=== PATIENT | male | born 1945 | race Caucasian/White ===

== ENCOUNTER → 2016-11-07 | Outpatient (CLI) | payer BC ==
[~2016-11-07] MED LIST: AMLO-114 PO; ASCO500T16 PO; ASPI81TA28 PO; ATOR-54 PO; CHOL100027 PO; CO Q10 PO; CYAN10004 PO; FERR-24 PO; GLC/500 PO; INSUINJ14 SQ; INSUINJ4 SQ; ISOS120T5 PO; LEVO100T PO; METO25TA56 PO; MULT-827 PO; MULTTAB58 PO; NTRARSCL TL; PANT1TAB48 PO; RANO1000 PO; VALS40TA2 PO
[2016-11-07 09:44] LABS: ALT/SGPT 28 U/L (12-78); AST/SGOT 13 U/L (15-37); BLOOD UREA NITROGEN 18 mg/dl (7-18); BUN/CREATININE RATIO 18.2 (10-20); CALCIUM 9.1 mg/dl (8.5-10.1); CARBON DIOXIDE 27 mmol/L (21-32); CHLORIDE 106 mmol/L (98-107); CHOLESTEROL 132 mg/dl (0-200); GLUCOSE 76 mg/dl (70-99); POTASSIUM 4.3 mmol/L (3.5-5.1); SODIUM 143 mmol/L (136-145); TRIGLYCERIDES 54 mg/dl (0-150); VERY LOW DENSITY LIPOPROT CALC 11 mg/dl
[2016-11-07 09:48] LABS: ESTIMATED AVERAGE GLUCOSE 137 mg/dl; HA1C FLAG Normal (Normal)
[2016-11-07 09:54] LABS: HDL CHOLESTEROL 65 mg/dl; LDL CHOLESTEROL CALCULATED 56 mg/dl
[2016-11-07 10:16] LABS: RATIO 28.1 mcg/mg (0-30.0)
== END | disposition home or self-care (01) ==
LOC: C.LAB1850 07:56
PROVIDERS: ATTEND Internal Medicine
DX: E11.9 Type 2 diabetes mellitus without complications (principal); E53.8 Deficiency of other specified B group vitamins; E78.5 Hyperlipidemia, unspecified

== ENCOUNTER → 2016-11-17 | Outpatient (CLI) | payer BC ==
--- NOTE | 2016-11-17 11:31 | DIAGNOSTIC IMAGING REPORT ---
CHEST 2 VIEWS ROUTINE CLINICAL HISTORY: Preoperative chest COMPARISON STUDY: 07/26/2014 FINDINGS: There are postsurgical changes of midline sternotomy. There is no failure. There is no focal pulmonary consolidation. There is minimal blunting of the right posterior costophrenic angle. A trace effusion cannot be excluded. IMPRESSION: Equivocal trace right pleural effusion. No evidence of overt failure. No evidence of focal pulmonary consolidation Electronically signed by: Richard Benoit M.D. 11/17/2016 11:30 AM Dictated Date/Time: 11/17/2016 11:28 AM
== END | disposition home or self-care (01) ==
LOC: C.RAD1850 11:18
PROVIDERS: ATTEND Internal Medicine
DX: I25.2 Old myocardial infarction (principal); I25.10 Atherosclerotic heart disease of native coronary artery without angina pectoris; I44.1 Atrioventricular block, second degree

== ENCOUNTER → 2016-12-23 | Outpatient (CLI) | payer BC ==
[2016-12-23 10:16] LABS: BLOOD UREA NITROGEN 15 mg/dl (7-18); BUN/CREATININE RATIO 13.7 (10-20); CARBON DIOXIDE 27 mmol/L (21-32); CHLORIDE 100 mmol/L (98-107); GLUCOSE 175 mg/dl (70-99); POTASSIUM 4.3 mmol/L (3.5-5.1); SODIUM 134 mmol/L (136-145)
== END | disposition home or self-care (01) ==
LOC: C.LAB1850 08:20
PROVIDERS: ATTEND Internal Medicine Cardiovascular Disease
DX: I10 Essential (primary) hypertension (principal)

== ENCOUNTER → 2017-03-14 | Outpatient (CLI) | payer BC ==
[2017-03-14 09:59] LABS: ALT/SGPT 27 U/L (12-78); AST/SGOT 10 U/L (15-37); BLOOD UREA NITROGEN 15 mg/dl (7-18); BUN/CREATININE RATIO 12.8 (10-20); CARBON DIOXIDE 27 mmol/L (21-32); CHLORIDE 103 mmol/L (98-107); CHOLESTEROL 116 mg/dl (0-200); GLUCOSE 122 mg/dl (70-99); POTASSIUM 4.3 mmol/L (3.5-5.1); SODIUM 140 mmol/L (136-145); TRIGLYCERIDES 74 mg/dl (0-150); VERY LOW DENSITY LIPOPROT CALC 15 mg/dl
[2017-03-14 10:02] LABS: CALCIUM 9.6 mg/dl (8.5-10.1)
[2017-03-14 10:09] LABS: CHOLESTEROL/HDL RATIO 2.1; HDL CHOLESTEROL 55 mg/dl; LDL CHOLESTEROL CALCULATED 46 mg/dl
[2017-03-14 10:22] LABS: ESTIMATED AVERAGE GLUCOSE 146 mg/dl; HA1C FLAG Normal (Normal)
== END | disposition home or self-care (01) ==
LOC: C.LAB1850 07:43
PROVIDERS: ATTEND Internal Medicine
DX: E11.9 Type 2 diabetes mellitus without complications (principal); E78.5 Hyperlipidemia, unspecified; E03.9 Hypothyroidism, unspecified

== ENCOUNTER → 2017-07-11 | Outpatient (CLI) | payer BC ==
[2017-07-11 12:09] LABS: BASO % 0.3 %; BASO ABS # 0.02 K/uL (0-0.2); COMPLETE YES; HEMATOCRIT 38.7 % (42-52); IG% 0.3 %; LYMPH % 25.8 %; LYMPH ABS # 1.98 K/uL (1.2-3.4); MEAN CELL VOLUME 90.8 fL (80-100); MEAN CORPUSCULAR HEMOGLOBIN 31.7 pg (25-34); MEAN CORPUSCULAR HGB CONC 34.9 g/dl (32-36); MEAN PLATELET VOLUME 10.2 fL (7.4-10.4); MONO % 6.8 %; NEUT % 64.8 %; PLATELET COUNT 284 K/uL (130-400); RED BLOOD COUNT 4.26 M/uL (4.7-6.1); WHITE BLOOD COUNT 7.68 K/uL (4.8-10.8)
[2017-07-11 12:34] LABS: ESTIMATED AVERAGE GLUCOSE 134 mg/dl; HA1C FLAG Normal (Normal)
[2017-07-11 12:36] LABS: BLOOD UREA NITROGEN 15 mg/dl (7-18); BUN/CREATININE RATIO 13.4 (10-20); CALCIUM 9.3 mg/dl (8.5-10.1); CARBON DIOXIDE 27 mmol/L (21-32); CHLORIDE 100 mmol/L (98-107); GLUCOSE 223 mg/dl (70-99); POTASSIUM 4.5 mmol/L (3.5-5.1); SODIUM 134 mmol/L (136-145)
[2017-07-11 12:45] LABS: PROSTATE SPECIFIC ANTIGEN 0.411 ng/ml (0.000-4.000)
== END | disposition home or self-care (01) ==
LOC: C.LAB1850 10:24
PROVIDERS: ATTEND Internal Medicine
DX: D64.9 Anemia, unspecified (principal); E11.9 Type 2 diabetes mellitus without complications; E03.9 Hypothyroidism, unspecified; E53.8 Deficiency of other specified B group vitamins; Z12.5 Encounter for screening for malignant neoplasm of prostate

== ENCOUNTER → 2017-07-21 | Outpatient (CLI) | payer BC ==
[2017-07-21 11:01] LABS: URINE APPEARANCE CLEAR (CLEAR); URINE BILIRUBIN NEG (NEG); URINE COLOR DK YELLOW; URINE EPITHELIAL CELL AUTO 0-5 /lpf (0-5); URINE NITRITE NEG (NEG); URINE SPECIFIC GRAVITY 1.024 (1.000-1.030); UROBILINOGEN NEG (NEG)
[2017-07-21 11:03] LABS: MANUAL MICROSCOPIC REQUIRED? NO; REVIEW REQ? NO
== END | disposition home or self-care (01) ==
LOC: C.LAB1850 09:18
PROVIDERS: ATTEND Internal Medicine
DX: R35.1 Nocturia (principal)

== ENCOUNTER → 2017-10-03 | Outpatient (CLI) | payer BC ==
--- NOTE | 2017-10-03 15:14 | DIAGNOSTIC IMAGING REPORT ---
CHEST 2 VIEWS ROUTINE CLINICAL HISTORY: R05 [id number] COMPARISON STUDY: 11/17/2016 FINDINGS: There are postsurgical changes of a midline sternotomy. The heart is borderline enlarged. There is no failure. There are no pleural effusions. There are minimal lingular opacities, atelectatic versus infectious/inflammatory.[ IMPRESSION: Minimal nonspecific lingular opacities, atelectatic versus infectious/inflammatory. Electronically signed by: Richard Benoit M.D. 10/03/2017 3:12 PM Dictated Date/Time: 10/03/2017 3:11 PM
== END | disposition home or self-care (01) ==
LOC: C.RAD 14:54
PROVIDERS: ATTEND Internal Medicine
DX: R91.8 Other nonspecific abnormal finding of lung field (principal); R05 Cough

== ENCOUNTER → 2017-10-25 | Outpatient (CLI) | payer BC ==
[~2017-10-25] MED LIST changes: -AMLO-114 PO; +AMLO10TA3 PO; +PANT1TAB3 PO; -PANT1TAB48 PO
--- NOTE | 2017-10-25 14:46 | DIAGNOSTIC IMAGING REPORT ---
CHEST 2 VIEWS ROUTINE HISTORY: J18.9 Lingular pneumonia [id number] COMPARISON: Chest 10/03/2017. FINDINGS: The lingular airspace opacity has resolved in the interval. No new focal lung consolidations to suggest pneumonia. No pleural effusions. No pneumothorax. The heart remains mildly enlarged. Poststernotomy changes. Stable old mild superior endplate compression deformity at L1. IMPRESSION: Interval resolution of the lingular airspace opacity. Stable mild cardiomegaly. Electronically signed by: Mandeep Alberto M.D. 10/25/2017 2:45 PM Dictated Date/Time: 10/25/2017 2:43 PM
== END | disposition home or self-care (01) ==
LOC: C.RAD1850 14:35
PROVIDERS: ATTEND Internal Medicine
DX: J18.9 Pneumonia, unspecified organism (principal); I51.7 Cardiomegaly

== ENCOUNTER → 2017-12-01 | Outpatient (CLI) | payer BC ==
[~2017-12-01] MED LIST changes: +AMLO-114 PO; -AMLO10TA3 PO
[2017-12-01 10:36] LABS: ALT/SGPT 37 U/L (12-78); AST/SGOT 17 U/L (15-37); BLOOD UREA NITROGEN 15 mg/dl (7-18); CALCIUM 9.4 mg/dl (8.5-10.1); CARBON DIOXIDE 30 mmol/L (21-32); CREATININE 1.14 mg/dl (0.60-1.40); GLUCOSE 84 mg/dl (70-99); POTASSIUM 4.3 mmol/L (3.5-5.1); SODIUM 137 mmol/L (136-145)
[2017-12-01 10:39] LABS: HEMOGLOBIN A1C 6.4 % (4.5-5.6)
[2017-12-01 10:42] LABS: CREATININE RANDOM URINE 31.7 mg/dl
[2017-12-01 10:47] LABS: CHOLESTEROL 117 mg/dl (0-200); LDL CHOLESTEROL CALCULATED 43 mg/dl
== END | disposition home or self-care (01) ==
LOC: C.LAB1850 09:13
PROVIDERS: ATTEND Internal Medicine
DX: R80.9 Proteinuria, unspecified (principal); E78.5 Hyperlipidemia, unspecified; E03.9 Hypothyroidism, unspecified; E11.9 Type 2 diabetes mellitus without complications

== ENCOUNTER → 2018-03-19 | Outpatient (CLI) | payer BC ==
[2018-03-19 09:52] LABS: BASO % 0.2 %; BASO ABS # 0.01 K/uL (0-0.2); EOS % 3.2 %; EOS ABS # 0.19 K/uL (0-0.5); HEMOGLOBIN 13.3 g/dL (14.0-18.0); IG# 0.01 K/uL (0.00-0.02); LYMPH % 37.2 %; LYMPH ABS # 2.24 K/uL (1.2-3.4); MEAN CELL VOLUME 90.1 fL (80-100); MEAN CORPUSCULAR HEMOGLOBIN 30.7 pg (25-34); MEAN CORPUSCULAR HGB CONC 34.1 g/dl (32-36); MEAN PLATELET VOLUME 9.7 fL (7.4-10.4); MONO % 7.1 %; MONO ABS # 0.43 K/uL (0.11-0.59); NEUT % 52.1 %; NEUT ABS # 3.14 K/uL (1.4-6.5); PLATELET COUNT 296 K/uL (130-400); RED CELL DISTRIBUTION WIDTH CV 13.8 % (11.5-14.5); RED CELL DISTRIBUTION WIDTH SD 45.5 fL (36.4-46.3); WHITE BLOOD COUNT 6.02 K/uL (4.8-10.8)
[2018-03-19 10:13] LABS: ALT/SGPT 28 U/L (12-78); AST/SGOT 15 U/L (15-37); BLOOD UREA NITROGEN 15 mg/dl (7-18); CALCIUM 8.9 mg/dl (8.5-10.1); CARBON DIOXIDE 29 mmol/L (21-32); CHOLESTEROL 125 mg/dl (0-200); CREATININE 1.12 mg/dl (0.60-1.40); GLUCOSE 131 mg/dl (70-99); LDL CHOLESTEROL CALCULATED 44 mg/dl; POTASSIUM 4.7 mmol/L (3.5-5.1); SODIUM 137 mmol/L (136-145)
[2018-03-19 10:38] LABS: HEMOGLOBIN A1C 6.7 % (4.5-5.6)
== END | disposition home or self-care (01) ==
LOC: C.LAB1850 08:37
PROVIDERS: ATTEND Internal Medicine
DX: E11.9 Type 2 diabetes mellitus without complications (principal); D64.9 Anemia, unspecified; E03.9 Hypothyroidism, unspecified; E78.5 Hyperlipidemia, unspecified

== ENCOUNTER → 2018-03-21 | Outpatient (CLI) | payer BC ==
--- NOTE | 2018-03-21 12:18 | DIAGNOSTIC IMAGING REPORT ---
R KNEE 1 OR 2 VIEWS ROUTINE CLINICAL HISTORY: Right knee pain. COMPARISON: None FINDINGS: Alignment of the right knee is anatomic. There is extensive vascular calcification. No fracture or suspicious lesion is identified. Minimal medial compartment joint space narrowing is noted. There is mild osteophytosis of the right knee. A suspected small to moderate right knee joint effusion is noted. IMPRESSION: 1. No acute fracture. 2. Possible right knee joint effusion. 3. Mild osteoarthritis of the right knee. 4. Extensive vascular calcification. Electronically signed by: Maulik Solorzano M.D. 03/21/2018 12:17 PM Dictated Date/Time: 03/21/2018 12:16 PM
== END | disposition home or self-care (01) ==
LOC: C.RAD1850 12:04
PROVIDERS: ATTEND Internal Medicine
DX: M25.561 Pain in right knee (principal); M25.861 Other specified joint disorders, right knee

== ENCOUNTER 2019-06-19 08:14 | Inpatient (IN) ==
[2019-06-19 08:45] LABS: Basophils # (auto) 0.02 K/uL (0-0.2); Basophils % (auto) 0.3 %; Eosinophils # (auto) 0.22 K/uL (0-0.5); Eosinophils % (auto) 3.2 %; Hematocrit (blood only) 41.3 % (42-52); Hemoglobin 14.5 g/dL (14.0-18.0); Immature Granulocytes # (auto) 0.02 K/uL (0.00-0.02); Immature Granulocytes % (auto) 0.3 %; Lymphocytes # (auto) 2.16 K/uL (1.2-3.4); Lymphocytes % (auto) 31.3 %; Mean Corpuscular Hgb Conc 35.1 g/dL (32-36); Mean Corpuscular Volume 90.4 fL (80-100); Monocytes # (auto) 0.57 K/uL (0.11-0.59); Monocytes % (auto) 8.2 %; Neutrophils # (auto) 3.92 K/uL (1.4-6.5); Neutrophils % (auto) 56.7 %; Platelet Count 270 K/uL (130-400); RDW Coefficient of Variation 13.1 % (11.5-14.5); Red Blood Count 4.57 M/uL (4.7-6.1); White Blood Count 6.91 K/uL (4.8-10.8)
[2019-06-19 08:51] LABS: Albumin Level 4.2 gm/dl (3.4-5.0); BUN Creatinine Ratio 16.7 (10-20); Calcium 8.9 mg/dl (8.5-10.1); Creatinine Clr Calc Pharmacy 44.3 ml/min; Est GFR (African American) 73.8; Est GFR (Non-African American) 63.7; Potassium 3.8 mmol/L (3.5-5.1)
--- NOTE | 2019-06-19 08:51 | XRay Report ---
XR chest 1V portable HISTORY: 73 years-old Male Chest Pain acute atypical chest pain COMPARISON: Chest radiographs 10/25/2017 TECHNIQUE: Portable AP view of the chest FINDINGS: Cardiac silhouette is enlarged, unchanged. Prior median sternotomy with findings suggestive of prior CABG. Calcified plaque of the thoracic aortic arch. No pneumothorax, pleural effusion, focal airspace consolidation or overt pulmonary edema. Ill-defined opacity of the right perihilar distribution may be secondary to summation density from pulmonary vasculature. Mild chronic interstitial coarsening of the lung bases. Degenerative changes of the shoulders and spine. IMPRESSION: Cardiomegaly without acute process. The above report was generated using voice recognition software. It may contain grammatical, syntax o r spelling errors. Electronically signed by: Jeffery Hooper M.D. 06/19/2019 8:50 AM
[2019-06-19 08:58] LABS: Partial Thromboplastin Time 26.9 Seconds (21.0-31.0); Prothrombin Time 10.3 Seconds (9.0-12.0)
[2019-06-19 09:09] LABS: Albumin Globulin Ratio 1.3 (0.9-2); Bilirubin,Total 0.6 mg/dl (0.2-1); Globulin 3.3 gm/dl (2.5-4.0); Total Protein 7.5 gm/dl (6.4-8.2); Troponin I 0.075 ng/ml (0-0.045)
--- NOTE | 2019-06-19 09:14 | Emergency Department Note ---
ED Visit Note I assisted attending Dr. Che in the care of this patient. Please see attending's note for details of the visit. Keri Arredondo MD [employer] Administrator PGY-3 . Resident Activity Tracking Resident Involvement: Resident Care Provided Care Provided: Adult ED
--- NOTE | 2019-06-19 09:30 | History & Physical Report ---
Date of Service June 19, 2019 Assessment & Plan (1) Non-ST elevation IL (NSTEMI): - Admit to tele - Initiate heparin gtt + bolus as well as give home medications including metoprolol tartrate 12.5 mg, amlodipine 10 mg, losartan 25 mg, Ranexa 1000 mg, Imdur 120 mg this morning - Trend cardiac biomarkers, initial set was elevated at 0.075, next set at 1430 - EKG reviewed as above - Check 2 D echo - Cardiology consulted, discussed with Dr. Hartman over the phone who agrees that we will use medical management at this time considering the patient's history of not amendable CAD with PCI on09/14/2012 during his last cardiac cath. - PT/OT consulted -A1c and lipids with a.m. labs (2) CAD (coronary artery disease): -Continue ASA 81 mg starting tomorrow, patient received full dose aspirin today -Multivessel (3) S/P CABG x 4: -Over 25 years ago, performed at [facility] [place] (4) HTN (hypertension): -Continue antihypertensives as above (5) HLD (hyperlipidemia): -Continue atorvastatin 40 mg at bedtime (6) Mitral regurgitation: -Noted, stable (7) Mobitz II: (8) Mobitz I: -Hx of intermittent Mobitz 1 and Mobitz 2 along with intermittent bradycardia -Can continue beta-beny as tolerated he has used a Holter monitor in the past, asymptomatic -HR = 38 tduring chest pain, pt wears a Fitbit -No current indication for pacemaker placement -Follows with Dr. Ni as an outpt (9) DM II (diabetes mellitus, type II), controlled: -Holding metformin -ISS with Accu-Cheks ACHS -A1c with a.m. labs -Allow HH/DM diet (10) DVT prophylaxis: -Teds, heparin drip Disposition: Patient from home, admit, will remain in the hospital x2 days History of Present Illness Primary Care Provider: Regino Jacome MD This is a 73 yo M with PMHx of CAD s/p CABGx4, hx of IL on 07/26/14 s/p lumbar decompression and fusion, last cardiac cath was in 2011 which where multivessel disease was not ammendable to PCI. Plavix discontinued in the past due to significant GI bleed. Other PMHx includes HTN, HLD, Mobitz I/II on beta blockade, Mitral regurg, carotid artery stenosis, edema, DM II. He called EMS Pt presents with acute onset of chest pain which began this morning at rest while he was getting a cup of coffee. He reports pain was a 10/10 and went into both arms and in the shoulder blades, he denies up in the jaw. Pt took 3 doses of nitro and chewed 2 baby aspirin at home which provided slight relief, but then called EMS as his pain was not significantly improved. He admits to feeling short of breath during chest pain. EMS gave 3 more doses of nitro and two more baby aspirin. Pt admits that over the past 3 days he had intermittent chest pain with exertion, and that he had used nitro on three different occasions each day, and the chest pain resolved. Pt currently has a headache after receiving total of 6 doses of nitroglycerin this morning. EKG from EMS is showing inferior and lateral ST wave inversions. EKG in the ER does not appear much different compared to previous. Cardiology discussed with myself and the ER, plan for medical management and st arting heparin gtt now. Allergies Allergy/AdvReac Type Severity Reaction Status Date / Time No Known Allergies Allergy Unverified 06/19/19 08:57 Home Medications Home Medications Medication Instructions Recorded Confirmed Type Calcium 600 + D(3) 1 tab PO HS 11/16/18 06/19/19 History Lantus Solostar U-100 Insulin 18 unit SUBCUT HS 11/16/18 06/19/19 History Novolog Flexpen U-100 Insulin 4 - 8 unit SUBCUT BID 11/16/18 06/19/19 History amlodipine 10 mg PO QAM 11/16/18 06/19/19 History ascorbic acid (vitamin C) [Vitamin 500 mg PO DAILY 11/16/18 06/19/19 History C] aspirin 81 mg PO HS 11/16/18 06/19/19 History atorvastatin 40 mg PO HS 11/16/18 06/19/19 History cholecalciferol (vitamin D3) 1,000 unit PO DAILY 11/16/18 06/19/19 History [Vitamin D3] coenzyme Q10 [Co Q-10] 200 mg PO DAILY 11/16/18 06/19/19 History cyanocobalamin (vitamin B-12) 1,000 mcg PO DAILY 11/16/18 06/19/19 History [Vitamin B-12] ferrous sulfate 2 tabs PO DAILY 11/16/18 06/19/19 History finasteride 5 mg PO HS 11/16/18 06/19/19 History furosemide 20 mg PO DAILY PRN 11/16/18 06/19/19 History isosorbide mononitrate 120 mg PO QAM 11/16/18 06/19/19 History levothyroxine 100 mcg PO QAM 11/16/18 06/19/19 History losartan 25 mg PO QPM 11/16/18 06/19/19 History metoprolol tartrate 12.5 mg PO BID 11/16/18 06/19/19 History multivitamin 1 tab PO DAILY 11/16/18 06/19/19 History nitroglycerin 1 dose SUBLINGUAL UD PRN 11/16/18 06/19/19 History metformin 1,000 mg PO BID 06/19/19 06/19/19 History pantoprazole 40 mg PO Q72H 06/19/19 06/19/19 History ranolazine 1,000 mg PO Q12 06/19/19 06/19/19 History Past Med/Surg History Medical History Mobitz I Mobitz II Mitral regurgitation DM II (diabetes mellitus, type II), controlled HLD (hyperlipidemia) HTN (hypertension) CAD (coronary artery disease) Non-ST elevation IL (NSTEMI) (Acute) Anemia BPH (benign prostatic hyperplasia) Diabetes mellitus, type 2 GERD (gastroesophageal reflux disease) Gout Hearing deficit History of anesthesia reaction hx of reaction to propofol--had mental confusion, double/blurred vision History of colon polyps Hyperlipidemia Hypertension Hypothyroidism Irregular heart beat Myocardial Infarction 2015 x2 Osteoarthritis Spinal stenosis Surgical History S/P CABG x 4 History of cardiac cath x2--last was 2014 @ [facility] [place], no stents History of colonoscopy History of lumbar spinal fusion hardware in place History of mandibular surgery pins put into lower jaw, no issues with ROM History of surgery left periorbital sx History of tooth extraction all teeth History of umbilical hernia repair x3 Hx of bilateral cataract extraction Hx of vasectomy S/P CABG x 4 1993 @ [facility] [place]--follows with Family History Father Family history of diabetes mellitus Brother Family history of diabetes mellitus 2 Sister Family history of diabetes mellitus Other No family history of adverse response to anesthesia Social History Preferred Language: Greek Communication Ability: Effective Theatrical Variety Agent Required: No Beliefs That Will Affect Care: None marital status: Current Living Situation: Spouse Other Information That Helps Us Care for You: No Feels Safe at Home: Yes Safety Concerns: Feels Safe At This Time Smoking Status: Former smoker Tobacco Type: cigarettes ; Do You Dip or Chew Tob acco: No (stopped smokeless tobacco about 2013) ; Smoking End Date: 1992 ; Second Hand Exposure: Yes (parents smoked) ; Tobacco Cessation Education Requested by Patient: No Hx Alcohol Use: Yes Alcohol type: beer, wine and hard liquor Hx Substance Use: No Review of Systems Review of Systems: Constitutional: No fever, sweats or chills Eyes: No diplopia, no worsening or blurred vision ENT: normal hearing, no trouble swallowing Respiratory: No cough, sputum, dyspnea at rest or on exertion Cardiovascular: As per HPI. Currently no chest pain, tightness or palpitations Abdomen: No pain, nausea, vomiting, diarrhea or constipation Musculoskeletal: No joint pain, calf pain, swelling Neurologic: No weakness, numbness/tingling, or balance problems Psychiatric: No anxiety or depression Skin: No rash or itch Physical Exam Physical Exam: General: awake, alert, no apparent distress, +obese Head: Normocephalic, atraumatic ENT: PERRL, EOMI, no pharyngeal exudate, mucous membranes moist Chest: Nontender to palpation, clear to auscultation, on room air, no adventitious breath sounds Cardiac: Regular rate and rhythm, +soft ELBA, no JVD, normal peripheral pulses, good capillary refill Abdominal: NABS x 4 quadrants, soft, nontender to palpation, no rebound, guarding or tenderness Extremities: Normal inspection, no peripheral edema or erythema, calfs nontender to palpation Psych: Normal mood and affect Neuro: AAO x 3, strength intact bilaterally and related 5/5, no motor deficits, speech is clear, no peripheral sensory deficits Results & Data Vital Signs (Past 12 Hours) Vital Signs Temp Pulse Pulse Resp BP BP Pulse Ox 06/19/19 09:10 81 20 150/98 H 96 06/19/19 08:20 36.5 C 81 16 157/86 H 96 Diagnostic Findings XR chest 1V portable HISTORY: 73 years-old Male Chest Pain acute atypical chest pain COMPARISON: Chest radiographs 10/25/2017 TECHNIQUE: Portable AP view of the chest FINDINGS: Cardiac silhouette is enlarged, unchanged. Prior median sternotomy with findings suggestive of prior CABG. Calcified plaque of the thoracic aortic arch. No pneumothorax, pleural effusion, focal airspace consolidation or overt pulmonary edema. Ill-defined opacity of the right perihilar distribution may be secondary to summation density from pulmonary vasculature. Mild chronic interstitial coarsening of the lung bases. Degenerative changes of the shoulders and spine. IMPRESSION: Cardiomegaly without acute process. ECG Additional Comments: 19-JUN-2019 08:19:28 [facility]-EDSTAT ROUTINE RETRIEVAL Poor data quality, interpretation may be adversely affected Sinus rhythm with 1st degree A-V block Septal infarct , age undetermined Abnormal ECG When compared with ECG of 27-JUL-2014 09:41, Questionable change in QRS axis 25mm/s 10mm/mV 150Hz 9.0.8 12SL 241 BARBARA: 10 Referred by: REFERRED SELF Unconfirmed Vent. rate 79 BPM AK interval 376 ms QRS duration 102 ms QT/QTc 412/472 ms P-R-T axes * 1 80 Code Status & VTE Plan Code Status Full code-discussed with patient and his family at bedside -Patient notes he would be okay with one resuscitation attempt, does not want any heroic measures Supervising Physician Co-Signing Physician Notes I have seen the patient with Adelina Taylor and agree with exam , assessment and plan. PG Care Time/CCT Total # of Minutes Spent Total Time Spent with Patient: Total time spent is greater than 50% in coordination of care (as documented) at patient's floor/unit and/or counseling patient:
[2019-06-19] MEDS ORDERED: Heparin IV Low Dose WITH Bolus STA (09:36)
[2019-06-19] MEDS ORDERED: HEPARIN 25000 UNIT/500 ML D5W IV ONE (09:57)
[2019-06-19] MEDS ORDERED: HEPARIN SOD 5,000 UNIT/0.5 ML VIAL ONE (09:57)
[2019-06-19] MEDS ORDERED: ISOSORBIDE MONONITRATE 120 MG PO SCH (10:00)
[2019-06-19] MEDS ORDERED: NON-FORMULARY MEDICATION (Coenzyme Q10 [Co Q-10] 200 MG) PO SCH (10:00)
[2019-06-19] MEDS ORDERED: ACETAMINOPHEN 325 MG TAB PO PRN (10:00)
[2019-06-19] MEDS ORDERED: NON-FORMULARY MEDICATION (Cholecalciferol (Vitamin D3) [Vitamin D3] 1,000 UNITS) PO SCH (10:00)
[2019-06-19] MEDS ORDERED: NON-FORMULARY MEDICATION (Cyanocobalamin (Vitamin B-12) [Vitamin B-12] 1,000 MCG) PO SCH (10:00)
[2019-06-19] MEDS ORDERED: FERROUS SULFATE PO SCH (10:00)
--- NOTE | 2019-06-19 10:15 | Emergency Department Note ---
Entered by Fawn Rashid acting as a scribe for History of Present Illness General Chief complaint: Chest Pain Time Seen by Provider: 06/19/19 08:24 Source: patient and family History of Present Illness Onset (ago): day(s) 2 Location: chest Radiation: extremity (bilateral upper) Pain Consistency: + other (persistent) Quality: + other (tightness) Relieved By: + medication (nitro, baby aspirin) Exacerbated By: + other (exertion) Associated symptoms: + denies other symptoms (abdominal pain, swelling in bilateral lower extremities) and + other (swelling in face) The patient is a 73 year old male with a history of OH, CABG, HTN, HLD, DM, GERD, and hypothyroidism that is presenting to the Emergency Room with complaints of persistent chest pain that started 2 days ago and worsened this morning around 0630. The patient reports that he was having angina symptoms with exertion for the past couple of days that would resolve with one dose of nitro. However, he states that the pain started when he was standing still this morning. He describes the pain as a tightness that radiates into his bilateral arms. He reports that he started with one dose of nitro and then took one baby aspirin after the nitro did not resolve his symptoms. He states that his symptoms continued and he took 2 more doses of nitro and 3-4 additional doses of baby aspirin. He notes that he called EMS at this time. He states that he was given 3 more doses of nitro en route in the ambulance. He states that the pain dropped to a 1/10 after the last dose of nitro. He notes some mild continued pain in his bilateral arms. He denies any abdominal pain or lower extremity swelling. The patients family states that the patients face appears slightly more swollen than usual. The patient states repeatedly that he believes this is the one. He notes that he was transferred in the past due to a multi-vessel disease. The patients records show that he was seen by Dr. Ni, Cardiology, 4 months ago without any noted changes to his treatment plan. Home Medications Home Medications Medication Instructions Recorded Confirmed Type Calcium 600 + D(3) 1 tab PO HS 11/16/18 06/19/19 History Lantus Solostar U-100 Insulin 18 unit SUBCUT HS 11/16/18 06/19/19 History Novolog Flexpen U-100 Insulin 4 - 8 unit SUBCUT BID 11/16/18 06/19/19 History amlodipine 10 mg PO QAM 11/16/18 06/19/19 History ascorbic acid (vitamin C) [Vitamin 500 mg PO DAILY 11/16/18 06/19/19 History C] aspirin 81 mg PO HS 11/16/18 06/19/19 History atorvastatin 40 mg PO HS 11/16/18 06/19/19 History cholecalciferol (vitamin D3) 1,000 unit PO DAILY 11/16/18 06/19/19 History [Vitamin D3] coenzyme Q10 [Co Q-10] 200 mg PO DAILY 11/16/18 06/19/19 History cyanocobalamin (vitamin B-12) 1,000 mcg PO DAILY 11/16/18 06/19/19 History [Vitamin B-12] ferrous sulfate 2 tabs PO DAILY 11/16/18 06/19/19 History finasteride 5 mg PO HS 11/16/18 06/19/19 History furosemide 20 mg PO DAILY PRN 11/16/18 06/19/19 History isosorbide mononitrate 120 mg PO QAM 11/16/18 06/19/19 History levothyroxine 100 mcg PO QAM 11/16/18 06/19/19 History losartan 25 mg PO QPM 11/16/18 06/19/19 History metoprolol tartrate 12.5 mg PO BID 11/16/18 06/19/19 History multivitamin 1 tab PO DAILY 11/16/18 06/19/19 History nitroglycerin 1 dose SUBLINGUAL UD PRN 11/16/18 06/19/19 History metformin 1,000 mg PO BID 06/19/19 06/19/19 History pantoprazole 40 mg PO Q72H 06/19/19 06/19/19 History ranolazine 1,000 mg PO Q12 06/19/19 06/19/19 History Allergies Allergy/AdvReac Type Severity Reaction Status Date / Time No Known Allergies Allergy Unverified 06/19/19 08:57 Past Med/Surg History Medical History Mobitz I Mobitz II Mitral regurgitation DM II (diabetes mellitus, type II), controlled HLD (hyperlipidemia) HTN (hypertension) CAD (coronary artery disease) Non-ST elevation OH (NSTEMI) (Acute) Anemia BPH (benign prostatic hyperplasia) Diabetes mellitus, type 2 GERD (gastroesophageal reflux disease) Gout Hearing deficit History of anesthesia reaction hx of reaction to propofol--had mental confusion, double/blurred vision History of colon polyps Hyperlipidemia Hypertension Hypothyroidism Irregular heart beat Myocardial Infarction 2016 x2 Osteoarthritis Spinal stenosis Surgical History S/P CABG x 4 History of cardiac cath x2--last was 2014 @ [facility] [place], no stents History of colonoscopy History of lumbar spinal fusion hardware in place History of mandibular surgery pins put into lower jaw, no issues with ROM History of surgery left periorbital sx History of tooth extraction all teeth History of umbilical hernia repair x3 Hx of bilateral cataract extraction Hx of vasectomy S/P CABG x 4 1993 @ [facility] [place]--follows with Family History Father Family history of diabetes mellitus Brother Family history of diabetes mellitus 2 Sister Family history of diabetes mellitus Other No family history of adverse response to anesthesia Social History Preferred Language: Lao Communication Ability: Effective Coal Cutter Required: No Beliefs That Will Affect Care: None marital status: Current Living Situation: Spouse Other Information That Helps Us Care for You: No Feels Safe at Home: Yes Safety Concerns: Feels Safe At This Time Smoking Status: Former smoker Tobacco Type: cigarettes ; Do You Dip or Chew Tobacco: No (stopped smokeless tobacco about 2013) ; Smoking End Date: 1992 ; Second Hand Exposure: Yes (parents smoked) ; Tobacco Cessation Education Requested by Patient: No Hx Alcohol Use: Yes Alcohol type: beer, wine and hard liquor Hx Substance Use: No Review of Systems See HPI for pertinent positives & negatives. and A total of 10 systems reviewed and were otherwise negative Physical Exam Vital Signs Vital Signs - 24 hr 06/19/19 08:20 06/19/19 08:25 06/19/19 09:10 Temperature 36.5 C Temperature Source Oral Sepsis Recent Fever Within 48 Hours No Sepsis New/Unexplained Change in Mental Status No Sepsis Action Taken by Nursing No Action Required Pulse Rate 81 Pulse Rate [Left Finger] 81 Respiratory Rate 16 20 Blood Pressure 157/86 H Blood Pressure [Right Arm] 150/98 H Blood Pressure Mean 109 Blood Pressure Mean [Right Arm] 115 Pulse Oximetry 96 96 Oxygen Delivery Method Room Air Room Air Room Air 06/19/19 09:58 Temperature Temperature Source Sepsis Recent Fever Within 48 Hours Sepsis New/Unexplained Change in Mental Status Sepsis Action Taken by Nursing Pulse Rate Pulse Rate [Left Finger] 57 L Respiratory Rate 18 Blood Pressure Blood Pressure [Right Arm] 155/65 H Blood Pressure Mean Blood Pressure Mean [Right Arm] 95 Pulse Oximetry 98 Oxygen Delivery Method Room Air GENERAL: Awake, alert, well-appearing, in no distress HENT: Normocephalic, atraumatic. EYES: Normal conjunctiva. Sclera non-icteric. NECK: Supple. No nuchal rigidity. RESPIRATORY: Clear to auscultation. No wheezes. Normal respiratory effort. CARDIAC: Normal rate. Normal rhythm. Extremities warm and well perfused. GI: Soft, non-distended. No tenderness to palpation. RECTAL: Deferred. MUSCULOSKELETAL: Atraumatic. Chest examination reveals no tenderness. LOWER EXTREMITIES: Calves are equal size bilaterally and non-tender. No edema NEURO: Normal sensorium. No sensory or motor deficits noted. No facial droop. SKIN: Warm and dry. No rash or jaundice noted. Course 0826: The patient was seen and evaluated by the Resident Physician at this time. History and physical were discussed with me. 0840:The patient was evaluated in room B12B. A complete history and physical examination was performed. 0913: I discussed the patient's case with ELLEN Tejeda, who will evaluate the patient for further management and care with Dr. Way as the attending physician. 0931: I discussed the patients case with Dr. Hartman, Cardiology, who recommended that the patient be given Heparin and be kept in the hospital for further evaluation. 0940: Upon reevaluation, the patient is resting comfortably. I discussed laboratory and radiographic results with the patient and his family. They verbalized agreement of the treatment plan. The patient will be evaluated for further management and care. Consultations Consultation #1: I discussed the patient's case with ELLEN Tejeda, who will evaluate the patient for further management and care with Dr. Way as the attending physician. Time: 09:13 Consultation #2: I discussed the patients case with Dr. Hartman, Cardiology, who recommended that the patient be given Heparin and be kept in the hospital for further evaluation. Time: 09:31 Administered Medications Amlodipine Besylate (Norvasc) 10 mg PO [facility] Stop: 07/19/19 09:59 Last Admin: 08/21/19 10:43 Dose: 10 mg Documented by: [id number] Ascorbic Acid (Vitamin C) 500 mg PO DAILY [facility] Stop: 07/19/19 09:59 Last Admin: 06/19/19 10:43 Dose: 500 mg Documented by: [id number] Ferrous Sulfate (Feosol) 650 mg PO DAILY [facility] Stop: 07/19/19 10:59 Last Admin: 06/19/19 11:24 Dose: Not Given Documented by: [id number] Heparin Sodium/Dextrose (Heparin Sodium/Dextrose) 25,000 units in 500 mls @ 16 mls/hr IV .Q24H [facility]; Protocol Stop: 07/19/19 10:44 Last Admin: 06/19/19 11:23 Dose: 800 units/hr, 16 mls/hr Documented by: [id number] Cosigned by: [id number] Insulin Aspart (Novolog Flexpen) 0 units SC ACHS [facility] Stop: 07/19/19 11:29 Last Admin: 06/19/19 13:40 Dose: Not Given Documented by: [id number] Cosigned by: [id number] Isosorbide Mononitrate (Imdur Extended Rel) 120 mg PO QAM [facility] Stop: 07/19/19 10:14 Last Admin: 06/19/19 10:44 Dose: 120 mg Documented by: [id number] Metoprolol Tartrate (Lopressor) 12.5 mg PO BID [facility] Stop: 07/19/19 09:59 Last Admin: 06/19/19 10:49 Dose: Not Given Documented by: [id number] Multivitamins (Multivitamin Tab) 1 tab PO DAILY [facility] Stop: 07/19/19 09:59 Last Admin: 06/19/19 10:43 Dose: 1 tab Documented by: [id number] Ranolazine (Ranexa) 1,000 mg PO Q12 [facility] Stop: 07/19/19 10:59 Last Admin: 06/19/19 11:24 Dose: Not Given Documented by: [id number] Discontinued Medications Heparin Sodium (Porcine) (Heparin Sodium (Porcine)) Confirm Administered Dose 5,000 units .ROUTE .STK-MED ONE Stop: 06/19/19 09:58 Last Admin: 06/19/19 10:01 Dose: 4,000 units Documented by: [id number] Cosigned by: [id number] Heparin Sodium/Dextrose () 1 ea N/A NOW STA; Protocol Stop: 06/19/19 09:37 Last Admin: 06/19/19 10:03 Dose: Not Given Documented by: [id number] Heparin Sodium/Dextrose (Heparin Sodium/Dextrose) Confirm Administered Dose 25,000 units IV .STK-MED ONE Stop: 06/19/19 09:58 Last Admin: 06/19/19 10:01 Dose: 16 units Documented by: [id number] Cosigned by: [id number] Non-Formulary Medication (Ferrous Sulfate) 2 tabs PO DAILY [facility] Stop: 07/19/19 09:59 Last Admin: 06/19/19 11:21 Dose: Not Given Documented by: [id number] Non-Formulary Medication (Isosorbide Mononitrate) 120 mg PO QAM [facility] Stop: 07/19/19 09:59 Last Admin: 06/19/19 11:22 Dose: Not Given Documented by: [id number] Non-Formulary Medication (Cholecalciferol (Vitamin D3) [Vitamin D3]) 1,000 units PO DAILY [facility] Stop: 07/19/19 09:59 Last Admin: 06/19/19 11:20 Dose: Not Given Documented by: [id number] Non-Formulary Medication (Cyanocobalamin (Vitamin B-12) [Vitamin B-12]) 1,000 mcg PO DAILY [facility] Stop: 07/19/19 09:59 Last Admin: 06/19/19 11:21 Dose: Not Given Documented by: [id number] Ranolazine (Ranexa) 1,000 mg PO Q12 [facility] Stop: 07/19/19 20:59 Last Admin: 06/19/19 10:55 Dose: 1,000 mg Documented by: [id number] Medical Decision Making Differential Diagnosis Differential diagnosis: Etiologies such as cardiac ischemia, aortic dissection, pulmonary embolism, pneu monia, pneumothorax, musculoskeletal, infections, pericarditis, myocarditis, esophageal rupture, gastrointestinal, as well as others were entertained. Medical Records Attestation: I reviewed the patient's medical records. Home Medications Current Medication List: was personally reviewed by me Laboratory Data Attestation: I reviewed the patient's lab results. Result diagrams: 06/19/19 08:20 06/19/19 08:20 Lab Results 06/19/19 06/19/19 06/19/19 Range/Units 08:20 08:20 08:20 WBC 6.91 (4.8-10.8) K/uL RBC 4.57 L (4.7-6.1) M/uL Hgb 14.5 (14.0-18.0) g/dL Hct 41.3 L (42-52) % MCV 90.4 (80-100) fL MCH 31.7 (25-34) pg MCHC 35.1 (32-36) g/dL RDW Std Deviation 43.0 (36.4-46.3) fL RDW Coeff of Stephanie 13.1 (11.5-14.5) % Plt Count 270 (130-400) K/uL MPV 10.0 (7.4-10.4) fL Immature Gran % (Auto) 0.3 % Neut % (Auto) 56.7 % Lymph % (Auto) 31.3 % [place] % (Auto) 8.2 % Eos % (Auto) 3.2 % Baso % (Auto) 0.3 % Immature Gran # (Auto) 0.02 (0.00-0.02) K/uL Neut # (Auto) 3.92 (1.4-6.5) K/uL Lymph # (Auto) 2.16 (1.2-3.4) K/uL [place] # (Auto) 0.57 (0.11-0.59) K/uL Eos # (Auto) 0.22 (0-0.5) K/uL Baso # (Auto) 0.02 (0-0.2) K/uL PT 10.3 (9.0-12.0) Seconds INR 1.0 (0.9-1.1) APTT 26.9 (21.0-31.0) Seconds PTT Ratio 1.0 Sodium 138 (136-145) mmol/L Potassium 3.8 (3.5-5.1) mmol/L Chloride 105 (98-107) mmol/L Carbon Dioxide 26 (21-32) mmol/L Anion Gap 7.0 (3-11) BUN 19 H (7-18) mg/dl Creatinine 1.13 (0.6-1.4) mg/dl Est Cr Clr Drug Dosing 44.3 ml/min Est GFR ( Amer) 73.8 Est GFR (Non-Af Amer) 63.7 BUN/Creatinine Ratio 16.7 (10-20) Glucose 106 H (70-99) mg/dl Calcium 8.9 (8.5-10.1) mg/dl Total Bilirubin 0.6 (0.2-1) mg/dl AST 19 (15-37) U/L ALT 36 (12-78) U/L Alkaline Phosphatase 74 (45-117) U/L POC Troponin I (0-0.045) ng/ml Troponin I 0.075 H* (0-0.045) ng/ml Total Protein 7.5 (6.4-8.2) gm/dl Albumin 4.2 (3.4-5.0) gm/dl Globulin 3.3 (2.5-4.0) gm/dl Albumin/Globulin Ratio 1.3 (0.9-2) Lipase 121 (73-393) U/L 06/19/19 Range/Units 08:38 WBC (4.8-10.8) K/uL RBC (4.7-6.1) M/uL Hgb (14.0-18.0) g/dL Hct (42-52) % MCV (80-100) fL MCH (25-34) pg MCHC (32-36) g/dL RDW Std Deviation (36.4-46.3) fL RDW Coeff of Stephanie (11.5-14.5) % Plt Count (130-400) K/uL MPV (7.4-10.4) fL Immature Gran % (Auto) % Neut % (Auto) % Lymph % (Auto) % [place] % (Auto) % Eos % (Auto) % Baso % (Auto) % Immature Gran # (Auto) (0.00-0.02) K/uL Neut # (Auto) (1.4-6.5) K/uL Lymph # (Auto) (1.2-3.4) K/uL [place] # (Auto) (0.11-0.59) K/uL Eos # (Auto) (0-0.5) K/uL Baso # (Auto) (0-0.2) K/uL PT (9.0-12.0) Seconds INR (0.9-1.1) APTT (21.0-31.0) Seconds PTT Ratio Sodium (136-145) mmol/L Potassium (3.5-5.1) mmol/L Chloride (98-107) mmol/L Carbon Dioxide (21-32) mmol/L Anion Gap (3-11) BUN (7-18) mg/dl Creatinine (0.6-1.4) mg/dl Est Cr Clr Drug Dosing ml/min Est GFR ( Amer) Est GFR (Non-Af Amer) BUN/Creatinine Ratio (10-20) Glucose (70-99) mg/dl Calcium (8.5-10.1) mg/dl Total Bilirubin (0.2-1) mg/dl AST (15-37) U/L ALT (12-78) U/L Alkaline Phosphatase (45-117) U/L POC Troponin I 0.04 (0-0.045) ng/ml Troponin I (0-0.045) ng/ml Total Protein (6.4-8.2) gm/dl Albumin (3.4-5.0) gm/dl Globulin (2.5-4.0) gm/dl Albumin/Globulin Ratio (0.9-2) Lipase (73-393) U/L Imaging Data Radiologist's Impression: Radiology results as stated below per my review and the radiologist's interpretation: XR chest 1V portable HISTORY: 73 years-old Male Chest Pain acute atypical chest pain COMPARISON: Chest radiographs 10/25/2017 TECHNIQUE: Portable AP view of the chest FINDINGS: Cardiac silhouette is enlarged, unchanged. Prior median sternotomy with findings suggestive of prior CABG. Calcified plaque of the thoracic aortic arch. No pneumothorax, pleural effusion, focal airspace consolidation or overt pulmonary edema. Ill-defined opacity of the right perihilar distribution may be secondary to summation density from pulmonary vasculature. Mild chronic interstitial coarsening of the lung bases. Degenerative changes of the shoulders and spine. IMPRESSION: Cardiomegaly without acute process. The above report was generated using voice recognition software. It may contain grammatical, syntax or spelling errors. Electronically signed by: Jeffery Hooper M.D. 06/19/2019 8:50 AM ECG Data Attestation: I personally reviewed and interpreted this ECG as follows: Indication: chest pain Rate (beats per minute): 79 Rhythm: sinus rhythm Findings: + 1st degree AV block; no PVC, no ST depression, no ST elevation and no acute ischemic change Blood Pressure Blood Pressure Findings: Elevated blood pressure Blood Pressure Disposition: Referred to patients primary care provider JOE Narrative Patient is a 73-year-old gentleman presenting today with a complaint of chest pain. Patient did utilize nitroglycerin 6 times prior to arrival with improvement of his pain. Patient does have a significant cardiac history with prior NSTEMI in 2013. Patient does take aspirin daily. Did take aspirin prior to arrival, 324mg. Significant cardiac history of bypass as well. Pain is now resolved. EKG appears similar to previous but prehospital EKGs do show some concerning findings of possible lateral and inferior ST depressions. Troponin is positive today. Again not having active chest pain on eval here. Discussed with cardiology and the hospitalist. Will start on a heparin drip at this time and admit for further cardiac evaluation of an NSTEMI. Doubt this represents PE based on his symptoms or dissection. Chest x-ray evidence of pneumothorax or pneumonia. Has a soft and benign abdomen otherwise. Impression & Plan Non-ST elevation OH (NSTEMI), Chest pain Critical Care Time Critical Care Time: Yes Total Critical Care Time: 30 I have personally spent 30 minutes of critical care time in the direct management of this patient. This includes bedside care, interpretation of diagnostic studies, and testing, discussion with consultants, patient, and family members, and other required patient management activities. This 30 minutes is in excess of all separately billable procedures. Discharge Plan Visit Data *Final* Discharge Date/Time: 06/19/19 11:15 Chief Complaint: Chest Pain Other Complaint: Shortness of Breath/Dyspnea ED Provider: Madi Che ED Midlevel Provider: Keri Arredondo Discharge Problem: Non-ST elevation [place] (NSTEMI), Chest pain Patient Disposition: Admitted As Inpatient Discharge Instructions Interventions: ED Discharge Assessment Last Done: 06/19/19 11:15 Discharge Problem: Chest pain Qualifiers: Chest pain type: unspecified Qualified Code(s): R07.9 - Chest pain, unspecified The goldieibe's documentation has been prepared under my direction and personally reviewed by me in its entirety. I confirm that the note above accurately reflects all work, treatment, procedures, and medical decision making performed by me.
[2019-06-19] MEDS: AMLODIPINE BESYLATE 5 MG TAB PO SCH (10:43)
[2019-06-19] MEDS: ASCORBIC ACID 500 MG TAB PO SCH (10:43)
[2019-06-19] MEDS: MULTIVITAMIN TAB PO SCH (10:43)
[2019-06-19] MEDS: ISOSORBIDE MONO EXTENDED REL 60 MG TABCR PO SCH (10:44)
[2019-06-19] MEDS ORDERED: Heparin Adult LOW DOSE Wt-Based Dextrose 5% 25,000 units/500 mL IV SCH (10:45)
[2019-06-19] MEDS: METOPROLOL TARTRATE 25 MG TAB PO SCH ×2 (10:49→20:37)
[2019-06-19] MEDS ORDERED: DEXTROSE 50% 50 ML SYRINGE IV PRN (11:18)
[2019-06-19] MEDS ORDERED: CARBOHYDRATES FOR HYPOGLYCEMIA PO PRN (11:18)
[2019-06-19] MEDS ORDERED: NITROGLYCERIN SL 0.4 MG/TAB TAB SL PRN (11:18)
[2019-06-19] MEDS ORDERED: GLUCOSE 10 TABS/TUBE PO PRN (11:18)
[2019-06-19] MEDS ORDERED: ONDANSETRON INJ 2 MG/ML 2 ML VIAL IV PRN ×2 (11:18→16:08)
[2019-06-19] MEDS ORDERED: GLUCOSE 40% GEL 15 GM TUBE PO PRN (11:18)
[2019-06-19] MEDS ORDERED: GLUCAGON FOR INJ 1 MG VIAL SQ PRN (11:18)
[2019-06-19] MEDS: FERROUS SULFATE 325 MG TAB PO SCH (11:24)
[2019-06-19] MEDS: RANOLAZINE 500 MG ER TAB PO SCH ×2 (11:24→20:39)
[2019-06-19] MEDS ORDERED: PANTOprazole 40 MG TAB PO SCH (13:00)
[2019-06-19] MEDS: INSULIN ASPART 100 UNITS/ML 3 ML PEN SC SCH ×3 (13:40→20:42)
--- NOTE | 2019-06-19 13:56 | Cardiology Consultation ---
Date of Consultation June 19, 2019 Assessment & Plan (1) Acute coronary syndromes: The patient experienced 90 minutes angina pectoris earlier today. There were no dynamic EKG changes, but his troponin is mildly elevated. Fortunately, he is now pain-free. Clearly, he will need a cardiac catheterization. Case discussed with Silvino Ni and Popeye. We will proceed later today. (2) CAD (coronary artery disease): The patient had a 4 vessel bypass procedure performed in 1992 and had a PCI to the left main in August 2012. Details described above. (3) HTN (hypertension): Adequate control on current medical regimen. (4) HLD (hyperlipidemia): Continue atorvastatin. History of Present Illness Attending Physician: Vinh Way MD History of Present Illness Mr. Carlton is a 73 old male admitted earlier today because of unstable angina pectoris. This consultation was obtained assistance cardiac management. Of note, patient typically follows with Dr. Ni in the outpatient setting. Patient was in his usual state of health until approximately 630 this morning when had the acute onset of a pressure-type sensation in his upper chest, shoulders, neck, and head. There is no associated shortness of breath, nausea, vomiting, or diaphoresis. The patient took 3 sublingual nitroglycerin sprays without change in his discomfort. He then administered 4 baby strength aspirin and called the ambulance. Ambulance arrived at approximately 7:30 a.m.. He was given several sublingual nitroglycerin tablets and his discomfort improved from an 8/10 to 6/10. After arrival to the emergency room, the patient's discomfort resolved. Total duration of his discomfort was 90 minutes. Retrospectively, the patient recalls having similar episodes the last 2 mornings. Each episode was relieved with a sublingual nitroglycerin spray. The patient's cardiac history began in August 1993 when he underwent a 4 vessel bypass. This included an AARON to the LAD, an SVG to the LCx, an SVG to the PLB jumping to the PDA. He underwent a cardiac catheterization August 2012 because of crescendo symptoms. All the grafts were patent with a 50 percent mid stenosis in the SVG to the LCx. The patient had angioplasty of the left main from 90 to 50% hoping to improve blood flow to a high marginal branch. A stent could not be deployed at that time. Currently, patient is resting comfortably in bed without complaints. Past medical and surgical history 1. Coronary artery disease 2. CABG times 4- August 1993 3. Patent grafts-August 2012 4. LM PTCA-August 2012 5. Hypertension 6. Hypercholesterolemia 7. Diastolic dysfunction 8. Mild to moderate mitral regurgitation 9. Mobitz type I/II 10. Diabetes mellitus 11. Hypothyroidism 12. Lumbar spinal stenosis 13. GERD 14. BPH 15. Colonic polyps 16. Vitamin-D deficiency 17. Inguinal hernia repair Cardiac medications 1. Heparin drip 2. Metoprolol tartrate 12.5 mg b.i.d. 3. Norvasc 10 mg daily 4. Losartan 25 mg daily 5. Imdur 120 mg daily 6. Ranexa 1000 mg b.i.d. 7. Lipitor 40 mg q.h.s. Adverse drug reaction Plavix-GI bleed Social history and lives with his Quit tobacco use at age 24 Social alcohol Family history Noncontributory Review of systems A 10 point review of systems was negative except for that described above. Allergies Allergy/AdvReac Type Severity Reaction Status Date / Time No Known Allergies Allergy Unverified 06/19/19 08:57 Home Medications Home Medications Medication Instructions Recorded Confirmed Type Calcium 600 + D(3) 1 tab PO HS 11/16/18 06/19/19 History Lantus Solostar U-100 Insulin 18 unit SUBCUT HS 11/16/18 06/19/19 History Novolog Flexpen U-100 Insulin 4 - 8 unit SUBCUT BID 11/16/18 06/19/19 History amlodipine 10 mg PO QAM 11/16/18 06/19/19 History ascorbic acid (vitamin C) [Vitamin 500 mg PO DAILY 11/16/18 06/19/19 History C] aspirin 81 mg PO HS 11/16/18 06/19/19 History atorvastatin 40 mg PO HS 11/16/18 06/19/19 History cholecalciferol (vitamin D3) 1,000 unit PO DAILY 11/16/18 06/19/19 History [Vitamin D3] coenzyme Q10 [Co Q-10] 200 mg PO DAILY 11/16/18 06/19/19 History cyanocobalamin (vitamin B-12) 1,000 mcg PO DAILY 11/16/18 06/19/19 History [Vitamin B-12] ferrous sulfate 2 tabs PO DAILY 11/16/18 06/19/19 History finasteride 5 mg PO HS 11/16/18 06/19/19 History furosemide 20 mg PO DAILY PRN 11/16/18 06/19/19 History isosorbide mononitrate 120 mg PO QAM 11/16/18 06/19/19 History levothyroxine 100 mcg PO QAM 11/16/18 06/19/19 History losartan 25 mg PO QPM 11/16/18 06/19/19 History metoprolol tartrate 12.5 mg PO BID 11/16/18 06/19/19 History multivitamin 1 tab PO DAILY 11/16/18 06/19/19 History nitroglycerin 1 dose SUBLINGUAL UD PRN 11/16/18 06/19/19 History metformin 1,000 mg PO BID 06/19/19 06/19/19 History pantoprazole 40 mg PO Q72H 06/19/19 06/19/19 History ranolazine 1,000 mg PO Q12 06/19/19 06/19/19 History Patient History Medical History Mobitz I Mobitz II Mitral regurgitation DM II (diabetes mellitus, type II), controlled HLD (hyperlipidemia) HTN (hypertension) CAD (coronary artery disease) Non-ST elevation IL (NSTEMI) (Acute) Anemia BPH (benign prostatic hyperplasia) Diabetes mellitus, type 2 GERD (gastroesophageal reflux disease) Gout Hearing deficit History of anesthesia reaction hx of reaction to propofol--had mental confusion, double/blurred vision History of colon polyps Hyperlipidemia Hypertension Hypothyroidism Irregular heart beat Myocardial Infarction 2015 x2 Osteoarthritis Spinal stenosis Surgical History S/P CABG x 4 History of cardiac cath x2--last was 2014 @ [facility] [place], no stents History of colonoscopy History of lumbar spinal fusion hardware in place History of mandibular surgery pins put into lower jaw, no issues with ROM History of surgery left periorbital sx History of tooth extraction all teeth History of umbilical hernia repair x3 Hx of bilateral cataract extraction Hx of vasectomy S/P CABG x 4 1993 @ [facility] [place]--follows with Family History Father Family history of diabetes mellitus Brother Family history of diabetes mellitus 2 Sister Family history of diabetes mellitus Other No family history of adverse response to anesthesia Social History Preferred Language: [place] Communication Ability: Effective 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: No Beliefs That Will Affect Care: None marital status: Current Living Situation: Spouse Other Information That Helps Us Care for You: No Feels Safe at Home: Yes Safety Concerns: Feels Safe At This Time Smoking Status: Former smoker Tobacco Type: cigarettes ; Do You Dip or Chew Tobacco: No (stopped smokeless tobacco about 2013) ; Smoking End Date: 1992 ; Second Hand Exposure: Yes (parents smoked) ; Tobacco Cessation Education Requested by Patient: No Hx Alcohol Use: Yes Alcohol type: beer, wine and hard liquor Hx Substance Use: No Physical Exam Physical Exam: In general this is an obese white male in no acute distress. HEENT exam is negative. Neck is supple with full carotid upstrokes. There are no carotid bruits. Jugular venous pressure is flat at 90. There is no thyromegaly. Cardiovascular exam reveals a regular rhythm with a normal S1 and S2. No S3, S4, or murmurs are noted. Lungs are clear without rales, rhonchi, or wheezes. Abdomen is soft and nontender without bruits. Extremities reveal intact radial artery and posterior tibial pulses bilaterally. There is no peripheral edema. Results & Data Vital Signs (Past 12 Hours) Vital Signs Temp Pulse Pulse Resp BP BP Pulse Ox 06/19/19 11:35 36.5 C 77 18 168/78 H 97 06/19/19 10:49 55 L 20 141/60 H 96 06/19/19 09:58 57 L 18 155/65 H 98 06/19/19 09:10 81 20 150/98 H 96 06/19/19 08:20 36.5 C 81 16 157/86 H 96 Laboratory Results CBC notes a hemoglobin of 14.5, hematocrit 41.3, white count 6.9, platelet count 355201. Electrolytes note a sodium of 138, potassium 3.8, chloride 105, bicarb 26, BUN 19, creatinine 1.13, and a glucose of 106. Troponin I level is mildly elevated at 0.075. Diagnostic Findings EKG notes normal sinus rhythm with first-degree AV block and an old anteroseptal IL pattern. Chest x-ray notes cardiomegaly but no acute disease. PG Care Time/CCT Total # of Minutes Spent Total Time Spent with Patient: Total time spent is greater than 50% in coordination of care (as documented) at patient's floor/unit and/or counseling patient:
[2019-06-19] MEDS ORDERED: MIDAZOLAM HCL 1 MG/ML 2ML VIAL ONE (14:00)
[2019-06-19] MEDS ORDERED: NiCARDipine HCL INJ 2.5 MG/ML 10 ML AMP ONE (14:01)
[2019-06-19] MEDS ORDERED: fentaNYL citrate 100 MCG/2 ML VIAL ONE (14:01)
[2019-06-19] MEDS ORDERED: NITROGLYCERIN/D5W 100MCG/ML 20ML SYR ONE (14:01)
[2019-06-19] MEDS ORDERED: HEPARIN (PORCINE) 1000 UNIT/ML 10 ML (CATH LAB USE ONLY) ONE (14:01)
[2019-06-19] MEDS ORDERED: CLOPIDOGREL BISULFATE 300 MG TAB ONE (15:30)
--- NOTE | 2019-06-19 15:41 | Post Anesthesia Assessment ---
Date of Service June 19, 2019 Post Sedation Assessment Vital Signs Temp Pulse Pulse Resp BP BP Pulse Ox 06/19/19 11:35 36.5 C 77 18 168/78 H 97 06/19/19 10:49 55 L 20 141/60 H 96 06/19/19 09:58 57 L 18 155/65 H 98 06/19/19 09:10 81 20 150/98 H 96 06/19/19 08:20 36.5 C 81 16 157/86 H 96 Recovery Score Activity: Moves 4 extremities Respiration: Deep Breath/Cough Circulation: +/-20% PreAnes Value Consciousness: Fully Awake Oxygen Saturation: O2 needed for >90% Discharge Sedation Level of Care: Fast Track Phase II Post Sedation Plan On clinical assessment, the patient appears to have tolerated the sedation without complications. Patient is recovering as anticipated. Patient will continue to be monitored by nursing and may be discharged when sedation discharge criteria are met per below protocol. Upon Completions of procedure and additional 15 minutes continue every 5 minute vital signs and the P.A.R. score; then discharge to a Phase I or Fast Track to Phase II per the following guidelines: * Discharge Patient to appropriate Phase II area if PAR is 8 or greater or return to pre- procedure baseline. The post - procedure orders will be as directed. * If PAR score is less than 8 or not return to pre-procedure baseline then patient will follow Phase I monitoring till PAR is reached for Phase II. The Phase I may be done in procedure room or may call to secure a Phase I area. * If naloxone or flumazenil are used for reversal, hold in Phase I for continued monitoring from when last reversal dose was given for a minimum of 60 minutes or longer pending the nurse and/or physician discretion of patient condition before discharge to Phase II. Please call the Sedation Physician to re-evaluate and complete post-note for discharge to Phase II area. Do NOT discharge from procedure sedation or Phase 1 until post- sedation evaluation note is complete by procedure /sedation MD Sedation Discharge Instructions to be given to the patient at discharge to home.
--- NOTE | 2019-06-19 15:41 | Pre Anesthesia Assessment ---
Date of Service June 19, 2019 Pre Sedation Assessment Vital Signs Temp Pulse Pulse Resp BP BP Pulse Ox 06/19/19 11:35 36.5 C 77 18 168/78 H 97 06/19/19 10:49 55 L 20 141/60 H 96 06/19/19 09:58 57 L 18 155/65 H 98 06/19/19 09:10 81 20 150/98 H 96 06/19/19 08:20 36.5 C 81 16 157/86 H 96 Cardiovascular RRR, no murmur, no edema Respiratory normal respiratory effort, lungs clear to auscultation Pre-Sedation Airway Assessment Smoking Status: Former smoker Hx Sleep Apnea: No Hx Difficult Intubation: No Short, Thick Neck: No Thyromental Distance: > or= 3.5 Finger Breadths Oral Cavity: + WNL Mallampati Class: III Procedure Planning Contraindications for Sedation: none Current Medications Reviewed: Yes Notes The planned sedation has been discussed with the patient. Informed Consent was obtained. I have identified the patient, determined the appropriateness of sedation and have assessed the patient immediately prior to the procedure. All medicine(s) and interventions are by my order.
--- NOTE | 2019-06-19 16:08 | Cardiac Catheterization ---
[facility] Data: Chief Executive Officer Cardiac Status Clinical evaluation leading to the procedure CAD Presenation: Non STEMI Anginal Classification: CCS IV Heart Failure: No Cardiogenic Shock within 24 Hours: No Cardiac Arrest within 24 Hours: No Stress Studies Past 6 Months: No Diagnostic Physicians Name: Ben Nye MD Status: Elective Closure Device Closure Device: Angio-Seal Recommendations: PCI without planned CABG PCI Indication: PCI for high risk Non-GURU Lesion Segment Name: SVG to OM Culprit Artery: Yes Stenosis Prior to Rx (%): 95 Chronic Total Occlusion: No IVUS: No Pre-Procedure BRYAN Flow: 2 Previously Treated Lesion: No Lesion Complexity: High/C Lesion Length (mm): 35 Thrombus Present: Yes Bifurcation Lesion: No Guidewire Across Lesion: Stenosis Post-Procedure (%): 0 Post-Procedure BRYAN Flow: 3 Devices(s) Deployed: Yes Yes Intraprocedure Events Significant Disection: No Perforation: No Cardiac Cath Procedure Full Procedure Date June 19, 2019 Pre-Procedure Diagnosis Pre-Procedure Diagnosis: Non STEMI AUC Score AUC Score: 8 Post-Procedure Diagnosis Post-Procedure Diagnosis: Severe CAD and Successful PCI Procedure(s) Performed Procedure(s) Performed: Coronary Angiography, Drug Eluting Stent and Bypass Graft Angiography [employer] Systems Adminstrator Ben Nye MD Director Of Recruitment And Admissions(s) Nitin Estimated Blood Loss Estimated Blood Loss: 15 Medication(s) Medication(s): Clopidogrel, Fentanyl, Heparin, Integrilin, Lidocaine 1%, Nicardipine and Versed Summary of Findings Indication: ACS Access: 6 Fr right common femoral artery Catheters: JL4, JR4, MPA. JR4 guide Findings: LM -calcified, chronic 99% distal stenosis LAD -chronic 100% occlusion at ostium Circumflex -chronic 99% ostial stenosis into small high OM1 RCA -100% chronic proximal occlusion AARON to LADwidely patent Sequential SVG to PDA, PLBwidely patent SVG to OM 395% acute mid segment stenosis. Retrofills into distal circumflex, OM 2. -- PCI -- Antithrombotic therapy: Heparin, bolus Integrilin, clopidogrel Procedure: SVG to OM ostium cannulated with JR4 guide Filter wire passed across mid graft stenosis and deployed Mid graft lesion predilated with 2.5 compliant balloon Dilated lesion stented with 3.5 x 38 mm Xience Valery drug-eluting stent Stent post-dilated with 4.0 noncompliant balloon IC Integrilin and vasodilators administered Post procedure BRYAN 3 flow, mild in-stent residual stenosis, no apparent cardiac complications. Arterial Closure: Angio-Seal Summary: 1. Acute 95% SVG to OM stenosis 2. Severe chronic multivessel [place] coronary artery disease 99% distal left main/ostial circumflex leading into small OM1 100% ostial LAD 100% proximal circumflex after OM1 100% proximal RCA 3. Patent AARON to LAD, sequential SVG to right PDA, PLB 4. Successful PCI of mid SVG to OM graft with single drug-eluting stent (3.5 x 38 mm Xience Valery, postdilated with 4.0 NC). Recommendations: To PCU for continued monitoring Loaded with clopidogrel 600 mg in lab nurse Continue dual-antiplatelet therapy for at least one year Continue statin, and ASCVD risk factor modification Consult cardiac Rehab Hemodynamics Rest Ao:: 116/55/82 Final Ao: 117/50/78 LV: -- Recommendations Recommendations: PCI without planned CABG Specimens Specimens: None Radiation Exposure (mGy) 1410 Contrast (mls) 160 Fluids (cc crystalloids) Fluids (cc crystalloids): 130 Drains Drains: none Anesthesia moderate Procedural Complication(s) None Disposition PCU
[2019-06-19] MEDS ORDERED: SODIUM CHLORIDE 0.9% 1000ML 1,000 ML IV SCH (16:15)
[2019-06-19] MEDS ORDERED: Nursing to Pharmacy Communication ONE (18:23)
[2019-06-19] MEDS: ASPIRIN 81 MG ECTAB PO SCH (20:38)
[2019-06-19] MEDS: LOSARTAN POTASSIUM 25 MG TAB PO SCH (20:38)
[2019-06-19] MEDS: ATORVASTATIN 40 MG TAB PO SCH (20:39)
[2019-06-19] MEDS: CALCIUM 600MG + VIT D 400 IU TAB PO SCH (20:40)
[2019-06-19] MEDS: FINASTERIDE 5 MG TAB PO SCH (20:40)
[2019-06-19] MEDS: INSULIN GLARGINE SOLOSTAR 100 UNITS/ML 3 ML PEN SQ SCH (20:41)
[2019-06-19] MEDS ORDERED: RANOLAZINE 500 MG ER TAB PO SCH (21:00)
[2019-06-20] MEDS: LEVOTHYROXINE SODIUM 100 MCG TABLET PO SCH (06:01)
[2019-06-20] MEDS: PANTOprazole 40 MG TAB PO SCH (06:06)
[2019-06-20 07:12] LABS: Basophils # (auto) 0.02 K/uL (0-0.2); Basophils % (auto) 0.2 %; Eosinophils # (auto) 0.15 K/uL (0-0.5); Eosinophils % (auto) 1.9 %; Hematocrit (blood only) 39.9 % (42-52); Hemoglobin 14.2 g/dL (14.0-18.0); Immature Granulocytes # (auto) 0.01 K/uL (0.00-0.02); Immature Granulocytes % (auto) 0.1 %; Lymphocytes # (auto) 2.59 K/uL (1.2-3.4); Lymphocytes % (auto) 32.3 %; Mean Corpuscular Hgb Conc 35.6 g/dL (32-36); Mean Corpuscular Volume 89.1 fL (80-100); Mean Platelet Volume 9.7 fL (7.4-10.4); Monocytes # (auto) 0.81 K/uL (0.11-0.59); Monocytes % (auto) 10.1 %; Neutrophils # (auto) 4.43 K/uL (1.4-6.5); Neutrophils % (auto) 55.4 %; Platelet Count 273 K/uL (130-400); RDW Coefficient of Variation 13.2 % (11.5-14.5); RDW Standard Deviation 42.6 fL (36.4-46.3); Red Blood Count 4.48 M/uL (4.7-6.1); White Blood Count 8.01 K/uL (4.8-10.8)
[2019-06-20 07:18] LABS: Partial Thromboplastin Time 27.1 Seconds (21.0-31.0)
[2019-06-20 07:24] LABS: Estimated Average Glucose 148 mg/dl; Hemoglobin A1C 6.8 % (4.5-5.6)
[2019-06-20 07:46] LABS: Albumin Level 3.7 gm/dl (3.4-5.0); BUN Creatinine Ratio 13.1 (10-20); Calcium 9.1 mg/dl (8.5-10.1); Creatinine Clr Calc Pharmacy 52.5 ml/min; Est GFR (African American) 71.5; Est GFR (Non-African American) 61.7; Potassium 3.7 mmol/L (3.5-5.1)
[2019-06-20 07:49] LABS: Albumin Globulin Ratio 1.2 (0.9-2); Bilirubin,Total 0.6 mg/dl (0.2-1); Globulin 3.1 gm/dl (2.5-4.0); Total Protein 6.8 gm/dl (6.4-8.2)
[2019-06-20] MEDS ORDERED: FERROUS SULFATE 325 MG TAB PO SCH (09:00)
[2019-06-20] MEDS: INSULIN ASPART 100 UNITS/ML 3 ML PEN SC SCH ×4 (09:14→20:57)
[2019-06-20] MEDS: ISOSORBIDE MONO EXTENDED REL 60 MG TABCR PO SCH (09:15)
[2019-06-20] MEDS: RANOLAZINE 500 MG ER TAB PO SCH ×2 (09:16→20:57)
[2019-06-20] MEDS: METOPROLOL TARTRATE 25 MG TAB PO SCH ×2 (09:16→20:56)
[2019-06-20] MEDS: AMLODIPINE BESYLATE 5 MG TAB PO SCH (09:18)
[2019-06-20] MEDS: CYANOCOBALAMIN 500 MCG TABLET (VITAMIN B-12) PO SCH (09:19)
[2019-06-20] MEDS: ASCORBIC ACID 500 MG TAB PO SCH (09:19)
[2019-06-20] MEDS: CHOLECALCIFEROL 1,000 UNITS TAB PO SCH (09:20)
[2019-06-20] MEDS: FERROUS SULFATE 325 MG TAB PO SCH (09:20)
[2019-06-20] MEDS: MULTIVITAMIN TAB PO SCH (09:20)
--- NOTE | 2019-06-20 09:43 | Cardiology Progress Note ---
Date of Service June 20, 2019 Assessment & Plan (1) Non-ST elevation [place] (NSTEMI): No further angina. He is now status post PCI of SVG to OM with drug- eluting stent. Continue dual anti-platelet therapy for at least 1 year, including aspirin 81 mg daily and Plavix 75 mg daily. Continue low-dose beta- beny as tolerated. Continue high-intensity statin therapy. Continue ARB. Cardiac rehabilitation recommended on discharge. (2) CAD (coronary artery disease): Status post CABG x4. Underwent SVG PCI 06/19/2019. Plan as above. (3) S/P CABG x 4: PCI of the SVG to OM. Plan as above. (4) Mobitz I: Asymptomatic. This is a chronic issue. He does have episodes of 2-1 av block as well. He has been evaluated by EP in the past. Continue low-dose beta-beny as tolerated. (5) HTN (hypertension): Blood pressure has been normotensive and at times mildly hypertensive. Continue current regimen for now. Further titration can be done as necessary to optimize blood pressure. (6) HLD (hyperlipidemia): Continue high-intensity statin therapy. Disposition: Cardiology will continue to follow. Recommend hospitalization for at least 48 hours following myocardial infarction. Remain hospitalized today. No further procedure planned at this time from a cardiac perspective. Subjective He has not had any further angina since SVG stent yesterday. He denies shortness of breath, syncope, near-syncope, palpitations, femoral cath site bleeding or tenderness, edema, melena, hematochezia, hematuria. He has not yet ambulated. His is present at the bedside. Review of systems: As above. Physical Exam Physical Exam: Gen.: No acute distress. Alert and oriented. HEENT: Anicteric sclera. Neck: No JVD. Cardiac: Regular. Normal S1-S2. 1/6 systolic murmur. No rubs, or gallops. Pulmonary: Clear to auscultation bilaterally without wheezes, rales, or rhonchi. Abdomen: Soft, nontender, nondistended, with normoactive bowel sounds. No bruits noted. Extremities: Trace bilateral lower extremity edema. No cyanosis. Right femoral catheterization site is clean, dry, and intact without erythema, discharge, or hematoma. Psychiatric: Affect appears appropriate. Results & Data Vital Signs (Past 12 Hours) Vital Signs Temp Pulse Pulse Resp BP Pulse Ox 06/20/19 07:11 36.7 C 58 L 18 144/70 H 98 06/20/19 03:42 36.9 C 36 L 20 136/75 96 06/19/19 23:28 36.8 C 58 L 15 127/74 97 06/19/19 22:20 38 L Laboratory Results Laboratory Results - last 24 hr 06/19/19 06/19/19 06/19/19 11:15 15:03 15:58 WBC RBC Hgb Hct MCV MCH MCHC RDW Std Deviation RDW Coeff of Stephanie Plt Count MPV Immature Gran % (Auto) Neut % (Auto) Lymph % (Auto) Christian % (Auto) Eos % (Auto) Baso % (Auto) Immature Gran # (Auto) Neut # (Auto) Lymph # (Auto) Christian # (Auto) Eos # (Auto) Baso # (Auto) APTT PTT Ratio Activ Coag Time Kaolin 279 H Sodium Potassium Chloride Carbon Dioxide Anion Gap BUN Creatinine Est Cr Clr Drug Dosing Est GFR ( Amer) Est GFR (Non-Af Amer) BUN/Creatinine Ratio Glucose POC Glucose 136 H Estimat Average Glucose Hemoglobin A1c Calcium Total Bilirubin AST ALT Alkaline Phosphatase Troponin I 5.210 H* Total Protein Albumin Globulin Albumin/Globulin Ratio Triglycerides Cholesterol LDL Cholesterol, Calc VLDL Cholesterol, Calc HDL Cholesterol Cholesterol/HDL Ratio 06/19/19 06/19/19 06/19/19 16:38 20:30 23:46 WBC RBC Hgb Hct MCV MCH MCHC RDW Std Deviation RDW Coeff of Stephanie Plt Count MPV Immature Gran % (Auto) Neut % (Auto) Lymph % (Auto) Christian % (Auto) Eos % (Auto) Baso % (Auto) Immature Gran # (Auto) Neut # (Auto) Lymph # (Auto) Christian # (Auto) Eos # (Auto) Baso # (Auto) APTT PTT Ratio Activ Coag Time Kaolin Sodium Potassium Chloride Carbon Dioxide Anion Gap BUN Creatinine Est Cr Clr Drug Dosing Est GFR ( Amer) Est GFR (Non-Af Amer) BUN/Creatinine Ratio Glucose POC Glucose 180 H 136 H Estimat Average Glucose Hemoglobin A1c Calcium Total Bilirubin AST ALT Alkaline Phosphatase Troponin I 10.200 H* Total Protein Albumin Globulin Albumin/Globulin Ratio Triglycerides Cholesterol LDL Cholesterol, Calc VLDL Cholesterol, Calc HDL Cholesterol Cholesterol/HDL Ratio 06/20/19 06/20/19 06/20/19 06:48 06:48 06:48 WBC 8.01 RBC 4.48 L Hgb 14.2 Hct 39.9 L MCV 89.1 MCH 31.7 MCHC 35.6 RDW Std Deviation 42.6 RDW Coeff of Stephanie 13.2 Plt Count 273 MPV 9.7 Immature Gran % (Auto) 0.1 Neut % (Auto) 55.4 Lymph % (Auto) 32.3 Christian % (Auto) 10.1 Eos % (Auto) 1.9 Baso % (Auto) 0.2 Immature Gran # (Auto) 0.01 Neut # (Auto) 4.43 Lymph # (Auto) 2.59 Christian # (Auto) 0.81 H Eos # (Auto) 0.15 Baso # (Auto) 0.02 APTT PTT Ratio Activ Coag Time Kaolin Sodium 141 Potassium 3.7 Chloride 107 Carbon Dioxide 28 Anion Gap 6.0 BUN 15 Creatinine 1.16 Est Cr Clr Drug Dosing 52.5 Est GFR ( Amer) 71.5 Est GFR (Non-Af Amer) 61.7 BUN/Creatinine Ratio 13.1 Glucose 78 POC Glucose Estimat Average Glucose 148 Hemoglobin A1c 6.8 H Calcium 9.1 Total Bilirubin 0.6 AST 47 H ALT 36 Alkaline Phosphatase 63 Troponin I Total Protein 6.8 Albumin 3.7 Globulin 3.1 Albumin/Globulin Ratio 1.2 Triglycerides 68 Cholesterol 120 LDL Cholesterol, Calc 42 VLDL Cholesterol, Calc 14 HDL Cholesterol 64 Cholesterol/HDL Ratio 2 06/20/19 06/20/19 06:48 07:27 WBC RBC Hgb Hct MCV MCH MCHC RDW Std Deviation RDW Coeff of Stephanie Plt Count MPV Immature Gran % (Auto) Neut % (Auto) Lymph % (Auto) Christian % (Auto) Eos % (Auto) Baso % (Auto) Immature Gran # (Auto) Neut # (Auto) Lymph # (Auto) Christian # (Auto) Eos # (Auto) Baso # (Auto) APTT 27.1 PTT Ratio 1.0 Activ Coag Time Kaolin Sodium Potassium Chloride Carbon Dioxide Anion Gap BUN Creatinine Est Cr Clr Drug Dosing Est GFR ( Amer) Est GFR (Non-Af Amer) BUN/Creatinine Ratio Glucose POC Glucose 75 Estimat Average Glucose Hemoglobin A1c Calcium Total Bilirubin AST ALT Alkaline Phosphatase Troponin I Total Protein Albumin Globulin Albumin/Globulin Ratio Triglycerides Cholesterol LDL Cholesterol, Calc VLDL Cholesterol, Calc HDL Cholesterol Cholesterol/HDL Ratio Diagnostic Findings Telemetry personally reviewed: Sinus with episodes of Mobitz 1 and at times 2-1 av block. Echo 06/19/2019: Reported as normal LV systolic function. EF 50-55%. Hypokinesis of the mid lateral wall. Mild MR. Cardiac catheterization 06/19/2019: 1. Acute 95% SVG to OM stenosis 2. Severe chronic multivessel iliamna coronary artery disease 99% distal left main/ostial circumflex leading into small OM1 100% ostial LAD 100% proximal circumflex after OM1 100% proximal RCA 3. Patent AARON to LAD, sequential SVG to right PDA, PLB 4. Successful PCI of mid SVG to OM graft with single drug-eluting stent (3.5 x 38 mm Xience Valery, postdilated with 4.0 NC). Medications Administered Current Inpatient Medications Acetaminophen (Tylenol) 650 mg PO Q4H PRN PRN Reason: Moderate Pain Stop: 07/19/19 09:59 Amlodipine Besylate (Norvasc) 10 mg PO QAM [facility] Stop: 07/19/19 09:59 Last Admin: 06/20/19 09:18 Dose: 10 mg Documented by: Ascorbic Acid (Vitamin C) 500 mg PO DAILY [facility] Stop: 07/19/19 09:59 Last Admin: 06/20/19 09:19 Dose: 500 mg Documented by: Aspirin (Ecotrin Ectab) 81 mg PO HS [facility] Stop: 07/19/19 20:59 Last Admin: 06/19/19 20:38 Dose: 81 mg Documented by: Atorvastatin Calcium (Lipitor) 40 mg PO HS [facility] Stop: 07/19/19 20:59 Last Admin: 06/19/19 20:39 Dose: 40 mg Documented by: Clopidogrel Bisulfate (Plavix) 75 mg PO QAM [facility] Stop: 07/20/19 11:59 Cyanocobalamin (Vitamin B-12) 1,000 mcg PO DAILY [facility] Stop: 07/20/19 08:59 Last Admin: 06/20/19 09:19 Dose: 1,000 mcg Documented by: Dextrose (Dextrose 50%) 25 - 50 ml IV UD PRN; Protocol PRN Reason: Hypoglycemia Protocol Stop: 07/19/19 11:17 Ferrous Sulfate (Feosol) 650 mg PO DAILY [facility] Stop: 07/19/19 10:59 Last Admin: 06/20/19 09:20 Dose: 650 mg Documented by: Finasteride (Proscar) 5 mg PO HS [facility] Stop: 07/19/19 20:59 Last Admin: 06/19/19 20:40 Dose: 5 mg Documented by: Glucagon (Glucagen) 1 mg SQ UD PRN; Protocol PRN Reason: Hypoglycemia Protocol Stop: 07/19/19 11:17 Glucose (Glucose 40%) 15 - 30 gm PO UD PRN; Protocol PRN Reason: Hypoglycemia Protocol Stop: 07/19/19 11:17 Glucose (Dex4 Glucose) 4 - 8 tabs PO UD PRN; Protocol PRN Reason: Hypoglycemia Protocol Stop: 07/19/19 11:17 Insulin Aspart (Novolog Flexpen) 0 units SC ACHS [facility] Stop: 07/19/19 11:29 Last Admin: 06/20/19 09:14 Dose: Not Given Documented by: Insulin Glargine (Lantus Solostar Pen) 18 units SQ HS [facility] Stop: 07/19/19 20:59 Last Admin: 06/19/19 20:41 Dose: 18 units Documented by: Isosorbide Mononitrate (Imdur Extended Rel) 120 mg PO QAM [facility] Stop: 07/19/19 10:14 Last Admin: 06/20/19 09:15 Dose: 120 mg Documented by: Levothyroxine Sodium (Synthroid) 100 mcg PO DAILYBB [facility] Stop: 07/20/19 06:29 Last Admin: 06/20/19 06:01 Dose: 100 mcg Documented by: Losartan Potassium (Cozaar) 25 mg PO QPM [facility] Stop: 07/19/19 20:59 Last Admin: 06/19/19 20:38 Dose: 25 mg Documented by: Metoprolol Tartrate (Lopressor) 12.5 mg PO BID [facility] Stop: 07/19/19 09:59 Last Admin: 06/20/19 09:16 Dose: 12.5 mg Documented by: Miscellaneous (Carbohydrates For Hypoglycemia) 15 - 30 gm PO UD PRN PRN Reason: Hypoglycemia Treatment Stop: 07/19/19 11:17 Multivitamins (Multivitamin Tab) 1 tab PO DAILY [facility] Stop: 07/19/19 09:59 Last Admin: 06/20/19 09:20 Dose: 1 tab Documented by: Multivitamins/Minerals (Caltrate Plus) 1 tab PO HS [facility] Stop: 07/19/19 20:59 Last Admin: 06/19/19 20:40 Dose: 1 tab Documented by: Nitroglycerin (Nitrostat) 0.4 mg SL UD PRN PRN Reason: Angina Stop: 07/19/19 11:17 Ondansetron HCl (Zofran) 4 mg IV Q6H PRN PRN Reason: Nausea And Vomiting Stop: 07/19/19 16:07 Pantoprazole Sodium (Protonix) 40 mg PO Q3D@0700 [facility] Stop: 07/20/19 06:59 Last Admin: 06/20/19 06:06 Dose: 40 mg Documented by: Ranolazine (Ranexa) 1,000 mg PO Q12 [facility] Stop: 07/19/19 10:59 Last Admin: 06/20/19 09:16 Dose: 1,000 mg Documented by: Vitamin D (Vitamin D3) 1,000 units PO DAILY [facility] Stop: 07/20/19 08:59 Last Admin: 06/20/19 09:20 Dose: 1,000 units Documented by: PG Care Time/CCT Total # of Minutes Spent Total Time Spent with Patient: Total time spent is greater than 50% in coordination of care (as documented) at patient's floor/unit and/or counseling patient:
[2019-06-20] MEDS: CLOPIDOGREL BISULFATE 75 MG TAB PO SCH (12:01)
--- NOTE | 2019-06-20 20:49 | Hospitalist Progress Note ---
Date of Service June 20, 2019 Assessment & Plan (1) Non-ST elevation [place] (NSTEMI): - Admit to tele -Status post SVG placement, trending down troponins. - PT/OT consulted - A1c 7.1 and lipids low (2) CAD (coronary artery disease): -Continue ASA 81 mg starting tomorrow, patient received full dose aspirin today -Multivessel (3) S/P CABG x 4: -Over 25 years ago[place] [facility] [place]4) HTN (hypertension): -Continue antihypertensives as above (5) HLD (hyperlipidemia): -Continue atorvastatin 40 mg at bedtime (6) Mitral regurgitation: -Noted, stable (7) DM II (diabetes mellitus, type II), controlled: -Holding metformin -ISS with Accu-Cheks ACHS -A1c 7.1 -Allow HH/DM diet (8) DVT prophylaxis: -Teds Disposition: Patient from home, admit, will remain in the hospital x2 days Subjective Patient seen and examined at the bedside. Last night heparin drip was stopped and patient was taken for the cardiac cath. Patient is status post SVG stent placement last night. He denies chills, fever, headache, chest pain, shortness of breath, syncope, near-syncope, palpitations, femoral cath site bleeding or tenderness, edema, melena, hematochezia, hematuria. Patient is still resting in the bed. Appetite is improving. Afebrile and hemodynamically stable. Trending down troponin. Review of Systems Review of Systems: All systems reviewed & are unremarkable except as noted in HPI & below Physical Exam Constitutional: WD/WN, vitals as above Eyes: PERRL, conjunctivae normal, anicteric sclerae ENMT: external ear and nose normal, oropharynx normal Neck: trachea midline, no thyromegaly Respiratory: normal respiratory effort, lungs clear to auscultation Cardiovascular: RRR, no murmur, no edema Chest (Breasts): normal inspection/palpation of breasts Gastrointestinal (Abdomen): normal bowel sounds, soft, nontender, no hepatosplenomegaly Musculoskeletal: Insertion of the catheter at the femoral vein clean dry and intact no bleeding Skin: no rashes, warm and dry Neurologic: patellar DTR's 2+ bilat, sensation intact Psychiatric: A+Ox3, euthymic affect Genitourinary: no testicular masses, no penis abnormality Lymphatic: no cervical or axillary lymphadenopathy Results & Data Vital Signs (Past 12 Hours) Vital Signs Temp Pulse Pulse Resp BP Pulse Ox 06/20/19 18:58 37.4 C 59 L 18 125/65 97 06/20/19 16:27 39 L 06/20/19 15:36 37.1 C 50 L 18 109/60 97 06/20/19 11:09 37.1 C 52 L 16 116/59 L 95 PG Care Time/CCT Total # of Minutes Spent Total Time Spent with Patient: Total time spent is greater than 50% in coordination of care (as documented) at patient's floor/unit and/or counseling patient:
[2019-06-20] MEDS: CALCIUM 600MG + VIT D 400 IU TAB PO SCH (20:55)
[2019-06-20] MEDS: LOSARTAN POTASSIUM 25 MG TAB PO SCH (20:55)
[2019-06-20] MEDS: ASPIRIN 81 MG ECTAB PO SCH (20:55)
[2019-06-20] MEDS: ATORVASTATIN 40 MG TAB PO SCH (20:56)
[2019-06-20] MEDS: INSULIN GLARGINE SOLOSTAR 100 UNITS/ML 3 ML PEN SQ SCH (20:56)
[2019-06-20] MEDS: FINASTERIDE 5 MG TAB PO SCH (20:58)
[2019-06-21 05:59] LABS: Hematocrit (blood only) 38.7 % (42-52); Hemoglobin 13.6 g/dL (14.0-18.0); Mean Corpuscular Hgb Conc 35.1 g/dL (32-36); Mean Platelet Volume 10.2 fL (7.4-10.4); Platelet Count 258 K/uL (130-400); RDW Coefficient of Variation 13.1 % (11.5-14.5); RDW Standard Deviation 42.6 fL (36.4-46.3); Red Blood Count 4.35 M/uL (4.7-6.1); White Blood Count 7.39 K/uL (4.8-10.8)
[2019-06-21] MEDS: LEVOTHYROXINE SODIUM 100 MCG TABLET PO SCH (06:18)
[2019-06-21 06:31] LABS: Albumin Level 3.4 gm/dl (3.4-5.0); BUN Creatinine Ratio 16.1 (10-20); Calcium 8.9 mg/dl (8.5-10.1); Creatinine Clr Calc Pharmacy 47.9 ml/min; Est GFR (African American) 64.1; Est GFR (Non-African American) 55.3; Potassium 3.8 mmol/L (3.5-5.1)
[2019-06-21 06:33] LABS: Albumin Globulin Ratio 1.1 (0.9-2); Bilirubin,Total 0.6 mg/dl (0.2-1); Globulin 3.2 gm/dl (2.5-4.0); Total Protein 6.6 gm/dl (6.4-8.2)
[2019-06-21] MEDS: AMLODIPINE BESYLATE 5 MG TAB PO SCH (07:53)
[2019-06-21] MEDS: METOPROLOL TARTRATE 25 MG TAB PO SCH (07:53)
[2019-06-21] MEDS: CLOPIDOGREL BISULFATE 75 MG TAB PO SCH (07:54)
[2019-06-21] MEDS: ISOSORBIDE MONO EXTENDED REL 60 MG TABCR PO SCH (07:54)
[2019-06-21] MEDS: MULTIVITAMIN TAB PO SCH (07:54)
[2019-06-21] MEDS: CHOLECALCIFEROL 1,000 UNITS TAB PO SCH (07:54)
[2019-06-21] MEDS: PANTOprazole 40 MG TAB PO SCH (07:55)
[2019-06-21] MEDS: ASCORBIC ACID 500 MG TAB PO SCH (07:55)
[2019-06-21] MEDS: CYANOCOBALAMIN 500 MCG TABLET (VITAMIN B-12) PO SCH (07:57)
[2019-06-21] MEDS: RANOLAZINE 500 MG ER TAB PO SCH (07:57)
[2019-06-21] MEDS: FERROUS SULFATE 325 MG TAB PO SCH (08:01)
[2019-06-21] MEDS: INSULIN ASPART 100 UNITS/ML 3 ML PEN SC SCH (08:34)
--- NOTE | 2019-06-21 11:16 | Cardiology Progress Note ---
Date of Service June 21, 2019 Assessment & Plan (1) Non-ST elevation CA (NSTEMI): He has been free from angina since PCI. He is now status post PCI of SVG to OM with drug-eluting stent. Continue dual anti-platelet therapy for at least 1 year, including aspirin 81 mg daily and Plavix 75 mg daily. Continue low-dose beta-beny as tolerated. Continue high-intensity statin therapy. Continue ARB. Cardiac rehabilitation recommended on discharge, which was discussed with him today. (2) CAD (coronary artery disease): Status post CABG x4. Underwent SVG PCI 06/19/2019. Plan as above. (3) S/P CABG x 4: PCI of the SVG to OM. Plan as above. (4) Mobitz I: Asymptomatic. This is a chronic issue. He does have episodes of 2-1 av block as well. He has been evaluated by EP in the past. Continue low-dose beta-beny as tolerated. We discussed that he may need a pacemaker at some point in the future but there is no indication at this time. Call for syncope or near-syncope. (5) HTN (hypertension): Blood pressure has been mostly normotensive. Continue current regimen. (6) HLD (hyperlipidemia): Continue high-intensity statin therapy. Disposition: He can be discharged from a cardiac perspective today. Cardiology office was contacted to arrange appointment in 1 week. Cardiac rehabilitation also recommended. Please call with any other questions or concerns. Subjective He feels well and would like to go home. No angina, shortness of breath, syncope, near-syncope, palpitations, edema, or right femoral catheterization site issues. He denies melena, hematochezia, or hematuria. He ambulated in the hallway without symptoms. His is present at the bedside. Review of systems: As above. Physical Exam Physical Exam: Gen.: No acute distress. Alert and oriented. HEENT: Anicteric sclera. Neck: No JVD. Cardiac: Irregular at times. Normal S1-S2. 1/6 systolic murmur. No rubs, or gallops. Pulmonary: Clear to auscultation bilaterally without wheezes, rales, or rhonchi. Abdomen: Soft, nontender, nondistended, with normoactive bowel sounds. No bruits noted. Extremities: Trace bilateral lower extremity edema. No cyanosis. Right femoral catheterization site is clean, dry, and intact without erythema, discharge, or hematoma. Psychiatric: Affect appears appropriate. Results & Data Vital Signs (Past 12 Hours) Vital Signs Temp Pulse Pulse Resp BP Pulse Ox 06/21/19 08:00 41 L 06/21/19 07:38 36.7 C 74 16 148/70 H 99 06/21/19 04:06 36.5 C 36 L 17 131/56 L 98 06/20/19 23:53 51 L 06/20/19 23:46 36.7 C 58 L 15 137/76 98 Laboratory Results Laboratory Results - last 24 hr 06/20/19 06/20/19 06/20/19 11:14 11:28 16:10 WBC RBC Hgb Hct MCV MCH MCHC RDW Std Deviation RDW Coeff of Stephanie Plt Count MPV Sodium Potassium Chloride Carbon Dioxide Anion Gap BUN Creatinine Est Cr Clr Drug Dosing Est GFR ( Amer) Est GFR (Non-Af Amer) BUN/Creatinine Ratio Glucose POC Glucose 181 H 89 Calcium Total Bilirubin AST ALT Alkaline Phosphatase Troponin I 4.670 H* Total Protein Albumin Globulin Albumin/Globulin Ratio 06/20/19 06/20/19 06/20/19 17:00 20:17 22:54 WBC RBC Hgb Hct MCV MCH MCHC RDW Std Deviation RDW Coeff of Stephanie Plt Count MPV Sodium Potassium Chloride Carbon Dioxide Anion Gap BUN Creatinine Est Cr Clr Drug Dosing Est GFR ( Amer) Est GFR (Non-Af Amer) BUN/Creatinine Ratio Glucose POC Glucose 158 H Calcium Total Bilirubin AST ALT Alkaline Phosphatase Troponin I 4.000 H* 3.710 H* Total Protein Albumin Globulin Albumin/Globulin Ratio 06/21/19 06/21/19 06/21/19 05:19 05:19 05:19 WBC 7.39 RBC 4.35 L Hgb 13.6 L Hct 38.7 L MCV 89.0 MCH 31.3 MCHC 35.1 RDW Std Deviation 42.6 RDW Coeff of Stephanie 13.1 Plt Count 258 MPV 10.2 Sodium 139 Potassium 3.8 Chloride 106 Carbon Dioxide 26 Anion Gap 7.0 BUN 20 H Creatinine 1.27 Est Cr Clr Drug Dosing 47.9 Est GFR ( Amer) 64.1 Est GFR (Non-Af Amer) 55.3 BUN/Creatinine Ratio 16.1 Glucose 95 POC Glucose Calcium 8.9 Total Bilirubin 0.6 AST 27 ALT 32 Alkaline Phosphatase 64 Troponin I 3.110 H* Total Protein 6.6 Albumin 3.4 Globulin 3.2 Albumin/Globulin Ratio 1.1 06/21/19 07:15 WBC RBC Hgb Hct MCV MCH MCHC RDW Std Deviation RDW Coeff of Stephanie Plt Count MPV Sodium Potassium Chloride Carbon Dioxide Anion Gap BUN Creatinine Est Cr Clr Drug Dosing Est GFR ( Amer) Est GFR (Non-Af Amer) BUN/Creatinine Ratio Glucose POC Glucose 103 H Calcium Total Bilirubin AST ALT Alkaline Phosphatase Troponin I Total Protein Albumin Globulin Albumin/Globulin Ratio Diagnostic Findings Telemetry personally reviewed: Sinus with first-degree AV block, and intermittent second-degree block. No significant pauses. Medications Administered Current Inpatient Medications Acetaminophen (Tylenol) 650 mg PO Q4H PRN PRN Reason: Moderate Pain Stop: 07/19/19 09:59 Amlodipine Bes[facility] ([facility]asc) [facility] [place] 07/19/19 09:59 Last Admin: 06/21/19 07:53 Dose: 10 mg Documented by: Ascorbic Acid (Vitamin C) 500 mg PO DAILY [facility] Stop: 07/19/19 09:59 Last Admin: 06/21/19 07:55 Dose: 500 mg Documented by: Aspirin (Ecotrin Ectab) 81 mg PO HS [facility] Stop: 07/19/19 20:59 Last Admin: 06/20/19 20:55 Dose: 81 mg Documented by: Atorvastatin Calcium (Lipitor) 40 mg PO [facility] Stop: 07/19/19 20:59 Last Admin: 06/20/19 20:56 Dose: 40 mg Documented by: Clopidogrel Bisulfate (Plavix) 75 mg PO QAM [facility] Stop: 07/20/19 11:59 Last Admin: 06/21/19 07:54 Dose: 75 mg Documented by: Cyanocobalamin (Vitamin B-12) 1,000 mcg PO DAILY [facility] Stop: 07/20/19 08:59 Last Admin: 06/21/19 07:57 Dose: 1,000 mcg Documented by: Dextrose (Dextrose 50%) 25 - 50 ml IV UD PRN; Protocol PRN Reason: Hypoglycemia Protocol Stop: 07/19/19 11:17 Ferrous Sulfate (Feosol) 650 mg PO DAILY [facility] Stop: 07/19/19 10:59 Last Admin: 06/21/19 08:01 Dose: 650 mg Documented by: Finasteride (Proscar) 5 mg PO HS [facility] Stop: 07/19/19 20:59 Last Admin: 06/20/19 20:58 Dose: 5 mg Documented by: Glucagon (Glucagen) 1 mg SQ UD PRN; Protocol PRN Reason: Hypoglycemia Protocol Stop: 07/19/19 11:17 Glucose (Glucose 40%) 15 - 30 gm PO UD PRN; Protocol PRN Reason: Hypoglycemia Protocol Stop: 07/19/19 11:17 Glucose (Dex4 Glucose) 4 - 8 tabs PO UD PRN; Protocol PRN Reason: Hypoglycemia Protocol Stop: 07/19/19 11:17 Insulin Aspart (Novolog Flexpen) 0 units SC ACHS [facility] Stop: 07/19/19 11:29 Last Admin: 06/21/19 08:34 Dose: 1 units Documented by: Insulin Glargine (Lantus Solostar Pen) 18 units SQ HS [facility] Stop: 07/19/19 20:59 Last Admin: 06/20/19 20:56 Dose: 18 units Documented by: Isosorbide Mononitrate (Imdur Extended Rel) 120 mg PO QAM [facility] Stop: 07/19/19 10:14 Last Admin: 06/21/19 07:54 Dose: 120 mg Documented by: Levothyroxine Sodium (Synthroid) 100 mcg PO DAILYBB [facility] Stop: 07/20/19 06:29 Last Admin: 06/21/19 06:18 Dose: 100 mcg Documented by: Losartan Potassium (Cozaar) 25 mg PO QPM [facility] Stop: 07/19/19 20:59 Last Admin: 06/20/19 20:55 Dose: 25 mg Documented by: Metoprolol Tartrate (Lopressor) 12.5 mg PO BID [facility] Stop: 07/19/19 09:59 Last Admin: 06/21/19 07:53 Dose: 12.5 mg Documented by: Miscellaneous (Carbohydrates For Hypoglycemia) 15 - 30 gm PO UD PRN PRN Reason: Hypoglycemia Treatment Stop: 07/19/19 11:17 Multivitamins (Multivitamin Tab) 1 tab PO DAILY [facility] Stop: 07/19/19 09:59 Last Admin: 06/21/19 07:54 Dose: 1 tab Documented by: Multivitamins/Minerals (Caltrate Plus) 1 tab PO HS [facility] Stop: 07/19/19 20:59 Last Admin: 06/20/19 20:55 Dose: 1 tab Documented by: Nitroglycerin (Nitrostat) 0.4 mg SL UD PRN PRN Reason: Angina Stop: 07/19/19 11:17 Ondansetron HCl (Zofran) 4 mg IV Q6H PRN PRN Reason: Nausea And Vomiting Stop: 07/19/19 16:07 Pantoprazole Sodium (Protonix) 40 mg PO Q3D@0700 [facility] Stop: 07/20/19 06:59 Last Admin: 06/21/19 07:55 Dose: 40 mg Documented by: Ranolazine (Ranexa) 1,000 mg PO Q12 [facility] Stop: 07/19/19 10:59 Last Admin: 06/21/19 07:57 Dose: 1,000 mg Documented by: Vitamin D (Vitamin D3) 1,000 units PO DAILY [facility] Stop: 07/20/19 08:59 Last Admin: 06/21/19 07:54 Dose: 1,000 units Documented by: PG Care Time/CCT Total # of Minutes Spent Total Time Spent with Patient: Total time spent is greater than 50% in coordination of care (as documented) at patient's floor/unit and/or counseling patient:
--- NOTE | 2019-06-21 11:34 | Hospitalist Progress Note ---
Date of Service June 21, 2019 Assessment & Plan (1) Non-ST elevation [place] (NSTEMI): - Admit to tele -Status post SVG placement, trending down troponin. - PT/OT waiting for recs - A1c 7.1 and lipids low (2) CAD (coronary artery disease): -Continue ASA 81 mg starting tomorrow, patient received full dose aspirin today -Multivessel (3) S/P CABG x 4: -Over 25 years ago, performed at [facility] [place] (4) HTN (hypertension): -Continue antihypertensives as above (5) HLD (hyperlipidemia): -Continue atorvastatin 40 mg at bedtime (6) Mitral regurgitation: -Noted, stable (7) DM II (diabetes mellitus, type II), controlled: -Holding metformin -ISS with Accu-Cheks ACHS -A1c 7.1 -Allow HH/DM diet (8) DVT prophylaxis: -Teds Disposition: Patient from home, admit, will remain in the hospital x2 days Subjective Pt seen and examined at the bedside. Afebrile,He feels well and would like to go home. No angina, shortness of breath, syncope, near-syncope, palpitations, edema, or right femoral catheterization site issues. He denies melena, hematochezia, or hematuria. He ambulated in the hallway without symptoms.Good PO intake. Review of Systems Review of Systems: All systems reviewed & are unremarkable except as noted in HPI & below Physical Exam Constitutional: WD/WN, vitals as above Eyes: PERRL, conjunctivae normal, anicteric sclerae ENMT: external ear and nose normal, oropharynx normal Neck: trachea midline, no thyromegaly Respiratory: normal respiratory effort, lungs clear to auscultation Cardiovascular: RRR, no murmur, no edema Chest (Breasts): normal inspection/palpation of breasts Gastrointestinal (Abdomen): normal bowel sounds, soft, nontender, no hepatosplenomegaly Skin: no rashes, warm and dry Neurologic: patellar DTR's 2+ bilat, sensation intact Psychiatric: A+Ox3, euthymic affect Genitourinary: no testicular masses, no penis abnormality Lymphatic: no cervical or axillary lymphadenopathy Results & Data Vital Signs (Past 12 Hours) Vital Signs Temp Pulse Pulse Resp BP Pulse Ox 06/21/19 08:00 41 L 06/21/19 07:38 36.7 C 74 16 148/70 H 99 06/21/19 04:06 36.5 C 36 L 17 131/56 L 98 06/20/19 23:53 51 L 06/20/19 23:46 36.7 C 58 L 15 137/76 98 PG Care Time/CCT Total # of Minutes Spent Total Time Spent with Patient: Total time spent is greater than 50% in coordination of care (as documented) at patient's floor/unit and/or counseling patient:
--- NOTE | 2019-06-21 11:52 | Discharge Summary ---
Date of Service June 21, 2019 Admission HPI Per Admitting Provider This is a 73 yo M with PMHx of CAD s/p CABGx4, hx of CO on 07/26/14 s/p lumbar decompression and fusion, last cardiac cath was in 2011 which where multivessel disease was not ammendable to PCI. Plavix discontinued in the past due to significant GI bleed. Other PMHx includes HTN, HLD, Mobitz I/II on beta blockade, Mitral regurg, carotid artery stenosis, edema, DM II. He called EMS Pt presents with acute onset of chest pain which began this morning at rest while he was getting a cup of coffee. He reports pain was a 10/10 and went into both arms and in the shoulder blades, he denies up in the jaw. Pt took 3 doses of nitro and chewed 2 baby aspirin at home which provided slight relief, but then called EMS as his pain was not significantly improved. He admits to feeling short of breath during chest pain. EMS gave 3 more doses of nitro and two more baby aspirin. Pt admits that over the past 3 days he had intermittent chest pain with exertion, and that he had used nitro on three different occasions each day, and the chest pain resolved. Pt currently has a headache after receiving total of 6 doses of nitroglycerin this morning. EKG from EMS is showing inferior and lateral ST wave inversions. EKG in the ER does not appear much different compared to previous. Cardiology discussed with myself and the ER, plan for medical management and starting heparin gtt now. Principal Diagnosis none Discharge Exam Constitutional WD/WN, vitals as above Eyes PERRL, conjunctivae normal, anicteric sclerae ENMT external ear and nose normal, oropharynx normal Neck trachea midline, no thyromegaly Respiratory normal respiratory effort, lungs clear to auscultation Cardiovascular RRR, no murmur, no edema Chest (Breasts) normal inspection/palpation of breasts Gastrointestinal (Abdomen) normal bowel sounds, soft, nontender, no hepatosplenomegaly Skin no rashes, warm and dry Neurologic patellar DTR's 2+ bilat, sensation intact Psychiatric A+Ox3, euthymic affect Genitourinary no testicular masses, no penis abnormality Lymphatic no cervical or axillary lymphadenopathy Discharge Data Allergies Allergy/AdvReac Type Severity Reaction Status Date / Time No Known Allergies Allergy Unverified 06/19/19 08:57 Consultations 06/19/19 09:35 ED Decision to Admit Stat 06/19/19 11:18 Consult Cardiology Routine Consult Case Management - Discharge Planning Routine 06/19/19 16:10 Consult Cardiac Rehabilitation Routine Procedures Performed Operation Date: 06/19/19 14:00 Actual Procedures s Cineradiography w/Routine Exam - Noam Nye MD p Cath, Cors with Grafts (no LV) - Noam Nye MD s Drug Eluting Stent Bypass GR - Noam Nye MD Ordered Studies 06/19/19 13:49 CL Cath Imgs for PACS use only Routine Hospital Course (1) Non-ST elevation CO (NSTEMI): - Doing much better, eager to go home. Will continue for 6 weeks cardiac rehabilitation. -Status post SVG placement, trending down troponin.Follow up with Cardiology in one week. -Continue ASA 81, Clopidogrel 75 mg Daily ARB, metoprolol, high statins. - PT/OT waiting for recs - A1c 7.1 and lipids low (2) CAD (coronary artery disease): -Continue ASA 81 mg starting tomorrow, patient received full dose aspirin today -Multivessel (3) S/P CABG x 4: -Over 25 years ago, performed at [facility] (4) HTN (hypertension): -Continue antihypertensives as above (5) HLD (hyperlipidemia): -Continue atorvastatin 40 mg at bedtime (6) Mitral regurgitation: -Noted, stable (7) DM II (diabetes mellitus, type II), controlled: -Holding metformin -ISS with Accu-Cheks ACHS -A1c 7.1 -Allow HH/DM diet (8) DVT prophylaxis: -Teds Disposition: Patient from home, admit, will remain in the hospital x2 days Total Time Total Time Spent Total Time Spent (In Minutes): over 35 min Discharge Plan Discharge Items Patient Disposition: Home - Self-Care Reason For Visit: NSTEMI Discharge Diagnosis: NSTEMI Condition: Good Discharge Goals: Decrease discomfort, Diagnostic testing, Improve disease control and Improve function Activity: Per 'Additional Instructions' section Activity Comment: 6 weeks of cardiac rehabilitation Lifting: Gradually increase as tolerated and Wait until after follow-up appointment Bathing: No limitations Sexual Activity: Wait until after follow-up appointment Exercise/Sports: Gradually increase as tolerated Driving/Machine Use: Resume 3 days after discharge Weightbearing: Full weightbearing Non-emergency contact: Primary Care Provider and Outboard Motor Mechanic Call non-emergency contact if: you have any medication questions, your symptoms worsen, your pain is not controlled, your pain is worsening, your pain is unusual for you, you have a fever and your temperature is above 100.5 Follow-up/Referrals: Regino Jacome MD [Primary Care Provider] - Diet: Carb Consistent or DM2, Heart Healthy and Low Sodium (2gm) Addtl Provider Instructions: ACTIVITY RECOMMENDATIONS: It is common to feel weak and fatigue for a few days. * Do not drive or operate any motorized equipment for the next three days. * Limit stair usage (2 or 3 trips a day only) for the next three days. * Do not lift anything heavier than 10 pounds for the next three days. * Do not engage in vigorous exercise or any sports for the next five days. * You may shower the day after your procedure, but do not immerse the area for three days. Cleanse the site gently with soap and water. SPECIAL CARE INSTRUCTIONS: * You may replace the pressure dressing or band-aid the morning after the procedure. * After your procedure, it is normal to have a small bruise or small lump at the site. Examine your site daily for any change in the bruise or lump, redness, swelling, drainage or numbness. Notify your doctor if any change. BLEEDING: * If there is a small amount of bleeding at the site, lie down and apply firm pressure with a clean cloth for ten minutes. When the bleeding stops, lie quietly keeping the procedure limb straight for six hours. Notify your doctor as soon as possible. * If the bleeding does not stop after ten minutes or if there is a large amount of bleeding or spurting, call 911 immediately. Continue to lie down and hold firm pressure until help arrives. SKIN IRRITATION: * You may experience some redness and/or swelling in the area where radiation was administered. If any skin irritation occurs, please contact your family physician. FOLLOW UP VISIT: Keep any scheduled doctor appointments. Prescriptions: New clopidogrel [Plavix] 75 mg tablet 75 mg PO DAILY Qty: 30 RF: 0 Continued multivitamin Tablet 1 tab PO DAILY RF: 0 atorvastatin 40 mg Tablet 40 mg PO HS RF: 0 cyanocobalamin (vitamin B-12) [Vitamin B-12] 1,000 mcg Tablet 1,000 mcg PO DAILY RF: 0 aspirin 81 mg Tablet,Delayed Release (Dr/Ec) 81 mg PO HS RF: 0 isosorbide mononitrate 120 mg Tablet Extended Release 24 Hr 120 mg PO QAM RF: 0 ascorbic acid (vitamin C) [Vitamin C] 500 mg Tablet 500 mg PO DAILY RF: 0 amlodipine 10 mg Tablet 10 mg PO QAM RF: 0 ferrous sulfate 325 mg (65 mg iron) Tablet 2 tabs PO DAILY RF: 0 losartan 25 mg Tablet 25 mg PO QPM RF: 0 nitroglycerin 0.4 mg Tablet, Sublingual 1 dose Sublingual UD PRN (Reason: Angina) RF: 0 furosemide 20 mg Tablet 20 mg PO DAILY PRN (Reason: Edema) RF: 0 finasteride 5 mg Tablet 5 mg PO HS RF: 0 cholecalciferol (vitamin D3) [Vitamin D3] 1,000 unit Capsule 1,000 unit PO DAILY RF: 0 Novolog Flexpen U-100 Insulin 100 unit/mL Insulin Pen 4 - 8 unit SUBCUT BID RF: 0 metoprolol tartrate 25 mg Tablet 12.5 mg PO BID RF: 0 coenzyme Q10 [Co Q-10] 200 mg Capsule 200 mg PO DAILY RF: 0 Calcium 600 + D(3) 600 mg calcium- 200 unit Capsule 1 tab PO HS RF: 0 Lantus Solostar U-100 Insulin 100 unit/mL (3 mL) Insulin Pen 18 unit SUBCUT HS RF: 0 levothyroxine 100 mcg Capsule 100 mcg PO QAM RF: 0 pantoprazole 40 mg tablet,delayed release (DR/EC) 40 mg PO Q72H RF: 0 metformin 500 mg tablet extended release 24 hr 1,000 mg PO BID RF: 0 ranolazine 1,000 mg tablet extended release 12 hr 1,000 mg PO Q12 RF: 0 Stand-Alone Forms: Call Back Authorization, [facility] Discharge Orders: Discharge Order (Routine); Ordered 06/21/19 Ordered By: Vinh Way Admission Data Admit Date/Time: 06/19/19 10:00 Attending Provider: Vinh Way Admit Provider: Vinh Way Primary Care Provider: Regino Jacome Other Providers: Vinh Way ; Regino Hartman Service: Telemetry Other Interventions: Discharge Summary Assessment (RN) Last Done: 06/21/19 12:00 DC Date/Time DO NOT enter until pt leaves facility: 06/21/19 13:35
== END 2019-06-21 13:35 | disposition home or self-care (01) | DRG 247 ==
LOC: ED 08:14 → 2S 10:00
PROC: CLB.CCG (2019-06-19 14:00)

== ENCOUNTER 2019-09-18 03:30 | Inpatient (IN) ==
[2019-09-18] MEDS ORDERED: NITROGLYCERIN 2% OINTMENT 30GM TUBE EXT STA (03:47)
[2019-09-18 04:15] LABS: Hematocrit (blood only) 40.1 % (42-52); Hemoglobin 13.9 g/dL (14.0-18.0); Immature Granulocytes # (auto) 0.02 K/uL (0.00-0.02); Immature Granulocytes % (auto) 0.2 %; Lymphocytes # (auto) 1.26 K/uL (1.2-3.4); Lymphocytes % (auto) 12.3 %; Mean Corpuscular Hgb Conc 34.7 g/dL (32-36); Mean Corpuscular Volume 92.2 fL (80-100); Mean Platelet Volume 10.2 fL (7.4-10.4); Monocytes # (auto) 0.63 K/uL (0.11-0.59); Monocytes % (auto) 6.2 %; Neutrophils # (auto) 8.33 K/uL (1.4-6.5); Neutrophils % (auto) 81.3 %; Platelet Count 311 K/uL (130-400); RDW Coefficient of Variation 13.3 % (11.5-14.5); RDW Standard Deviation 45.3 fL (36.4-46.3); Red Blood Count 4.35 M/uL (4.7-6.1); White Blood Count 10.24 K/uL (4.8-10.8)
[2019-09-18 04:25] LABS: Prothrombin Time 10.3 Seconds (9.0-12.0)
[2019-09-18 04:55] LABS: Albumin Globulin Ratio 0.9 (0.9-2); Albumin Level 3.9 gm/dl (3.4-5.0); BUN Creatinine Ratio 17.6 (10-20); Bilirubin,Total 0.4 mg/dl (0.2-1); Calcium 9.8 mg/dl (8.5-10.1); Creatinine Clr Calc Pharmacy 37.5 ml/min; Est GFR (African American) 45.7; Est GFR (Non-African American) 39.4; Globulin 4.3 gm/dl (2.5-4.0); Magnesium 1.8 mg/dl (1.8-2.4); Total Protein 8.2 gm/dl (6.4-8.2); Troponin I 0.046 ng/ml (0-0.045)
[2019-09-18] MEDS ORDERED: NovoLIN-R INSULIN PER UNIT CHARGE SC STA (04:58)
[2019-09-18] MEDS ORDERED: SODIUM CHLORIDE 0.9% 1000ML 1,000 ML IV SCH ×2 (05:00→15:00)
[2019-09-18] MEDS ORDERED: OPTIRAY 320 125ml IV PRN (05:14)
[2019-09-18] MEDS ORDERED: ALBUT/IPRATROP 3MG/0.5MG NEB 3 ML VIAL NEB STA (05:24)
[2019-09-18] MEDS ORDERED: fentaNYL citrate 100 MCG/2 ML VIAL IV STA (05:36)
[2019-09-18] MEDS ORDERED: FUROSEMIDE 40 MG/4 ML VIAL IV STA (06:03)
--- NOTE | 2019-09-18 06:26 | XRay Report ---
XR chest 1V portable HISTORY: 73 years-old Male chest pain acute atypical chest pain COMPARISON: CTA of the chest of same day, chest radiograph 07/02/2016 TECHNIQUE: Portable AP view of the chest FINDINGS: Cardiac silhouette is enlarged, unchanged. Prior median sternotomy. Calcified plaque of the thoracic aortic arch. Postoperative changes suggestive of prior CABG. Mild chronic interstitial coarsening of the lung bases. No pneumothorax, pleural effusion, overt pulmonary edema or focal airspace consolidat ion. Mild pulmonary vascular congestion. Degenerative changes of the shoulders and spine. IMPRESSION: Cardiomegaly with pulmonary vascular congestion and suggestion of mild pulmonary edema. The above report was generated using voice recognition software. It may contain grammatical, syntax o r spelling errors. Electronically signed by: Jeffery Hooper M.D. 09/18/2019 6:24 AM
--- NOTE | 2019-09-18 07:08 | CT Scan Report ---
CT angio chest PE protocol CLINICAL HISTORY: 73 years-old Male presenting with atypical chest pain, shortness of breath. TECHNIQUE: Multidetector CT angiography of the chest was performed after administration of intravenou s contrast. 3-D volumetric and/or maximum intensity projection (MIP) images were subsequently reconst ructed for review. IV contrast: 103 mL of Optiray 320. One or more dose lowering techniques were used consistent with the principles of ALARA (as low as reasonably achievable), including automatic expos ure control, mA or kV adjustment to individual patient size, and/or use of iterative reconstruction. COMPARISON: Chest x-ray from earlier the same day and MR lumbar spine from 05/05/2014. CT DOSE (mGy.cm): The estimated cumulative dose is 439.97 mGy.cm. FINDINGS: Administration Professional topogram: Median sternotomy wires, mediastinal surgical clips, and coronary artery bypass graft rings. Cardiomegaly. Pulmonary vasculature: The study is suboptimal for the assessment of the pulmonary vascular tree secondary to timing of the contrast bolus and respiratory motion artifact. No filling defect within the pulmonary arteries to bañuelos ggest embolus. Main pulmonary artery is not enlarged. No flattening of the interventricular septum. N o intracardiac filling defect. No reflux of contrast into the hepatic veins. Remaining chest: Soft tissues: Normal thyroid and thoracic inlet. Gynecomastia. Small mediastinal and hilar lymph node s. No pathologically enlarged lymph nodes. Normal aorta. Multichamber enlargement of the heart. Coron fran artery and aortic valve calcification. Post surgical changes of median sternotomy with coronary a rtery bypass grafting. Extensive calcification of the graft vessels arising from the ascending aorta, which is not definitively patent. The AARON is grossly patent. No pericardial or pleural effusion. Th e esophagus is mildly dilated with gas. Trace hiatal hernia. Hyperdense material in the gastric fundu s likely represents medication administration. Lungs and airways: No pneumothorax. Bronchial wall thickening diffusely. Pulmonary arteries are enlar ged relative to adjacent bronchi. Diffuse smooth interlobular septal thickening. Respiratory motion a rtifact degrades evaluation of the lung parenchyma for a focal nodule. Patchy central and basilar pre dominant groundglass opacity bilaterally. Musculoskeletal: Degenerative changes of the spine. Chronic compression deformity of L1. When compari ng to prior MR, there may be six lumbar vertebral body levels. IMPRESSION: 1. No evidence of pulmonary embolus. 2. Cardiomegaly with advanced congestive change and mild pulmonary edema. 3. Postsurgical changes of CABG. The graft vessel is not definitively patent. Electronically signed by: Temo Knight M.D. 09/18/2019 7:07 AM
[2019-09-18] MEDS ORDERED: MAGNESIUM SULFATE / D5W 1 GM/100 ML BAG IV ONE (08:16)
--- NOTE | 2019-09-18 08:40 | History & Physical Report ---
Date of Service September 18, 2019 Assessment & Plan (1) Chest pain: Admit to PCU on telemetry. Vital signs every 4 hours. Patient already took aspirin before coming to the emergency room. Trend troponin x3 with EKG. Started heparin drip with bolus for NSTEMI. Cardiology consult pending. Last TTE dated June 19 shows left ventricular systolic function is normal, hypokinesis of the mild lateral wall with ejection fraction of 50 to 55% and mild mitral regurgitation. Nitroglycerin as needed. DVT prophylaxis started on heparin drip. Started on Lasix 20 mg IV twice daily. Strict in and out The weight Heart healthy low-sodium diet. Full code Present on Admission?: Yes (2) Elevated troponin: Trend down troponin x3 with EKG. mildly elevated 0.0 46. Present on Admission?: Yes (3) CHF (congestive heart failure): Patient is in acute exacerbation of CHF. He appears to be mildly volume overloaded. Started Lasix 20 mg IV twice daily. Low-sodium diet. Continue home medicine: Aspirin 81 mg p.o. nightly, amlodipine 10 mg p.o. every morning, isosorbide mononitrate 120 mg tablet p.o. daily, losartan 25 mg p.o. every afternoon, metoprolol tartrate 12.5 mg p.o. twice daily, Nitroglycerin 400 MCG's sublingual as needed. Continue oral ranolazine 1000 milligrams p.o. every 12 Continue coenzyme Q 10 200 mg p.o. daily. Strict in and out, Daily weight Present on Admission?: Yes (4) Acute coronary syndromes: Started heparin drip. Consulted cardiology. Patient will possibly need cardiac catheterization, will discuss with cardiology. Pain control with morphine. Aspirin already given. Nitroglycerin or nitroglycerin paste as needed. Present on Admission?: Yes (5) PAULINA (acute kidney injury): In May 2019 creatinine was high normal upper limit 1.27 with GFR of 55.3. Creatinine now is 1.68 with GFR of 39.4. Avoid nephrotoxic agents. Pantoprazole and metformin on hold. Will consider a different option of PPI that is less toxic to kidneys and metfo rmin should be stopped since it self and in conjunction with PPI can cause nephrotoxicity. Monitor creatinine and GFR daily. Present on Admission?: Yes (6) DM II (diabetes mellitus, type II), controlled: Hold metformin due to PAULINA. Depending on A1c patient may opt just to use insulin. No point of using metformin if A1c is 10 or above 10. In the ER blood sugar appears to be in 400s poorly controlled. Will definitely stick with sliding scale and pure insulin either long-acting and short-acting. Glycemic controlled refer to pharmacy. Present on Admission?: Yes (7) HLD (hyperlipidemia): Lipid panel pending. Continue atorvastatin 40 mg p.o. nightly. (8) HTN (hypertension): Continue monitoring blood pressure closely. Blood pressure was elevated in the emergency room. Continue home medicine for now and titrate up as needed. Present on Admission?: Yes (9) CAD (coronary artery disease): Continue atorvastatin 40 mg p.o. nightly, aspirin 81 p.o. nightly, clopidogrel 75 mg p.o. daily, aspirin 81 mg p.o. daily. Present on Admission?: Yes (10) Non-ST elevation WA (NSTEMI): As above Present on Admission?: Yes (11) Hypothyroidism: TSH pending, continue home dose of levothyroxine 100 MCG's p.o. daily. Present on Admission?: Yes (12) Anemia: Improving in comparison to the last visit. Continue ferrous sulfate 325 mg p.o. twice daily, vitamin B12, multivitamin, vitamin C 500 mg p.o. daily. Present on Admission?: Yes (13) BPH (benign prostatic hyperplasia): Stable, continue finasteride 5 mg p.o. nightly. Present on Admission?: Yes History of Present Illness Chief Complaint: Chest pain, NSTEMI, acute exacerbation of CHF Primary Care Provider: Regino Jacome MD Patient is a 73 years old male with past medical history of coronary artery disease status post CABG x4, myocardial infarction on July 26, 2014, another NSTEMI June 18, 2019, status post lumbar decompression and fusion with last cardiac cath on June 19, 2019 with multivessel disease and acute 95% SVG to OM stenosis, severe chronic multivessel q[place] coronary artery disease, 99% distal left main/ostial single circumflex leading into small OM 1, 100% ostial ALD, 100% proximal circumflex after OM1, 100% proximal RCA, patent AARON to LAD, sequential SVG to right PDA, PLB. Patient has successful PCI of mid SVG to OM graft with single drug-eluting stent by Dr. Nye. Patient was brought to the emergency room with a complaint of chest pain that started approximately 2 AM this morning and he took his aspirin, nitroglycerin and ranolazine before arriving to the emergency room. Chest pain finally subsided upon arrival to the emergency room. Per patient. Pain lasted approximately 30 minutes and it was described as a crushing and occasional stabbing and radiating to his left arm. Patient had similar chest pains before especially in May 2019. Patient feels mildly congested and sometimes short of breath. He reports feeling weaker last couple of weeks and he states that possibly he gained several pounds. He started to take Lasix as needed. Patient is very compliant and he takes all of his medications. CTA of the chest ruled out pulmonary embolism. There is cardi omegaly with evidence of congestive change and mild pulmonary edema. Labs are reviewed which shows: WBC is 10.24, hemoglobin 13.9, hematocrit 40.1 platelets 311, PT 10.3, INR 1, sodium 137, potassium 5, chloride 103, creatinine 1.68, GFR 39.4, glucose 462, magnesium 1.8, troponin 0.0 46 mildly elevated, BNP 1286. EKG shows sinus rhythm with first-degree AV block occasional PVCs ST segment and T wave abnormalities in V4 V5 and V6 which appear to be different than June 19. Decision was made to admit patient to PCU on telemetry with heparin drip with bolus started for an NSTEMI. Allergies Allergy/AdvReac Type Severity Reaction Status Date / Time propofol Allergy Unknown Unknown Verified 09/18/19 04:20 Home Medications Home Medications Medication Instructions Recorded Confirmed Type Calcium 600 + D(3) 1 tab PO HS 11/16/18 09/18/19 History Lantus Solostar U-100 Insulin 18 unit SUBCUT HS 11/16/18 09/18/19 History Novolog Flexpen U-100 Insulin 4 - 8 unit SUBCUT BID 11/16/18 09/18/19 History amlodipine 10 mg PO QAM 11/16/18 09/18/19 History ascorbic acid (vitamin C) [Vitamin 500 mg PO DAILY 11/16/18 09/18/19 History C] aspirin 81 mg PO HS 11/16/18 09/18/19 History atorvastatin 40 mg PO HS 11/16/18 09/18/19 History cholecalciferol (vitamin D3) 1,000 unit PO DAILY 11/16/18 09/18/19 History [Vitamin D3] coenzyme Q10 [Co Q-10] 200 mg PO DAILY 11/16/18 09/18/19 History cyanocobalamin (vitamin B-12) 1,000 mcg PO DAILY 11/16/18 09/18/19 History [Vitamin B-12] ferrous sulfate 325 mg PO BID 11/16/18 09/18/19 History finasteride 5 mg PO HS 11/16/18 09/18/19 History losartan 25 mg PO QPM 11/16/18 09/18/19 History multivitamin 1 tab PO DAILY 11/16/18 09/18/19 History metformin 1,000 mg PO BID 06/19/19 09/18/19 History ranolazine 1,000 mg PO Q12 06/19/19 09/18/19 History isosorbide mononitrate 120 mg 240 mg PO DAILY tab 06/25/19 09/18/19 History tablet,extended release 24 hr pantoprazole 40 mg tablet,delayed 40 mg PO Q OTHER DAY 06/25/19 09/18/19 History release levothyroxine 100 mcg tablet 100 mcg PO DAILY 06/26/19 09/18/19 History clopidogrel 75 mg tablet 75 mg PO DAILY #90 tab 08/01/19 09/18/19 Rx metoprolol tartrate 25 mg tablet 12.5 mg PO BID #90 tab 08/07/19 09/18/19 Rx furosemide 20 mg tablet 20 mg PO DAILY PRN #30 tab 08/28/19 09/18/19 Rx nitroglycerin 400 mcg TRANSLINGUAL UD PRN 09/18/19 09/18/19 History Past Med/Surg History Medical History Anemia BPH (benign prostatic hyperplasia) CAD (coronary artery disease) Diabetes mellitus, type 2 DM II (diabetes mellitus, type II), controlled GERD (gastroesophageal reflux disease) Gout Hearing deficit History of anesthesia reaction hx of reaction to propofol--had mental confusion, double/blurred vision History of colon polyps HLD (hyperlipidemia) HTN (hypertension) Hyperlipidemia Hypertension Hypothyroidism Irregular heart beat Mitral regurgitation Mobitz I Mobitz II Myocardial Infarction 2016 x2 Non-ST elevation [place] (NSTEMI) (Acute) Osteoarthritis Spinal stenosis Surgical History History of cardiac cath x2[place] [facility] [place] History of colonoscopy History of lumbar spinal fusion hardware in place History of mandibular surgery pins put into lower jaw, no issues with ROM History of surgery left periorbital sx History of tooth extraction all teeth History of umbilical hernia repair x3 Hx of bilateral cataract extraction Hx of vasectomy S/P CABG x 4 1993 [place] [facility] [place]s with S/P CABG x 4 S/P coronary artery stent placement Family History Father Family history of diabetes mellitus Brother Family history of diabetes mellitus 2 Heart disease Diabetes Sister Family history of diabetes mellitus Diabetes Mother Heart disease Son Heart disease Family/Other Heart disease Other No family history of adverse response to anesthesia Social History Preferred Language: Faroese Communication Ability: Effective Visual Impairment: No Limitations Hearing Ability: Normal [employer] Required: No Beliefs That Will Affect Care: None marital status: Current Living Situation: Spouse current occupation: retired Other Information That Helps Us Care for You: No Feels Safe at Home: Yes Safety Concerns: Feels Safe At This Time Smoking Status: Former smoker Tobacco Type: cigarettes ; Do You Dip or Chew Tobacco: No ; Smoking End Date: 2013 ; Second Hand Exposure: No ; Tobacco Cessation Education Requested by Patient: No Hx Alcohol Use: Yes Alcohol type: beer, wine and hard liquor Hx Substance Use: No Physical Activity Frequency: Daily Seatbelt Use: always Results & Data Vital Signs (Past 12 Hours) Vital Signs Temp Pulse Pulse Resp BP BP Pulse Ox 09/18/19 07:00 84 18 158/90 H 96 09/18/19 06:31 90 23 130/68 09/18/19 06:30 82 20 09/18/19 06:15 92 H 27 H 09/18/19 06:01 94 H 24 92 09/18/19 06:00 95 H 23 152/92 H 90 09/18/19 05:45 85 33 H 94 09/18/19 05:37 84 24 91 09/18/19 05:30 92 H 23 157/77 H 89 L 09/18/19 05:16 83 16 151/94 H 92 09/18/19 05:15 86 14 09/18/19 04:45 95 H 26 H 09/18/19 04:31 91 H 19 09/18/19 04:30 88 20 173/96 H 09/18/19 04:15 85 21 09/18/19 04:14 86 26 H 09/18/19 04:13 90 23 178/107 H 09/18/19 04:01 84 27 H 09/18/19 04:00 75 26 H 165/86 H 09/18/19 03:45 78 28 H 96 09/18/19 03:42 84 23 175/92 H 97 09/18/19 03:38 81 27 H 97 09/18/19 03:36 86 25 H 167/101 H 97 09/18/19 03:33 37.1 C 80 18 167/101 H 97 Code Status & VTE Plan Code Status Full code VTE Prophylaxis Plan VTE Prophylaxis will be ordered: Yes PG Care Time/CCT Total # of Minutes Spent Total Time Spent with Patient: Total time spent is greater than 50% in coordination of care (as documented) at patient's floor/unit and/or counseling patient: (1) Chest pain Chest pain type: unspecified Qualified Code(s): R07.9 - Chest pain, unspecified (2) CHF (congestive heart failure) Heart failure chronicity: unspecified Heart failure type: unspecified Qualified Code(s): I50.9 - Heart failure, unspecified (3) HTN (hypertension) Hypertension type: essential hypertension Qualified Code(s): I10 - Essential (primary) hypertension (4) CAD (coronary artery disease) Coronary Disease-Associated Artery/Lesion type: bypass graft [place] vs. transplanted heart: [place] heart Associated angina: angina presence unspecified Qualified Code(s): I25.810 - Atherosclerosis of coronary artery bypass graft(s) without angina pectoris
[2019-09-18] MEDS ORDERED: DEXTROSE 50% 50 ML SYRINGE IV PRN (09:04)
[2019-09-18] MEDS ORDERED: ACETAMINOPHEN 325 MG TAB PO PRN (09:04)
[2019-09-18] MEDS ORDERED: FUROSEMIDE 20 MG TAB PO PRN (09:04)
[2019-09-18] MEDS ORDERED: NITROGLYCERIN 60 SPRAYS/4.9 GM SPRAY SL PRN ×2 (09:04→09:30)
[2019-09-18] MEDS ORDERED: MAGNESIUM HYDROXIDE SUSP 30 ML UDC PO PRN (09:04)
[2019-09-18] MEDS ORDERED: NON-FORMULARY MEDICATION (Coenzyme Q10 [Co Q-10] 200 MG) PO SCH (09:04)
[2019-09-18] MEDS ORDERED: CARBOHYDRATES FOR HYPOGLYCEMIA PO PRN (09:04)
[2019-09-18] MEDS ORDERED: ALUMINUM/MAGNESIUM SUSP 30 ML UDC PO PRN (09:04)
[2019-09-18] MEDS ORDERED: DC ALL PREVIOUSLY ORDERED DIABETES MEDS ONE (09:04)
[2019-09-18] MEDS ORDERED: POLYETHYLENE (MIRALAX) 17 GM PACK PO PRN (09:04)
[2019-09-18] MEDS ORDERED: ONDANSETRON INJ 2 MG/ML 2 ML VIAL IV PRN (09:04)
[2019-09-18] MEDS ORDERED: GLUCOSE 40% GEL 15 GM TUBE PO PRN (09:04)
[2019-09-18] MEDS ORDERED: GLUCAGON FOR INJ 1 MG VIAL SQ PRN (09:04)
[2019-09-18] MEDS ORDERED: GLUCOSE 10 TABS/TUBE PO PRN (09:04)
[2019-09-18] MEDS ORDERED: INSULIN GLARGINE SOLOSTAR 100 UNITS/ML 3 ML PEN SQ STA (09:22)
[2019-09-18] MEDS ORDERED: PHARMACY GLYCEMIC MGMT CONSULT SCH (09:22)
[2019-09-18] MEDS ORDERED: INSULIN ASPART 100 UNITS/ML 3 ML PEN SC STA (09:24)
--- NOTE | 2019-09-18 09:37 | Pharmacy Report ---
Pharmacy Glycemic Short Note 2 - Date of Service September 18, 2019 - Glycemic Short BSG Results (Last 24 hours): 09/18/19 09/18/19 09/18/19 03:58 06:10 06:26 Glucose 462 H* POC Glucose 503 H* 423 H* 09/18/19 08:20 Glucose POC Glucose 435 H* OUTPATIENT ANTIDIABETIC REGIMEN: * Lantus 18 units SQ HS * Novolog 4-8 units w/ lunch and dinner * A1c = 6.8% 06/20/19 ASSESSMENT: * Type 2 diabetic, reasonably well controlled per last A1c, admitted for CP, R/O ACS, ADHF and PAULINA * BSGs in the 400's at this time however no ketoacidosis present on labs * Given current BSGs and possible ACS would recommend IV insulin infusion to quickly gain control of hyperglycemia - will discuss with hospitalist * Reviewed 05/2019 admission, and patient is fairly insulin sensitive and required less than 30 units per day * Patient has missed doses of his basal insulin, so will give Lantus in reduced dose STAT due to PAULINA, NPO status and possible addition of IV insulin drip PLAN FOR INPATIENT GLYCEMIC CONTROL: * Check A1c with AM labs tomorrow as last A1c obtained ~3 mo ago * Consider IV insulin drip now to quickly gain control of hyperglycemia * Basal insulin * Lantus 12 units SQ x 1 now - will allow for easier transition of the insulin drip in the future * Bolus insulin SQ Q 4 hrs initially while NPO until hyperglycemia better controlled * Goal Range: Low 110 mg/dL - High 140 mg/dL * Correction Factor: 25 mg/dL/unit * Nutritional / Prandial insulin per carb ratio of 1 unit per 9 grams CHO consumed PLAN FOR DISCHARGE: * to be determined, but likely may resume home regimen if next A1c at goal and pt not experiencing hypoglycemia w/ current regimen
[2019-09-18] MEDS ORDERED: HEPARIN SODIUM/DEXTROSE 25,000 UNITS/500 ML BAG IV SCH (09:50)
[2019-09-18] MEDS: CLOPIDOGREL BISULFATE 75 MG TAB PO SCH (09:58)
[2019-09-18] MEDS: AMLODIPINE BESYLATE 5 MG TAB PO SCH (09:58)
[2019-09-18] MEDS: ASCORBIC ACID 500 MG TAB PO SCH (09:59)
[2019-09-18 10:00] LABS: Thyroid Stimulating Hormone 0.904 uIu/ml (0.300-4.500)
[2019-09-18] MEDS ORDERED: HEPARIN IV BOLUS 5,000 UNITS in SYRINGE 0 ML IV ONE (10:00)
[2019-09-18] MEDS: RANOLAZINE 500 MG ER TAB PO SCH ×2 (10:05→20:46)
[2019-09-18] MEDS: METOPROLOL TARTRATE 25 MG TAB PO SCH ×2 (10:25→20:46)
[2019-09-18] MEDS: LEVOTHYROXINE SODIUM 100 MCG TABLET PO SCH (10:25)
[2019-09-18] MEDS: CYANOCOBALAMIN 500 MCG TABLET (VITAMIN B-12) PO SCH (10:26)
[2019-09-18] MEDS: ISOSORBIDE MONO EXTENDED REL 60 MG TABCR PO SCH (10:26)
[2019-09-18] MEDS: MULTIVITAMIN TAB PO SCH (10:26)
--- NOTE | 2019-09-18 10:41 | Cardiology Consultation ---
Date of Consultation September 18, 2019 Assessment & Plan (1) Non-ST elevation HI (NSTEMI): 2. 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 Hypertension 4. Dyslipidemia 5. Mobitz 1/II 6. Mitral regurgitation 7. Carotid artery stenosis Patient with history of significant multivessel CAD admitted after an episode of chest pain awakening him from sleep early this morning. Chest pressure/tightness lasted for a total of about 3 hours. Highly concerning for ACS. Troponin is elevated and trending up. Currently chest pain free and hemodynamically stable. On exam mild congestion. He has evidence of Mobitz II with 2:1 AV conduction with somewhat slow heart rates at time. This has been documented in the past. --Agree with heparin --Keep NPO, will plan on cardiac catheterization today with Dr. Nye --Continue beta beny for now, may need to discontinue if significant bradycardia --Check echocardiogram History of Present Illness Reason for Consultation: Chest pain Attending Physician: Vinh Way MD History of Present Illness Mr. Carlton is a pleasant 73 year old gentleman with a history of multivessel CAD status post CABG x4 and PCI to SVT to OM3, hypertension, type 2 diabetes, dyslipidemia, intermittent Mobitz I and II. His three dimensional art instructor is Dr. Ni. On 07/26/14 he experienced a postoperative myocardial infarction on postop day one from a lumbar decompression and fusion (Peak troponin was 43.7). He had another myocardial infarction with peak troponin of 10.2 on 06/19/2019, undergoing PCI to SVG (SVG to OM3). Patient was admitted early this morning with chest pain. He woke up around 2 am with acute substernal chest tightness/pressure. Also had tightness in both arms and his neck. Symptoms similar to prior angina but more severe. Reports discomfort was 9/10 in severity. Discomfort was worse with ambulation. He had associated flushing and felt feverish. No diaphoresis, nausea, vomiting or significant shortness of breath. Heart felt fast and says his pulse rate was in the 80s. No palpitations, lightheadedness, near syncope or syncope. He took nitroglycerin x2, 4 baby aspirin and TUMS without any significant improvement. After several hours of persistent pain he called 911. His chest discomfort finally resolved around 5 am after getting Fentanyl and nitro paste. Currently chest pain free. Initial troponin elevated at 0.046, now up to 4.910. EKG shows 2nd degree AV block with 2:1 AV conduction and nonspecific ST abnormality. Heart rate is low at times, he has a history of intermittent Mobitz 1. Also with elevated proBNP and pulmonary vascular congestion on xray. He was given IV Lasix in the ED. Denies any shortness of breath, orthopea or PND. Allergies Allergy/AdvReac Type Severity Reaction Status Date / Time propofol Allergy Unknown Unknown Verified 09/18/19 04:20 Home Medications Home Medications Medication Instructions Recorded Confirmed Type Calcium 600 + D(3) 1 tab PO HS 11/16/18 09/18/19 History Lantus Solostar U-100 Insulin 18 unit SUBCUT HS 11/16/18 09/18/19 History Novolog Flexpen U-100 Insulin 4 - 8 unit SUBCUT BID 11/16/18 09/18/19 History amlodipine 10 mg PO QAM 11/16/18 09/18/19 History ascorbic acid (vitamin C) [Vitamin 500 mg PO DAILY 11/16/18 09/18/19 History C] aspirin 81 mg PO HS 11/16/18 09/18/19 History atorvastatin 40 mg PO HS 11/16/18 09/18/19 History cholecalciferol (vitamin D3) 1,000 unit PO DAILY 11/16/18 09/18/19 History [Vitamin D3] coenzyme Q10 [Co Q-10] 200 mg PO DAILY 11/16/18 09/18/19 History cyanocobalamin (vitamin B-12) 1,000 mcg PO DAILY 11/16/18 09/18/19 History [Vitamin B-12] ferrous sulfate 325 mg PO BID 11/16/18 09/18/19 History finasteride 5 mg PO HS 11/16/18 09/18/19 History losartan 25 mg PO QPM 11/16/18 09/18/19 History multivitamin 1 tab PO DAILY 11/16/18 09/18/19 History metformin 1,000 mg PO BID 06/19/19 09/18/19 History ranolazine 1,000 mg PO Q12 06/19/19 09/18/19 History isosorbide mononitrate 120 mg 240 mg PO DAILY tab 06/25/19 09/18/19 History tablet,extended release 24 hr pantoprazole 40 mg tablet,delayed 40 mg PO Q OTHER DAY 06/25/19 09/18/19 History release levothyroxine 100 mcg tablet 100 mcg PO DAILY 06/26/19 09/18/19 History clopidogrel 75 mg tablet 75 mg PO DAILY #90 tab 08/01/19 09/18/19 Rx metoprolol tartrate 25 mg tablet 12.5 mg PO BID #90 tab 08/07/19 09/18/19 Rx furosemide 20 mg tablet 20 mg PO DAILY PRN #30 tab 08/28/19 09/18/19 Rx nitroglycerin 400 mcg TRANSLINGUAL UD PRN 09/18/19 09/18/19 History Patient History Medical History Anemia BPH (benign prostatic hyperplasia) CAD (coronary artery disease) Diabetes mellitus, type 2 DM II (diabetes mellitus, type II), controlled GERD (gastroesophageal reflux disease) Gout Hearing deficit History of anesthesia reaction hx of reaction to propofol--had mental confusion, double/blurred vision History of colon polyps HLD (hyperlipidemia) HTN (hypertension) Hyperlipidemia Hypertension Hypothyroidism Irregular heart beat Mitral regurgitation Mobitz I Mobitz II Myocardial Infarction 2015 x2 Non-ST elevation HI (NSTEMI) (Acute) Osteoarthritis Spinal stenosis Surgical History History of cardiac cath x2--last was 2014 @ [facility] [place], no stents History of colonoscopy History of lumbar spinal fusion hardware in place History of mandibular surgery pins put into lower jaw, no issues with ROM History of surgery left periorbital sx History of tooth extraction all teeth History of umbilical hernia repair x3 Hx of bilateral cataract extraction Hx of vasectomy S/P CABG x 4 1993 @ [facility] [place]--follows with S/P CABG x 4 S/P coronary artery stent placement Family History Father Family history of diabetes mellitus Brother Family history of diabetes mellitus 2 Heart disease Diabetes Sister Family history of diabetes mellitus Diabetes Mother Heart disease Son Heart disease Family/Other Heart disease Other No family history of adverse response to anesthesia Social History Preferred Language: Citizen Of [place] Communication Ability: Effective Visual Impairment: No Limitations Hearing Ability: Normal Ophthalmic Photographer Required: No Beliefs That Will Affect Care: None marital status: Current Living Situation: Spouse current occupation: retired Feels Safe at Home: Yes Smoking Status: Former smoker Tobacco Type: cigarettes ; Second Hand Exposure: No ; Hx Alcohol Use: Yes Alcohol type: beer, wine and hard liquor Hx Substance Use: No Physical Activity Frequency: Daily Seatbelt Use: always Review of Systems Review of Systems: All systems reviewed & are unremarkable except as noted in HPI & below Physical Exam Physical Exam: General: No acute distress, comfortable. HEENT: Head is normal. PERRLA. EOMI. Sclerae anicteric. Ears, nose and throat unremarkable. Mucous membranes moist. Neck: No appreciable JVD Lungs: Clear to auscultation bilaterally without rales, rhonchi or wheezes. Cardiac: Regular. Bradycardic. S1-S2 normal. 2/6 systolic murmur Abdomen: Soft and nontender. Bowel sounds normal. No mass or organomegaly. No abdominal bruit. Extremities/vascular: -- Well perfused. Trace to 1+ lower extremity edema --Radial pulse 1+ bilaterally --DP and PT pulses 2+ bilaterally Skin: No rash or abnormal lesions. Normal turgor. Neurologic: Nonfocal Psychiatric: Affect appropriate. Alert and oriented. Results & Data Vital Signs (Past 12 Hours) Vital Signs Temp Pulse Pulse Resp BP BP Pulse Ox 09/18/19 09:04 36.6 C 59 L 18 145/61 H 94 09/18/19 07:00 84 18 158/90 H 96 09/18/19 06:31 90 23 130/68 09/18/19 06:30 82 20 09/18/19 06:15 92 H 27 H 09/18/19 06:01 94 H 24 92 09/18/19 06:00 95 H 23 152/92 H 90 09/18/19 05:45 85 33 H 94 09/18/19 05:37 84 24 91 09/18/19 05:30 92 H 23 157/77 H 89 L 09/18/19 05:16 83 16 151/94 H 92 09/18/19 05:15 86 14 09/18/19 04:45 95 H 26 H 09/18/19 04:31 91 H 19 09/18/19 04:30 88 20 173/96 H 09/18/19 04:15 85 21 09/18/19 04:14 86 26 H 09/18/19 04:13 90 23 178/107 H 09/18/19 04:01 84 27 H 09/18/19 04:00 75 26 H 165/86 H 09/18/19 03:45 78 28 H 96 09/18/19 03:42 84 23 175/92 H 97 09/18/19 03:38 81 27 H 97 09/18/19 03:36 86 25 H 167/101 H 97 09/18/19 03:33 37.1 C 80 18 167/101 H 97 Laboratory Results Laboratory Results - last 24 hr 09/18/19 09/18/19 09/18/19 03:58 03:58 03:58 WBC 10.24 RBC 4.35 L Hgb 13.9 L Hct 40.1 L MCV 92.2 MCH 32.0 MCHC 34.7 RDW Std Deviation 45.3 RDW Coeff of Stephanie 13.3 Plt Count 311 MPV 10.2 Immature Gran % (Auto) 0.2 Neut % (Auto) 81.3 Lymph % (Auto) 12.3 [place] % (Auto) 6.2 Eos % (Auto) 0.0 Baso % (Auto) 0.0 Immature Gran # (Auto) 0.02 Neut # (Auto) 8.33 H Lymph # (Auto) 1.26 [place] # (Auto) 0.63 H Eos # (Auto) 0.00 Baso # (Auto) 0.00 PT 10.3 INR 1.0 Sodium 137 Potassium 5.0 Chloride 103 Carbon Dioxide 22 Anion Gap 12.0 H BUN 30 H Creatinine 1.68 H Est Cr Clr Drug Dosing 37.5 Est GFR ( Amer) 45.7 Est GFR (Non-Af Amer) 39.4 BUN/Creatinine Ratio 17.6 Glucose 462 H* POC Glucose Calcium 9.8 Magnesium 1.8 Total Bilirubin 0.4 AST 21 ALT 38 Alkaline Phosphatase 132 H Troponin I 0.046 H* NT-Pro-B Natriuret Pep 1286 H Total Protein 8.2 Albumin 3.9 Globulin 4.3 H Albumin/Globulin Ratio 0.9 Lipase 125 Beta-Hydroxybutyric Acd TSH 09/18/19 09/18/19 09/18/19 06:10 06:26 08:20 WBC RBC Hgb Hct MCV MCH MCHC RDW Std Deviation RDW Coeff of Stephanie Plt Count MPV Immature Gran % (Auto) Neut % (Auto) Lymph % (Auto) [place] % (Auto) Eos % (Auto) Baso % (Auto) Immature Gran # (Auto) Neut # (Auto) Lymph # (Auto) [place] # (Auto) Eos # (Auto) Baso # (Auto) PT INR Sodium Potassium Chloride Carbon Dioxide Anion Gap BUN Creatinine Est Cr Clr Drug Dosing Est GFR ( Amer) Est GFR (Non-Af Amer) BUN/Creatinine Ratio Glucose POC Glucose 503 H* 423 H* 435 H* Calcium Magnesium Total Bilirubin AST ALT Alkaline Phosphatase Troponin I NT-Pro-B Natriuret Pep Total Protein Albumin Globulin Albumin/Globulin Ratio Lipase Beta-Hydroxybutyric Acd TSH 09/18/19 09/18/19 09/18/19 09:18 09:18 09:45 WBC RBC Hgb Hct MCV MCH MCHC RDW Std Deviation RDW Coeff of Stephanie Plt Count MPV Immature Gran % (Auto) Neut % (Auto) Lymph % (Auto) [place] % (Auto) Eos % (Auto) Baso % (Auto) Immature Gran # (Auto) Neut # (Auto) Lymph # (Auto) [place] # (Auto) Eos # (Auto) Baso # (Auto) PT INR Sodium Potassium Chloride Carbon Dioxide Anion Gap BUN Creatinine Est Cr Clr Drug Dosing Est GFR ( Amer) Est GFR (Non-Af Amer) BUN/Creatinine Ratio Glucose POC Glucose 400 H* Calcium Magnesium Total Bilirubin AST ALT Alkaline Phosphatase Troponin I 4.910 H* NT-Pro-B Natriuret Pep 2553 H Total Protein Albumin Globulin Albumin/Globulin Ratio Lipase Beta-Hydroxybutyric Acd TSH 0.904 ECG Additional Comments: EKGs reviewed-- Marcial 1 with 2:[address] abormality PG Care Time/CCT Total # of Minutes Spent Total Time Spent with Patient: Total time spent is greater than 50% in coordination of care (as documented) at patient's floor/unit and/or counseling patient:
[2019-09-18] MEDS ORDERED: HEPARIN (PORCINE) 1000 UNIT/ML 10 ML (CATH LAB USE ONLY) ONE (11:35)
[2019-09-18] MEDS ORDERED: NiCARDipine HCL INJ 2.5 MG/ML 10 ML AMP ONE (11:35)
[2019-09-18] MEDS ORDERED: MIDAZOLAM HCL 1 MG/ML 2ML VIAL ONE (11:36)
[2019-09-18] MEDS ORDERED: NITROGLYCERIN/D5W 100MCG/ML 20ML SYR ONE (11:36)
[2019-09-18] MEDS ORDERED: fentaNYL citrate 100 MCG/2 ML VIAL ONE (11:36)
[2019-09-18] MEDS ORDERED: CLOPIDOGREL BISULFATE 300 MG TAB ONE (13:23)
--- NOTE | 2019-09-18 14:37 | Pre Anesthesia Assessment ---
Date of Service September 18, 2019 Pre Sedation Assessment Vital Signs Temp Pulse Pulse Resp BP BP Pulse Ox 09/18/19 14:11 97.9 F 74 18 125/70 09/18/19 13:51 69 20 135/74 97 09/18/19 13:45 76 20 132/72 97 09/18/19 13:40 76 20 135/74 97 09/18/19 13:37 76 20 135/75 95 09/18/19 12:20 98.1 F 71 20 103/56 L 92 09/18/19 11:57 77 18 126/72 95 09/18/19 09:04 97.9 F 59 L 18 145/61 H 94 09/18/19 07:00 84 18 158/90 H 96 09/18/19 06:31 90 23 130/68 09/18/19 06:30 82 20 09/18/19 06:15 92 H 27 H 09/18/19 06:01 94 H 24 92 09/18/19 06:00 95 H 23 152/92 H 90 09/18/19 05:45 85 33 H 94 09/18/19 05:37 84 24 91 09/18/19 05:30 92 H 23 157/77 H 89 L 09/18/19 05:16 83 16 151/94 H 92 09/18/19 05:15 86 14 09/18/19 04:45 95 H 26 H 09/18/19 04:31 91 H 19 09/18/19 04:30 88 20 173/96 H 09/18/19 04:15 85 21 09/18/19 04:14 86 26 H 09/18/19 04:13 90 23 178/107 H 09/18/19 04:01 84 27 H 09/18/19 04:00 75 26 H 165/86 H 09/18/19 03:45 78 28 H 96 09/18/19 03:42 84 23 175/92 H 97 09/18/19 03:38 81 27 H 97 09/18/19 03:36 86 25 H 167/101 H 97 09/18/19 03:33 98.8 F 80 18 167/101 H 97 Cardiovascular RRR, no murmur, no edema Respiratory normal respiratory effort, lungs clear to auscultation Pre-Sedation Airway Assessment Smoking Status: Former smoker Hx Sleep Apnea: No Hx Difficult Intubation: No Short, Thick Neck: No Thyromental Distance: > or= 3.5 Finger Breadths Oral Cavity: + Dentures Mallampati Class: II ASA: ASA2 NPO Status Date of Last Intake of Fluids: 09/18/19 Time of Last Intake of Fluids: 02:00 Date of Last Intake of Solid Food: 09/17/19 Time of Last Intake of Solid Foods: 21:00 Procedure Planning Contraindications for Sedation: none Current Medications Reviewed: Yes Notes The planned sedation has been discussed with the patient. Informed Consent was obtained. I have identified the patient, determined the appropriateness of sedation and have assessed the patient immediately prior to the procedure. All medicine(s) and interventions are by my order.
--- NOTE | 2019-09-18 14:50 | Cardiac Catheterization ---
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 Cardiac Status Clinical evaluation leading to the procedure CAD Presenation: Non STEMI Anginal Classification: CCS IV Heart Failure: No Cardiogenic Shock within 24 Hours: No Cardiac Arrest within 24 Hours: No Imaging Studies Past 6 Months: Yes Stress Studies Past 6 Months: No Diagnostic Physicians Name: Ben Nye MD Status: Elective Closure Device Percutaneous Entry Location: Femoral Closure Device: Angio-Seal Recommendations: PCI without planned CABG PCI Indication: PCI for high risk Non-GURU Lesion Segment Name: SVG to PDA, PLB Culprit Artery: Yes Stenosis Prior to Rx (%): 70 Chronic Total Occlusion: No IVUS: No FFR: No Pre-Procedure BRYAN Flow: 3 Previously Treated Lesion: No Lesion Complexity: High/C Lesion Length (mm): 25 Thrombus Present: Yes Bifurcation Lesion: No Guidewire Across Lesion: Stenosis Post-Procedure (%): 0 Post-Procedure BRYAN Flow: 3 Devices(s) Deployed: Yes Yes Intraprocedure Events Significant Disection: No Perforation: No Cardiac Cath Procedure Full Procedure Date September 18, 2019 Pre-Procedure Diagnosis Pre-Procedure Diagnosis: Angina AUC Score AUC Score: 8 Post-Procedure Diagnosis Post-Procedure Diagnosis: Severe CAD and Successful PCI Procedure(s) Performed Procedure(s) Performed: Coronary Angiography, Drug Eluting Stent and Bypass Graft Angiography Film And Video Graphics Designer Ben Nye MD Thermal Molder(s) Juanito Estimated Blood Loss Estimated Blood Loss: 10 Medication(s) Medication(s): Clopidogrel, Fentanyl, Heparin, Lidocaine 1%, Nicardipine, Nitroglycerin and Versed Summary of Findings Indication: ACS Access: 6 Fr right common femoral artery Catheters: JL4, JR4, MARVEL. JR4 guide Findings: LM -calcified, chronic 99% distal stenosis LAD -chronic 100% occlusion at ostium Circumflex -chronic 99% ostial stenosis into small high OM1 RCA -100% chronic proximal occlusion AARON to LADwidely patent Sequential SVG to PDA, PLBwith hazy, acute 70% proximal aspect of vein graft, 50% distal stenosis prior to anastomosis. SVG to OM 3 stents widely patent. Retrofills into distal circumflex, OM 2. -- PCI -- Antithrombotic therapy: Heparin, clopidogrel Procedure: SVG to PDA ostium cannulated with JR4 guide Filter wire passed across stenosis and deployed Proximal graft lesion predilated with 2.5 compliant balloon Dilated lesion stented with 3.5 x 33 mm Xience Valery drug-eluting stent IC vasodilators administered Filter captured Post procedure BRYAN 3 flow, mild in-stent residual stenosis, no apparent cardiac complications. Arterial Closure: Angio-Seal Summary: 1. Acute 70% SVG to PDA,PLB stenosis 2. Severe chronic multivessel [place] coronary artery disease 99% distal left main/ostial circumflex leading into small OM1 100% ostial LAD 100% proximal circumflex after OM1 100% proximal RCA 3. Patent AARON to LAD, and stents in SVG to OM. 4. Successful PCI of proximal SVG to PDA, PLB graft with single drug-eluting stent (3.5 x 33 mm Xience Valery). Recommendations: To PCU for continued monitoring Reloaded with clopidogrel 300 mg in lab systems analyst Continue dual-antiplatelet therapy for at least one year Continue statin, and ASCVD risk factor modification Consult cardiac Rehab Hemodynamics Rest Ao:: 120/65/86 Final Ao: 138/68/97 LV: -- Recommendations Recommendations: PCI without planned CABG Specimens Specimens: None Radiation Exposure (mGy) 2051 Contrast (mls) 125 Fluids (cc crystalloids) Fluids (cc crystalloids): 58 Drains Drains: none Anesthesia moderate Procedural Complication(s) None Disposition PCU I attest to the content of the Intraoperative Record and any orders documented therein. Any exceptions are noted below.
[2019-09-18] MEDS: INSULIN ASPART 100 UNITS/ML 3 ML PEN SC SCH ×3 (15:59→20:45)
[2019-09-18 16:50] LABS: Partial Thromboplastin Ratio 2.6
[2019-09-18 16:55] LABS: Partial Thromboplastin Time 70.4 Seconds (21.0-31.0)
[2019-09-18] MEDS: FERROUS SULFATE 325 MG TAB PO SCH (17:18)
[2019-09-18] MEDS: ASPIRIN 81 MG ECTAB PO SCH (20:45)
[2019-09-18] MEDS: LOSARTAN POTASSIUM 25 MG TAB PO SCH (20:45)
[2019-09-18] MEDS: CALCIUM 600MG + VIT D 400 IU TAB PO SCH (20:45)
[2019-09-18] MEDS: ATORVASTATIN 40 MG TAB PO SCH (20:46)
[2019-09-18] MEDS: FINASTERIDE 5 MG TAB PO SCH (20:46)
[2019-09-19] MEDS: INSULIN ASPART 100 UNITS/ML 3 ML PEN SC SCH ×6 (00:22→20:41)
--- NOTE | 2019-09-19 03:00 | Emergency Department Note ---
Entered by Janki Prajapati acting as a scribe for Arabella Nicolas DO History of Present Illness General Chief complaint: Chest Pain Stated complaint: CHEST PAIN Source: patient Mode of arrival: EMS History of Present Illness Provider complaint: chest pain Onset (ago): hour(s) 1 Location: chest Radiation: neck and extremity (upper bilateral) Current Pain Intensity: 5 Associated symptoms: + cough; no fever/chills Treatments prior to arrival: aspirin and other (NTG, antiacid, Ranexa) The patient is a 73 year old male who presents to the Emergency Room with complaints of chest pain that started at 0200 today. The patient reports that he has been experiencing chest pain that radiates to his arms bilaterally and his neck. He notes that he took 4 baby Aspirin, 3 Nitroglycerine, 1 Ranexa, and an anti-acid tablet prior to arrival. He mentions that he was given another Nitroglycerine in the EMS. The patient states that the pain is a dull pain. He states that his pain is a 5/10. He denies any shortness of breath, fever, or c hills. He mentions that he had a cold and cough for the past several days. The patient reports that he had a stent placed on the here at [facility]. He mentions that he has a history of 4 myocardial infarctions and a quadruple bypass. He mentions that his blood pressure is usually low. He states he had seen cardiology a few weeks ago and his Ranexa was stopped. He has been feeling fine until tonight. No change in activity or trauma. No recent illness. Home Medications Home Medications Medication Instructions Recorded Confirmed Type Calcium 600 + D(3) 1 tab PO HS 11/16/18 09/18/19 History Lantus Solostar U-100 Insulin 18 unit SUBCUT HS 11/16/18 09/18/19 History Novolog Flexpen U-100 Insulin 4 - 8 unit SUBCUT BID 11/16/18 09/18/19 History amlodipine 10 mg PO QAM 11/16/18 09/18/19 History ascorbic acid (vitamin C) [Vitamin 500 mg PO DAILY 11/16/18 09/18/19 History C] aspirin 81 mg PO HS 11/16/18 09/18/19 History atorvastatin 40 mg PO HS 11/16/18 09/18/19 History cholecalciferol (vitamin D3) 1,000 unit PO DAILY 11/16/18 09/18/19 History [Vitamin D3] coenzyme Q10 [Co Q-10] 200 mg PO DAILY 11/16/18 09/18/19 History cyanocobalamin (vitamin B-12) 1,000 mcg PO DAILY 11/16/18 09/18/19 History [Vitamin B-12] ferrous sulfate 325 mg PO BID 11/16/18 09/18/19 History finasteride 5 mg PO HS 11/16/18 09/18/19 History losartan 25 mg PO QPM 11/16/18 09/18/19 History multivitamin 1 tab PO DAILY 11/16/18 09/18/19 History metformin 1,000 mg PO BID 06/19/19 09/18/19 History ranolazine 1,000 mg PO Q12 06/19/19 09/18/19 History isosorbide mononitrate 120 mg 240 mg PO DAILY tab 06/25/19 09/18/19 History tablet,extended release 24 hr pantoprazole 40 mg tablet,delayed 40 mg PO Q OTHER DAY 06/25/19 09/18/19 History release levothyroxine 100 mcg tablet 100 mcg PO DAILY 06/26/19 09/18/19 History clopidogrel 75 mg tablet 75 mg PO DAILY #90 tab 08/01/19 09/18/19 Rx metoprolol tartrate 25 mg tablet 12.5 mg PO BID #90 tab 08/07/19 09/18/19 Rx furosemide 20 mg tablet 20 mg PO DAILY PRN #30 tab 08/28/19 09/18/19 Rx nitroglycerin 400 mcg TRANSLINGUAL UD PRN 09/18/19 09/18/19 History Allergies Allergy/AdvReac Type Severity Reaction Status Date / Time propofol Allergy Unknown Unknown Verified 09/18/19 04:20 Past Med/Surg History Medical History Anemia BPH (benign prostatic hyperplasia) CAD (coronary artery disease) Diabetes mellitus, type 2 DM II (diabetes mellitus, type II), controlled GERD (gastroesophageal reflux disease) Gout Hearing deficit History of anesthesia reaction hx of reaction to propofol--had mental confusion, double/blurred vision History of colon polyps HLD (hyperlipidemia) HTN (hypertension) Hyperlipidemia Hypertension Hypothyroidism Irregular heart beat Mitral regurgitation Mobitz I Mobitz II Myocardial Infarction 2016 x2 Non-ST elevation [place] (NSTEMI) (Acute) Osteoarthritis Spinal stenosis Surgical History History of cardiac cath x2--last was 2014 @ [facility] [place], no stents History of colonoscopy History of lumbar spinal fusion hardware in place History of mandibular surgery pins put into lower jaw, no issues with ROM History of surgery left periorbital sx History of tooth extraction all teeth History of umbilical hernia repair x3 Hx of bilateral cataract extraction Hx of vasectomy S/P CABG x 4 1993 @ [facility] [place]--follows with S/P CABG x 4 S/P coronary artery stent placement Family History Father Family history of diabetes mellitus Brother Family history of diabetes mellitus 2 Heart disease Diabetes Sister Family history of diabetes mellitus Diabetes Mother Heart disease Son Heart disease Family/Other Heart disease Other No family history of adverse response to anesthesia Social History Preferred Language: [place] Communication Ability: Effective Visual Impairment: No Limitations Hearing Ability: Normal Co Founder And Ceo Required: No Beliefs That Will Affect Care: None marital status: Current Living Situation: Spouse current occupation: retired Feels Safe at Home: Yes Smoking Status: Former smoker Tobacco Type: cigarettes ; Second Hand Exposure: No ; Hx Alcohol Use: Yes Alcohol type: beer, wine and hard liquor Hx Substance Use: No Physical Activity Frequency: Daily Seatbelt Use: always Review of Systems See HPI for pertinent positives & negatives. and A total of 10 systems reviewed and were otherwise negative Physical Exam Vital Signs Vital Signs - 24 hr 09/18/19 03:33 09/18/19 03:36 09/18/19 03:38 Temperature 37.1 C Temperature Source Oral Pulse Rate 80 86 81 Pulse Rate [Right Finger] Pulse Rate from SpO2 Sensor 83 83 Respiratory Rate 18 25 H 27 H Respiratory Effort / Characteristics Non-Labored Respiratory Depth Normal Respiratory Pattern Regular Blood Pressure 167/101 H 167/101 H Blood Pressure [Left Arm] Blood Pressure Mean 123 121 Blood Pressure Mean [Left Arm] Blood Pressure Position Sitting Pulse Oximetry 97 97 97 Oxygen Delivery Method Room Air Oxygen Flow Rate Sepsis Recent Fever Within 48 Hours No Sepsis Action Taken by Nursing No Action Required 09/18/19 03:42 09/18/19 03:45 09/18/19 04:00 Temperature Temperature Source Pulse Rate 84 78 75 Pulse Rate [Right Finger] Pulse Rate from SpO2 Sensor 82 77 Respiratory Rate 23 28 H 26 H Respiratory Effort / Characteristics Respiratory Depth Respiratory Pattern Blood Pressure 175/92 H 165/86 H Blood Pressure [Left Arm] Blood Pressure Mean 117 126 Blood Pressure Mean [Left Arm] Blood Pressure Position Pulse Oximetry 97 96 Oxygen Delivery Method Oxygen Flow Rate Sepsis Recent Fever Within 48 Hours Sepsis Action Taken by Nursing 09/18/19 04:01 09/18/19 04:13 09/18/19 04:14 Temperature Temperature Source Pulse Rate 84 90 86 Pulse Rate [Right Finger] Pulse Rate from SpO2 Sensor Respiratory Rate 27 H 23 26 H Respiratory Effort / Characteristics Respiratory Depth Respiratory Pattern Blood Pressure 178/107 H Blood Pressure [Left Arm] Blood Pressure Mean 119 Blood Pressure Mean [Left Arm] Blood Pressure Position Pulse Oximetry Oxygen Delivery Method Oxygen Flow Rate Sepsis Recent Fever Within 48 Hours Sepsis Action Taken by Nursing 09/18/19 04:15 09/18/19 04:30 09/18/19 04:31 Temperature Temperature Source Pulse Rate 85 88 91 H Pulse Rate [Right Finger] Pulse Rate from SpO2 Sensor Respiratory Rate 21 20 19 Respiratory Effort / Characteristics Respiratory Depth Respiratory Pattern Blood Pressure 173/96 H Blood Pressure [Left Arm] Blood Pressure Mean 130 Blood Pressure Mean [Left Arm] Blood Pressure Position Pulse Oximetry Oxygen Delivery Method Oxygen Flow Rate Sepsis Recent Fever Within 48 Hours Sepsis Action Taken by Nursing 09/18/19 04:45 09/18/19 05:15 09/18/19 05:16 Temperature Temperature Source Pulse Rate 95 H 86 83 Pulse Rate [Right Finger] Pulse Rate from SpO2 Sensor 90 Respiratory Rate 26 H 14 16 Respiratory Effort / Characteristics Respiratory Depth Respiratory Pattern Blood Pressure 151/94 H Blood Pressure [Left Arm] Blood Pressure Mean 101 Blood Pressure Mean [Left Arm] Blood Pressure Position Pulse Oximetry 92 Oxygen Delivery Method Room Air Oxygen Flow Rate Sepsis Recent Fever Within 48 Hours Sepsis Action Taken by Nursing 09/18/19 05:30 09/18/19 05:37 09/18/19 05:45 Temperature Temperature Source Pulse Rate 92 H 85 Pulse Rate [Right Finger] 84 Pulse Rate from SpO2 Sensor 95 H 90 Respiratory Rate 23 24 33 H Respiratory Effort / Characteristics Non-Labored Respiratory Depth Respiratory Pattern Blood Pressure 157/77 H Blood Pressure [Left Arm] Blood Pressure Mean 103 Blood Pressure Mean [Left Arm] Blood Pressure Position Pulse Oximetry 89 L 91 94 Oxygen Delivery Method Room Air Room Air Oxygen Flow Rate Sepsis Recent Fever Within 48 Hours Sepsis Action Taken by Nursing 09/18/19 06:00 09/18/19 06:01 09/18/19 06:15 Temperature Temperature Source Pulse Rate 95 H 94 H 92 H Pulse Rate [Right Finger] Pulse Rate from SpO2 Sensor 95 H 94 H Respiratory Rate 23 24 27 H Respiratory Effort / Characteristics Respiratory Depth Respiratory Pattern Blood Pressure 152/92 H Blood Pressure [Left Arm] Blood Pressure Mean 118 Blood Pressure Mean [Left Arm] Blood Pressure Position Pulse Oximetry 90 92 Oxygen Delivery Method Nasal Cannula Oxygen Flow Rate 2 Sepsis Recent Fever Within 48 Hours Sepsis Action Taken by Nursing 09/18/19 06:30 09/18/19 06:31 09/18/19 07:00 Temperature Temperature Source Pulse Rate 82 90 Pulse Rate [Right Finger] 84 Pulse Rate from SpO2 Sensor Respiratory Rate 20 23 18 Respiratory Effort / Characteristics Respiratory Depth Respiratory Pattern Blood Pressure 130/68 Blood Pressure [Left Arm] 158/90 H Blood Pressure Mean 71 Blood Pressure Mean [Left Arm] 112 Blood Pressure Position Pulse Oximetry 96 Oxygen Delivery Method Nasal Cannula Oxygen Flow Rate 2 Sepsis Recent Fever Within 48 Hours Sepsis Action Taken by Nursing GENERAL: alert, well appearing, well nourished, no distress, non-toxic EYE EXAM: normal conjunctiva, PERRL and EOM's grossly intact OROPHARYNX: no exudate, no erythema, lips, buccal mucosa, and tongue normal and mucous membranes are moist NECK: supple, no nuchal rigidity, no adenopathy, non-tender LUNGS: Clear to auscultation, no wheezes, rhonchi, or rales. Normal chest wall mechanics, no w/r/r HEART: no murmurs, S1 normal and S2 normal CHEST: Well healed midline sternotomy scar. ABDOMEN: abdomen soft, non-tender, normo-active bowel sounds, no masses, no rebound or guarding. BACK: Back is symmetrical on inspection and there is no deformity, no midline tenderness, no CVA tenderness. SKIN: no rashes and no bruising UPPER EXTREMITIES: upper extremities are grossly normal. FROM, nml pulses b/l. LOWER EXTREMITIES: No pitting edema. FROM, nml pulses b/l. NEURO EXAM: Normal sensorium, cranial nerves II-XII grossly intact, normal spe ech, no gross weakness of arms, no gross weakness of legs. Course Course 0338: The patient was evaluated in room A10, and a complete history and physical examination were performed. 0535: I reevaluated the patient and updated him on his results, he reports that he is having trouble breathing. His O2 stats is at 90 and the patient's chest pain is down to a 3-4. 0626: I reviewed the patient's case with Dr. Pham- [facility] Hospitalist. She will evaluate the patient for further management. Administered Medications Amlodipine Besylate (Norvasc) 10 mg PO QAM BUDDY Stop: 10/18/19 09:14 Last Admin: 09/18/19 09:58 Dose: 10 mg Documented by: [id number] Ascorbic Acid (Vitamin C) 500 mg PO DAILY BUDDY Stop: 10/18/19 09:14 Last Admin: 09/18/19 09:59 Dose: 500 mg Documented by: [id number] Aspirin (Ecotrin Ectab) 81 mg PO HS BUDDY Stop: 10/18/19 20:59 Last Admin: 09/18/19 20:45 Dose: 81 mg Documented by: [id number] Atorvastatin Calcium (Lipitor) 40 mg PO HS BUDDY Stop: 10/18/19 20:59 Last Admin: 09/18/19 20:46 Dose: 40 mg Documented by: [id number] Clopidogrel Bisulfate (Plavix) 75 mg PO DAILY BUDDY Stop: 10/18/19 09:14 Last Admin: 09/18/19 09:58 Dose: 75 mg Documented by: [id number] Cyanocobalamin (Vitamin B-12) 1,000 mcg PO DAILY BUDDY Stop: 10/18/19 09:29 Last Admin: 09/18/19 10:26 Dose: 1,000 mcg Documented by: [id number] Ferrous Sulfate (Feosol) 325 mg PO BIDM BUDDY Stop: 10/18/19 16:59 Last Admin: 09/18/19 17:18 Dose: 325 mg Documented by: [id number] Finasteride (Proscar) 5 mg PO HS BUDDY Stop: 10/18/19 20:59 Last Admin: 09/18/19 20:46 Dose: 5 mg Documented by: [id number] Insulin Aspart (Novolog Flexpen) 0 units SC Q4 BUDDY Stop: 10/18/19 11:59 Last Admin: 09/19/19 00:22 Dose: 2 units Documented by: [id number] Cosigned by: [id number] Admin: 09/18/19 20:45 Dose: 1 units Documented by: [id number] Cosigned by: [id number] Admin: 09/18/19 17:52 Dose: 3 units Documented by: [id number] Cosigned by: [id number] Admin: 09/18/19 15:59 Dose: Not Given Documented by: [id number] Cosigned by: [id number] Isosorbide Mononitrate (Imdur Extended Rel) 240 mg PO DAILY BUDDY Stop: 10/18/19 09:29 Last Admin: 09/18/19 10:26 Dose: 240 mg Documented by: [id number] Levothyroxine Sodium (Synthroid) 100 mcg PO DAILYBB BUDDY Stop: 10/18/19 09:14 Last Admin: 09/18/19 10:25 Dose: 100 mcg Documented by: [id number] Losartan Potassium (Cozaar) 25 mg PO QPM BUDDY Stop: 10/18/19 20:59 Last Admin: 09/18/19 20:45 Dose: 25 mg Documented by: [id number] Metoprolol Tartrate (Lopressor) 12.5 mg PO BID BUDDY Stop: 10/18/19 09:14 Last Admin: 09/18/19 20:46 Dose: 12.5 mg Documented by: [id number] Admin: 09/18/19 10:25 Dose: 12.5 mg Documented by: [id number] Multivitamins (Multivitamin Tab) 1 tab PO DAILY BUDDY Stop: 10/18/19 09:14 Last Admin: 09/18/19 10:26 Dose: 1 tab Documented by: [id number] Multivitamins/Minerals (Caltrate Plus) 1 tab PO HS BUDDY Stop: 10/18/19 20:59 Last Admin: 09/18/19 20:45 Dose: 1 tab Documented by: [id number] Ranolazine (Ranexa) 1,000 mg PO Q12 BUDDY Stop: 10/18/19 09:14 Last Admin: 09/18/19 20:46 Dose: 1,000 mg Documented by: [id number] Admin: 09/18/19 10:05 Dose: Not Given Documented by: [id number] Discontinued Medications Albuterol (Duoneb) 3 ml NEB NOW STA Stop: 09/18/19 05:25 Last Admin: 09/18/19 05:35 Dose: 3 ml Documented by: [id number] Clopidogrel Bisulfate (Plavix) Confirm Administered Dose 300 mg .ROUTE .STK-MED ONE Stop: 09/18/19 13:24 Last Admin: 09/18/19 14:54 Dose: 300 mg Documented by: [id number] Fentanyl Citrate (Fentanyl Citrate) 50 mcg IV NOW STA Stop: 09/18/19 05:37 Last Admin: 09/18/19 05:45 Dose: 50 mcg Documented by: [id number] Fentanyl Citrate (Fentanyl Citrate) Confirm Administered Dose 100 mcg .ROUTE .STK-MED ONE Stop: 09/18/19 11:37 Last Increment: 09/18/19 13:34 Dose: 50 mcg Documented by: [id number] Furosemide (Lasix) 40 mg IV NOW [facility] Stop: 09/18/19 06:04 Last Admin: 09/18/19 06:08 Dose: 40 mg Documented by: [id number] Heparin Sodium (Porcine) (Heparin Iv Bolus (Desktop Technician Use Only)) Confirm Administered Dose 10,000 units .ROUTE .STK-MED ONE Stop: 09/18/19 11:36 Last Admin: 09/18/19 13:34 Dose: 8,000 units Documented by: [id number] Heparin Sodium/Dextrose () 1 ea IV Q15M BUDDY; Protocol Stop: 09/18/19 12:15 Last Admin: 09/18/19 10:36 Dose: Not Given Documented by: [id number] Heparin Sodium/Sodium Chloride (Heparin/Nss 1000 Unit/500ml Flush Bag) Confirm Administered Dose 3,000 units IV .STK-MED ONE Stop: 09/18/19 11:37 Last Admin: 09/18/19 15:17 Dose: Not Given Documented by: [id number] Sodium Chloride (Nss 1000ml) 1,000 mls @ 125 mls/hr IV .Q8H BUDDY Stop: 10/18/19 04:59 Last Infusion: 09/18/19 09:00 Dose: 0 mls/hr Documented by: [id number] Admin: 09/18/19 05:14 Dose: 125 mls/hr Documented by: [id number] Magnesium Sulfate/Dextrose (Magnesium Sulfate / D5w) 1 gm in 100 mls @ 100 mls/hr IV ONE ONE Stop: 09/18/19 09:15 Last Infusion: 09/18/19 09:42 Dose: 0 mls/hr Documented by: [id number] Admin: 09/18/19 08:42 Dose: 100 mls/hr Documented by: [id number] Heparin Sodium/Dextrose (Heparin Sodium/Dextrose) 25,000 units in 500 mls @ 25 mls/hr IV .Q20H BUDDY; Protocol Stop: 10/18/19 09:49 Last Titration: 09/18/19 15:59 Dose: 0 units/hr, 0 mls/hr Documented by: [id number] Cosigned by: [id number] Titration: 09/18/19 09:59 Dose: 0 units/hr, 0 mls/hr Documented by: [id number] Cosigned by: [id number] Admin: 09/18/19 09:59 Dose: 1,250 units/hr, 25 mls/hr Documented by: [id number] Cosigned by: [id number] Heparin Sodium (Porcine) 5,000 (units/ Syringe) 5 mls @ 10 mls/min IV NOW ONE Stop: 09/18/19 10:01 Last Admin: 09/18/19 10:05 Dose: 10 mls/min Documented by: [id number] Cosigned by: [id number] Sodium Chloride (Nss 1000ml) 1,000 mls @ 100 mls/hr IV .Q10H BUDDY Stop: 09/18/19 19:59 Last Infusion: 09/18/19 21:12 Dose: 0 mls/hr Documented by: [id number] Admin: 09/18/19 14:20 Dose: 100 mls/hr Documented by: [id number] Insulin Aspart (Novolog Flexpen) 0 units SC NOW STA Stop: 09/18/19 09:25 Last Admin: 09/18/19 10:31 Dose: 11 units Documented by: [id number] Cosigned by: [id number] Insulin Glargine (Lantus Solostar Pen) 12 units SQ NOW STA; Protocol Stop: 09/18/19 09:23 Last Admin: 09/18/19 10:29 Dose: 12 units Documented by: [id number] Cosigned by: [id number] Insulin Human Regular (Novolin R U-100 Per Unit) 8 units SC NOW STA Stop: 09/18/19 04:59 Last Admin: 09/18/19 05:13 Dose: 8 units Documented by: [id number] Cosigned by: [id number] Ioversol (Optiray 320 125ml) 125 ml IV ONCE PRN PRN Reason: Interaction Checking Stop: 09/22/19 05:13 Last Admin: 09/18/19 05:14 Dose: 103 ml Documented by: [id number] Midazolam HCl (Versed) Confirm Administered Dose 2 mg .ROUTE .STK-MED ONE Stop: 09/18/19 11:37 Last Increment: 09/18/19 13:35 Dose: 1 mg Documented by: [id number] Miscellaneous Information (Dc All Previously Ordered Diabetes Meds) 1 ea N/A ONE ONE Stop: 09/18/19 09:05 Last Admin: 09/18/19 10:04 Dose: 1 ea Documented by: [id number] Nicardipine HCl (Cardene) Confirm Administered Dose 25 mg .ROUTE .STK-MED ONE Stop: 09/18/19 11:36 Last Admin: 09/18/19 15:17 Dose: Not Given Documented by: [id number] Nitroglycerin (Nitro-Bid 2%) 1 inch EXT NOW STA Stop: 09/18/19 03:48 Last Admin: 09/18/19 03:54 Dose: 1 inch Documented by: [id number] Nitroglycerin/Dextrose (Nitroglycerin/D5w 100 Mcg/Ml 20ml Syringe) Confirm Administered Dose 2,000 mcg .ROUTE .STK-MED ONE Stop: 09/18/19 11:37 Last Admin: 09/18/19 15:18 Dose: Not Given Documented by: [id number] Medical Decision Making Differential Diagnosis Differential diagnosis: Etiologies such as cardiac ischemia, aortic dissection, pulmonary embolism, pneumonia, pneumothorax, musculoskeletal, infections, pericarditis, myocarditis, esophageal rupture, gastrointestinal, as well as ot hers were entertained. Medical Records Attestation: I reviewed the patient's medical records. Home Medications Current Medication List: was personally reviewed by me Laboratory Data Attestation: I reviewed the patient's lab results. Result diagrams: 09/18/19 03:58 09/18/19 03:58 Lab Results 09/18/19 09/18/19 09/18/19 Range/Units 03:58 03:58 03:58 WBC 10.24 (4.8-10.8) K/uL RBC 4.35 L (4.7-6.1) M/uL Hgb 13.9 L (14.0-18.0) g/dL Hct 40.1 L (42-52) % MCV 92.2 (80-100) fL MCH 32.0 (25-34) pg MCHC 34.7 (32-36) g/dL RDW Std Deviation 45.3 (36.4-46.3) fL RDW Coeff of Stephanie 13.3 (11.5-14.5) % Plt Count 311 (130-400) K/uL MPV 10.2 (7.4-10.4) fL Immature Gran % (Auto) 0.2 % Neut % (Auto) 81.3 % Lymph % (Auto) 12.3 % [place] % (Auto) 6.2 % Eos % (Auto) 0.0 % Baso % (Auto) 0.0 % Immature Gran # (Auto) 0.02 (0.00-0.02) K/uL Neut # (Auto) 8.33 H (1.4-6.5) K/uL Lymph # (Auto) 1.26 (1.2-3.4) K/uL [place] # (Auto) 0.63 H (0.11-0.59) K/uL Eos # (Auto) 0.00 (0-0.5) K/uL Baso # (Auto) 0.00 (0-0.2) K/uL PT 10.3 (9.0-12.0) Seconds INR 1.0 (0.9-1.1) Sodium 137 (136-145) mmol/L Potassium 5.0 (3.5-5.1) mmol/L Chloride 103 (98-107) mmol/L Carbon Dioxide 22 (21-32) mmol/L Anion Gap 12.0 H (3-11) BUN 30 H (7-18) mg/dl Creatinine 1.68 H (0.6-1.4) mg/dl Est Cr Clr Drug Dosing 37.5 ml/min Est GFR ( Amer) 45.7 Est GFR (Non-Af Amer) 39.4 BUN/Creatinine Ratio 17.6 (10-20) Glucose 462 H* (70-99) mg/dl POC Glucose (70-99) Calcium 9.8 (8.5-10.1) mg/dl Magnesium 1.8 (1.8-2.4) mg/dl Total Bilirubin 0.4 (0.2-1) mg/dl AST 21 (15-37) U/L ALT 38 (12-78) U/L Alkaline Phosphatase 132 H (45-117) U/L Troponin I 0.046 H* (0-0.045) ng/ml NT-Pro-B Natriuret Pep 1286 H (0-900) pg/ml Total Protein 8.2 (6.4-8.2) gm/dl Albumin 3.9 (3.4-5.0) gm/dl Globulin 4.3 H (2.5-4.0) gm/dl Albumin/Globulin Ratio 0.9 (0.9-2) Lipase 125 (73-393) U/L Beta-Hydroxybutyric Acd (0.2-2.81) mg/dl 09/18/19 09/18/19 Range/Units 06:10 06:26 WBC (4.8-10.8) K/uL RBC (4.7-6.1) M/uL Hgb (14.0-18.0) g/dL Hct (42-52) % MCV (80-100) fL MCH (25-34) pg MCHC (32-36) g/dL RDW Std Deviation (36.4-46.3) fL RDW Coeff of Stephanie (11.5-14.5) % Plt Count (130-400) K/uL MPV (7.4-10.4) fL Immature Gran % (Auto) % Neut % (Auto) % Lymph % (Auto) % [place] % (Auto) % Eos % (Auto) % Baso % (Auto) % Immature Gran # (Auto) (0.00-0.02) K/uL Neut # (Auto) (1.4-6.5) K/uL Lymph # (Auto) (1.2-3.4) K/uL [place] # (Auto) (0.11-0.59) K/uL Eos # (Auto) (0-0.5) K/uL Baso # (Auto) (0-0.2) K/uL PT (9.0-12.0) Seconds INR (0.9-1.1) Sodium (136-145) mmol/L Potassium (3.5-5.1) mmol/L Chloride (98-107) mmol/L Carbon Dioxide (21-32) mmol/L Anion Gap (3-11) BUN (7-18) mg/dl Creatinine (0.6-1.4) mg/dl Est Cr Clr Drug Dosing ml/min Est GFR ( Amer) Est GFR (Non-Af Amer) BUN/Creatinine Ratio (10-20) Glucose (70-99) mg/dl POC Glucose 503 H* 423 H* (70-99) Calcium (8.5-10.1) mg/dl Magnesium (1.8-2.4) mg/dl Total Bilirubin (0.2-1) mg/dl AST (15-37) U/L ALT (12-78) U/L Alkaline Phosphatase (45-117) U/L Troponin I (0-0.045) ng/ml NT-Pro-B Natriuret Pep (0-900) pg/ml Total Protein (6.4-8.2) gm/dl Albumin (3.4-5.0) gm/dl Globulin (2.5-4.0) gm/dl Albumin/Globulin Ratio (0.9-2) Lipase (73-393) U/L Beta-Hydroxybutyric Acd (0.2-2.81) mg/dl Imaging Data Attestation: I personally reviewed and interpreted this imaging study as follows: My Impression: XR Chest Cardiomegaly noted, sternotomy wires noted, stents normal, no effusion, no wide mediastinum, no acute pulmonary edema, increased interstitial marking bilateral lower lobes. Radiologist's Impression: Radiology results as stated below per my review and the radiologist's interpretation: CTA CHEST No evidence of pulmonary embolism. Findings consistent with CHF/fluid overload. Cardiomegaly. Interlobular septal thickening and patchy groundglass densities. Trace right pleural effusion. Post- CABG. Coronary artery calcifications. Aortic calcifications. No aortic aneurysm or dissection. Chronic appearing compression deformity of L1 vertebral body. Radiologist: Phillip Aparicio MD Study ready at 0535 and initial results transmitted at 0559. ECG Data Attestation: I personally reviewed and interpreted this ECG as follows: Indication: + chest pain Rate (beats per minute): 86 Rhythm: + sinus rhythm ECG Intervals/blocks: + Normal QRS and + Normal QT ECG [place]: + Normal ECG ST segments: + T-wave inversions (avl ) ECG Findings: + PVCs and + Other (no ischemic changes) Additional Comments: EKG 2 Sinus rhythm, rate of 85 bpm, PVCs noted, 1st degree AV block, normal axis, normal QRS and QTC, TWI in avL, no ischemic changes. Blood Pressure Blood Pressure Findings: Elevated blood pressure Blood Pressure Disposition: further management by hospitalist JOE Narrative Patient's pain improving by the time of arrival here and he was given additional medication for pain. Patient's vital signs stable. Patient with extensive cardiac history. Patient was found to have a mildly positive troponin as well as an elevated BNP. Due to concern for patient's description of pain radiating into both the neck and bilateral arms, patient was sent for CT of the chest also. This was reassuring for no acute vascular pathology or PE, however did reveal congestive heart failure. Patient was given a dose of Lasix while in the emergency room, Nitropaste, and fentanyl to help with pain. Patient's other labs reassuring. Patient was made aware of all results and was in agreement with plan. Case discussed with hospitalist. I do not suspect occult infectious etiology. Patient's creatinine mildly elevated, which could contribute to the elevated BNP and troponin also. Impression & Plan Chest pain, Shortness of breath, Elevated troponin, CHF (congestive heart failure), PAULINA (acute kidney injury) Discharge Plan Visit Data *Final* Discharge Date/Time: 09/18/19 08:38 Chief Complaint: Chest Pain Stated Complaint: CHEST PAIN ED Provider: Arabella Nicolas Discharge Problem: Chest pain, Shortness of breath, Elevated troponin, CHF (congestive heart failure), PAULINA (acute kidney injury) Patient Disposition: Admitted As Inpatient Discharge Instructions Interventions: ED Discharge Assessment Last Done: 09/18/19 08:38 Discharge Problem: Chest pain Qualifiers: Chest pain type: unspecified Qualified Code(s): R07.9 - Chest pain, unspecified CHF (congestive heart failure) Qualifiers: Heart failure type: unspecified Heart failure chronicity: unspecified Qualified Code(s): I50.9 - Heart failure, unspecified The scribe's documentation has been prepared under my direction and personally reviewed by me in its entirety. I confirm that the note above accurately reflects all work, treatment, procedures, and medical decision making performed by me.
[2019-09-19] MEDS: LEVOTHYROXINE SODIUM 100 MCG TABLET PO SCH (06:06)
[2019-09-19 07:16] LABS: Basophils # (auto) 0.02 K/uL (0-0.2); Basophils % (auto) 0.2 %; Eosinophils # (auto) 0.03 K/uL (0-0.5); Eosinophils % (auto) 0.3 %; Hemoglobin 12.2 g/dL (14.0-18.0); Immature Granulocytes # (auto) 0.03 K/uL (0.00-0.02); Immature Granulocytes % (auto) 0.3 %; Lymphocytes # (auto) 2.56 K/uL (1.2-3.4); Lymphocytes % (auto) 22.5 %; Mean Corpuscular Hemoglobin 30.9 pg (25-34); Mean Corpuscular Hgb Conc 33.9 g/dL (32-36); Mean Corpuscular Volume 91.1 fL (80-100); Mean Platelet Volume 10.2 fL (7.4-10.4); Monocytes # (auto) 1.21 K/uL (0.11-0.59); Monocytes % (auto) 10.6 %; Neutrophils # (auto) 7.53 K/uL (1.4-6.5); Neutrophils % (auto) 66.1 %; Platelet Count 272 K/uL (130-400); RDW Coefficient of Variation 13.6 % (11.5-14.5); Red Blood Count 3.95 M/uL (4.7-6.1); White Blood Count 11.38 K/uL (4.8-10.8)
[2019-09-19 08:01] LABS: Albumin Level 3.3 gm/dl (3.4-5.0); BUN Creatinine Ratio 19.1 (10-20); Calcium 9.5 mg/dl (8.5-10.1); Creatinine Clr Calc Pharmacy 53.9 ml/min; Est GFR (African American) 73.8; Est GFR (Non-African American) 63.7; Potassium 3.5 mmol/L (3.5-5.1)
[2019-09-19 08:08] LABS: Bilirubin,Total 0.6 mg/dl (0.2-1); Globulin 3.4 gm/dl (2.5-4.0); Total Protein 6.7 gm/dl (6.4-8.2)
[2019-09-19] MEDS: RANOLAZINE 500 MG ER TAB PO SCH ×2 (08:12→20:39)
[2019-09-19] MEDS: METOPROLOL TARTRATE 25 MG TAB PO SCH (08:13)
[2019-09-19] MEDS: ASCORBIC ACID 500 MG TAB PO SCH (08:14)
[2019-09-19] MEDS: CLOPIDOGREL BISULFATE 75 MG TAB PO SCH (08:14)
[2019-09-19] MEDS: CYANOCOBALAMIN 500 MCG TABLET (VITAMIN B-12) PO SCH (08:14)
[2019-09-19] MEDS: CHOLECALCIFEROL 1,000 UNITS TAB PO SCH (08:15)
[2019-09-19] MEDS: MULTIVITAMIN TAB PO SCH (08:15)
[2019-09-19] MEDS: ISOSORBIDE MONO EXTENDED REL 60 MG TABCR PO SCH (08:16)
[2019-09-19] MEDS: FERROUS SULFATE 325 MG TAB PO SCH ×2 (08:17→17:31)
[2019-09-19 08:18] LABS: Estimated Average Glucose 148 mg/dl; Hemoglobin A1C 6.8 % (4.5-5.6)
[2019-09-19] MEDS: AMLODIPINE BESYLATE 5 MG TAB PO SCH (08:25)
[2019-09-19] MEDS ORDERED: INSULIN GLARGINE SOLOSTAR 100 UNITS/ML 3 ML PEN SQ ONE (09:00)
--- NOTE | 2019-09-19 11:11 | Hospitalist Progress Note ---
Date of Service September 19, 2019 Assessment & Plan (1) Chest pain: Continue admit to PCU on telemetry. Vital signs every 4 hours. Patient underwent yesterday cardiac catheterization PCI of SVG to PDA by Dr. Nye. Continue aspirin 81 mg daily indefinitely. Continue Plavix 75 mg for at least 1 year from 09/18/2019. Continue cardiac rehab. Updated echocardiogram showed left ventricular systolic function is mildly reduced. There is mild to moderate global hypokinesis of the left ventricle. Mild valvular aortic stenosis. Continue calcium channel blockers, nitrates, statin and Arb. Discontinue beta-blockers due to significantly prolonged DE interval and recurrent episodes of 2-1 AV block on telemetry. Nitroglycerin as needed. DVT prophylaxis started on heparin drip. Continue Lasix 20 mg IV twice daily. Strict in and out The weight Heart healthy low-sodium diet. Full code (2) Elevated troponin: Patient had NSTEMI, status post catheterization feeling better. (3) CHF (congestive heart failure): Patient is in acute exacerbation of CHF. He appears to be mildly volume overloaded. Started Lasix 20 mg IV twice daily. Low-sodium diet. Continue home medicine: Aspirin 81 mg p.o. nightly, amlodipine 10 mg p.o. every morning, isosorbide mononitrate 120 mg tablet p.o. daily, losartan 25 mg p.o. every afternoon Discontinued metoprolol tartrate due to reasons above. Nitroglycerin 400 MCG's sublingual as needed. Continue oral ranolazine 1000 milligrams p.o. every 12 Continue coenzyme Q 10 200 mg p.o. daily. Strict in and out, Daily weight (4) Acute coronary syndromes: Resolved (5) PAULINA (acute kidney injury): Resolved, continue monitoring (6) DM II (diabetes mellitus, type II), controlled: Hold metformin due to PAULINA. A1c is 6.8. Continue monitoring glycemic control Accu-Cheks before meals and at bedtime and glycemic control per pharmacy with sliding scale insulin. (7) HLD (hyperlipidemia): Lipid panel well controlled. Continue atorvastatin 40 mg p.o. nightly. (8) HTN (hypertension): Continue monitoring blood pressure closely. Blood pressure was elevated in the emergency room. Continue home medicine for now and titrate up as needed. (9) CAD (coronary artery disease): Continue atorvastatin 40 mg p.o. nightly, aspirin 81 p.o. nightly, clopidogrel 75 mg p.o. daily, aspirin 81 mg p.o. daily. (10) Non-ST elevation NV (NSTEMI): As above (11) Hypothyroidism: TSH 0.9, continue home dose of levothyroxine 100 MCG's p.o. daily. (12) Anemia: Improving in comparison to the last visit. Continue ferrous sulfate 325 mg p.o. twice daily, vitamin B12, multivitamin, vitamin C 500 mg p.o. daily. (13) BPH (benign prostatic hyperplasia): Stable, continue finasteride 5 mg p.o. nightly. Subjective Patient seen and examined at the bedside. He underwent cardiac catheterization by Dr. Nye for NSTEMI yesterday leading to PCI of SVG to PDA. Patient tolerated procedure well and felt much better this morning. Patient had some soreness at in the inguinal area at the insertion side that is now stable.Pt is present at the bedside. Review of Systems Review of Systems: All systems reviewed & are unremarkable except as noted in HPI & below Physical Exam Constitutional: WD/WN, vitals as above well developed Eyes: PERRL, conjunctivae normal, anicteric sclerae ENMT: external ear and nose normal, oropharynx normal Mallampati Class: II Neck: trachea midline, no thyromegaly Respiratory: normal respiratory effort, lungs clear to auscultation Cardiovascular: RRR, no murmur, no edema Gastrointestinal (Abdomen): normal bowel sounds, soft, nontender, no hepatosplenomegaly Musculoskeletal: no cyanosis or clubbing, extremities motor strength 5/5 Skin: Small bruise and swelling and right inguinal area. Improving from yesterday. Neurologic: patellar DTR's 2+ bilat, sensation intact Psychiatric: A+Ox3, euthymic affect Lymphatic: no cervical or axillary lymphadenopathy Results & Data Vital Signs (Past 12 Hours) Vital Signs Temp Pulse Pulse Resp BP Pulse Ox 09/19/19 08:00 37 L 09/19/19 07:50 37.4 C 81 19 136/77 96 09/19/19 03:58 36.6 C 45 L 16 125/73 97 09/18/19 23:41 36.5 C 56 L 20 136/75 96 PG Care Time/CCT Total # of Minutes Spent Total Time Spent with Patient: Total time spent is greater than 50% in coordination of care (as documented) at patient's floor/unit and/or counseling patient: (1) CAD (coronary artery disease) Associated angina: angina presence unspecified Coronary Disease-Associated Artery/Lesion type: bypass graft [place] vs. transplanted heart: [place] heart Qualified Code(s): I25.810 - Atherosclerosis of coronary artery bypass graft(s) without angina pectoris (2) CHF (congestive heart failure) Heart failure chronicity: unspecified Heart failure type: unspecified Qualified Code(s): I50.9 - Heart failure, unspecified (3) Chest pain Chest pain type: unspecified Qualified Code(s): R07.9 - Chest pain, unspecified (4) HTN (hypertension) Hypertension type: essential hypertension Qualified Code(s): I10 - Essential (primary) hypertension
--- NOTE | 2019-09-19 13:02 | Cardiology Progress Note ---
Date of Service September 19, 2019 Assessment & Plan (1) Non-ST elevation MO (NSTEMI): (2) S/P coronary artery stent placement: (3) Mobitz I: (4) Mobitz II: (5) S/P CABG x 4: (6) HLD (hyperlipidemia): ASSESSMENT/PLAN: 1. NSTEMI: No further angina. Underwent PCI of SVG to PDA. Tolerated the procedure well. Continue aspirin 81 mg daily indefinitely. Continue Plavix 75 mg for at least 1 year from 09/18/2019. Continue other medical therapy as outlined. Continue cardiac rehab. Repeat echocardiogram. 2. Multivessel CAD status post CABG and SVG PCI: He has now undergone PCI of 2 separate SVG for acute NSTEMI. No further angina. Continue aspirin 81 mg daily indefinitely. Continue Plavix for at least 1 year following stent implantation. Continue calcium channel beny, nitrates, statin, and ARB. 911 for chest pain not relieved with one nitroglycerin within 5 minutes. Will discontinue beta-beny due to significantly prolonged AL interval and recurrent episodes of 2-1 av block on telemetry (chronic issue). 2. Hypertension: Blood pressure well controlled. Continue current regimen. 3. Dyslipidemia: Lipids have been well controlled. Continue high-intensity statin therapy. 4. Mobitz I/II (Intermittent): Chronic issue. He has had recurrent 2:1 AV block on telemetry and significantly prolonged AL interval on baseline ECG. Will discontinue low-dose beta-beny, which was started in the past by EP and has been well tolerated. Asymptomatic. We have discussed the fact that pacemaker may be indicated in the future, but without symptoms, would recommend continuation of current plan. 5. Mitral Regurgitation: Non severe. No symptoms attributable to his mild regurgitation. Echo pending. 6. Carotid artery stenosis: Asymptomatic. Mild stenosis. Continue anti- platelet therapy and high-intensity statin therapy. 7. Edema: Takes Lasix on an as-needed basis. 8. Disposition: Cardiology will continue to follow. Please call with any other questions or concerns. Plan of care discussed with Dr. Way of the primary hospitalist service. (7) CAD (coronary artery disease): Subjective Yesterday, he was found to have NSTEMI. He underwent cardiac catheterization with Dr. Nye, leading to PCI of SVG to PDA. He feels much better. No further chest pain. He denies shortness of breath, orthopnea, syncope, near-syncope, palpitations, or bleeding. His right femoral catheterization site is a little sore but overall not significantly uncomfortable. He has not noted any bleeding from that site. His is present at the bedside when he was seen earlier this morning. Review of systems: As above. Physical Exam Physical Exam: Gen.: No acute distress. Alert and oriented. HEENT: Anicteric sclera. Neck: No JVD. Cardiac: Regular. Normal S1-S2. 2/6 systolic murmur. No rubs, or gallops. Pulmonary: Clear to auscultation bilaterally without wheezes, rales, or rhonchi. Abdomen: Soft, nontender, nondistended, with normoactive bowel sounds. No bruits noted. Extremities: Trace bilateral lower extremity edema. No cyanosis. Psychiatric: Affect appears appropriate. Results & Data Vital Signs (Past 12 Hours) Vital Signs Temp Pulse Pulse Resp BP BP Pulse Ox 09/19/19 11:30 37.1 C 52 L 19 119/61 97 09/19/19 08:00 37 L 09/19/19 07:50 37.4 C 81 19 136/77 96 09/19/19 03:58 36.6 C 45 L 16 125/73 97 Diagnostic Findings Telemetry personally reviewed: Sinus rhythm with first-degree AV block, Mobitz 1, and episodes of 2-1 av block. No significant pauses. ECGs personally reviewed: ECG 09/18/2019 at 3:41 p.m.: Sinus rhythm with first-degree AV block [address] abnormality. Cardiac catheterization 09/18/2019: LM -calcified, chronic 99% distal stenosis LAD -chronic 100% occlusion at ostium Circumflex -chronic 99% ostial stenosis into small high OM1 RCA -100% chronic proximal occlusion AARON to LADwidely patent Sequential SVG to PDA, PLBwith hazy, acute 70% proximal aspect of vein graft, 50% distal stenosis prior to anastomosis. SVG to OM 3 stents widely patent. Retrofills into distal circumflex, OM 2. -- PCI -- Antithrombotic therapy: Heparin, clopidogrel Procedure: SVG to PDA ostium cannulated with JR4 guide Filter wire passed across stenosis and deployed Proximal graft lesion predilated with 2.5 compliant balloon Dilated lesion stented with 3.5 x 33 mm Xience Valery drug-eluting stent IC vasodilators administered Filter captured Post procedure BRYAN 3 flow, mild in-stent residual stenosis, no apparent cardiac complications. Medications Administered Current Inpatient Medications Acetaminophen (Tylenol) 650 mg PO Q4H PRN PRN Reason: Pain or Fever Stop: 10/18/19 09:03 Al Hydrox/Mg Hydrox/Simethicone (Maalox) 15 ml PO Q4H PRN PRN Reason: Dyspepsia Stop: 10/18/19 09:03 Amlodipine Besylate (Norvasc) 10 mg PO QAM BUDDY Stop: 10/18/19 09:14 Last Admin: 09/19/19 08:25 Dose: 10 mg Documented by: Ascorbic Acid (Vitamin C) 500 mg PO DAILY BUDDY Stop: 10/18/19 09:14 Last Admin: 09/19/19 08:14 Dose: 500 mg Documented by: Aspirin (Ecotrin Ectab) 81 mg PO HS BUDDY Stop: 10/18/19 20:59 Last Admin: 09/18/19 20:45 Dose: 81 mg Documented by: Atorvastatin Calcium (Lipitor) 40 mg PO HS BUDDY Stop: 10/18/19 20:59 Last Admin: 09/18/19 20:46 Dose: 40 mg Documented by: Clopidogrel Bisulfate (Plavix) 75 mg PO DAILY BUDDY Stop: 10/18/19 09:14 Last Admin: 09/19/19 08:14 Dose: 75 mg Documented by: Cyanocobalamin (Vitamin B-12) 1,000 mcg PO DAILY BUDDY Stop: 10/18/19 09:29 Last Admin: 09/19/19 08:14 Dose: 1,000 mcg Documented by: Dextrose (Dextrose 50%) 25 - 50 ml IV UD PRN; Protocol PRN Reason: Hypoglycemia Protocol Stop: 10/18/19 09:03 Ferrous Sulfate (Feosol) 325 mg PO BIDM BUDDY Stop: 10/18/19 16:59 Last Admin: 09/19/19 08:17 Dose: 325 mg Documented by: Finasteride (Proscar) 5 mg PO HS BUDDY Stop: 10/18/19 20:59 Last Admin: 09/18/19 20:46 Dose: 5 mg Documented by: Furosemide (Lasix) 20 mg PO DAILY PRN PRN Reason: Edema Stop: 10/18/19 09:03 Glucagon (Glucagen) 1 mg SQ UD PRN; Protocol PRN Reason: Hypoglycemia Protocol Stop: 10/18/19 09:03 Glucose (Dex4 Glucose) 4 - 8 tabs PO UD PRN; Protocol PRN Reason: Hypoglycemia Protocol Stop: 10/18/19 09:03 Glucose (Glucose 40%) 15 - 30 gm PO UD PRN; Protocol PRN Reason: Hypoglycemia Protocol Stop: 10/18/19 09:03 Insulin Aspart (Novolog Flexpen) 0 units SC ACHS BUDDY Stop: 10/18/19 11:59 Last Admin: 09/19/19 11:57 Dose: 10 units Documented by: Insulin Glargine (Lantus Solostar Pen) 0 units SC HS ONE; Protocol Stop: 09/19/19 21:01 Isosorbide Mononitrate (Imdur Extended Rel) 240 mg PO DAILY BUDDY Stop: 10/18/19 09:29 Last Admin: 09/19/19 08:16 Dose: 240 mg Documented by: Levothyroxine Sodium (Synthroid) 100 mcg PO DAILYBB BUDDY Stop: 10/18/19 09:14 Last Admin: 09/19/19 06:06 Dose: 100 mcg Documented by: Losartan Potassium (Cozaar) 25 mg PO QPM BUDDY Stop: 10/18/19 20:59 Last Admin: 09/18/19 20:45 Dose: 25 mg Documented by: Magnesium Hydroxide (Milk Of Magnesia) 30 ml PO Q12H PRN PRN Reason: Constipation Stop: 10/18/19 09:03 Metoprolol Tartrate (Lopressor) 12.5 mg PO BID BUDDY Stop: 10/18/19 09:14 Last Admin: 09/19/19 08:13 Dose: 12.5 mg Documented by: Miscellaneous (Carbohydrates For Hypoglycemia) 15 - 30 gm PO UD PRN PRN Reason: Hypoglycemia Protocol Stop: 10/18/19 09:03 Miscellaneous Information (Consult Glycemic Management Pharmacy) 1 ea N/A UD [facility]; Protocol Stop: 10/18/19 09:21 Multivitamins (Multivitamin Tab) 1 tab PO DAILY BUDDY Stop: 10/18/19 09:14 Last Admin: 09/19/19 08:15 Dose: 1 tab Documented by: Multivitamins/Minerals (Caltrate Plus) 1 tab PO HS [facility] Stop: 10/18/19 20:59 Last Admin: 09/18/19 20:45 Dose: 1 tab Documented by: Nitroglycerin (Nitrolingual) 1 sprays SL UD PRN PRN Reason: Chest Pain Stop: 10/18/19 09:03 Ondansetron HCl (Zofran) 4 mg IV Q6H PRN PRN Reason: Nausea Stop: 10/18/19 09:03 Polyethylene Glycol (Miralax Powder Packet) 17 gm PO DAILY PRN PRN Reason: Constipation Stop: 10/18/19 09:03 Ranolazine (Ranexa) 1,000 mg PO Q12 BUDDY Stop: 10/18/19 09:14 Last Admin: 09/19/19 08:12 Dose: 1,000 mg Documented by: Vitamin D (Vitamin D3) 1,000 units PO DAILY BUDDY Stop: 10/19/19 08:59 Last Admin: 09/19/19 08:15 Dose: 1,000 units Documented by: PG Care Time/CCT Total # of Minutes Spent Total Time Spent with Patient: Total time spent is greater than 50% in coordination of care (as documented) at patient's floor/unit and/or counseling patient: (1) CAD (coronary artery disease) Coronary Disease-Associated Artery/Lesion type: bypass graft [place] vs. transplanted heart: [place] heart Associated angina: angina presence unspecified Qualified Code(s): I25.810 - Atherosclerosis of coronary artery bypass graft(s) without angina pectoris
--- NOTE | 2019-09-19 13:57 | Pharmacy Report ---
Pharmacy Glycemic Short Note 2 - Date of Service September 19, 2019 - Glycemic Short BSG Results (Last 24 hours): 09/18/19 09/18/19 09/18/19 14:20 16:22 20:08 Glucose POC Glucose 121 H 103 H 144 H 09/19/19 09/19/19 09/19/19 00:16 04:09 06:57 Glucose 147 H POC Glucose 179 H 111 H 09/19/19 09/19/19 07:14 11:26 Glucose POC Glucose 183 H 168 H OUTPATIENT ANTIDIABETIC REGIMEN: * Lantus 18 units SQ HS * Novolog 4-8 units w/ lunch and dinner * A1c = 6.8% 06/20/19, 09/19/19 ASSESSMENT: 09/19 * Insulin infusion not started yesterday due to improvement in BSGs, have ranged 103-183 since initial hyperglycemic presentation * Patient received 12 units of lantus yesterday + 8 units IV with initial hyperglycemia- fasting this morning 183- will increase lantus up to home dose * Novolog parameters currently dosed at weight based stress of 2- will continue for now as BSGs close to goal range, increasing lantus 09/18 * Type 2 diabetic, reasonably well controlled per last A1c, admitted for CP, R/O ACS, ADHF and PAULINA * BSGs in the 400's at this time however no ketoacidosis present on labs * Given current BSGs and possible ACS would recommend IV insulin infusion to quickly gain control of hyperglycemia - will discuss with hospitalist * Reviewed 05/2019 admission, and patient is fairly insulin sensitive and required less than 30 units per day * Patient has missed doses of his basal insulin, so will give Lantus in reduced dose STAT due to PAULINA, NPO status and possible addition of IV insulin drip PLAN FOR INPATIENT GLYCEMIC CONTROL: * Basal insulin * Lantus 9 units qam, 6 or 9 units this evening per scale. * Bolus insulin SQ Q 4 hrs initially while NPO until hyperglycemia better controlled * Goal Range: Low 110 mg/dL - High 140 mg/dL * Correction Factor: 25 mg/dL/unit * Nutritional / Prandial insulin per carb ratio of 1 unit per 9 grams CHO consumed PLAN FOR DISCHARGE: * HbA1c 6.8%, patient may resume home regimen if pt not experiencing hypoglycemia w/ current regimen
[2019-09-19] MEDS: LOSARTAN POTASSIUM 25 MG TAB PO SCH (20:39)
[2019-09-19] MEDS: ATORVASTATIN 40 MG TAB PO SCH (20:39)
[2019-09-19] MEDS: CALCIUM 600MG + VIT D 400 IU TAB PO SCH (20:39)
[2019-09-19] MEDS: ASPIRIN 81 MG ECTAB PO SCH (20:39)
[2019-09-19] MEDS: FINASTERIDE 5 MG TAB PO SCH (20:39)
[2019-09-19] MEDS ORDERED: INSULIN GLARGINE SOLOSTAR 100 UNITS/ML 3 ML PEN SC ONE (21:00)
[2019-09-20] MEDS: LEVOTHYROXINE SODIUM 100 MCG TABLET PO SCH (06:01)
[2019-09-20 06:39] LABS: Basophils # (auto) 0.01 K/uL (0-0.2); Basophils % (auto) 0.1 %; Eosinophils # (auto) 0.11 K/uL (0-0.5); Eosinophils % (auto) 1.3 %; Hematocrit (blood only) 36.9 % (42-52); Hemoglobin 12.6 g/dL (14.0-18.0); Immature Granulocytes # (auto) 0.01 K/uL (0.00-0.02); Immature Granulocytes % (auto) 0.1 %; Lymphocytes # (auto) 2.51 K/uL (1.2-3.4); Lymphocytes % (auto) 30.5 %; Mean Corpuscular Hemoglobin 31.1 pg (25-34); Mean Corpuscular Hgb Conc 34.1 g/dL (32-36); Mean Corpuscular Volume 91.1 fL (80-100); Mean Platelet Volume 10.1 fL (7.4-10.4); Monocytes # (auto) 1.21 K/uL (0.11-0.59); Monocytes % (auto) 14.7 %; Neutrophils # (auto) 4.39 K/uL (1.4-6.5); Neutrophils % (auto) 53.3 %; Platelet Count 251 K/uL (130-400); RDW Coefficient of Variation 13.3 % (11.5-14.5); RDW Standard Deviation 44.3 fL (36.4-46.3); Red Blood Count 4.05 M/uL (4.7-6.1); White Blood Count 8.24 K/uL (4.8-10.8)
[2019-09-20 07:11] LABS: Albumin Level 3.1 gm/dl (3.4-5.0); BUN Creatinine Ratio 16.6 (10-20); Calcium 8.8 mg/dl (8.5-10.1); Creatinine Clr Calc Pharmacy 52.7 ml/min; Est GFR (African American) 72.3; Est GFR (Non-African American) 62.3; Potassium 3.8 mmol/L (3.5-5.1)
[2019-09-20 07:14] LABS: Albumin Globulin Ratio 0.9 (0.9-2); Bilirubin,Total 0.5 mg/dl (0.2-1); Globulin 3.3 gm/dl (2.5-4.0); Total Protein 6.4 gm/dl (6.4-8.2)
[2019-09-20] MEDS: CYANOCOBALAMIN 500 MCG TABLET (VITAMIN B-12) PO SCH (08:21)
[2019-09-20] MEDS: CHOLECALCIFEROL 1,000 UNITS TAB PO SCH (08:21)
[2019-09-20] MEDS: MULTIVITAMIN TAB PO SCH (08:21)
[2019-09-20] MEDS: CLOPIDOGREL BISULFATE 75 MG TAB PO SCH (08:21)
[2019-09-20] MEDS: ISOSORBIDE MONO EXTENDED REL 60 MG TABCR PO SCH (08:22)
[2019-09-20] MEDS: AMLODIPINE BESYLATE 5 MG TAB PO SCH (08:22)
[2019-09-20] MEDS: ASCORBIC ACID 500 MG TAB PO SCH (08:22)
[2019-09-20] MEDS: RANOLAZINE 500 MG ER TAB PO SCH (08:22)
[2019-09-20] MEDS: FERROUS SULFATE 325 MG TAB PO SCH (08:22)
[2019-09-20] MEDS: INSULIN ASPART 100 UNITS/ML 3 ML PEN SC SCH ×2 (08:24→12:36)
--- NOTE | 2019-09-20 09:35 | Cardiology Progress Note ---
Date of Service September 20, 2019 Assessment & Plan (1) Non-ST elevation ME (NSTEMI): (2) S/P coronary artery stent placement: (3) Mobitz I: (4) Mobitz II: (5) S/P CABG x 4: (6) HLD (hyperlipidemia): ASSESSMENT/PLAN: 1. NSTEMI: No further angina. Underwent PCI of SVG to PDA on 09/18/2019. Right groin ecchymosis, but no hematoma. Continue aspirin 81 mg daily indefinitely. Continue Plavix 75 mg for at least 1 year from 09/18/2019. Continue other medical therapy as outlined. Continue cardiac rehab. Mildly reduced LV systolic function on echo. This was discussed with him and his . 2. Multivessel CAD status post CABG and SVG PCI: He has now undergone PCI of 2 separate SVG for acute NSTEMI in 2019. No further angina. Continue aspirin 81 mg daily indefinitely. Continue Plavix for at least 1 year following stent implantation. Continue calcium channel beny, nitrates, statin, and ARB. 911 for chest pain not relieved with one nitroglycerin within 5 minutes. Beta- beny has been discontinued due to significantly prolonged PA interval and recurrent episodes of 2-1 av block on telemetry (chronic issue). 3. Hypertension: Blood pressure remains well controlled. Continue current regimen. 4. Dyslipidemia: Lipids have been well controlled. Continue high-intensity statin therapy. 5. Mobitz I/II (Intermittent): Chronic issue. He has had recurrent 2:1 AV block on telemetry and significantly prolonged PA interval on baseline ECG. Beta-beny discontinued. Asymptomatic. We have discussed the fact that pacemaker may be indicated in the future, but because he is asymptomatic, he does not yet require pacemaker placement. 6. Aortic stenosis: Non severe. Monitor over time. 7. Edema: Takes Lasix on an as-needed basis. Currently, no edema. 8. Disposition: Can be discharged home today from a cardiac standpoint as long as he remains asymptomatic. Continue cardiac rehab. Follow-up in the office in 1-2 weeks with physician visual merchandising assistant as I will be away from the office. Cardiology office will make this appointment. (7) CAD (coronary artery disease): Subjective He has not had any angina. His groin remains ecchymotic but states that there is no pain and no noted bleeding. He denies shortness of breath, syncope, near- syncope, palpitations, edema. He has ambulated in the hallways, tolerating it well without angina. His is present at the bedside. Review of systems: As above. Physical Exam Physical Exam: Gen.: No acute distress. Alert and oriented. HEENT: Anicteric sclera. Neck: No JVD. Cardiac: Regular. Normal S1-S2. 2/6 systolic murmur. No rubs, or gallops. Pulmonary: Clear to auscultation bilaterally without wheezes, rales, or rhonchi. Abdomen: Soft, nontender, nondistended, with normoactive bowel sounds. No bruits noted. Extremities: Right femoral catheterization site is without hematoma. Large ecchymosis. Nontender. No significant edema. No cyanosis. Psychiatric: Affect appears appropriate. Results & Data Vital Signs (Past 12 Hours) Vital Signs Temp Pulse Resp BP BP Pulse Ox 09/20/19 07:05 36.9 C 56 L 19 111/68 97 09/20/19 04:44 36.9 C 82 18 147/80 H 95 09/20/19 00:01 36.9 C 74 20 122/75 96 Laboratory Results Laboratory Results - last 24 hr 09/19/19 09/19/19 09/19/19 11:26 16:12 20:30 WBC RBC Hgb Hct MCV MCH MCHC RDW Std Deviation RDW Coeff of Stephanie Plt Count MPV Immature Gran % (Auto) Neut % (Auto) Lymph % (Auto) [place] % (Auto) Eos % (Auto) Baso % (Auto) Immature Gran # (Auto) Neut # (Auto) Lymph # (Auto) [place] # (Auto) Eos # (Auto) Baso # (Auto) Sodium Potassium Chloride Carbon Dioxide Anion Gap BUN Creatinine Est Cr Clr Drug Dosing Est GFR ( Amer) Est GFR (Non-Af Amer) BUN/Creatinine Ratio Glucose POC Glucose 168 H 95 125 H Calcium Total Bilirubin AST ALT Alkaline Phosphatase Total Protein Albumin Globulin Albumin/Globulin Ratio 09/20/19 09/20/19 09/20/19 06:17 06:17 07:16 WBC 8.24 RBC 4.05 L Hgb 12.6 L Hct 36.9 L MCV 91.1 MCH 31.1 MCHC 34.1 RDW Std Deviation 44.3 RDW Coeff of Stephanie 13.3 Plt Count 251 MPV 10.1 Immature Gran % (Auto) 0.1 Neut % (Auto) 53.3 Lymph % (Auto) 30.5 [place] % (Auto) 14.7 Eos % (Auto) 1.3 Baso % (Auto) 0.1 Immature Gran # (Auto) 0.01 Neut # (Auto) 4.39 Lymph # (Auto) 2.51 [place] # (Auto) 1.21 H Eos # (Auto) 0.11 Baso # (Auto) 0.01 Sodium 140 Potassium 3.8 Chloride 105 Carbon Dioxide 28 Anion Gap 7.0 BUN 19 H Creatinine 1.15 Est Cr Clr Drug Dosing 52.7 Est GFR ( Amer) 72.3 Est GFR (Non-Af Amer) 62.3 BUN/Creatinine Ratio 16.6 Glucose 117 H POC Glucose 134 H Calcium 8.8 Total Bilirubin 0.5 AST 30 ALT 33 Alkaline Phosphatase 72 Total Protein 6.4 Albumin 3.1 L Globulin 3.3 Albumin/Globulin Ratio 0.9 Diagnostic Findings Telemetry personally reviewed: Sinus rhythm with first-degree AV block and intermittent second-degree heart block. No significant pauses. Echocardiogram 09/19/2019: Mildly reduced LV systolic function. Mild aortic stenosis. Medications Administered Current Inpatient Medications Acetaminophen (Tylenol) 650 mg PO Q4H PRN PRN Reason: Pain or Fever Stop: 10/18/19 09:03 Al Hydrox/Mg Hydrox/Simethicone (Maalox) 15 ml PO Q4H PRN PRN Reason: Dyspepsia Stop: 10/18/19 09:03 Amlodipine Bes[facility] [place] Stop: 10/18/19 09:14 Last Admin: 09/20/19 08:22 Dose: 10 mg Documented by: Ascorbic Acid (Vitamin C) 500 mg PO DAILY BUDDY Stop: 10/18/19 09:14 Last Admin: 09/20/19 08:22 Dose: 500 mg Documented by: Aspirin (Ecotrin Ectab) 81 mg PO HS [facility] Stop: 10/18/19 20:59 Last Admin: 09/19/19 20:39 Dose: 81 mg Documented by: Atorvastatin Calcium (Lipitor) 40 mg PO HS [facility] Stop: 10/18/19 20:59 Last Admin: 09/19/19 20:39 Dose: 40 mg Documented by: Clopidogrel Bisulfate (Plavix) 75 mg PO DAILY BUDDY Stop: 10/18/19 09:14 Last Admin: 09/20/19 08:21 Dose: 75 mg Documented by: Cyanocobalamin (Vitamin B-12) 1,000 mcg PO DAILY BUDDY Stop: 10/18/19 09:29 Last Admin: 09/20/19 08:21 Dose: 1,000 mcg Documented by: Dextrose (Dextrose 50%) 25 - 50 ml IV UD PRN; Protocol PRN Reason: Hypoglycemia Protocol Stop: 10/18/19 09:03 Ferrous Sulfate (Feosol) 325 mg PO BIDM BUDDY Stop: 10/18/19 16:59 Last Admin: 09/20/19 08:22 Dose: 325 mg Documented by: Finasteride (Proscar) 5 mg PO HS BUDDY Stop: 10/18/19 20:59 Last Admin: 09/19/19 20:39 Dose: 5 mg Documented by: Furosemide (Lasix) 20 mg PO DAILY PRN PRN Reason: Edema Stop: 10/18/19 09:03 Glucagon (Glucagen) 1 mg SQ UD PRN; Protocol PRN Reason: Hypoglycemia Protocol Stop: 10/18/19 09:03 Glucose (Dex4 Glucose) 4 - 8 tabs PO UD PRN; Protocol PRN Reason: Hypoglycemia Protocol Stop: 10/18/19 09:03 Glucose (Glucose 40%) 15 - 30 gm PO UD PRN; Protocol PRN Reason: Hypoglycemia Protocol Stop: 10/18/19 09:03 Insulin Aspart (Novolog Flexpen) 0 units SC ACHS BUDDY Stop: 10/18/19 11:59 Last Admin: 09/20/19 08:24 Dose: 8 units Documented by: Isosorbide Mononitrate (Imdur Extended Rel) 240 mg PO DAILY BUDDY Stop: 10/18/19 09:29 Last Admin: 09/20/19 08:22 Dose: 240 mg Documented by: Levothyroxine Sodium (Synthroid) 100 mcg PO DAILYBB BUDDY Stop: 10/18/19 09:14 Last Admin: 09/20/19 06:01 Dose: 100 mcg Documented by: Losartan Potassium (Cozaar) 25 mg PO QPM BUDDY Stop: 10/18/19 20:59 Last Admin: 09/19/19 20:39 Dose: 25 mg Documented by: Magnesium Hydroxide (Milk Of Magnesia) 30 ml PO Q12H PRN PRN Reason: Constipation Stop: 10/18/19 09:03 Miscellaneous (Carbohydrates For Hypoglycemia) 15 - 30 gm PO UD PRN PRN Reason: Hypoglycemia Protocol Stop: 10/18/19 09:03 Miscellaneous Information (Consult Glycemic Management Pharmacy) 1 ea N/A UD BUDDY; Protocol Stop: 10/18/19 09:21 Multivitamins (Multivitamin Tab) 1 tab PO DAILY BUDDY Stop: 10/18/19 09:14 Last Admin: 09/20/19 08:21 Dose: 1 tab Documented by: Multivitamins/Minerals (Caltrate Plus) 1 tab PO HS BUDDY Stop: 10/18/19 20:59 Last Admin: 09/19/19 20:39 Dose: 1 tab Documented by: Nitroglycerin (Nitrolingual) 1 sprays SL UD PRN PRN Reason: Chest Pain Stop: 10/18/19 09:03 Ondansetron HCl (Zofran) 4 mg IV Q6H PRN PRN Reason: Nausea Stop: 10/18/19 09:03 Polyethylene Glycol (Miralax Powder Packet) 17 gm PO DAILY PRN PRN Reason: Constipation Stop: 10/18/19 09:03 Ranolazine (Ranexa) 1,000 mg PO Q12 BUDDY Stop: 10/18/19 09:14 Last Admin: 09/20/19 08:22 Dose: 1,000 mg Documented by: Vitamin D (Vitamin D3) 1,000 units PO DAILY BUDDY Stop: 10/19/19 08:59 Last Admin: 09/20/19 08:21 Dose: 1,000 units Documented by: PG Care Time/CCT Total # of Minutes Spent Total Time Spent with Patient: Total time spent is greater than 50% in coordination of care (as documented) at patient's floor/unit and/or counseling patient: (1) CAD (coronary artery disease) Coronary Disease-Associated Artery/Lesion type: bypass graft [place] vs. transplanted heart: [place] heart Associated angina: angina presence unspecified Qualified Code(s): I25.810 - Atherosclerosis of coronary artery bypass graft(s) without angina pectoris
[2019-09-20 11:34] VITALS: PULSE 78; TEMP 98.8; O2SAT 96
[2019-09-20] MEDS ORDERED: INSULIN GLARGINE SOLOSTAR 100 UNITS/ML 3 ML PEN SC ONE (12:00)
[2019-09-20 12:19] VITALS: BP 111/68
--- NOTE | 2019-09-20 12:43 | Hospitalist Progress Note ---
Date of Service September 20, 2019 Assessment & Plan (1) Chest pain: Patient reports feeling much better. Patient requested to be discharged home. Denies any chest pain. Patient underwent cardiac catheterization PCI of SVG to PDA by Dr. Nye. Continue aspirin 81 mg daily indefinitely. Continue Plavix 75 mg for at least 1 year from 09/18/2019. Continue cardiac rehab. Updated echocardiogram showed left ventricular systolic function is mildly reduced. There is mild to moderate global hypokinesis of the left ventricle. Mild valvular aortic stenosis. Continue calcium channel blockers, nitrates, statin and Arb. Discontinue beta-blockers due to significantly prolonged [place] interval and recurrent episodes of 2-1 AV block on telemetry. Nitroglycerin as needed. Follow-up with cardiology 1 to 2 weeks. (2) Elevated troponin: Patient had NSTEMI, status post catheterization feeling better. (3) CHF (congestive heart failure): Patient is euvolemic now. He can go on home regimen. (4) Acute coronary syndromes: Resolved (5) PAULINA (acute kidney injury): Resolved, continue monitoring (6) DM II (diabetes mellitus, type II), controlled: Discontinued metformin because it causes patient to have PAULINA. A1c is 6.8. Continue home dose of insulin long and short-acting (7) HLD (hyperlipidemia): Lipid panel well controlled. Continue atorvastatin 40 mg p.o. nightly. (8) HTN (hypertension): Continue monitoring blood pressure closely. Blood pressure was elevated in the emergency room. Continue home medicine for now and titrate up as needed. (9) CAD (coronary artery disease): Continue atorvastatin 40 mg p.o. nightly, aspirin 81 p.o. nightly, clopidogrel 75 mg p.o. daily, aspirin 81 mg p.o. daily. (10) Non-ST elevation AL (NSTEMI): As above (11) Hypothyroidism: TSH 0.9, continue home dose of levothyroxine 100 MCG's p.o. daily. (12) Anemia: Improving in comparison to the last visit. Continue ferrous sulfate 325 mg p.o. twice daily, vitamin B12, multivitamin, vitamin C 500 mg p.o. daily. (13) BPH (benign prostatic hyperplasia): Stable, continue finasteride 5 mg p.o. nightly. Subjective Patient seen and examined at the bedside. Denies any chest pain or shortness of breath since he had a catheterization. Patient continues to have a bruise in his right groin but that is improving and there is no active bleeding. Patient denies fever, chills, chest pain, shortness of breath, abdominal pain, syncope edema. Pt was advised that metoprolol is stopped per cardiology because of problems with cardiac conduction. Since patient has been in the hospital we hold pantoprazole and metformin and patient's kidney function improved. His is present at the bedside. Review of Systems Review of Systems: All systems reviewed & are unremarkable except as noted in HPI & below Physical Exam 2 Constitutional: WD/WN, vitals as above well developed Eyes: PERRL, conjunctivae normal, anicteric sclerae ENMT: external ear and nose normal, oropharynx normal Mallampati Class: II Neck: trachea midline, no thyromegaly Respiratory: normal respiratory effort, lungs clear to auscultation Cardiovascular: RRR, no murmur, no edema Gastrointestinal (Abdomen): normal bowel sounds, soft, nontender, no hepatosplenomegaly Musculoskeletal: no cyanosis or clubbing, extremities motor strength 5/5 Neurologic: patellar DTR's 2+ bilat, sensation intact Psychiatric: A+Ox3, euthymic affect Lymphatic: no cervical or axillary lymphadenopathy Results & Data Vital Signs (Past 12 Hours) Vital Signs Temp Pulse Resp BP BP Pulse Ox 09/20/19 12:18 37.1 C 78 19 111/68 106/63 96 09/20/19 11:33 37.1 C 78 19 106/63 96 09/20/19 07:05 36.9 C 56 L 19 111/68 97 09/20/19 04:44 36.9 C 82 18 147/80 H 95 PG Care Time/CCT Total # of Minutes Spent Total Time Spent with Patient: Total time spent is greater than 50% in coordination of care (as documented) at patient's floor/unit and/or counseling patient: (1) CAD (coronary artery disease) Associated angina: angina presence unspecified Coronary Disease-Associated Artery/Lesion type: bypass graft [place] vs. transplanted heart: [place] heart Qualified Code(s): I25.810 - Atherosclerosis of coronary artery bypass graft(s) without angina pectoris (2) CHF (congestive heart failure) Heart failure chronicity: unspecified Heart failure type: unspecified Qualified Code(s): I50.9 - Heart failure, unspecified (3) Chest pain Chest pain type: unspecified Qualified Code(s): R07.9 - Chest pain, unspecified (4) HTN (hypertension) Hypertension type: essential hypertension Qualified Code(s): I10 - Essential (primary) hypertension
--- NOTE | 2019-09-20 13:25 | Pharmacy Report ---
Pharmacy Glycemic Short Note 2 - Date of Service September 20, 2019 - Glycemic Short BSG Results (Last 24 hours): 09/19/19 09/19/19 09/20/19 16:12 20:30 06:17 Glucose 117 H POC Glucose 95 125 H 09/20/19 09/20/19 07:16 11:20 Glucose POC Glucose 134 H 203 H OUTPATIENT ANTIDIABETIC REGIMEN: * Lantus 18 units SQ HS * Novolog 4-8 units w/ lunch and dinner * A1c = 6.8% 06/20/19, 09/19/19 ASSESSMENT: 09/20: * BSGs ranged from 95-183 yesterday with 18 units of basal insulin * Attempting to get patient back to HS dosing, will dose lantus as 9 units at lunch + 9 units at HS, resume 18 units HS tomorrow * Continue current novolog parameters, BSG higher at lunch, however lantus moved from am to lunch and novolog was given ~0830. 09/19 * Insulin infusion not started yesterday due to improvement in BSGs, have ranged 103-183 since initial hyperglycemic presentation * Patient received 12 units of lantus yesterday + 8 units IV with initial hyperglycemia- fasting this morning 183- will increase lantus up to home dose * Novolog parameters currently dosed at weight based stress of 2- will continue for now as BSGs close to goal range, increasing lantus 09/18 * Type 2 diabetic, reasonably well controlled per last A1c, admitted for CP, R/O ACS, ADHF and PAULINA * BSGs in the 400's at this time however no ketoacidosis present on labs * Given current BSGs and possible ACS would recommend IV insulin infusion to quickly gain control of hyperglycemia - will discuss with hospitalist * Reviewed 05/2019 admission, and patient is fairly insulin sensitive and required less than 30 units per day * Patient has missed doses of his basal insulin, so will give Lantus in reduced dose STAT due to PAULINA, NPO status and possible addition of IV insulin drip PLAN FOR INPATIENT GLYCEMIC CONTROL: * Basal insulin * Lantus 9 units at lunch, 9 units this evening * Bolus insulin SQ Q 4 hrs initially while NPO until hyperglycemia better controlled * Goal Range: Low 110 mg/dL - High 140 mg/dL * Correction Factor: 25 mg/dL/unit * Nutritional / Prandial insulin per carb ratio of 1 unit per 9 grams CHO consumed PLAN FOR DISCHARGE: * HbA1c 6.8%, patient may resume home regimen if pt not experiencing hypoglycemia w/ current regimen * If patient discharged 09/20- would recommend 9 units of lantus at bedtime and then resume 18 units HS on 09/21
--- NOTE | 2019-09-20 13:30 | Discharge Summary ---
Date of Service September 20, 2019 Admission HPI Per Admitting Provider Patient is a 73 years old male with past medical history of coronary artery disease status post CABG x4, myocardial infarction on July 26, 2014, another NSTEMI June 18, 2019, status post lumbar decompression and fusion with last cardiac cath on June 19, 2019 with multivessel disease and acute 95% SVG to OM stenosis, severe chronic multivessel nez perce coronary artery disease, 99% distal left main/ostial single circumflex leading into small OM 1, 100% ostial ALD, 100% proximal circumflex after OM1, 100% proximal RCA, patent AARON to LAD, sequential SVG to right PDA, PLB. Patient has successful PCI of mid SVG to OM graft with single drug-eluting stent by Dr. Nye. Patient was brought to the emergency room with a complaint of chest pain that started approximately 2 AM this morning and he took his aspirin, nitroglycerin and ranolazine before arriving to the emergency room. Chest pain finally subsided upon arrival to the emergency room. Per patient. Pain lasted approximately 30 minutes and it was described as a crushing and occasional stabbing and radiating to his left arm. Patient had similar chest pains before especially in May 2019. Patient feels mildly congested and sometimes short of breath. He reports feeling weaker last couple of weeks and he states that possibly he gained several pounds. He started to take Lasix as needed. Patient is very compliant and he takes all of his medications. CTA of the chest ruled out pulmonary embolism. There is cardiomegaly with evidence of congestive change and mild pulmonary edema. Labs are reviewed which shows: WBC is 10.24, hemoglobin 13.9, hematocrit 40.1 platelets 311, PT 10.3, INR 1, sodium 137, potassium 5, chloride 103, creatinine 1.68, GFR 39.4, glucose 462, magnesium 1.8, troponin 0.0 46 mildly elevated, BNP 1286. EKG shows sinus rhythm with first-degree AV block occasional PVCs ST segment and T wave abnormalities in V4 V5 and V6 which appear to be different than June 19. Decision was made to admit patient to PCU on telemetry with heparin drip with bolus started for an NSTEMI. Principal Diagnosis none Discharge Exam Constitutional WD/WN, vitals as above well developed Eyes PERRL, conjunctivae normal, anicteric sclerae ENMT external ear and nose normal, oropharynx normal Mallampati Class: II Neck trachea midline, no thyromegaly Respiratory normal respiratory effort, lungs clear to auscultation Cardiovascular RRR, no murmur, no edema Gastrointestinal (Abdomen) normal bowel sounds, soft, nontender, no hepatosplenomegaly Musculoskeletal no cyanosis or clubbing, extremities motor strength 5/5 Neurologic patellar DTR's 2+ bilat, sensation intact Psychiatric A+Ox3, euthymic affect Lymphatic no cervical or axillary lymphadenopathy Discharge Data Allergies Allergy/AdvReac Type Severity Reaction Status Date / Time propofol Allergy Unknown Unknown Verified 09/18/19 04:20 Consultations 09/18/19 06:49 ED Decision to Admit Stat 09/18/19 09:04 Consult Cardiology Routine 09/18/19 14:52 Consult Cardiac Rehabilitation Routine Procedures Performed Operation Date: 09/18/19 11:30 Actual Procedures p Cath, Cors with Grafts (no LV) - Noam Nye MD s Cineradiography w/Routine Exam - Noam Nye MD s Drug Eluding Stent, SVG/MARVEL, A - Noam Nye MD Ordered Studies 09/18/19 04:33 CT angio chest PE protocol Urgent 09/18/19 10:35 CL Cath Imgs for PACS use only Routine Hospital Course (1) Chest pain: Patient reports feeling much better. Patient requested to be discharged home. Denies any chest pain. Patient underwent cardiac catheterization PCI of SVG to PDA by Dr. Nye. Continue aspirin 81 mg daily indefinitely. Continue Plavix 75 mg for at least 1 year from 09/18/2019. Continue cardiac rehab. Updated echocardiogram showed left ventricular systolic function is mildly reduced. There is mild to moderate global hypokinesis of the left ventricle. Mild valvular aortic stenosis. Continue calcium channel blockers, nitrates, statin and Arb. Discontinue beta-blockers due to significantly prolonged NC interval and recurrent episodes of 2-1 AV block on telemetry. Nitroglycerin as needed. Follow-up with cardiology 1 to 2 weeks. (2) Elevated troponin: Patient had NSTEMI, status post catheterization feeling better. (3) CHF (congestive heart failure): Patient is euvolemic now. He can go on home regimen. (4) Acute coronary syndromes: Resolved (5) PAULINA (acute kidney injury): Resolved, continue monitoring (6) DM II (diabetes mellitus, type II), controlled: Discontinued metformin because it causes patient to have PAULINA. A1c is 6.8. Continue home dose of insulin long and short-acting (7) HLD (hyperlipidemia): Lipid panel well controlled. Continue atorvastatin 40 mg p.o. nightly. (8) HTN (hypertension): Continue monitoring blood pressure closely. Blood pressure was elevated in the emergency room. Continue home medicine for now and titrate up as needed. (9) CAD (coronary artery disease): Continue atorvastatin 40 mg p.o. nightly, aspirin 81 p.o. nightly, clopidogrel 75 mg p.o. daily, aspirin 81 mg p.o. daily. (10) Non-ST elevation [place] (NSTEMI): As above (11) Hypothyroidism: TSH 0.9, continue home dose of levothyroxine 100 MCG's p.o. daily. (12) Anemia: Improving in comparison to the last visit. Continue ferrous sulfate 325 mg p.o. twice daily, vitamin B12, multivitamin, vitamin C 500 mg p.o. daily. (13) BPH (benign prostatic hyperplasia): Stable, continue finasteride 5 mg p.o. nightly. Total Time Total Time Spent Total Time Spent (In Minutes): over 30 min Discharge Plan Discharge Items Patient Disposition: Home - Self-Care Reason For Visit: CHEST PAIN,ACUTE EXACERBATION OF CHF Discharge Diagnosis: NSTEMI Condition on Discharge: Good Activity: As commented below Lifting: Gradually increase as tolerated and No more than 5 pounds Non-emergency contact: Primary Care Provider and Language Assistant Call non-emergency contact if: you have any medication questions, your symptoms worsen, your pain is not controlled, your pain is worsening, your pain is unusual for you, your pain is concerning for you, you have a fever, your temperature is above 101 and your temperature is above 101.5 Follow-up/Referrals: Pro,Regino Pena MD [Primary Care Provider] - Diet: Carb Consistent or DM2, Heart Healthy and Low Sodium (2gm) Addtl Attending Provider Instructions: Follow up with cardiology in 1-2 weeks. Your box coverer hand stopped metoprolol due to the heart conduction problems. Continue aspirin 81 mg PO daily indefinitely. Continue Plavix 75 mg PO daily for one year.Call 911 if you experience chest pain, SOB or bleeding. We also discontinued pantoprazole for acid reflux since it was adversary affecting your kidney function. Take TUMs instead 1-2 BID as needed for acid reflux over the counter. We had to discontinue Metformin since in was adversary affecting your kidney function.Continue your long acting and short acting insulin as usual. Pending Studies at Discharge: No Stand-Alone Forms: Call Back Authorization, My [facility], Smoking Cessation Medications and DC Order Prescriptions: Continued isosorbide mononitrate 120 mg tablet extended release 24 hr 240 mg PO DAILY RF: 0 clopidogrel [Plavix] 75 mg tablet 75 mg PO DAILY Qty: 90 RF: 3 furosemide 20 mg tablet 20 mg PO DAILY PRN (Reason: Edema) Qty: 30 RF: 2 levothyroxine 100 mcg tablet 100 mcg PO DAILY RF: 0 nitroglycerin 400 mcg/spray [place],Non-Aerosol 400 mcg translingual UD PRN (Reason: Chest Pain) RF: 0 multivitamin Tablet 1 tab PO DAILY RF: 0 atorvastatin 40 mg Tablet 40 mg PO HS RF: 0 cyanocobalamin (vitamin B-12) [Vitamin B-12] 1,000 mcg Tablet 1,000 mcg PO DAILY RF: 0 aspirin 81 mg Tablet,Delayed Release (Dr/Ec) 81 mg PO HS RF: 0 ascorbic acid (vitamin C) [Vitamin C] 500 mg Tablet 500 mg PO DAILY RF: 0 amlodipine 10 mg Tablet 10 mg PO QAM RF: 0 ferrous sulfate 325 mg (65 mg iron) Tablet 325 mg PO BID RF: 0 losartan 25 mg Tablet 25 mg PO QPM RF: 0 finasteride 5 mg Tablet 5 mg PO HS RF: 0 cholecalciferol (vitamin D3) [Vitamin D3] 1,000 unit Capsule 1,000 unit PO DAILY RF: 0 Novolog Flexpen U-100 Insulin 100 unit/mL Insulin Pen 4 - 8 unit SUBCUT BID RF: 0 coenzyme Q10 [Co Q-10] 200 mg Capsule 200 mg PO DAILY RF: 0 Calcium 600 + D(3) 600 mg calcium- 200 unit Capsule 1 tab PO HS RF: 0 Lantus Solostar U-100 Insulin 100 unit/mL (3 mL) Insulin Pen 18 unit SUBCUT HS RF: 0 ranolazine 1,000 mg tablet extended release 12 hr 1,000 mg PO Q12 RF: 0 Discontinued pantoprazole 40 mg tablet,delayed release (DR/EC) 40 mg PO Q OTHER DAY RF: 0 metoprolol tartrate 25 mg tablet 12.5 mg PO BID Qty: 90 RF: 3 metformin 500 mg tablet extended release 24 hr 1,000 mg PO BID RF: 0 Discharge Orders: Discharge Order (Routine); Ordered 09/20/19 Ordered By: Vinh Way Admission Data Admit Date/Time: 09/18/19 07:53 Attending Provider: Vinh Way Admit Provider: Vinh Way Primary Care Provider: Regino Jacome Other Providers: Kiesha Pham Charles C. Other Interventions: Discharge Summary Assessment (RN) Last Done: 09/20/19 12:18
--- NOTE | 2019-09-27 07:48 | Coding Query ---
CONGESTIVE HEART FAILURE To Promote full compliance with coding requirements relating to patient care, physician participation is requested in all cases of data coder operator uncertainty. Please assist us with the following questions. A diagnosis of Congestive Heart Failure is documented in the patient's medical record. To accurately code this diagnosis and to compare patient severity, we ask that you specify the type of heart failure by placing an X within the parenthesis (x). SYSTOLIC HEART FAILURE (X ) Acute ( ) Chronic ( ) Acute on Chronic ( ) Rheumatic ( ) Unknown DIASTOLIC HEART FAILURE ( ) Acute ( ) Chronic ( ) Acute on Chronic ( ) Rheumatic ( ) Unknown COMBINED SYSTOLIC AND DIASTOLIC HEART FAILURE ( ) Acute ( ) Chronic ( ) Acute on Chronic ( ) Rheumatic ( )Unknown Was the CHF Present On Admission? Please check the appropriate box: ( X) Present on Admission ( ) Not Present On Admission ( ) Clinically undetermined Thank you [place] [facility]
== END 2019-09-20 13:51 | disposition home or self-care (01) | DRG 246 ==
LOC: ED 03:30 → 2S 07:53
PROC: CLB.CCG (2019-09-18 11:30)

== ENCOUNTER 2020-07-02 03:19 | Inpatient (IN) ==
[2020-07-02] MEDS ORDERED: fentaNYL citrate 100 MCG/2 ML VIAL IV ONE (03:39)
[2020-07-02] MEDS ORDERED: NITROGLYCERIN 2% OINTMENT 30GM TUBE EXT STA (03:39)
--- NOTE | 2020-07-02 03:41 | Emergency Department Note ---
ED Visit Note Physician Evaluation Note: I have personally evaluated and examined this patient. I agree with assessment and plan of Jacqui Mcfarlane PA-C. Very pleasant 74 yr old male with extensive cardiac history arrives for evaluation of chest pain. Multiple doses nitro prior to arrival and now just mild chest pain. EKG with bigemeny and Mobitz 2 pattern with intraventricular delay, though no overt STEMI morphology. ASA already given prior to arrival. Patient admits his SLNTG at home may have been old and didn't seem to be as effective as ems doses. Small dose fentanyl with nitro paste with resolution of chest pain though developed headache. Work-up without bumped trop at this time. Hospitalist consulted for further management and given extensive cardiac history with this high risk ACS will start heparin. Symptoms do not seem consistent with dissection/PE at this time and will hold off CTA given resolution of symptoms. Patient stable and feeling well throughout stay, no indication for heart alert at this time. Phillip Espana MD
--- NOTE | 2020-07-02 04:01 | Emergency Department Note ---
History of Present Illness General Chief complaint: Cardiac Assessment Stated complaint: CHEST PAIN Time Seen by Provider: 07/02/20 03:26 Source: patient Mode of arrival: EMS Limitations: no limitations History of Present Illness Maximum Pain Intensity: 3 This patient is a 74-year-old male who presents to the emergency department for evaluation of chest pain. Patient awoke from sleep 1 hour prior to arrival due to chest pain and a headache. Patient states the pain was substernal and then radiated into bilateral shoulder blades. Patient took sick sprays of nitroglycerin at home, although he believes it may be . He was given 2 additional sprays of nitroglycerin by EMS with significant improvement of his pain. He took 4 baby aspirin prior to arrival. He reports some shortness of breath associated with the pain. Patient rates his current discomfort at a 3/10, states his pain was a 9/10 at its worst. Patient denies any chest pain in the days leading up to this. Patient has an extensive cardiac history, with history of CABG and multiple stents. He sees Dr. Ni. He does state that this pain is similar to the pain he has had with prior MIs. Home Medications Home Medications Medication Instructions Recorded Confirmed Type Calcium 600 + D(3) 1 tab PO HS 11/16/18 07/02/20 History ascorbic acid (vitamin C) [Vitamin 500 mg PO DAILY 11/16/18 07/02/20 History C] aspirin 81 mg PO HS 11/16/18 07/02/20 History cholecalciferol (vitamin D3) 1,000 unit PO DAILY 11/16/18 07/02/20 History [Vitamin D3] coenzyme Q10 [Co Q-10] 200 mg PO DAILY 11/16/18 07/02/20 History cyanocobalamin (vitamin B-12) 1,000 mcg PO DAILY 11/16/18 07/02/20 History [Vitamin B-12] multivitamin 1 tab PO DAILY 11/16/18 07/02/20 History clopidogrel 75 mg tablet 75 mg PO DAILY #90 tab 08/01/19 07/02/20 Rx nitroglycerin 400 mcg TRANSLINGUAL UD PRN 09/18/19 07/02/20 History finasteride 5 mg tablet 5 mg PO HS #90 tab 01/08/20 07/02/20 Rx levothyroxine 100 mcg tablet 100 mcg PO DAILY #90 tab 02/06/20 07/02/20 Rx isosorbide mononitrate 120 mg 240 mg PO DAILY #180 tab 02/07/20 07/02/20 Rx tablet,extended release 24 hr atorvastatin 40 mg tablet 40 mg PO HS #30 tab 02/17/20 07/02/20 Rx BD Ultra-Fine Short Pen Needle 31 #200 ea NS 03/09/20 06/16/20 Rx gauge x 5/16" furosemide 20 mg tablet 40 mg PO DAILY #180 tab 03/22/20 07/02/20 Rx Advocate Test Strips #100 ea NS 03/27/20 06/16/20 Rx sacubitril 49 mg-valsartan 51 mg 1 tab PO BID #60 tab 05/28/20 07/02/20 Rx tablet FreeStyle Pablo 14 Day Sensor #1 ea NS 06/16/20 06/16/20 Rx ferrous sulfate 325 mg (65 mg 650 mg PO DAILY tab 06/16/20 07/02/20 History iron) tablet metformin 500 mg tablet,extended 1,000 mg PO BID #360 tab 06/16/20 07/02/20 Rx release 24 hr ranolazine 1,000 mg 1,000 mg PO Q12 #180 tab 06/29/20 07/02/20 Rx tablet,extended release,12 hr albuterol sulfate 2 puff INHALATION Q8H PRN 07/02/20 07/02/20 History insulin aspart U-100 [Novolog 4 unit SUBCUT BID 07/02/20 07/02/20 History Flexpen U-100 Insulin] insulin glargine [Lantus Solostar 16 unit SQ HS 07/02/20 07/02/20 History U-100 Insulin] Allergies Allergy/AdvReac Type Severity Reaction Status Date / Time No Known Allergies Allergy Verified 07/02/20 04:14 Past Med/Surg History Medical History (Updated 07/02/20 @ 06:37 by Jacqui Mcfarlane PA-C) Anemia Cardiomyopathy, ischemic Chest pain Chronic systolic heart failure GERD (gastroesophageal reflux disease) Gout Hearing deficit HFrEF (heart failure with reduced ejection fraction) History of anesthesia reaction hx of reaction to propofol--had mental confusion, double/blurred vision History of colon polyps Irregular heart beat Mitral regurgitation Mobitz I Mobitz II Myocardial Infarction 2015 x2 Osteoarthritis Pneumonia Spinal stenosis Vitamin D deficiency Surgical History History of cardiac cath x2--last was 2014 @ [facility] [place], no stents History of colonoscopy History of lumbar spinal fusion hardware in place History of mandibular surgery pins put into lower jaw, no issues with ROM History of surgery left periorbital sx History of tooth extraction all teeth History of umbilical hernia repair x3 Hx of bilateral cataract extraction Hx of vasectomy S/P CABG x 4 1993 @ [facility] [place]--follows with S/P CABG x 4 S/P coronary artery stent placement Family History Father Family history of diabetes mellitus Brother Family history of diabetes mellitus 2 Heart disease Diabetes Sister Family history of diabetes mellitus Diabetes Mother Heart disease Son Heart disease Family/Other Heart disease Other No family history of adverse response to anesthesia Social History Smoking Status: Former smoker Second Hand Exposure: No; Hx Alcohol Use: Yes Alcohol type: beer, wine and hard liquor Hx Substance Use: No Preferred Language: Togolese Communication Ability: Effective Visual Impairment: No Limitations Hearing Ability: Normal 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 Beliefs That Will Affect Care: None marital status: Current Living Situation: Spouse current occupation: retired Feels Safe at Home: Yes Physical Activity Frequency: Daily Seatbelt Use: always Review of Systems A total of 10 systems reviewed and were otherwise negative Physical Exam Vital Signs Vital Signs - 24 hr 07/02/20 03:25 07/02/20 03:31 07/02/20 03:53 Temperature 36.8 C Temperature Source Oral Pulse Rate 96 H 91 H Pulse Rate from SpO2 Sensor 87 Respiratory Rate 20 24 Respiratory Effort / Characteristics Non-Labored Respiratory Depth Normal Blood Pressure 148/73 H 124/55 L Blood Pressure Mean 98 79 Pulse Oximetry 96 96 97 Oxygen Delivery Method Room Air Room Air Room Air Sepsis Recent Fever Within 48 Hours No Sepsis New/Unexplained Change in Mental Status No Sepsis Action Taken by Nursing No Action Required 07/02/20 04:04 07/02/20 04:26 07/02/20 04:53 Temperature Temperature Source Pulse Rate 97 H 86 Pulse Rate from SpO2 Sensor 91 H Respiratory Rate 19 18 Respiratory Effort / Characteristics Respiratory Depth Blood Pressure 150/95 H 126/78 Blood Pressure Mean 104 84 Pulse Oximetry 97 95 91 Oxygen Delivery Method Room Air Room Air Room Air Sepsis Recent Fever Within 48 Hours Sepsis New/Unexplained Change in Mental Status Sepsis Action Taken by Nursing 07/02/20 05:00 07/02/20 05:30 07/02/20 06:00 Temperature Temperature Source Pulse Rate 88 90 83 Pulse Rate from SpO2 Sensor Respiratory Rate 24 17 18 Respiratory Effort / Characteristics Respiratory Depth Blood Pressure 127/75 150/83 H 153/89 H Blood Pressure Mean 82 88 104 Pulse Oximetry 94 Oxygen Delivery Method Room Air Sepsis Recent Fever Within 48 Hours Sepsis New/Unexplained Change in Mental Status Sepsis Action Taken by Nursing VITALS: Vitals are noted on the nurse's note and reviewed by myself. GENERAL: This is a 74-year-old male, sitting up in bed, nondiaphoretic. SKIN: The skin was without rashes. EARS: External auditory canals clear, tympanic membranes pearly esquivel without erythema or effusion bilaterally. EYES: Pupils equal round and reactive to light and accommodation. NOSE: Patent, turbinates without inflammation or discharge. MOUTH: Mucous membranes moist. Tonsils are not enlarged. Pharynx without erythema or exudate. NECK: Supple without nuchal rigidity. No lymphadenopathy. HEART: Normal S1 and S2. Regular rate. Grade 2 systolic murmur noted. LUNGS: Clear to auscultation bilaterally without wheezes, rales or rhonchi. No retractions or accessory muscle use. ABDOMEN: Soft, nontender to palpation. EXTREMITIES: No pitting edema of the lower extremities. No calf tenderness. NEURO: Patient was alert and oriented to person place and time. Normal sensation to light and sharp touch. Deep tendon reflexes 2+ throughout. No focal neurological deficits. Course Consultations Consultation #1: Dr. Melgar - [facility] [place] Administered Medications Discontinued Medications Acetaminophen (Acetaminophen 325 Mg Tab) Confirm Administered Dose 650 mg .ROUTE .STK-MED ONE Stop: 07/02/20 05:57 Last Admin: 07/02/20 05:57 Dose: 650 mg Documented by: [id number] Fentanyl Citrate (Fentanyl Citrate 100 Mcg/2 Ml Vial) 25 mcg IV NOW ONE Stop: 07/02/20 03:40 Last Admin: 07/02/20 03:50 Dose: 25 mcg Documented by: [id number] Nitroglycerin (Nitroglycerin 2% Ointment 30gm Tube) 1 inch EXT NOW STA Stop: 07/02/20 03:40 Last Admin: 07/02/20 03:49 Dose: 1 inch Documented by: [id number] Medical Decision Making Differential Diagnosis Differential diagnosis includes acute coronary syndrome, pulmonary embolism, pneumothorax, pericarditis, myocarditis, endocarditis, anxiety, musculoskeletal pain, GERD, costochondritis, pneumonia, among others. Home Medications Current Medication List: was personally reviewed by me Laboratory Data Attestation: I reviewed the patient's lab results. Result diagrams: 07/02/20 03:58 07/02/20 03:58 Lab Results 07/02/20 07/02/20 07/02/20 Range/Units 03:58 03:58 03:58 WBC 9.47 (4.8-10.8) K/uL RBC 4.52 L (4.7-6.1) M/uL Hgb 14.5 (14.0-18.0) g/dL Hct 41.5 L (42-52) % MCV 91.8 (80-100) fL MCH 32.1 (25-34) pg MCHC 34.9 (32-36) g/dL RDW Std Deviation 46.2 (36.4-46.3) fL RDW Coeff of Stephanie 13.7 (11.5-14.5) % Plt Count 321 (130-400) K/uL MPV 10.6 H (7.4-10.4) fL Immature Gran % (Auto) 0.2 % Neut % (Auto) 59.2 % Lymph % (Auto) 28.9 % [place] % (Auto) 10.1 % Eos % (Auto) 1.4 % Baso % (Auto) 0.2 % Neut # (Auto) 5.60 (1.4-6.5) K/uL Lymph # (Auto) 2.74 (1.2-3.4) K/uL [place] # (Auto) 0.96 H (0.11-0.59) K/uL Eos # (Auto) 0.13 (0-0.5) K/uL Baso # (Auto) 0.02 (0-0.2) K/uL Immature Gran # (Auto) 0.02 (0.00-0.02) K/uL PT Cancelled INR Cancelled APTT Cancelled PTT Ratio Cancelled Sodium 138 (136-145) mmol/L Potassium 4.7 (3.5-5.1) mmol/L Chloride 102 (98-107) mmol/L Carbon Dioxide 25 (21-32) mmol/L Anion Gap 11.0 (3-11) BUN 21 H (7-18) mg/dl Creatinine 1.42 H (0.6-1.4) mg/dl Est Cr Clr Drug Dosing 42.2 ml/min Est GFR ( Amer) 55.6 Est GFR (Non-Af Amer) 48.0 BUN/Creatinine Ratio 14.7 (10-20) Glucose 247 H (70-99) mg/dl Calcium 9.8 (8.5-10.1) mg/dl Total Bilirubin 0.6 (0.2-1) mg/dl AST 20 (15-37) U/L ALT 33 (12-78) U/L Alkaline Phosphatase 94 (45-117) U/L Troponin I 0.021 (0-0.045) ng/ml Total Protein 7.1 (6.4-8.2) gm/dl Albumin 3.8 (3.4-5.0) gm/dl Globulin 3.3 (2.5-4.0) gm/dl Albumin/Globulin Ratio 1.2 (0.9-2) 07/02/20 Range/Units 06:04 WBC (4.8-10.8) K/uL RBC (4.7-6.1) M/uL Hgb (14.0-18.0) g/dL Hct (42-52) % MCV (80-100) fL MCH (25-34) pg MCHC (32-36) g/dL RDW Std Deviation (36.4-46.3) fL RDW Coeff of Stephanie (11.5-14.5) % Plt Count (130-400) K/uL MPV (7.4-10.4) fL Immature Gran % (Auto) % Neut % (Auto) % Lymph % (Auto) % [place] % (Auto) % Eos % (Auto) % Baso % (Auto) % Neut # (Auto) (1.4-6.5) K/uL Lymph # (Auto) (1.2-3.4) K/uL [place] # (Auto) (0.11-0.59) K/uL Eos # (Auto) (0-0.5) K/uL Baso # (Auto) (0-0.2) K/uL Immature Gran # (Auto) (0.00-0.02) K/uL PT 10.5 INR 1.0 APTT 27.4 PTT Ratio 1.0 Sodium (136-145) mmol/L Potassium (3.5-5.1) mmol/L Chloride (98-107) mmol/L Carbon Dioxide (21-32) mmol/L Anion Gap (3-11) BUN (7-18) mg/dl Creatinine (0.6-1.4) mg/dl Est Cr Clr Drug Dosing ml/min Est GFR ( Amer) Est GFR (Non-Af Amer) BUN/Creatinine Ratio (10-20) Glucose (70-99) mg/dl Calcium (8.5-10.1) mg/dl Total Bilirubin (0.2-1) mg/dl AST (15-37) U/L ALT (12-78) U/L Alkaline Phosphatase (45-117) U/L Troponin I (0-0.045) ng/ml Total Protein (6.4-8.2) gm/dl Albumin (3.4-5.0) gm/dl Globulin (2.5-4.0) gm/dl Albumin/Globulin Ratio (0.9-2) Imaging Data Attestation: I personally reviewed and interpreted this imaging study as follows: My Impression: CHEST 1 VIEW: Median sternotomy wires noted. Cardiomegaly with mild pulmonary vascular congestion. ECG Data Attestation: I personally reviewed and interpreted this ECG as follows: Indication: + chest pain Rate (beats per minute): 85 Rhythm: + sinus rhythm ECG Intervals/blocks: + Mobitz Type II ECG Findings: + Bigeminy Change: the following changes noted (PVCs in bigeminy pattern noted) Blood Pressure Blood Pressure Findings: Elevated blood pressure Blood Pressure Disposition: further management by hospitalist JOE Narrative The patient is a 74-year-old male who presents today complaining of chest pain similar to his previous MIs. Patient received nitro prior to arrival with improvement. Nitropaste was applied here but patient was not able to tolerate the headache/flushing and this was removed. Initial troponin negative, EKG shows Mobitz 2 with bigeminy, no acute ST elevations. Consultation was placed with the [facility] hospitalist, who agreed to evaluate the patient for further care. After discussion with the hospitalist, the patient was started on IV heparin. Impression & Plan Substernal chest pain Discharge Plan Visit Data Chief Complaint: Cardiac Assessment Stated Complaint: CHEST PAIN ED Provider: [facility] ED Midlevel Provider: Jacqui Mcfarlane Discharge Problem: Substernal chest pain Forms Stand Alone Forms: My [facility] Prescriptions Prescriptions: No Action clopidogrel [Plavix] 75 mg tablet 75 mg PO DAILY Qty: 90 RF: 3 levothyroxine 100 mcg tablet 100 mcg PO DAILY Qty: 90 RF: 1 isosorbide mononitrate 120 mg tablet extended release 24 hr 240 mg PO DAILY Qty: 180 RF: 3 atorvastatin 40 mg tablet 40 mg PO HS Qty: 30 RF: 5 (DME) pen needle, diabetic [BD Ultra-Fine Short Pen Needle] 31 gauge x 5/16" needle See Rx Instructions .ROUTE .MEDSUPPLY Qty: 200 RF: 3 furosemide [Lasix] 20 mg tablet 40 mg PO DAILY Qty: 180 RF: 3 (DME) blood sugar diagnostic [Advocate Test Strips] Strip See Rx Instructions .ROUTE .MEDSUPPLY Qty: 100 RF: 3 ranolazine 1,000 mg tablet extended release 12 hr 1,000 mg PO Q12 Qty: 180 RF: 3 finasteride 5 mg tablet 5 mg PO HS Qty: 90 RF: 3 Entresto 49-51 mg tablet 1 tab PO BID Qty: 60 RF: 2 (DME) FreeStyle Pablo 14 Day Sensor Kit See Rx Instructions [id number] .MEDSUPPLY Qty: 1 RF: 11 metformin 500 mg tablet extended release 24 hr 1,000 mg PO BID Qty: 360 RF: 3 nitroglycerin 400 mcg/spray [place],Non-Aerosol 400 mcg translingual UD PRN (Reason: Chest Pain) RF: 0 albuterol sulfate 90 mcg/actuation Hfa Aerosol Inhaler 2 puff INHALATION Q8H PRN (Reason: Shortness Of Breath Or Wheezing) RF: 0 insulin aspart U-100 [Novolog Flexpen U-100 Insulin] 100 unit/mL (3 mL) insulin pen 4 unit SUBCUT BID RF: 0 Lantus Solostar U-100 Insulin 100 unit/mL (3 mL) insulin pen 16 unit SQ HS RF: 0 multivitamin Tablet 1 tab PO DAILY RF: 0 cyanocobalamin (vitamin B-12) [Vitamin B-12] 1,000 mcg Tablet 1,000 mcg PO DAILY RF: 0 aspirin 81 mg Tablet,Delayed Release (Dr/Ec) 81 mg PO HS RF: 0 ascorbic acid (vitamin C) [Vitamin C] 500 mg Tablet 500 mg PO DAILY RF: 0 cholecalciferol (vitamin D3) [Vitamin D3] 1,000 unit Capsule 1,000 unit PO DAILY RF: 0 coenzyme Q10 [Co Q-10] 200 mg Capsule 200 mg PO DAILY RF: 0 Calcium 600 + D(3) 600 mg calcium- 200 unit Capsule 1 tab PO HS RF: 0 ferrous sulfate 325 mg (65 mg iron) tablet 650 mg PO DAILY RF: 0 Referrals Referrals: Regino Jacome MD [Primary Care Provider] -
[2020-07-02 04:21] LABS: Basophils # (auto) 0.02 K/uL (0-0.2); Basophils % (auto) 0.2 %; Eosinophils # (auto) 0.13 K/uL (0-0.5); Eosinophils % (auto) 1.4 %; Hematocrit (blood only) 41.5 % (42-52); Hemoglobin 14.5 g/dL (14.0-18.0); Immature Granulocytes # (auto) 0.02 K/uL (0.00-0.02); Immature Granulocytes % (auto) 0.2 %; Lymphocytes # (auto) 2.74 K/uL (1.2-3.4); Lymphocytes % (auto) 28.9 %; Mean Corpuscular Hemoglobin 32.1 pg (25-34); Mean Corpuscular Hgb Conc 34.9 g/dL (32-36); Mean Corpuscular Volume 91.8 fL (80-100); Mean Platelet Volume 10.6 fL (7.4-10.4); Monocytes # (auto) 0.96 K/uL (0.11-0.59); Monocytes % (auto) 10.1 %; Neutrophils % (auto) 59.2 %; Platelet Count 321 K/uL (130-400); RDW Coefficient of Variation 13.7 % (11.5-14.5); RDW Standard Deviation 46.2 fL (36.4-46.3); Red Blood Count 4.52 M/uL (4.7-6.1); White Blood Count 9.47 K/uL (4.8-10.8)
[2020-07-02 04:40] LABS: Albumin Level 3.8 gm/dl (3.4-5.0); BUN Creatinine Ratio 14.7 (10-20); Calcium 9.8 mg/dl (8.5-10.1); Creatinine Clr Calc Pharmacy 42.2 ml/min; Est GFR (African American) 55.6; Potassium 4.7 mmol/L (3.5-5.1)
[2020-07-02 04:44] LABS: Albumin Globulin Ratio 1.2 (0.9-2); Bilirubin,Total 0.6 mg/dl (0.2-1); Globulin 3.3 gm/dl (2.5-4.0); Total Protein 7.1 gm/dl (6.4-8.2); Troponin I 0.021 ng/ml (0-0.045)
[2020-07-02] MEDS ORDERED: HEPARIN SOD 5,000 UNIT/0.5 ML VIAL ONE (05:36)
--- NOTE | 2020-07-02 05:49 | History & Physical Report ---
Date of Service July 02, 2020 Assessment & Plan (1) Acute coronary syndrome: Acute coronary syndrome/HFrEF/ischemic cardiomyopathy/CAD/Mobitz 1/hypertension- The patient will be admitted to telemetry for serial cardiac enzymes, serial EKG's, cardiac rhythm monitoring. Status post CABG approximately 27 years ago, with interventions on 06/19/2019 and 09/18/2019. Continue aspirin 81 mg daily, clopidogrel 25 mg daily, isosorbide mononitrate extended release 240 mg daily, and ranolazine 1000 mg extended release every 12 hours. Hold furosemide and Entresto for now, due to acute kidney injury. Give 500 mils of normal saline over 5 hours. Start heparin drip per standard protocol with bolus Consult cardiology Present on Admission?: Yes (2) HFrEF (heart failure with reduced ejection fraction): See above Present on Admission?: Yes (3) Cardiomyopathy, ischemic: See above Present on Admission?: Yes (4) BPH (benign prostatic hyperplasia): (5) Mobitz I: See above Present on Admission?: Yes (6) CAD (coronary artery disease): See above Present on Admission?: Yes (7) Diabetes mellitus, type 2: Hold metformin and NovoLog 4 units subcu twice daily. Continue Lantus 16 units subcu at bedtime. Placed in Accu-Cheks before meals and at bedtime with NovoLog coverage per scale Present on Admission?: Yes (8) Hypothyroidism: Continue levothyroxine 100 mcg p.o. daily Present on Admission?: Yes (9) Hypertension: See above Present on Admission?: Yes (10) Hyperlipidemia: Increase atorvastatin from 40 to 80 mg daily Present on Admission?: Yes History of Present Illness Chief Complaint: The patient presents to the emergency department via EMS, with complaint of substernal chest discomfort radiating into both shoulder blades, which woke him up from sleep. Primary Care Provider: Regino Jacome MD The patient is a 74-year-old male with a past medical history including ischemic cardiomyopathy, Mobitz type I, Mobitz type II, chronic HFrEF, BPH, hyperlipidemia, hypertension, CAD, non-STEMI, diabetes mellitus type 2, hyp othyroidism, mitral regurgitation and lumbar stenosis with neurogenic claudication. His CABG was approximately 27 years ago, and he did require interventions via cardiac catheterization on 06/19/2019 and 09/18/2019. He reports that this substernal chest discomfort, with radiation to bilateral shoulder blades, with similar in character to his previous MIs. He did use his nitroglycerin sublingual spray without significant improvement, and he did receive 2 additional sprays from EMS, which did significantly relieve to reduce his pain. In the emergency department, he had Nitropaste placed which caused severe headache after 45 minutes and was removed. He was then placed on heparin infusion with standard concentration and protocol, with bolus to be less than 5000. Allergies Allergy/AdvReac Type Severity Reaction Status Date / Time No Known Allergies Allergy Verified 07/02/20 04:14 Home Medications Home Medications Medication Instructions Recorded Confirmed Type Calcium 600 + D(3) 1 tab PO HS 11/16/18 07/02/20 History ascorbic acid (vitamin C) [Vitamin 500 mg PO DAILY 11/16/18 07/02/20 History C] aspirin 81 mg PO HS 11/16/18 07/02/20 History cholecalciferol (vitamin D3) 1,000 unit PO DAILY 11/16/18 07/02/20 History [Vitamin D3] coenzyme Q10 [Co Q-10] 200 mg PO DAILY 11/16/18 07/02/20 History cyanocobalamin (vitamin B-12) 1,000 mcg PO DAILY 11/16/18 07/02/20 History [Vitamin B-12] multivitamin 1 tab PO DAILY 11/16/18 07/02/20 History clopidogrel 75 mg tablet 75 mg PO DAILY #90 tab 08/01/19 07/02/20 Rx nitroglycerin 400 mcg TRANSLINGUAL UD PRN 09/18/19 07/02/20 History finasteride 5 mg tablet 5 mg PO HS #90 tab 01/08/20 07/02/20 Rx levothyroxine 100 mcg tablet 100 mcg PO DAILY #90 tab 02/06/20 07/02/20 Rx isosorbide mononitrate 120 mg 240 mg PO DAILY #180 tab 02/07/20 07/02/20 Rx tablet,extended release 24 hr atorvastatin 40 mg tablet 40 mg PO HS #30 tab 02/17/20 07/02/20 Rx BD Ultra-Fine Short Pen Needle 31 #200 ea NS 03/09/20 06/16/20 Rx gauge x 5/16" furosemide 20 mg tablet 40 mg PO DAILY #180 tab 03/22/20 07/02/20 Rx Advocate Test Strips #100 ea NS 03/27/20 06/16/20 Rx sacubitril 49 mg-valsartan 51 mg 1 tab PO BID #60 tab 05/28/20 07/02/20 Rx tablet FreeStyle Pablo 14 Day Sensor #1 ea NS 06/16/20 06/16/20 Rx ferrous sulfate 325 mg (65 mg 650 mg PO DAILY tab 06/16/20 07/02/20 History iron) tablet metformin 500 mg tablet,extended 1,000 mg PO BID #360 tab 06/16/20 07/02/20 Rx release 24 hr ranolazine 1,000 mg 1,000 mg PO Q12 #180 tab 06/29/20 07/02/20 Rx tablet,extended release,12 hr albuterol sulfate 2 puff INHALATION Q8H PRN 07/02/20 07/02/20 History insulin aspart U-100 [Novolog 4 unit SUBCUT BID 07/02/20 07/02/20 History Flexpen U-100 Insulin] insulin glargine [Lantus Solostar 16 unit SQ HS 07/02/20 07/02/20 History U-100 Insulin] Past Med/Surg History Medical History Anemia Cardiomyopathy, ischemic Chest pain Chronic systolic heart failure GERD (gastroesophageal reflux disease) Gout Hearing deficit History of anesthesia reaction hx of reaction to propofol--had mental confusion, double/blurred vision History of colon polyps Irregular heart beat Mitral regurgitation Mobitz I Mobitz II Myocardial Infarction 2015 x2 Osteoarthritis Pneumonia Spinal stenosis Vitamin D deficiency Surgical History History of cardiac cath x2--last was 2014 @ [facility] – [place], no stents History of colonoscopy History of lumbar spinal fusion hardware in place History of mandibular surgery pins put into lower jaw, no issues with ROM History of surgery left periorbital sx History of tooth extraction all teeth History of umbilical hernia repair x3 Hx of bilateral cataract extraction Hx of vasectomy S/P CABG x 4 1993 @ [facility] – [place]--follows with S/P CABG x 4 S/P coronary artery stent placement Family History Father Family history of diabetes mellitus Brother Family history of diabetes mellitus 2 Heart disease Diabetes Sister Family history of diabetes mellitus Diabetes Mother Heart disease Son Heart disease Family/Other Heart disease Other No family history of adverse response to anesthesia Social History Smoking Status: Former smoker Second Hand Exposure: No; Hx Alcohol Use: Yes Alcohol type: beer, wine and hard liquor Hx Substance Use: No Preferred Language: Turkish Communication Ability: Effective Visual Impairment: No Limitations Hearing Ability: Normal 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 Beliefs That Will Affect Care: None marital status: Current Living Situation: Spouse current occupation: retired Feels Safe at Home: Yes Physical Activity Frequency: Daily Seatbelt Use: always Review of Systems Review of Systems: The patient denies shortness of breath, dyspnea on exertion, cough, lower extremity swelling, sore throat, fevers, chills, sweats, weight change, fatigue, nausea, vomiting, diarrhea , constipation, abdominal pain, pelvic pain, blood in urine or stool, dysuria, urinary frequency or urgency, lightheadedness, dizziness, headache, memory loss, loss of consciousness, rash, abnormal bruising or bleeding, imbalance, focal or generalized weakness, numbness or tingling in arms or legs, generalized arthralgias or myalgias,neck pain, or night sweats. The review of systems is otherwise negative other than for that already noted above, and at least 10 systems have been reviewed. Physical Exam Physical Exam: The patient is awake, alert and oriented 3, well developed and well nourished, normocephalic and atraumatic, lying in bed and in no acute distress. HEENT--PERRL, EOMI, mucous membranes and oropharynx normal. Neck--supple. No JVD. No bruits. Thyroid normal, trachea midline, no adenopathy. Heart--normal S1 and S2. No murmurs, rubs or gallops. Lungs--clear bilaterally, no respiratory distress, no accessory muscle use. Abdomen--normal bowel sounds and soft. Nontender. Nondistended. Extremities--no cyanosis or clubbing. Trace bilateral pretibial pitting edema. Dermatologic--normal skin turgor, normal color, no abnormal lymph nodes, no rash. Neurologic--cranial nerves II through XII grossly intact. Rheumatologic--normal range of motion. Psychiatric--normal affect. Results & Data Results & Data ([facility]) Vital Signs (Past 12 Hours) Vital Signs Temp Pulse Resp BP Pulse Ox 07/02/20 04:53 86 18 126/78 91 07/02/20 04:26 95 07/02/20 04:04 97 H 19 150/95 H 97 07/02/20 03:53 91 H 24 124/55 L 97 07/02/20 03:31 96 07/02/20 03:25 98.2 F 96 H 20 148/73 H 96 Laboratory Results Laboratory Results WBC 9.47 K/uL (4.8-10.8) 07/02/20 03:58 RBC 4.52 M/uL (4.7-6.1) L 07/02/20 03:58 Hgb 14.5 g/dL (14.0-18.0) 07/02/20 03:58 Hct 41.5 % (42-52) L 07/02/20 03:58 MCV 91.8 fL (80-100) 07/02/20 03:58 MCH 32.1 pg (25-34) 07/02/20 03:58 MCHC 34.9 g/dL (32-36) 07/02/20 03:58 RDW Std Deviation 46.2 fL (36.4-46.3) 07/02/20 03:58 RDW Coeff of Stephanie 13.7 % (11.5-14.5) 07/02/20 03:58 Plt Count 321 K/uL (130-400) 07/02/20 03:58 MPV 10.6 fL (7.4-10.4) H 07/02/20 03:58 Immature Gran % (Auto) 0.2 % 07/02/20 03:58 Neut % (Auto) 59.2 % 07/02/20 03:58 Lymph % (Auto) 28.9 % 07/02/20 03:58 [place] % (Auto) 10.1 % 07/02/20 03:58 Eos % (Auto) 1.4 % 07/02/20 03:58 Baso % (Auto) 0.2 % 07/02/20 03:58 Neut # (Auto) 5.60 K/uL (1.4-6.5) 07/02/20 03:58 Lymph # (Auto) 2.74 K/uL (1.2-3.4) 07/02/20 03:58 [place] # (Auto) 0.96 K/uL (0.11-0.59) H 07/02/20 03:58 Eos # (Auto) 0.13 K/uL (0-0.5) 07/02/20 03:58 Baso # (Auto) 0.02 K/uL (0-0.2) 07/02/20 03:58 Immature Gran # (Auto) 0.02 K/uL (0.00-0.02) 07/02/20 03:58 Sodium 138 mmol/L (136-145) 07/02/20 03:58 Potassium 4.7 mmol/L (3.5-5.1) 07/02/20 03:58 Chloride 102 mmol/L (98-107) 07/02/20 03:58 Carbon Dioxide 25 mmol/L (21-32) 07/02/20 03:58 Anion Gap 11.0 (3-11) 07/02/20 03:58 BUN 21 mg/dl (7-18) H 07/02/20 03:58 Creatinine 1.42 mg/dl (0.6-1.4) H 07/02/20 03:58 Est Cr Clr Drug Dosing 42.2 ml/min 07/02/20 03:58 Est GFR ( Amer) 55.6 07/02/20 03:58 Est GFR (Non-Af Amer) 48.0 07/02/20 03:58 BUN/Creatinine Ratio 14.7 (10-20) 07/02/20 03:58 Glucose 247 mg/dl (70-99) H 07/02/20 03:58 Calcium 9.8 mg/dl (8.5-10.1) 07/02/20 03:58 Total Bilirubin 0.6 mg/dl (0.2-1) 07/02/20 03:58 AST 20 U/L (15-37) 07/02/20 03:58 ALT 33 U/L (12-78) 07/02/20 03:58 Alkaline Phosphatase 94 U/L (45-117) 07/02/20 03:58 Troponin I 0.021 ng/ml (0-0.045) 07/02/20 03:58 Total Protein 7.1 gm/dl (6.4-8.2) 07/02/20 03:58 Albumin 3.8 gm/dl (3.4-5.0) 07/02/20 03:58 Globulin 3.3 gm/dl (2.5-4.0) 07/02/20 03:58 Albumin/Globulin Ratio 1.2 (0.9-2) 07/02/20 03:58 Code Status & VTE Plan Code Status Full code VTE Prophylaxis Plan VTE Prophylaxis will be ordered: Yes PG Care Time/CCT Total # of Minutes Spent Total Time Spent with Patient: Total time spent is greater than 50% in coordination of care (as documented) at patient's floor/unit and/or counseling patient: Coding Level of Care Code 72900 Initial Inpt Care Lvl 3 Diagnoses Acute coronary syndrome I24.9 HFrEF (heart failure with reduced ejection fraction) I50.20 Cardiomyopathy, ischemic I25.5 BPH (benign prostatic hyperplasia) N40.0 Mobitz I I44.1 CAD (coronary artery disease) I25.810 Coronary Disease-Associated Artery/Lesion type: bypass graft [place] vs. transplanted heart: [place] heart Associated angina: angina presence unspecified Diabetes mellitus, type 2 E11.9 Hypothyroidism E03.9 Hypertension I10 Hyperlipidemia E78.5 (1) CAD (coronary artery disease) Coronary Disease-Associated Artery/Lesion type: bypass graft [place] vs. transplanted heart: [place] heart Associated angina: angina presence unspecified Qualified Code(s): I25.810 - Atherosclerosis of coronary artery bypass graft(s) without angina pectoris
[2020-07-02] MEDS ORDERED: ACETAMINOPHEN 325 MG TAB ONE (05:56)
[2020-07-02 06:29] LABS: Partial Thromboplastin Time 27.4 Seconds (21.0-31.0); Prothrombin Time 10.5 Seconds (9.0-12.0)
[2020-07-02] MEDS: HEPARIN SODIUM/DEXTROSE 25,000 UNITS/500 ML BAG IV SCH (06:35)
--- NOTE | 2020-07-02 06:49 | XRay Report ---
XR chest 1V portable HISTORY: 74 years-old Male Chest Pain acute atypical chest pain COMPARISON: Chest radiograph 03/02/2020, CTA chest 09/18/2019 TECHNIQUE: Portable AP view of the chest FINDINGS: Cardiac silhouette is enlarged, unchanged. Prior median sternotomy. Calcified plaque of the thoracic aortic arch. There is no pneumothorax, pleural effusion, overt pulmonary edema or airspace consolidat ion typical for pneumonia. Ill-defined right infrahilar opacities are likely secondary to summation d ensity. The inferior right costophrenic angle is outside the [id number]. Degenerative changes of t he shoulders and spine. IMPRESSION: Cardiomegaly without acute process. ACT 112: Negative or not required by law. The above report was generated using voice recognition software. It may contain grammatical, syntax o r spelling errors. Electronically signed by: Jeffery Hooper M.D. 07/02/2020 6:48 AM
[2020-07-02] MEDS ORDERED: GLUCAGON FOR INJ 1 MG VIAL SQ PRN (06:54)
[2020-07-02] MEDS ORDERED: GLUCOSE 40% GEL 15 GM TUBE PO PRN (06:54)
[2020-07-02] MEDS ORDERED: CARBOHYDRATES FOR HYPOGLYCEMIA PO PRN (06:54)
[2020-07-02] MEDS ORDERED: GLUCOSE 10 TABS/TUBE PO PRN (06:54)
[2020-07-02] MEDS ORDERED: DEXTROSE 50% 50 ML SYRINGE IV PRN (06:54)
[2020-07-02] MEDS ORDERED: ONDANSETRON INJ 2 MG/ML 2 ML VIAL IV PRN (06:54)
[2020-07-02] MEDS ORDERED: SODIUM CHLORIDE 0.9% 1000ML 1,000 ML IV SCH ×2 (07:15→16:45)
[2020-07-02] MEDS: LEVOTHYROXINE SODIUM 100 MCG TABLET PO SCH (07:59)
[2020-07-02] MEDS: INSULIN ASPART 100 UNITS/ML 3 ML PEN SC SCH ×4 (08:00→20:32)
[2020-07-02] MEDS: FERROUS SULFATE 325 MG TAB PO SCH (08:01)
[2020-07-02] MEDS: CYANOCOBALAMIN 500 MCG TABLET (VITAMIN B-12) PO SCH (08:01)
[2020-07-02] MEDS: RANOLAZINE 500 MG ER TAB PO SCH ×2 (08:01→20:38)
[2020-07-02] MEDS: MULTIVITAMIN TAB PO SCH (08:01)
[2020-07-02] MEDS: CHOLECALCIFEROL 1,000 UNITS 25 MCG TAB PO SCH (08:01)
[2020-07-02] MEDS: ASCORBIC ACID 500 MG TAB PO SCH (08:01)
[2020-07-02] MEDS: CLOPIDOGREL BISULFATE 75 MG TAB PO SCH (08:01)
[2020-07-02] MEDS: ISOSORBIDE MONO EXTENDED REL 60 MG TABCR PO SCH (08:02)
[2020-07-02] MEDS ORDERED: NON-FORMULARY MEDICATION (Coenzyme Q10 [Co Q-10] 200 MG) PO SCH (09:00)
--- NOTE | 2020-07-02 09:53 | Cardiology Consultation ---
Date of Consultation July 02, 2020 Assessment & Plan (1) Non-ST elevation (NSTEMI) myocardial infarction: (2) CAD (coronary artery disease): (3) S/P CABG x 4: (4) S/P coronary artery stent placement: (5) Chronic systolic heart failure: (6) Hypertension: (7) Hyperlipidemia: (8) Mobitz I: (9) Mobitz II: ASSESSMENT/PLAN: 1. NSTEMI: He presented with unstable angina similar to prior episodes. He has multivessel CAD and has had PCI performed to SVG to OM3 and SVG to PDA/PL. Given symptoms at rest this morning, would recommend cardiac catheterization. Continue heparin drip. Continue aspirin and Plavix therapy. Would like to initiate beta-beny but would likely need pacemaker first. Continue high- intensity statin therapy and antianginals. He is currently chest pain-free and therefore cardiac catheterization is not urgent but will likely be performed later today. 2. CAD s/p CABG x 4 and PCI: Plan as above. Continue medical therapy. Echocardiogram ordered given NSTEMI. 3. Chronic systolic CHF: He appears compensated and euvolemic on examination. Currently, he is not written for any diuretic. At home he takes 40 mg of Lasix daily. Can hold off on Lasix currently in anticipation cardiac catheterization but would resume Lasix tomorrow. Low-sodium diet and daily weights recommended. Strict I&Os. 4. Hypertension: Blood pressure has been normotensive to mildly hypertensive. Would like to initiate beta-beny at some point as noted above in discussed below. Diuretic has been held but can be resume later today or tomorrow which would help blood pressure as well. Restart Entresto at home dose. The admitting service for concern of acute renal insufficiency however his creatinine is at baseline. 5. Dyslipidemia: Continue high-intensity statin therapy. 6. Mobitz I/II: Has chronically had intermittent Mobitz 1 and Mobitz 2 with otherwise significantly prolonged NJ interval. Have discussed with tonnage compilation clerk, Dr. Rodriguez, about pacemaker placement so that he can be treated with beta-blockers given his longstanding issues with CAD, angina, and NSTEMI is. Dr. Rodriguez is agreeable to perform electrophysiology consultation during this hospitalization. 7. Aortic stenosis: Mild on most recent echo. Repeating echo as above. 8. Disposition: Cardiology will continue to follow. Plan of care communicated with primary hospitalist, Dr. Scott. Highly complex medical issues. Thank you for allowing me to participate in the care of your patient. Please call for any other questions or concerns. Sincerely, Andres Ni M.D. History of Present Illness Reason for Consultation: NSTEMI Requesting Physician: Rangel Melgar MD Attending Physician: Rangel Melgar MD History of Present Illness Mr. Carlton is a pleasant 74 year old gentleman with a history of multivessel CAD status post CABG x4, hypertension, type 2 diabetes, dyslipidemia, intermittent Mobitz I and II. On 07/26/14 he experienced a postoperative myocardial infarction on postop day one from a lumbar decompression and fusion (Peak troponin was 43.7). He had another myocardial infarction with peak troponin of 10.2 on 06/19/2019, undergoing PCI to SVG (SVG to OM3). On 09/18/2019, his troponin peaked at 10.5 and he underwent PCI of SVG to PDA, PLB with 3.5 x 33 mm Xience. He then developed CHF and had an echo on 01/08/2020 demonstrating declined LV systolic function with an EF of 25-30%. Medical therapy was adjusted. Beta-beny was discontinued for significantly prolonged NJ interval and intermittent 2-1 AV block. He has had the following studies/procedures: 1. CABG x 4 at [facility] 09/20/1993: AARON to LAD; SVG to Cx; sequential SVG to PL and PDA. 2. Stress Echo 09/13/12: Positive stress echo demonstrating dilation of LV with reduced systolic function post exercise. Posterior zamora augmented appropriately with remainder of the LV becoming hypokinetic with akinetic areas in the basal to midinferior wall, distal lateral wall, and proximal rachel-septum. Positive stress ECG. ECG also demonstrated significantly prolonged NJ interval, intermittent Mobitz I. 3. Echo 09/13/12: Normal LV size with low normal systolic function and no regional wall motion abnormalities. EF 55%. Type II diastolic dysfunction. Mild MR. 4. Cardiac Catheterization 09/14/12: LMCA 90%; proximal LAD 90%; proximal circumflex 100%; mid RCA 100%; posterior lateral branch 30%. AARON to distal LAD patent. SVG to circumflex 50% stenosis in midportion. Sequential SVG to distal RCA and PL branch patent. BALLOON ANGIOPLASTY done to LMCA (90% improved to 50%). Unable to place stent. This was an attempt to improve blood flow to OM1, just proximal to circumflex occlusion. 5. Echo 12/26/12: Normal LV size, wall motion, systolic function. EF 60%. Mild LVH. Type II diastolic dysfunction. Moderate MR. RVSP 32 mmHg. 6. Lower extremity duplex 05/07/14: No significant stenosis. 7. Echo 05/12/14: Mildly dilated left ventricle. EF 55%. Low normal systolic function. No significant regional wall motion abnormality. Mild MR. 8. Echo 07/28/14: Mildly reduced LV systolic function without wall motion abnormalities. EF 45-50%. Mild biatrial dilation. Mild MR. Mild TR. 9. Carotid duplex 12/07/2015: Right ICA 50-69%. Left ICA less than 50%. 10. Holter 12/21/2015: Sinus rhythm with first-degree AV block. Average heart rate 56 beats per minute. Heart rate range 28 to time 86 bpm. Intermittent Mobitz 1. Transient 2:1 AV block. 2.5 second pausesoccurring with Mobitz 1. Rare PVCs. Patient event activations intermittently correlate with Mobitz 1 and once with ventricular couplet. 11. Echo 11/17/2016: Top-normal LV size with normal systolic function. EF 55- 60%. No wall motion abnormalities. No LVH. Type 2 diastolic dysfunction. Mild biatrial dilation. Mild to moderate MR. RVSP 35. 12. Carotid duplex 12/01/2016: Focal proximal right ICA 50%. Left ICA less than 50%. 13. Carotid duplex 08/06/2018: Right ICA focal plaque with approximately 50%. Left ICA near 50%. 14. Cardiac catheterization 06/19/2019: LMCA calcified chronic 99% distal stenosis. Ostial LAD 100%. Ostial circumflex 99% into small OM1. Proximal RCA 100%. AARON to LAD patent. SVG to PDA and PL patent. SVG to OM3 had acute mid 95% stenosis. Retro fills into distal Cx and OM 2. Underwent PCI of SVG to OM3 with 3.5 x 38 mm Xience Valery PALMER post dilated with 4 mm NC. 15. Echo 06/19/2019: Normal LV systolic function. EF 50-55%. Hypokinesis of the mid lateral wall. Mild MR. 16. Cardiac cath09/18/2019 [facility]: Acute 70% SVG to PDA, PL which underwent 3.5 x 33 mm Xience Valery PCI. Distal LM CA 99%. Ostial LAD 100%. Ostial circumflex 99%. Proximal RCA 100%. Aaron to LAD patent. Sequential SVG to PDA, PL hazy acute 70% proximal stenosis. Distal SVG to PDA/PL 50% prior to anastomosis. SVG to OM3 stents widely patent and retro fills into distal circumflex, OM2. 17. Echo 09/19/2019 [facility]: Mildly reduced LV systolic function. EF 40-45%. Mild to moderate global hypokinesis. Mild . 18. Echo 01/08/2020 [facility]: Moderate to severe LV systolic dysfunction. EF 25- 30%. Base to mid septal akinesis, otherwise hypokinesis globally. Mild biatrial dilation. Limited 2D echo. 19. Echo 05/28/2020: Mildly to moderately dilated LV with mildly to moderately reduced systolic function. Estimated EF 40-45%. Akinesis of the base to mid inferoseptal wall. Severe hypokinesis of the anteroseptum and base to mid inferior wall. Mild LVH. Mild left atrial dilation. Limited echo. 20. Holter 06/16/2020: Sinus rhythm with Mobitz 1 and intermittent 2-1 av block. Average heart rate 55, ranging 34-100. Longest pause 2.68 seconds. Occasional PVCs. No diary submitted. He presented to [facility] earlier this morning on 07/02/2020 with chest discomfort. He was awakened at approximately 1:30 a.m. this morning with a headache. Shortl y thereafter, he also noted substernal chest discomfort described as a squeezing sensation that radiated to bilateral shoulder blades and bilateral arms. He also became diaphoretic and at some point a little short of breath. He said that this feels exactly like prior angina. The pain was originally 8/10 and waxed and waned in intensity but did not resolve until approximately 8 or 8:30 a.m. this morning. At home, he took aspirin 81 mg x 4 and also used a total of 6 sprays of nitroglycerin but then realized that his nitroglycerin had over 1 year ago. Because the pain persisted, he called 911 and came to the emergency department. While there, he received nitroglycerin paste and fentanyl. He became nauseated and is headache worsened. He was then given Tylenol and the nitroglycerin was removed. His chest discomfort eventually resolved as noted by 8 or 8:30 a.m. this morning. His headache has improved as well. He had been feeling well and was last seen in the office on that appointment, he had not been experiencing angina and overall has been feeling better. We discussed potentially referring to electrophysiology for pacemaker placement electively so that he could be treated with beta-beny for his underlying CAD. Since that time, Dr. Rodriguez and I discussed this and he was agreeable to see him in consultation in regards to pacemaker placement given his various AV blocks. He denies fever, chills, vomiting, palpitations, syncope, near-syncope, shortness of breath at rest, orthopnea, or bleeding such as melena, hematochezia, hematuria. He has not had any worsening edema. He has not weighed himself at home the past few days. Review of systems: As above. Family history: Son and parents with CAD. Daughter with CAD. Social history: Quit smoking at the age of 24. Occasional alcohol. No drugs. with 2 children. Grandchildren and great grandchildren. He is retired. His (Monique) accompanies him today. Allergies Allergy/AdvReac Type Severity Reaction Status Date / Time No Known Allergies Allergy Verified 07/02/20 04:14 Home Medications Home Medications Medication Instructions Recorded Confirmed Type Calcium 600 + D(3) 1 tab PO HS 11/16/18 07/02/20 History ascorbic acid (vitamin C) [Vitamin 500 mg PO DAILY 11/16/18 07/02/20 History C] aspirin 81 mg PO HS 11/16/18 07/02/20 History cholecalciferol (vitamin D3) 1,000 unit PO DAILY 11/16/18 07/02/20 History [Vitamin D3] coenzyme Q10 [Co Q-10] 200 mg PO DAILY 11/16/18 07/02/20 History cyanocobalamin (vitamin B-12) 1,000 mcg PO DAILY 11/16/18 07/02/20 History [Vitamin B-12] multivitamin 1 tab PO DAILY 01/18/19 09/03/20 History clopidogrel 75 mg tablet 75 mg PO DAILY #90 tab 08/01/19 07/02/20 Rx nitroglycerin 400 mcg TRANSLINGUAL UD PRN 09/18/19 07/02/20 History finasteride 5 mg tablet 5 mg PO HS #90 tab 01/08/20 07/02/20 Rx levothyroxine 100 mcg tablet 100 mcg PO DAILY #90 tab 02/06/20 07/02/20 Rx isosorbide mononitrate 120 mg 240 mg PO DAILY #180 tab 02/07/20 07/02/20 Rx tablet,extended release 24 hr atorvastatin 40 mg tablet 40 mg PO HS #30 tab 02/17/20 07/02/20 Rx BD Ultra-Fine Short Pen Needle 31 #200 ea NS 03/09/20 06/16/20 Rx gauge x 5/16" furosemide 20 mg tablet 40 mg PO DAILY #180 tab 03/22/20 07/02/20 Rx Advocate Test Strips #100 ea NS 03/27/20 06/16/20 Rx sacubitril 49 mg-valsartan 51 mg 1 tab PO BID #60 tab 05/28/20 07/02/20 Rx tablet FreeStyle Pablo 14 Day Sensor #1 ea NS 06/16/20 06/16/20 Rx ferrous sulfate 325 mg (65 mg 650 mg PO DAILY tab 06/16/20 07/02/20 History iron) tablet metformin 500 mg tablet,extended 1,000 mg PO BID #360 tab 06/16/20 07/02/20 Rx release 24 hr ranolazine 1,000 mg 1,000 mg PO Q12 #180 tab 06/29/20 07/02/20 Rx tablet,extended release,12 hr albuterol sulfate 2 puff INHALATION Q8H PRN 07/02/20 07/02/20 History insulin aspart U-100 [Novolog 4 unit SUBCUT BID 07/02/20 07/02/20 History Flexpen U-100 Insulin] insulin glargine [Lantus Solostar 16 unit SQ HS 07/02/20 07/02/20 History U-100 Insulin] Patient History Medical History (Updated 07/02/20 @ 09:45 by Rashad Ni MD) Anemia Cardiomyopathy, ischemic Chest pain Chronic systolic heart failure GERD (gastroesophageal reflux disease) Gout Hearing deficit HFrEF (heart failure with reduced ejection fraction) History of anesthesia reaction hx of reaction to propofol--had mental confusion, double/blurred vision History of colon polyps Irregular heart beat Mitral regurgitation Mobitz I Mobitz II Myocardial Infarction 2016 x2 Osteoarthritis Pneumonia Spinal stenosis Vitamin D deficiency Surgical History (Updated 07/02/20 @ 09:45 by Rashad Ni MD) History of cardiac cath x2--last was 2014 @ [facility], no stents History of colonoscopy History of lumbar spinal fusion hardware in place History of mandibular surgery pins put into lower jaw, no issues with ROM History of surgery left periorbital sx History of tooth extraction all teeth History of umbilical hernia repair x3 Hx of bilateral cataract extraction Hx of vasectomy S/P CABG x 4 1993 @ [facility]--follows with S/P CABG x 4 S/P coronary artery stent placement Family History Father Family history of diabetes mellitus Brother Family history of diabetes mellitus 2 Heart disease Diabetes Sister Family history of diabetes mellitus Diabetes Mother Heart disease Son Heart disease Family/Other Heart disease Other No family history of adverse response to anesthesia Social History Smoking Status: Former smoker Second Hand Exposure: No; Hx Alcohol Use: Yes Alcohol type: beer Hx Substance Use: No Preferred Language: Lithuanian Communication Ability: Effective Visual Impairment: No Limitations Hearing Ability: Normal Hospital Insurance Representative Required: No Beliefs That Will Affect Care: None marital status: Current Living Situation: Spouse current occupation: retired Feels Safe at Home: Yes Physical Activity Frequency: Daily Seatbelt Use: always Physical Exam Physical Exam: Gen.: No acute distress. Alert and oriented. HEENT: Anicteric sclera. Neck: No JVD. No bruit. Normal carotid upstrokes. Cardiac: PMI nonpalpable. No ventricular heave. Regular. Normal S1-S2. 2/6 early peaking systolic ejection murmur. No rubs, or gallops. Pulmonary: Initially, there were bilateral crackles that cleared with cough. Otherwise, clear to auscultation bilaterally without wheezes, rales, or rhonchi. Abdomen: Soft, nontender, nondistended, with normoactive bowel sounds. No bruits noted. Extremities: 1+ right radial pulse. Very weak left radial pulse. 1+ dorsalis pedis pulses bilaterally. Trace left lower extremity edema (s/p left vein harvest). No cyanosis. Psychiatric: Affect appears appropriate. Results & Data ([facility]) Vital Signs (Past 12 Hours) Vital Signs Temp Pulse Pulse Resp BP BP Pulse Ox 07/02/20 06:54 36.9 C 96 H 18 147/73 H 94 07/02/20 06:00 83 18 153/89 H 94 07/02/20 05:30 90 17 150/83 H 07/02/20 05:00 88 24 127/75 07/02/20 04:53 86 18 126/78 91 07/02/20 04:26 95 07/02/20 04:04 97 H 19 150/95 H 97 07/02/20 03:53 91 H 24 124/55 L 97 07/02/20 03:31 96 07/02/20 03:25 36.8 C 96 H 20 148/73 H 96 Intake & Output 06/30/20 07/01/20 07/02/20 07/03/20 06:59 06:59 06:59 06:59 Weight 84.2 kg 84.2 kg Laboratory Results Laboratory Results - last 24 hr 07/02/20 07/02/20 07/02/20 03:58 03:58 03:58 WBC 9.47 RBC 4.52 L Hgb 14.5 Hct 41.5 L MCV 91.8 MCH 32.1 MCHC 34.9 RDW Std Deviation 46.2 RDW Coeff of Stephanie 13.7 Plt Count 321 MPV 10.6 H Immature Gran % (Auto) 0.2 Neut % (Auto) 59.2 Lymph % (Auto) 28.9 [place] % (Auto) 10.1 Eos % (Auto) 1.4 Baso % (Auto) 0.2 Neut # (Auto) 5.60 Lymph # (Auto) 2.74 [place] # (Auto) 0.96 H Eos # (Auto) 0.13 Baso # (Auto) 0.02 Immature Gran # (Auto) 0.02 PT Cancelled INR Cancelled APTT Cancelled PTT Ratio Cancelled Sodium 138 Potassium 4.7 Chloride 102 Carbon Dioxide 25 Anion Gap 11.0 BUN 21 H Creatinine 1.42 H Est Cr Clr Drug Dosing 42.2 Est GFR ( Amer) 55.6 Est GFR (Non-Af Amer) 48.0 BUN/Creatinine Ratio 14.7 Glucose 247 H POC Glucose Calcium 9.8 Total Bilirubin 0.6 AST 20 ALT 33 Alkaline Phosphatase 94 Troponin I 0.021 Total Protein 7.1 Albumin 3.8 Globulin 3.3 Albumin/Globulin Ratio 1.2 07/02/20 07/02/20 07/02/20 06:04 06:54 07:39 WBC RBC Hgb Hct MCV MCH MCHC RDW Std Deviation RDW Coeff of Stephanie Plt Count MPV Immature Gran % (Auto) Neut % (Auto) Lymph % (Auto) [place] % (Auto) Eos % (Auto) Baso % (Auto) Neut # (Auto) Lymph # (Auto) [place] # (Auto) Eos # (Auto) Baso # (Auto) Immature Gran # (Auto) PT 10.5 INR 1.0 APTT 27.4 PTT Ratio 1.0 Sodium Potassium Chloride Carbon Dioxide Anion Gap BUN Creatinine Est Cr Clr Drug Dosing Est GFR ( Amer) Est GFR (Non-Af Amer) BUN/Creatinine Ratio Glucose POC Glucose 283 H 301 H* Calcium Total Bilirubin AST ALT Alkaline Phosphatase Troponin I Total Protein Albumin Globulin Albumin/Globulin Ratio 07/02/20 07/02/20 07:40 08:18 WBC RBC Hgb Hct MCV MCH MCHC RDW Std Deviation RDW Coeff of Stephanie Plt Count MPV Immature Gran % (Auto) Neut % (Auto) Lymph % (Auto) [place] % (Auto) Eos % (Auto) Baso % (Auto) Neut # (Auto) Lymph # (Auto) [place] # (Auto) Eos # (Auto) Baso # (Auto) Immature Gran # (Auto) PT INR APTT PTT Ratio Sodium Potassium Chloride Carbon Dioxide Anion Gap BUN Creatinine Est Cr Clr Drug Dosing Est GFR ( Amer) Est GFR (Non-Af Amer) BUN/Creatinine Ratio Glucose POC Glucose 305 H* Calcium Total Bilirubin AST ALT Alkaline Phosphatase Troponin I 5.220 H* Total Protein Albumin Globulin Albumin/Globulin Ratio Diagnostic Findings ECGs personally reviewed: ECG 07/02/20 at 3:26 AM: Sinus rhythm with 1st degree AVBlock and frequent PCCs. IVCB. Telemetry personally reviewed: Sinus rhythm with first-degree AV block and episodes of Mobitz 1. Chest x-ray 07/02/2020: No acute process per Radiology. Medications Administered Current Inpatient Medications Acetaminophen (Acetaminophen 325 Mg Tab) 650 mg PO Q4H PRN PRN Reason: Pain or Fever Stop: 08/01/20 06:53 Ascorbic Acid (Ascorbic Acid 500 Mg Tab) 500 mg PO DAILY [facility] Stop: 08/01/20 08:59 Last Admin: 07/02/20 08:01 Dose: 500 mg Documented by: Aspirin (Aspirin 81 Mg Ectab) 81 mg PO HS [facility] Stop: 08/01/20 20:59 Atorvastatin Calcium (Atorvastatin 40 Mg Tab) 80 mg PO HS [facility] Stop: 08/01/20 20:59 Clopidogrel Bisulfate (Clopidogrel Bisulfate 75 Mg Tab) 75 mg PO DAILY [facility] Stop: 08/01/20 08:59 Last Admin: 07/02/20 08:01 Dose: 75 mg Documented by: Cyanocobalamin (Cyanocobalamin 500 Mcg Tablet (Vitamin B-12)) 1,000 mcg PO DAILY [facility] Stop: 08/01/20 08:59 Last Admin: 07/02/20 08:01 Dose: 1,000 mcg Documented by: Dextrose (Dextrose 50% 50 Ml Syringe) 25 - 50 ml IV UD PRN; Protocol PRN Reason: Hypoglycemia Protocol Stop: 08/01/20 06:53 Ferrous Sulfate (Ferrous Sulfate 325 Mg Tab) 325 mg PO DAILY [facility] Stop: 08/01/20 08:59 Last Admin: 07/02/20 08:01 Dose: 325 mg Documented by: Finasteride (Finasteride 5 Mg Tab) [address] [facility] Stop: 08/01/20 20:59 Glucagon (Glucagon For Inj 1 Mg Vial) 1 mg SQ UD PRN; Protocol PRN Reason: Hypoglycemia Protocol Stop: 08/01/20 06:53 Glucose (Glucose 10 Tabs/Tube) 4 - 8 tabs PO UD PRN; Protocol PRN Reason: Hypoglycemia Protocol Stop: 08/01/20 06:53 Glucose (Glucose 40% Gel 15 Gm Tube) 15 - 30 gm PO UD PRN; Protocol PRN Reason: Hypoglycemia Protocol Stop: 08/01/20 06:53 Heparin Sodium/Dextrose (Heparin Sodium/Dextrose) 25,000 units in 500 mls @ 24 mls/hr IV .[id number] [facility]; Protocol Stop: 08/01/20 05:14 Last Admin: 07/02/20 06:35 Dose: 1,200 units/hr, 24 mls/hr Documented by: Sodium Chloride (Nss 1000ml) 1,000 mls @ 100 mls/hr IV .Q10H [facility] Stop: 07/02/20 12:14 Last Admin: 07/02/20 07:58 Dose: 100 mls/hr Documented by: Insulin Aspart (Insulin Aspart 100 Units/Ml 3 Ml Pen) 0 units SC ACHS [facility] Stop: 08/01/20 07:29 Last Admin: 07/02/20 08:00 Dose: 10 units Documented by: Insulin Glargine (Insulin Glargine Solostar 100 Units/Ml 3 Ml Pen) 16 units SQ HS [facility] Stop: 08/01/20 20:59 Isosorbide Mononitrate (Isosorbide [place] Extended Rel 60 Mg Tabcr) 240 mg PO DAILY [facility] Stop: 08/01/20 08:59 Last Admin: 07/02/20 08:02 Dose: 240 mg Documented by: Levothyroxine Sodium (Levothyroxine Sodium 100 Mcg Tablet) 100 mcg PO DAILYBB [facility] Stop: 08/01/20 07:14 Last Admin: 07/02/20 07:59 Dose: 100 mcg Documented by: Miscellaneous (Carbohydrates For Hypoglycemia ) 15 - 30 gm PO UD PRN PRN Reason: Hypoglycemia Protocol Stop: 08/01/20 06:53 Multivitamins (Multivitamin Tab) 1 tab PO DAILY [facility] Stop: 08/01/20 08:59 Last Admin: 07/02/20 08:01 Dose: 1 tab Documented by: Multivitamins/Minerals (Calcium 600mg + Vit D 400 Iu Tab) 1 tab PO HS [facility] Stop: 08/01/20 20:59 Nitroglycerin (Nitroglycerin Sl 0.4 Mg/Tab Tab) 0.4 mg SL UD PRN PRN Reason: Chest Pain Stop: 08/01/20 06:57 Ondansetron HCl (Ondansetron Inj 2 Mg/Ml 2 Ml Vial) 4 mg IV Q6H PRN PRN Reason: Nausea Stop: 08/01/20 06:53 Ranolazine (Ranolazine 500 Mg Er Tab) 1,000 mg PO Q12 [facility] Stop: 08/01/20 08:59 Last Admin: 07/02/20 08:01 Dose: 1,000 mg Documented by: Vitamin D (Cholecalciferol 1,000 Units 25 Mcg Tab) 1,000 units PO DAILY [facility] Stop: 08/01/20 08:59 Last Admin: 07/02/20 08:01 Dose: 1,000 units Documented by: PG Care Time/CCT Total # of Minutes Spent Total Time Spent with Patient: Total time spent is greater than 50% in coordination of care (as documented) at patient's floor/unit and/or counseling patient: Coding Level of Care Code 59838 Initial Inpt Care Lvl 3 Diagnoses Non-ST elevation (NSTEMI) myocardial infarction I21.4 CAD (coronary artery disease) I25.810 Coronary Disease-Associated Artery/Lesion type: bypass graft [place] vs. transplanted heart: [place] heart Associated angina: angina presence unspecified S/P CABG x 4 Z95.1 S/P coronary artery stent placement Z95.5 Chronic systolic heart failure I50.22 Hypertension I10 Hyperlipidemia E78.5 Mobitz I I44.1 Mobitz II I44.1 (1) CAD (coronary artery disease) Coronary Disease-Associated Artery/Lesion type: bypass graft [place] vs. transplanted heart: [place] heart Associated angina: angina presence unspecified Qualified Code(s): I25.810 - Atherosclerosis of coronary artery bypass graft(s) without angina pectoris
[2020-07-02] MEDS ORDERED: HEPARIN (PORCINE) 1000 UNIT/ML 10 ML (CATH LAB USE ONLY) ONE (13:41)
[2020-07-02] MEDS ORDERED: fentaNYL citrate 100 MCG/2 ML VIAL ONE (13:41)
[2020-07-02] MEDS ORDERED: NiCARDipine HCL INJ 2.5 MG/ML 10 ML AMP ONE (13:41)
[2020-07-02] MEDS ORDERED: NITROGLYCERIN/D5W 100MCG/ML 20ML SYR ONE (13:42)
[2020-07-02] MEDS ORDERED: MIDAZOLAM HCL 1 MG/ML 2ML VIAL ONE (13:42)
--- NOTE | 2020-07-02 15:26 | Cardiac Catheterization ---
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 Cardiac Status Clinical evaluation leading to the procedure CAD Presenation: Non STEMI Anginal Classification: CCS IV Heart Failure: No Cardiogenic Shock within 24 Hours: No Cardiac Arrest within 24 Hours: No Imaging Studies Past 6 Months: No Stress Studies Past 6 Months: No Standard Exercise Test: No Stress Echocardiogram: No Stress Testing w/SPECT MPI: No Cardiac CTA: No Coronary Anatomy Dominant: Right Left Ventricular Angiography EF (%): n/a Diagnostic Physicians Name: Rashad Ni MD Status: Elective Closure Device Percutaneous Entry Location: Femoral Closure Device: None-Manual Hold (closure to be determined by Dr. Nye) Recommendations: Management Recommendatons (as above) Cardiac Cath Procedure Full Procedure Date July 02, 2020 Pre-Procedure Diagnosis Pre-Procedure Diagnosis: Non STEMI AUC Score AUC Score: 9 Post-Procedure Diagnosis Post-Procedure Diagnosis: Severe CAD Procedure(s) Performed Procedure(s) Performed: Coronary Angiography, Ultrasound Guided Vascular Access and Bypass Graft Angiography Senior Sales Compensation Analyst Rashad Ni MD Service Assistant(s) Georgi Jiménez Estimated Blood Loss Estimated Blood Loss: < 25 ml Medication(s) Medication(s): Fentanyl, Lidocaine 1% and Versed Summary of Findings Procedures: 1. Coronary angiography 2. Coronary artery bypass graft angiography 3. Ultrasound guidance for vascular access 4. Moderate sedation Coronary angiography: 1. LMCA: LMCA is occluded 100%. 2. Left anterior descending: Ostial LAD 100%. LAD fills via AARON and appears to be small in caliber with diffuse 30 to 40% stenosis. 3. Circumflex: Ostial circumflex 100%. 4. Right coronary artery: Dominant vessel. Proximal RCA 100%. Right to right bridging collateral vessels. PL fills via left to right collaterals. Coronary artery bypass graft angiography: 1. AARON to LAD: Patent. 2. SVG to OM 3: Proximal SVG 30 to 40%, proximal to previous mid SVG stent. SVG stent diffuse 30 to 40% stenosis. Distally, SVG diffuse 20%. SVG fills OM 3 and retrograde into mid circumflex and OM 2. Left to left and left to right collaterals were noted. 3. SVG to PL and PDA: Proximal SVG 100%, within SVG stent. Ultrasound guidance for vascular access: 1. Under ultrasound, the right femoral artery was visualized and successfully cannulated with access needle, without complication on first stick. Moderate sedation: 1. Sedation start time: 2:21 PM 2. Sedation end time: 3:08 PM Impression: 1. Occluded SVG to PDA and PL within prior stent. This is thought to be the culprit vessel for his NTEMI. 2. Patent AARON to LAD. 3. Patent SVG to OM 3 with mild to moderate SVG CAD including in-stent nitin nosis. 4. Chronically occluded LMCA, LAD, circumflex, and RCA. 5. Left to left, left to right, and right to right collaterals. Plan: 1. Images were reviewed with Dr. Nye of interventional cardiology who plans to attempt PCI of SVG to PDA/PL. 2. Optimize medical therapy. Hemodynamics Rest Ao:: 101/51 Final Ao: 106/51 LV: n/a Recommendations Recommendations: Management Recommendatons (as above) Specimens Specimens: None Radiation Exposure (mGy) 2027 mGy. Fluoro time 23 min. Contrast (mls) 105 ml Procedural Complication(s) None Disposition remains in cath laboratory technician for PCI attempt I attest to the content of the Intraoperative Record and any orders documented therein. Any exceptions are noted below. [facility] Card Cath Procedure Codes Cardiac Catheterization Procedure 1: Cardiovascular Cath Procedures: 46415 Coronaries and Grafts/IM (venous & atrial) Therapeutic Services & Ancillary Proc Procedure 1: Cardiovascular Tx and Anc Procedures: 79631 Ultrasonic Guidance Vascular Access Moderate Sedation Procedure 1: Sedation/Anesthesia: 39410 Mod Sedation by the same physician;Init15 Min Child Age 5 & Up Procedure 2: Sedation/Anesthesia: 67087 Mod Sedation by the same physician; Ea [id number] Minutes Procedure 3: Sedation/Anesthesia: 55404 Mod Sedation by the same physician; Ea [id number] Minutes PG Care Time/CCT Total # of Minutes Spent Total Time Spent with Patient: Total time spent is greater than 50% in coordination of care (as documented) at patient's floor/unit and/or counseling patient:
[2020-07-02] MEDS ORDERED: EPTIFIBATIDE 2 MG/ML 10 ML VIAL (CATH LAB USE ONLY) IV ONE (15:34)
--- NOTE | 2020-07-02 16:24 | Post Anesthesia Assessment ---
Date of Service July 02, 2020 Post Sedation Assessment Vital Signs Temp Pulse Pulse Resp BP BP BP 07/02/20 16:10 55 L 18 130/68 07/02/20 13:04 47 L 17 104/46 L 07/02/20 11:16 98.1 F 58 L 18 116/63 07/02/20 06:54 98.4 F 96 H 18 147/73 H 07/02/20 06:00 83 18 153/89 H 07/02/20 05:30 90 17 150/83 H 07/02/20 05:00 88 24 127/75 07/02/20 04:53 86 18 126/78 07/02/20 04:26 07/02/20 04:04 97 H 19 150/95 H 07/02/20 03:53 91 H 24 124/55 L 07/02/20 03:31 07/02/20 03:25 98.2 F 96 H 20 148/73 H Pulse Ox 07/02/20 16:10 98 07/02/20 13:04 97 07/02/20 11:16 98 07/02/20 06:54 94 07/02/20 06:00 94 07/02/20 05:30 07/02/20 05:00 07/02/20 04:53 91 07/02/20 04:26 95 07/02/20 04:04 97 07/02/20 03:53 97 07/02/20 03:31 96 07/02/20 03:25 96 Recovery Score Activity: Moves 4 extremities Respiration: Deep Breath/Cough Circulation: +/-20% PreAnes Value Consciousness: Fully Awake Oxygen Saturation: > 92% On Room Air Post Anesthesia Score: 10 Discharge Sedation Level of Care: Fast Track Phase II Post Sedation Plan On clinical assessment, the patient appears to have tolerated the sedation without complications. Patient is recovering as anticipated. Patient will continue to be monitored by nursing and may be discharged when sedation discharge criteria are met per below protocol. Upon Completions of procedure up to 15 minutes continue every 5 minute vital signs and the P.A.R. score; then discharge to a Phase I or Fast Track to Phase II per the following guidelines: * Discharge Patient to appropriate Phase II area if PAR is 8 or greater or return to pre- procedure baseline. The post - procedure orders will be as directed. * If PAR score is less than 8 or not return to pre-procedure baseline then patient will follow Phase I monitoring till PAR is reached for Phase II. The Phase I may be done in procedure room or may call to secure a Phase I area. * If naloxone or flumazenil are used for reversal, hold in Phase I for continued monitoring from when last reversal dose was given for a minimum of 6 0 minutes or longer pending the nurse and/or physician discretion of patient condition before discharge to Phase II. Please call the Sedation Physician to re-evaluate and complete post-note for discharge to Phase II area. Do NOT discharge from procedure sedation or Phase 1 until post- sedation evaluation note is complete by procedure /sedation MD Sedation Discharge Instructions to be given to the patient at discharge to home.
--- NOTE | 2020-07-02 16:26 | Cardiac Catheterization ---
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 Cardiac Status Clinical evaluation leading to the procedure CAD Presenation: Non STEMI Anginal Classification: CCS IV Heart Failure: No Cardiogenic Shock within 24 Hours: No Cardiac Arrest within 24 Hours: No Imaging Studies Past 6 Months: Yes Stress Studies Past 6 Months: No Diagnostic Physicians Name: Ben Nye MD Closure Device Recommendations: Management Recommendatons (as above) Intraprocedure Events Significant Disection: No Perforation: No Cardiac Cath Procedure Full Procedure Date July 02, 2020 Pre-Procedure Diagnosis Pre-Procedure Diagnosis: Non STEMI AUC Score AUC Score: 7 Post-Procedure Diagnosis Post-Procedure Diagnosis: Severe CAD Procedure(s) Performed Procedure(s) Performed: Bypass Graft Angiography Insight Leader Ben Nye MD Adhesive Bonding Machine Operator(s) Georgi Jiménez Estimated Blood Loss Estimated Blood Loss: 5 Medication(s) Medication(s): Fentanyl, Heparin and Versed Summary of Findings For full details of patient's coronary angiography please see cath report dictated by Dr. Ni. Briefly patient found to have new occlusion of his SVG to PDA. Some question it may be acute occlusion causing patient's recent symptoms and troponin rise. Attempt made at PCI. Procedure: SVG cannulated with MPA guide Attempted to cross proximal in-stent occlusion with BMW, engine pilot and confianza wire. Occlusion firm and behaved more like a chronic lesion. Procedure stopped. Final angiography revealed no complications. 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 Unsuccessful attempt to cross proximal in-stent SVG-PDA occlusion (occlusion likely chronic). Recommendations: Patient chest pain free and distal RCA system receives right to right and Left to right collaterals. Recommend medical management as outlined by Dr. Ni. Hemodynamics Rest Ao:: 120/56/77 Final Ao: 121/55/75 LV: -- Recommendations Recommendations: Management Recommendatons (as above) Specimens Specimens: None Radiation Exposure (mGy) 3177 Contrast (mls) 125 Fluids (cc crystalloids) Fluids (cc crystalloids): 58 Drains Drains: none Anesthesia moderate Procedural Complication(s) None Disposition PCU I attest to the content of the Intraoperative Record and any orders documented therein. Any exceptions are noted below. [facility] Card Cath Procedure Codes Moderate Sedation Procedure 1: Sedation/Anesthesia: 99342 Mod Sedation by the same physician; Ea [id number] Minutes PG Care Time/CCT Total # of Minutes Spent Total Time Spent with Patient: Total time spent is greater than 50% in coordination of care (as documented) at patient's floor/unit and/or counseling patient:
--- NOTE | 2020-07-02 16:31 | Student Report ---
[facility] Med Student H&P Date of Service Date of Service: July 02, 2020 Subjective CC: Chest pain HPI: Mr. Carlton is a 74 year old male with a pertinent past medical history of CAD, DC, and HFrEF, pertinent surgical history of a bypassx4 (1992), and a significant family history of CAD presented to the ED this morning with acute chest pain. He described it as tight, non-radiating, and worse when laying down. When he arrived to the ED about 1 hr later the pain did begin to radiate to both shoulder blades. He notes these symptoms have occurred before (May and August 2019) when he was found to have occlusions at points of his bypass and required stents to be placed. He had a troponin of 0.021 ng/ml and ECG showed Mobitz 1 in the ED. He also simultaneously had a "terrible" headache on the top of his head and at the forehead that he rated on a severity of 8/10. He experienced nausea w/o vomiting after getting morphine and a nitroglycerine patch in the ED. He did not experience any dizziness, SOB, or pain on inspiration. PMHx Mobitz I and II DC (3-4 years ago) CAD Cardiomyopathy HFrEF HLD HTN DM PSHx Quadruple bypass (1992) Back surgery (3-4 years ago) Cardiac Cath and stent placement (May and August 2019) FH Significant FH for CAD (mother, father, sister) SH Former Smoker Alcohol: 2 drinks/month Lives at home with spouse ROS: Constitutional: -fever/chills, -nausea/vomiting, +fatigue Head: -headache, -lightheadedness Cardiac: -chest pain, +edema Pulm: -SOB, -pain on inspiration, GI: -diarrhea, - constipation, -abdominal pain Vital Signs Temp Pulse Pulse Resp BP BP BP 07/02/20 16:39 36.5 C 60 20 122/62 07/02/20 16:25 51 L 18 122/57 L 07/02/20 16:10 55 L 18 130/68 07/02/20 13:04 47 L 17 104/46 L 07/02/20 11:16 36.7 C 58 L 18 116/63 07/02/20 06:54 36.9 C 96 H 18 147/73 H 07/02/20 06:00 83 18 153/89 H 07/02/20 05:30 90 17 150/83 H 07/02/20 05:00 88 24 127/75 07/02/20 04:53 86 18 126/78 07/02/20 04:26 07/02/20 04:04 97 H 19 150/95 H 07/02/20 03:53 91 H 24 124/55 L 07/02/20 03:31 07/02/20 03:25 36.8 C 96 H 20 148/73 H Physical Exam General: alert and oriented, no acute distress Cardiac: RRR, no m/r/g, nl distal pulses, nl cap refill, mild pitting edema b/l Pulm: clear to ausc, no wheezes/rales/rhonchi Abd: nl bs, abdomen soft/non-tender A/P NSTEMI - Cardiac Catheterization showed occlusions from the SVG to the PDA and PL in the stent - Medical management required
--- NOTE | 2020-07-02 20:02 | XCELERA ---
[id number]
[2020-07-02] MEDS: CALCIUM 600MG + VIT D 400 IU TAB PO SCH (20:30)
[2020-07-02] MEDS: ATORVASTATIN 40 MG TAB PO SCH (20:30)
[2020-07-02] MEDS: ASPIRIN 81 MG ECTAB PO SCH (20:30)
[2020-07-02] MEDS: FINASTERIDE 5 MG TAB PO SCH (20:30)
[2020-07-02] MEDS: INSULIN GLARGINE SOLOSTAR 100 UNITS/ML 3 ML PEN SQ SCH (20:33)
[2020-07-03 00:19] LABS: Partial Thromboplastin Ratio 1.7
[2020-07-03 00:27] LABS: Partial Thromboplastin Time 48.7 Seconds (21.0-31.0)
[2020-07-03] MEDS: HEPARIN SODIUM/DEXTROSE 25,000 UNITS/500 ML BAG IV SCH (05:03)
[2020-07-03] MEDS: LEVOTHYROXINE SODIUM 100 MCG TABLET PO SCH (06:04)
--- NOTE | 2020-07-03 06:32 | Electrocardiogram Report ---
Test Reason : Blood Pressure : / mmHG Vent. Rate : 085 BPM Atrial Rate : 085 BPM P-R Int : 336 ms QRS Dur : 128 ms QT Int : 400 ms P-R-T Axes : 066 095 120 degrees QTc Int : 476 ms Sinus rhythm with 1st degree A-V block with frequent Premature ventricular complexes in a pattern of bigeminy Rightward axis Non-specific intra-ventricular conduction block Abnormal ECG When compared with ECG of 18-SEP-2019 15:41, Premature ventricular complexes are now Present Questionable change in QRS duration Confirmed by Rashad Ni ([id number]) on 07/03/2020 6:31:47 AM Referred By: REFERRED SELF Confirmed By:Rashad Ni
--- NOTE | 2020-07-03 06:33 | Electrocardiogram Report ---
Test Reason : Blood Pressure : / mmHG Vent. Rate : 085 BPM Atrial Rate : 102 BPM P-R Int : 000 ms QRS Dur : 132 ms QT Int : 394 ms P-R-T Axes : 057 086 126 degrees QTc Int : 468 ms Sinus tachycardia with 2nd degree A-V block (Mobitz I) with frequent Premature ventricular complexes Non-specific intra-ventricular conduction block Abnormal ECG When compared with ECG of 02-JUL-2020 03:26, Sinus rhythm is now with 2nd degree A-V block (Mobitz I) Confirmed by Rashad Ni ([id number]) on 07/03/2020 6:33:04 AM Referred By: REFERRED SELF Confirmed By:Rashad Ni
[2020-07-03 06:48] LABS: Basophils # (auto) 0.01 K/uL (0-0.2); Basophils % (auto) 0.1 %; Eosinophils # (auto) 0.14 K/uL (0-0.5); Eosinophils % (auto) 1.7 %; Hematocrit (blood only) 35.9 % (42-52); Hemoglobin 12.4 g/dL (14.0-18.0); Lymphocytes # (auto) 2.09 K/uL (1.2-3.4); Lymphocytes % (auto) 25.6 %; Mean Corpuscular Hemoglobin 32.4 pg (25-34); Mean Corpuscular Hgb Conc 34.5 g/dL (32-36); Mean Corpuscular Volume 93.7 fL (80-100); Mean Platelet Volume 10.2 fL (7.4-10.4); Monocytes # (auto) 0.69 K/uL (0.11-0.59); Monocytes % (auto) 8.5 %; Neutrophils # (auto) 5.22 K/uL (1.4-6.5); Neutrophils % (auto) 64.1 %; Platelet Count 254 K/uL (130-400); RDW Coefficient of Variation 13.9 % (11.5-14.5); RDW Standard Deviation 47.7 fL (36.4-46.3); Red Blood Count 3.83 M/uL (4.7-6.1); White Blood Count 8.15 K/uL (4.8-10.8)
[2020-07-03 07:03] LABS: Estimated Average Glucose 169 mg/dl; Hemoglobin A1C 7.5 % (4.5-5.6)
[2020-07-03 07:09] LABS: Partial Thromboplastin Ratio 2.6; Prothrombin Time 10.9 Seconds (9.0-12.0)
[2020-07-03 07:18] LABS: Albumin Level 3.2 gm/dl (3.4-5.0); Calcium 9.2 mg/dl (8.5-10.1); Creatinine Clr Calc Pharmacy 48.2 ml/min; Est GFR (African American) 65.5; Est GFR (Non-African American) 56.5; Magnesium 1.9 mg/dl (1.8-2.4); Phosphorus 3.9 mg/dl (2.5-4.9); Potassium 4.2 mmol/L (3.5-5.1)
[2020-07-03 07:23] LABS: Partial Thromboplastin Time 72.3 Seconds (21.0-31.0)
[2020-07-03] MEDS: INSULIN ASPART 100 UNITS/ML 3 ML PEN SC SCH ×4 (07:59→21:14)
[2020-07-03] MEDS: CLOPIDOGREL BISULFATE 75 MG TAB PO SCH (08:01)
[2020-07-03] MEDS: RANOLAZINE 500 MG ER TAB PO SCH ×2 (08:01→21:12)
[2020-07-03] MEDS: CHOLECALCIFEROL 1,000 UNITS 25 MCG TAB PO SCH (08:01)
[2020-07-03] MEDS: CYANOCOBALAMIN 500 MCG TABLET (VITAMIN B-12) PO SCH (08:01)
[2020-07-03] MEDS: FERROUS SULFATE 325 MG TAB PO SCH (08:01)
[2020-07-03] MEDS: ISOSORBIDE MONO EXTENDED REL 60 MG TABCR PO SCH (08:01)
[2020-07-03] MEDS: ASCORBIC ACID 500 MG TAB PO SCH (08:01)
[2020-07-03] MEDS: MULTIVITAMIN TAB PO SCH (08:02)
--- NOTE | 2020-07-03 11:38 | Cardiology Consultation ---
Date of Consultation July 03, 2020 Assessment & Plan (1) Cardiomyopathy, ischemic: He continues to have element of LV dysfunction. He has had several re- evaluations over the past couple of years. Generally speaking his ejection fraction is felt to be around 40 percent. I do not believe he qualifies for an ICD based on this intermediate degree of LV function. He will continue on his current medical regimen and hopefully after addition of a pacemaker he can be intensified to include beta-blockade as well. (2) Chronic systolic heart failure: He appears to be well compensated currently. No symptoms of dyspnea at rest. He is limited primarily by knee discomfort. His medical regimen does not include a beta-beny due to concerns over his conduction disease and resting bradycardia. (3) CAD (coronary artery disease): He presented with an NSTEMI. There did not appear to be any options for revascularization. His antianginal regimen can be intensified to include a beta-beny and after device implantation. (4) Mobitz II: He has clear AV block as well as more distal conduction disease. I think there is a clear indication for a permanent pacemaker based on his need for beta blockade. His degree of LV dysfunction and the likelihood the he will pace nearly all the time in the ventricle suggest that he benefits from a biventricular pacemaker. We will plan on implanting a biventricular device. History of Present Illness Reason for Consultation: Bradycardia Requesting Physician: Last Attending Physician: Felix Stubbs MD History of Present Illness the patient is a 74-year-old gentleman with a history of coronary artery disease and associated ischemic cardiomyopathy was also noted to have an element of bradycardia and heart block. Patient is actually admitted to the hospital this time. He woke 2 nights ago with symptoms of a headache. This eventually generalized to include arm and chest discomfort. The symptoms were fairly severe in nature any present to the emergency room for evaluation. He was started on atypical regimen for unstable angina he did actually have elevated biomarkers suggestive of non ST elevation myocardial infarction. Coronary angiography performed yesterday revealed an occluded vein graft and right coronary disease which appeared to have adequate collateralization. No intervention was performed. The patient states that generally speaking he is limited by orthopedic disease. He has discomfort in both knees which prevents him from doing more. He occasionally has an element of mild dyspnea with exertion, but does not have exertional chest discomfort or arm discomfort. He has rare dizziness or lightheadedness. He states that episodes recently have been fairly random in nature and brief. He has not suffered syncope. He generally is not aware of palpitations but is aware that he has a slow heart rate overall. No current symptoms suggestive orthopnea or paroxysmal nocturnal dyspnea. Occasional swelling of lower extremities which has been mild recently. Allergies Allergy/AdvReac Type Severity Reaction Status Date / Time No Known Allergies Allergy Verified 07/02/20 04:14 Home Medications Home Medications Medication Instructions Recorded Confirmed Type Calcium 600 + D(3) 1 tab PO HS 11/16/18 07/02/20 History ascorbic acid (vitamin C) [Vitamin 500 mg PO DAILY 11/16/18 07/02/20 History C] aspirin 81 mg PO HS 11/16/18 07/02/20 History cholecalciferol (vitamin D3) 1,000 unit PO DAILY 11/16/18 07/02/20 History [Vitamin D3] coenzyme Q10 [Co Q-10] 200 mg PO DAILY 11/16/18 07/02/20 History cyanocobalamin (vitamin B-12) 1,000 mcg PO DAILY 11/16/18 07/02/20 History [Vitamin B-12] multivitamin 1 tab PO DAILY 11/16/18 07/02/20 History clopidogrel 75 mg tablet 75 mg PO DAILY #90 tab 08/01/19 07/02/20 Rx nitroglycerin 400 mcg TRANSLINGUAL UD PRN 09/18/19 07/02/20 History finasteride 5 mg tablet 5 mg PO HS #90 tab 01/08/20 07/02/20 Rx levothyroxine 100 mcg tablet 100 mcg PO DAILY #90 tab 02/06/20 07/02/20 Rx isosorbide mononitrate 120 mg 240 mg PO DAILY #180 tab 02/07/20 07/02/20 Rx tablet,extended release 24 hr atorvastatin 40 mg tablet 40 mg PO HS #30 tab 02/17/20 07/02/20 Rx BD Ultra-Fine Short Pen Needle 31 #200 ea NS 03/09/20 06/16/20 Rx gauge x 5/16" furosemide 20 mg tablet 40 mg PO DAILY #180 tab 03/22/20 07/02/20 Rx Advocate Test Strips #100 ea NS 03/27/20 06/16/20 Rx sacubitril 49 mg-valsartan 51 mg 1 tab PO BID #60 tab 05/28/20 07/02/20 Rx tablet FreeStyle Pablo 14 Day Sensor #1 ea NS 06/16/20 06/16/20 Rx ferrous sulfate 325 mg (65 mg 650 mg PO DAILY tab 06/16/20 07/02/20 History iron) tablet metformin 500 mg tablet,extended 1,000 mg PO BID #360 tab 06/16/20 07/02/20 Rx release 24 hr ranolazine 1,000 mg 1,000 mg PO Q12 #180 tab 06/29/20 07/02/20 Rx tablet,extended release,12 hr albuterol sulfate 2 puff INHALATION Q8H PRN 07/02/20 07/02/20 History insulin aspart U-100 [Novolog 4 unit SUBCUT BID 07/02/20 07/02/20 History Flexpen U-100 Insulin] insulin glargine [Lantus Solostar 16 unit SQ HS 07/02/20 07/02/20 History U-100 Insulin] Patient History Medical History Anemia Cardiomyopathy, ischemic Chest pain Chronic systolic heart failure GERD (gastroesophageal reflux disease) Gout Hearing deficit HFrEF (heart failure with reduced ejection fraction) History of anesthesia reaction hx of reaction to propofol--had mental confusion, double/blurred vision History of colon polyps Irregular heart beat Mitral regurgitation Mobitz I Mobitz II Myocardial Infarction 2015 x2 Osteoarthritis Pneumonia Spinal stenosis Vitamin D deficiency Surgical History History of cardiac cath x2--last was 2014 @ [facility] [place], no stents History of colonoscopy History of lumbar spinal fusion hardware in place History of mandibular surgery pins put into lower jaw, no issues with ROM History of surgery left periorbital sx History of tooth extraction all teeth History of umbilical hernia repair x3 Hx of bilateral cataract extraction Hx of vasectomy S/P CABG x 4 1993 @ [facility] [place]--follows with S/P CABG x 4 S/P coronary artery stent placement Family History Father Family history of diabetes mellitus Brother Family history of diabetes mellitus 2 Heart disease Diabetes Sister Family history of diabetes mellitus Diabetes Mother Heart disease Son Heart disease Family/Other Heart disease Other No family history of adverse response to anesthesia Social History Smoking Status: Former smoker Second Hand Exposure: No; Hx Alcohol Use: Yes Alcohol type: beer Hx Substance Use: No Preferred Language: Slovak Communication Ability: Effective Visual Impairment: No Limitations Hearing Ability: Normal Model Dresser Required: No Beliefs That Will Affect Care: None marital status: Current Living Situation: Spouse current occupation: retired Feels Safe at Home: Yes Physical Activity Frequency: Daily Seatbelt Use: always Review of Systems Review of Systems: All systems reviewed & are unremarkable except as noted in HPI & below No recent constitutional symptoms such as fevers or chills. Physical Exam Physical Exam: Gen.: No acute distress. Alert and oriented. He answered all questions appropriately. HEENT: Anicteric sclera. Extraocular movements are intact. Neck: No JVD. No bruit. Normal carotid upstrokes. Cardiac: PMI nonpalpable. No ventricular heave. Bradycardia. Regular. Normal S1-S2. 2/6 early peaking systolic ejection murmur. No rubs, or gallops. Pulmonary: Initially, there were bilateral crackles that cleared with cough. Otherwise, clear to auscultation bilaterally without wheezes, rales, or rhonchi. Normal respiratory effort. Abdomen: Soft, nontender, nondistended, with normoactive bowel sounds. No bruits noted. Extremities: 1+ right radial pulse. Very weak left radial pulse. 1+ dorsalis pedis pulses bilaterally. Trace left lower extremity edema (s/p left vein harvest). No cyanosis. Psychiatric: Affect appears appropriate. Skin: No rashes. Patient did have a large ecchymosis in the right antecubital fossa. Results & Data ([facility]) Vital Signs (Past 12 Hours) Vital Signs Temp Pulse Pulse Resp BP BP Pulse Ox 07/03/20 11:19 36.9 C 50 L 20 115/68 98 07/03/20 07:15 36.7 C 66 20 128/62 96 07/03/20 03:18 36.9 C 69 18 114/75 94 07/03/20 00:56 56 L 07/02/20 23:45 36.6 C 58 L 16 113/68 97 Laboratory Results Abnormal Lab Results 09/01/1607/02/20 07/02/20 12:03 15:58 16:41 WBC RBC Hgb Hct MCV MCH MCHC RDW Std Deviation RDW Coeff of Stephanie Plt Count MPV Immature Gran % (Auto) Neut % (Auto) Lymph % (Auto) [place] % (Auto) Eos % (Auto) Baso % (Auto) Neut # (Auto) Lymph # (Auto) [place] # (Auto) Eos # (Auto) Baso # (Auto) Immature Gran # (Auto) PT INR APTT PTT Ratio Activ Coag Time Kaolin 235 H Sodium Potassium Chloride Carbon Dioxide Anion Gap BUN Creatinine Est Cr Clr Drug Dosing Est GFR ( Amer) Est GFR (Non-Af Amer) BUN/Creatinine Ratio Glucose POC Glucose 187 H 129 H Estimat Average Glucose Hemoglobin A1c Calcium Phosphorus Magnesium Troponin I Albumin 07/02/20 07/02/20 07/02/20 17:02 20:15 23:30 WBC RBC Hgb Hct MCV MCH MCHC RDW Std Deviation RDW Coeff of Stephanie Plt Count MPV Immature Gran % (Auto) Neut % (Auto) Lymph % (Auto) [place] % (Auto) Eos % (Auto) Baso % (Auto) Neut # (Auto) Lymph # (Auto) [place] # (Auto) Eos # (Auto) Baso # (Auto) Immature Gran # (Auto) PT INR APTT 48.7 H* PTT Ratio 1.7 Activ Coag Time Kaolin Sodium Potassium Chloride Carbon Dioxide Anion Gap BUN Creatinine Est Cr Clr Drug Dosing Est GFR ( Amer) Est GFR (Non-Af Amer) BUN/Creatinine Ratio Glucose POC Glucose 134 H Estimat Average Glucose Hemoglobin A1c Calcium Phosphorus Magnesium Troponin I 17.800 H* Albumin 07/03/20 07/03/20 07/03/20 06:33 06:33 06:33 WBC 8.15 RBC 3.83 L Hgb 12.4 L Hct 35.9 L MCV 93.7 MCH 32.4 MCHC 34.5 RDW Std Deviation 47.7 H RDW Coeff of Stephanie 13.9 Plt Count 254 MPV 10.2 Immature Gran % (Auto) 0.0 Neut % (Auto) 64.1 Lymph % (Auto) 25.6 [place] % (Auto) 8.5 Eos % (Auto) 1.7 Baso % (Auto) 0.1 Neut # (Auto) 5.22 Lymph # (Auto) 2.09 [place] # (Auto) 0.69 H Eos # (Auto) 0.14 Baso # (Auto) 0.01 Immature Gran # (Auto) 0.00 PT 10.9 INR 1.0 APTT 72.3 H* PTT Ratio 2.6 Activ Coag Time Kaolin Sodium 140 Potassium 4.2 Chloride 108 H Carbon Dioxide 26 Anion Gap 7.0 BUN 15 Creatinine 1.24 Est Cr Clr Drug Dosing 48.2 Est GFR ( Amer) 65.5 Est GFR (Non-Af Amer) 56.5 BUN/Creatinine Ratio 12.0 Glucose 159 H POC Glucose Estimat Average Glucose Hemoglobin A1c Calcium 9.2 Phosphorus 3.9 Magnesium 1.9 Troponin I Albumin 3.2 L 07/03/20 07/03/20 07/03/20 06:33 06:33 07:35 WBC RBC Hgb Hct MCV MCH MCHC RDW Std Deviation RDW Coeff of Stephanie Plt Count MPV Immature Gran % (Auto) Neut % (Auto) Lymph % (Auto) [place] % (Auto) Eos % (Auto) Baso % (Auto) Neut # (Auto) Lymph # (Auto) [place] # (Auto) Eos # (Auto) Baso # (Auto) Immature Gran # (Auto) PT INR APTT PTT Ratio Activ Coag Time Kaolin Sodium Potassium Chloride Carbon Dioxide Anion Gap BUN Creatinine Est Cr Clr Drug Dosing Est GFR ( Amer) Est GFR (Non-Af Amer) BUN/Creatinine Ratio Glucose POC Glucose 168 H Estimat Average Glucose 169 Hemoglobin A1c 7.5 H Calcium Phosphorus Magnesium Troponin I 6.900 H* Albumin Diagnostic Findings Echocardiogram performed 07/02/2020: Mild left ventricular dilation with ejection fraction of 35-40 percent. Regional wall motion abnormalities. Mild aortic stenosis. Mild mitral regurgitation. ECG Additional Comments: Sinus rhythm with variable degrees of AV block, but appears to be left bundle branch block and ectopy with right bundle-branch block pattern. PG Care Time/CCT Total # of Minutes Spent Total Time Spent with Patient: Total time spent is greater than 50% in coordination of care (as documented) at patient's floor/unit and/or counseling patient: Coding Level of Care Code 02477 Initial Inpt Care Lvl 3 Diagnoses Cardiomyopathy, ischemic I25.5 Chronic systolic heart failure I50.22 CAD (coronary artery disease) I25.810 Coronary Disease-Associated Artery/Lesion type: bypass graft [place] vs. transplanted heart: [place] heart Associated angina: angina presence unspecified Mobitz II I44.1 (1) CAD (coronary artery disease) Coronary Disease-Associated Artery/Lesion type: bypass graft [place] vs. transplanted heart: [place] heart Associated angina: angina presence unspecified Qualified Code(s): I25.810 - Atherosclerosis of coronary artery bypass graft(s) without angina pectoris
--- NOTE | 2020-07-03 11:54 | Cardiology Progress Note ---
Date of Service July 03, 2020 Assessment & Plan (1) Non-ST elevation (NSTEMI) myocardial infarction: (2) CAD (coronary artery disease): (3) S/P CABG x 4: (4) S/P coronary artery stent placement: (5) Chronic systolic heart failure: (6) Hypertension: (7) Hyperlipidemia: (8) Mobitz I: (9) Mobitz II: ASSESSMENT/PLAN: 1. NSTEMI: No further angina. Unsuccessful attempt at PCI of SVG to the PDA and PL. Peak troponin was 17.8. Continue dual anti-platelet therapy. Would like to initiate beta-beny for medical management of his myocardial infarction, which can be attempted after pacemaker placed. Cardiac rehab. 2. CAD s/p CABG x 4 and PCI: SVG to PDA and PL found to be occluded. Continue medical therapy. LV systolic function moderately reduced. 3. Chronic systolic CHF: He appears compensated and euvolemic on examination. At home he takes 40 mg of Lasix daily. Will start 20 mg of p.o. Lasix tomorrow. Resume home dose of Entresto. Consideration of beta-beny tomorrow after pacemaker placed. Low-sodium diet and daily weights recommended. Strict I&Os. 4. Hypertension: Blood pressure well controlled. Resuming some of his home medications as above. Lasix reduced to 20 mg as he appears euvolemic without Lasix for 2 days. 5. Dyslipidemia: Continue high-intensity statin therapy. 6. Mobitz I/II: Chronic issue. Unable to give beta-blockers due to this issue. Pacemaker placement pending today with Dr. Rodriguez. Appreciate electrophysiology input and assistance. 7. Aortic stenosis: Mild. Can monitor over time. 8. Disposition: Cardiology will continue to follow. If continues to do well following pacemaker placement, could potentially be discharged tomorrow. Patient care discussed with Dr. Stubbs of the primary hospitalist service. Admission and Anticipated Discharge Date Admission Date: July 02, 2020 Subjective Yesterday he underwent cardiac catheterization the right femoral artery. There was attempts to perform PCI of SVG to the PDA and PL, but were unsuccessful. It was felt that the occlusion may have been more chronic than previously thought. Following the cardiac catheterization, when I presented to the room yesterday evening, it was noted that he was bleeding from his right femoral catheterization site. There was no hematoma. He did undergo closure device. Pressure was held for 30 minutes and he had no further bleeding. Today he feels well. He has not had any further angina. He denies chest pain, syncope, near-syncope, shortness of breath, palpitations, edema, or bleeding. He is NPO for pacemaker placement today. His was present at the bedside. Review of systems: As above. Physical Exam Physical Exam: Gen.: No acute distress. Alert and oriented. HEENT: Anicteric sclera. Neck: No JVD. Cardiac: PMI nonpalpable. No ventricular heave. Regular with occasional irregularity. Normal S1-S2. 2/6 early peaking systolic ejection murmur. No rubs, or gallops. Pulmonary: Clear to auscultation bilaterally without wheezes, rales, or rhonchi. Abdomen: Soft, nontender, nondistended, with normoactive bowel sounds. No bruits noted. Extremities: 1+ right radial pulse. Very weak left radial pulse. Right femoral arterial catheterization site is clean, dry, and intact without erythema, discharge, or hematoma. 1+ dorsalis pedis pulses bilaterally. Trace left lower extremity edema (s/p left vein harvest). No cyanosis. Psychiatric: Affect appears appropriate. Results & Data ([facility]) Vital Signs (Past 12 Hours) Vital Signs Temp Pulse Pulse Resp BP BP Pulse Ox 07/03/20 11:19 36.9 C 50 L 20 115/68 98 07/03/20 07:15 36.7 C 66 20 128/62 96 07/03/20 03:18 36.9 C 69 18 114/75 94 07/03/20 00:56 56 L Laboratory Results Laboratory Results - last 24 hr 07/02/20 07/02/20 07/02/20 12:03 15:58 16:41 WBC RBC Hgb Hct MCV MCH MCHC RDW Std Deviation RDW Coeff of Stephanie Plt Count MPV Immature Gran % (Auto) Neut % (Auto) Lymph % (Auto) [place] % (Auto) Eos % (Auto) Baso % (Auto) Neut # (Auto) Lymph # (Auto) [place] # (Auto) Eos # (Auto) Baso # (Auto) Immature Gran # (Auto) PT INR APTT PTT Ratio Activ Coag Time Kaolin 235 H Sodium Potassium Chloride Carbon Dioxide Anion Gap BUN Creatinine Est Cr Clr Drug Dosing Est GFR ( Amer) Est GFR (Non-Af Amer) BUN/Creatinine Ratio Glucose POC Glucose 187 H 129 H Estimat Average Glucose Hemoglobin A1c Calcium Phosphorus Magnesium Troponin I Albumin 07/02/20 07/02/20 07/02/20 17:02 20:15 23:30 WBC RBC Hgb Hct MCV MCH MCHC RDW Std Deviation RDW Coeff of Stephanie Plt Count MPV Immature Gran % (Auto) Neut % (Auto) Lymph % (Auto) [place] % (Auto) Eos % (Auto) Baso % (Auto) Neut # (Auto) Lymph # (Auto) [place] # (Auto) Eos # (Auto) Baso # (Auto) Immature Gran # (Auto) PT INR APTT 48.7 H* PTT Ratio 1.7 Activ Coag Time Kaolin Sodium Potassium Chloride Carbon Dioxide Anion Gap BUN Creatinine Est Cr Clr Drug Dosing Est GFR ( Amer) Est GFR (Non-Af Amer) BUN/Creatinine Ratio Glucose POC Glucose 134 H Estimat Average Glucose Hemoglobin A1c Calcium Phosphorus Magnesium Troponin I 17.800 H* Albumin 07/03/20 07/03/20 07/03/20 06:33 06:33 06:33 WBC 8.15 RBC 3.83 L Hgb 12.4 L Hct 35.9 L MCV 93.7 MCH 32.4 MCHC 34.5 RDW Std Deviation 47.7 H RDW Coeff of Stephanie 13.9 Plt Count 254 MPV 10.2 Immature Gran % (Auto) 0.0 Neut % (Auto) 64.1 Lymph % (Auto) 25.6 [place] % (Auto) 8.5 Eos % (Auto) 1.7 Baso % (Auto) 0.1 Neut # (Auto) 5.22 Lymph # (Auto) 2.09 [place] # (Auto) 0.69 H Eos # (Auto) 0.14 Baso # (Auto) 0.01 Immature Gran # (Auto) 0.00 PT 10.9 INR 1.0 APTT 72.3 H* PTT Ratio 2.6 Activ Coag Time Kaolin Sodium 140 Potassium 4.2 Chloride 108 H Carbon Dioxide 26 Anion Gap 7.0 BUN 15 Creatinine 1.24 Est Cr Clr Drug Dosing 48.2 Est GFR ( Amer) 65.5 Est GFR (Non-Af Amer) 56.5 BUN/Creatinine Ratio 12.0 Glucose 159 H POC Glucose Estimat Average Glucose Hemoglobin A1c Calcium 9.2 Phosphorus 3.9 Magnesium 1.9 Troponin I Albumin 3.2 L 07/03/20 07/03/20 07/03/20 06:33 06:33 07:35 WBC RBC Hgb Hct MCV MCH MCHC RDW Std Deviation RDW Coeff of Stephanie Plt Count MPV Immature Gran % (Auto) Neut % (Auto) Lymph % (Auto) [place] % (Auto) Eos % (Auto) Baso % (Auto) Neut # (Auto) Lymph # (Auto) [place] # (Auto) Eos # (Auto) Baso # (Auto) Immature Gran # (Auto) PT INR APTT PTT Ratio Activ Coag Time Kaolin Sodium Potassium Chloride Carbon Dioxide Anion Gap BUN Creatinine Est Cr Clr Drug Dosing Est GFR ( Amer) Est GFR (Non-Af Amer) BUN/Creatinine Ratio Glucose POC Glucose 168 H Estimat Average Glucose 169 Hemoglobin A1c 7.5 H Calcium Phosphorus Magnesium Troponin I 6.900 H* Albumin 07/03/20 11:36 WBC RBC Hgb Hct MCV MCH MCHC RDW Std Deviation RDW Coeff of Stephanie Plt Count MPV Immature Gran % (Auto) Neut % (Auto) Lymph % (Auto) [place] % (Auto) Eos % (Auto) Baso % (Auto) Neut # (Auto) Lymph # (Auto) [place] # (Auto) Eos # (Auto) Baso # (Auto) Immature Gran # (Auto) PT INR APTT PTT Ratio Activ Coag Time Kaolin Sodium Potassium Chloride Carbon Dioxide Anion Gap BUN Creatinine Est Cr Clr Drug Dosing Est GFR ( Amer) Est GFR (Non-Af Amer) BUN/Creatinine Ratio Glucose POC Glucose 165 H Estimat Average Glucose Hemoglobin A1c Calcium Phosphorus Magnesium Troponin I Albumin Diagnostic Findings Cardiac cath 07/02/2020: Coronary angiography: 1. LMCA: LMCA is occluded 100%. 2. Left anterior descending: Ostial LAD 100%. LAD fills via AARON and appears to be small in caliber with diffuse 30 to 40% stenosis. 3. Circumflex: Ostial circumflex 100%. 4. Right coronary artery: Dominant vessel. Proximal RCA 100%. Right to right bridging collateral vessels. PL fills via left to right collaterals. Coronary artery bypass graft angiography: 1. AARON to LAD: Patent. 2. SVG to OM 3: Proximal SVG 30 to 40%, proximal to previous mid SVG stent. SV G stent diffuse 30 to 40% stenosis. Distally, SVG diffuse 20%. SVG fills OM 3 and retrograde into mid circumflex and OM 2. Left to left and left to right collaterals were noted. 3. SVG to PL and PDA: Proximal SVG 100%, within SVG stent. Unsuccessful attempt at PCI of the occluded graft. Echo 07/02/2020: Mildly dilated LV with moderately reduced systolic function. EF 35-40%. Mild global hypokinesis with severe hypokinesis to akinesis of the anteroseptum, base to mid inferior wall, and base to mid inferoseptal wall segments. Mild LVH. Mildly reduced RV systolic function. Mild left atrial dilation. Mild aortic stenosis. Mild MR. Telemetry personally reviewed: Sinus rhythm with Mobitz 1 and intermittent 2-1 av block. Medications Administered Current Inpatient Medications Acetaminophen (Acetaminophen 325 Mg Tab) 650 mg PO Q4H PRN PRN Reason: Pain or Fever Stop: 08/01/20 06:53 Ascorbic Acid (Ascorbic Acid 500 Mg Tab) 500 mg PO DAILY BUDDY Stop: 08/01/20 08:59 Last Admin: 07/03/20 08:01 Dose: 500 mg Documented by: Aspirin (Aspirin 81 Mg Ectab) 81 mg PO HS BUDDY Stop: 08/01/20 20:59 Last Admin: 07/02/20 20:30 Dose: 81 mg Documented by: Atorvastatin Calcium (Atorvastatin 40 Mg Tab) 80 mg PO HS BUDDY Stop: 08/01/20 20:59 Last Admin: 07/02/20 20:30 Dose: 80 mg Documented by: Clopidogrel Bisulfate (Clopidogrel Bisulfate 75 Mg Tab) 75 mg PO DAILY BUDDY Stop: 08/01/20 08:59 Last Admin: 07/03/20 08:01 Dose: 75 mg Documented by: Cyanocobalamin (Cyanocobalamin 500 Mcg Tablet (Vitamin B-12)) 1,000 mcg PO DAILY BUDDY Stop: 08/01/20 08:59 Last Admin: 07/03/20 08:01 Dose: 1,000 mcg Documented by: Dextrose (Dextrose 50% 50 Ml Syringe) 25 - 50 ml IV UD PRN; Protocol PRN Reason: Hypoglycemia Protocol Stop: 08/01/20 06:53 Ferrous Sulfate (Ferrous Sulfate 325 Mg Tab) 325 mg PO DAILY BUDDY Stop: 08/01/20 08:59 Last Admin: 07/03/20 08:01 Dose: 325 mg Documented by: Finasteride (Finasteride 5 Mg Tab) 5 mg PO HS [facility] Stop: 08/01/20 20:59 Last Admin: 07/02/20 20:30 Dose: 5 mg Documented by: Glucagon (Glucagon For Inj 1 Mg Vial) 1 mg SQ UD PRN; Protocol PRN Reason: Hypoglycemia Protocol Stop: 08/01/20 06:53 Glucose (Glucose 10 Tabs/Tube) 4 - 8 tabs PO UD PRN; Protocol PRN Reason: Hypoglycemia Protocol Stop: 08/01/20 06:53 Glucose (Glucose 40% Gel 15 Gm Tube) 15 - 30 gm PO UD PRN; Protocol PRN Reason: Hypoglycemia Protocol Stop: 08/01/20 06:53 Heparin Sodium/Dextrose (Heparin Sodium/Dextrose) 25,000 units in 500 mls @ 24 mls/hr IV .[id number] [facility]; Protocol Stop: 08/01/20 05:14 Last Titration: 07/03/20 07:26 Dose: 1,150 units/hr, 23 mls/hr Documented by: Insulin Aspart (Insulin Aspart 100 Units/Ml 3 Ml Pen) 0 units SC ACHS [facility] Stop: 08/01/20 07:29 Last Admin: 07/03/20 07:59 Dose: Not Given Documented by: Insulin Glargine (Insulin Glargine Solostar 100 Units/Ml 3 Ml Pen) 16 units SQ HS BUDDY Stop: 08/01/20 20:59 Last Admin: 07/02/20 20:33 Dose: 16 units Documented by: Isosorbide Mononitrate (Isosorbide [place] Extended Rel 60 Mg Tabcr) 240 mg PO DAILY BUDDY Stop: 08/01/20 08:59 Last Admin: 07/03/20 08:01 Dose: 240 mg Documented by: Levothyroxine Sodium (Levothyroxine Sodium 100 Mcg Tablet) 100 mcg PO DAILYBB [facility] Stop: 08/01/20 07:14 Last Admin: 07/03/20 06:04 Dose: 100 mcg Documented by: Miscellaneous (Carbohydrates For Hypoglycemia ) 15 - 30 gm PO UD PRN PRN Reason: Hypoglycemia Protocol Stop: 08/01/20 06:53 Multivitamins (Multivitamin Tab) 1 tab PO DAILY [facility] Stop: 08/01/20 08:59 Last Admin: 07/03/20 08:02 Dose: 1 tab Documented by: Multivitamins/Minerals (Calcium 600mg + Vit D 400 Iu Tab) 1 tab PO HS BUDDY Stop: 08/01/20 20:59 Last Admin: 07/02/20 20:30 Dose: 1 tab Documented by: Nitroglycerin (Nitroglycerin Sl 0.4 Mg/Tab Tab) 0.4 mg SL UD PRN PRN Reason: Chest Pain Stop: 08/01/20 06:57 Ondansetron HCl (Ondansetron Inj 2 Mg/Ml 2 Ml Vial) 4 mg IV Q6H PRN PRN Reason: Nausea Stop: 08/01/20 06:53 Ranolazine (Ranolazine 500 Mg Er Tab) 1,000 mg PO Q12 BUDDY Stop: 08/01/20 08:59 Last Admin: 07/03/20 08:01 Dose: 1,000 mg Documented by: Vitamin D (Cholecalciferol 1,000 Units 25 Mcg Tab) 1,000 units PO DAILY BUDDY Stop: 08/01/20 08:59 Last Admin: 07/03/20 08:01 Dose: 1,000 units Documented by: PG Care Time/CCT Total # of Minutes Spent Total Time Spent with Patient: Total time spent is greater than 50% in coordination of care (as documented) at patient's floor/unit and/or counseling patient: Coding Level of Care Code 67745 Subseq Hosp Care Lvl 3 Diagnoses Non-ST elevation (NSTEMI) myocardial infarction I21.4 CAD (coronary artery disease) I25.810 Coronary Disease-Associated Artery/Lesion type: bypass graft [place] vs. transplanted heart: [place] heart Associated angina: angina presence unspecified S/P CABG x 4 Z95.1 S/P coronary artery stent placement Z95.5 Chronic systolic heart failure I50.22 Hypertension I10 Hyperlipidemia E78.5 Mobitz I I44.1 Mobitz II I44.1 (1) CAD (coronary artery disease) Coronary Disease-Associated Artery/Lesion type: bypass graft [place] vs. transplanted heart: [place] heart Associated angina: angina presence unspecified Qualified Code(s): I25.810 - Atherosclerosis of coronary artery bypass graft(s) without angina pectoris
--- NOTE | 2020-07-03 13:10 | Hospitalist Progress Note ---
Date of Service July 03, 2020 Assessment & Plan (1) Acute coronary syndrome: Status post CABG approximately 27 years ago, with interventions on 06/19/2019 and 09/18/2019. - Presumably ACS, though no culprit lesion seen on cath. The only blockage in the SVG -> PDA graft which appeared chronic on catheterization. - Monitor troponins: Peaked at 18 on 07/02; down to 6.9 today. - Continue ASA/Plavix, Imdur, & Ranexa - Discussed with cardiology; plan to restart Entresto. - Hold Lasix x 1 more day for pacemaker today. Appears euvolemic. - Appreciate cardiology recs - Still on heparin gtt for ACS -> Will discuss whether this needs to be stopped or not prior pacemaker. (2) Mobitz I: Long-standing. - Pacemaker today with Dr. Rodriguez (3) HFrEF (heart failure with reduced ejection fraction): Echo on 07/02 showed EF 35-40%. - Plan as above (4) Cardiomyopathy, ischemic: See above (5) BPH (benign prostatic hyperplasia): No LUTS described for me today. - Continue finasteride (6) Hypertension: BP was 115/70 today. - Continue cardiac regimen above (7) CAD (coronary artery disease): See above (8) Diabetes mellitus, type 2: A1c was 7.5% this admission. - Hold metformin - Continue Lantus 16 units subcu at bedtime. - Sliding scale insulin - Blood sugars generally 130-160 in the last 24 hours. (9) Hypothyroidism: TSH was 1.4 in 02/2020. - Continue levothyroxine 100 mcg p.o. daily (10) Hyperlipidemia: - Increased atorvastatin from 40 to 80 mg daily (11) DVT prophylaxis: Heparin gtt for ACS Admission and Anticipated Discharge Date Admission Date: July 02, 2020 Subjective Doing well today. No chest pain since yesterday. Has felt "wonderful" since yesterday afternoon. Reports no fevers/chills, chest pain, shortness of breath, abdominal pain, nausea, or vomiting. Physical Exam Constitutional: WD/WN, vitals as above Eyes: EOM intact bilaterally; no conjunctival abnormality ENMT: external ear and nose normal, oropharynx normal Neck: trachea midline, no thyromegaly normal visual inspection Respiratory: normal respiratory effort, lungs clear to auscultation no respiratory distress Cardiovascular: RRR, no murmur, no edema Gastrointestinal (Abdomen): Inspection/Auscultation: abdomen normal to inspection; abdomen not distended Musculoskeletal: no cyanosis or clubbing, extremities motor strength 5/5 Skin: no rashes, warm and dry Neurologic: moves all extremities and awake Psychiatric: Orientation: alert, oriented to person and cooperative Results & Data Results & Data ([facility]) Vital Signs (Past 12 Hours) Vital Signs Temp Pulse Resp BP BP Pulse Ox 07/03/20 11:19 36.9 C 50 L 20 115/68 98 07/03/20 07:15 36.7 C 66 20 128/62 96 07/03/20 03:18 36.9 C 69 18 114/75 94 PG Care Time/CCT Total # of Minutes Spent Total Time Spent with Patient: Total time spent is greater than 50% in coordination of care (as documented) at patient's floor/unit and/or counseling patient: Coding Level of Care Code 35517 Subseq Hosp Care Lvl 3 Diagnoses Acute coronary syndrome I24.9 Mobitz I I44.1 HFrEF (heart failure with reduced ejection fraction) I50.20 Cardiomyopathy, ischemic I25.5 BPH (benign prostatic hyperplasia) N40.0 Hypertension I10 CAD (coronary artery disease) I25.810 Coronary Disease-Associated Artery/Lesion type: bypass graft [place] vs. transplanted heart: [place] heart Associated angina: angina presence unspecified Diabetes mellitus, type 2 E11.9 Hypothyroidism E03.9 Hyperlipidemia E78.5 DVT prophylaxis Z29.9 (1) CAD (coronary artery disease) Coronary Disease-Associated Artery/Lesion type: bypass graft [place] vs. transplanted heart: [place] heart Associated angina: angina presence unspecified Qualified Code(s): I25.810 - Atherosclerosis of coronary artery bypass graft(s) without angina pectoris
[2020-07-03 14:03] LABS: Partial Thromboplastin Ratio 2.3
[2020-07-03 14:05] LABS: Partial Thromboplastin Time 65.3 Seconds (21.0-31.0)
--- NOTE | 2020-07-03 15:17 | Pre Anesthesia Assessment ---
Date of Service July 03, 2020 Pre Sedation Assessment Vital Signs Temp Pulse Pulse Pulse Resp BP BP 07/03/20 14:58 72 20 124/62 07/03/20 11:19 36.9 C 50 L 20 115/68 07/03/20 07:15 36.7 C 66 20 128/62 07/03/20 03:18 36.9 C 69 18 114/75 07/03/20 00:56 56 L 07/02/20 23:45 36.6 C 58 L 16 113/68 07/02/20 19:09 36.6 C 62 20 127/61 07/02/20 17:56 36.5 C 57 L 20 124/76 07/02/20 17:28 36.8 C 50 L 20 121/74 07/02/20 17:04 36.5 C 61 20 119/76 07/02/20 17:00 36.5 C 49 L 20 119/79 07/02/20 16:39 36.5 C 60 20 122/62 07/02/20 16:25 51 L 18 122/57 L 07/02/20 16:10 55 L 18 130/68 Pulse Ox 07/03/20 14:58 99 07/03/20 11:19 98 07/03/20 07:15 96 07/03/20 03:18 94 07/03/20 00:56 07/02/20 23:45 97 07/02/20 19:09 98 07/02/20 17:56 99 07/02/20 17:28 99 07/02/20 17:04 98 07/02/20 17:00 98 07/02/20 16:39 98 07/02/20 16:25 98 07/02/20 16:10 98 Cardiovascular + bradycardic Respiratory + respiratory effort normal Pre-Sedation Airway Assessment Smoking Status: Former smoker Hx Sleep Apnea: No Hx Difficult Intubation: No Short, Thick Neck: No Thyromental Distance: > or= 3.5 Finger Breadths Oral Cavity: + Dentures Mallampati Class: III ASA: ASA3 NPO Status Date of Last Intake of Fluids: 07/02/20 Time of Last Intake of Fluids: 21:00 Date of Last Intake of Solid Food: 07/02/20 Time of Last Intake of Solid Foods: 21:00 Procedure Planning Contraindications for Sedation: none Current Medications Reviewed: Yes Notes The planned sedation has been discussed with the patient. Informed Consent was obtained. I have identified the patient, determined the appropriateness of sedation and have assessed the patient immediately prior to the procedure. All medicine(s) and interventions are by my order.
[2020-07-03] MEDS ORDERED: CEFAZOLIN 250 MG/ML 1 GM VIAL ONE (15:19)
[2020-07-03] MEDS ORDERED: fentaNYL citrate 100 MCG/2 ML VIAL ONE ×2 (15:19→16:17)
[2020-07-03] MEDS ORDERED: MIDAZOLAM HCL 5 MG/ML 1 ML VIAL ONE ×2 (15:19→16:38)
[2020-07-03] MEDS ORDERED: LIDOCAINE HCL 1% 20 ML VIAL ONE (15:22)
[2020-07-03] MEDS ORDERED: BACITRACIN INJ 50,000 UNIT VIAL ONE (15:22)
[2020-07-03] MEDS ORDERED: BUPIVACAINE 0.25% 30 ML VIAL ONE (15:22)
[2020-07-03] MEDS ORDERED: OXYCODONE HCL IR 5 MG TAB (IMMEDIATE RELEASE) PO PRN (17:20)
--- NOTE | 2020-07-03 17:23 | Post Anesthesia Assessment ---
Date of Service July 03, 2020 Post Sedation Assessment Vital Signs Temp Pulse Pulse Pulse Resp BP BP 07/03/20 14:58 72 20 124/62 07/03/20 11:19 36.9 C 50 L 20 115/68 07/03/20 07:15 36.7 C 66 20 128/62 07/03/20 03:18 36.9 C 69 18 114/75 07/03/20 00:56 56 L 07/02/20 23:45 36.6 C 58 L 16 113/68 07/02/20 19:09 36.6 C 62 20 127/61 07/02/20 17:56 36.5 C 57 L 20 124/76 07/02/20 17:28 36.8 C 50 L 20 121/74 Pulse Ox 07/03/20 14:58 99 07/03/20 11:19 98 07/03/20 07:15 96 07/03/20 03:18 94 07/03/20 00:56 07/02/20 23:45 97 07/02/20 19:09 98 07/02/20 17:56 99 07/02/20 17:28 99 Recovery Score Activity: Moves 4 extremities Respiration: Deep Breath/Cough Circulation: +/-20% PreAnes Value Consciousness: Fully Awake Oxygen Saturation: > 92% On Room Air Post Anesthesia Score: 10 Discharge Sedation Level of Care: Fast Track Phase II Post Sedation Plan On clinical assessment, the patient appears to have tolerated the sedation without complications. Patient is recovering as anticipated. Patient will continue to be monitored by nursing and may be discharged when sedation discharge criteria are met per below protocol. Upon Completions of procedure up to 15 minutes continue every 5 minute vital signs and the P.A.R. score; then discharge to a Phase I or Fast Track to Phase II per the following guidelines: * Discharge Patient to appropriate Phase II area if PAR is 8 or greater or return to pre- procedure baseline. The post - procedure orders will be as directed. * If PAR score is less than 8 or not return to pre-procedure baseline then patient will follow Phase I monitoring till PAR is reached for Phase II. The Phase I may be done in procedure room or may call to secure a Phase I area. * If naloxone or flumazenil are used for reversal, hold in Phase I for continued monitoring from when last reversal dose was given for a minimum of 60 minutes or longer pending the nurse and/or physician discretion of patient condition before discharge to Phase II. Please call the Sedation Physician to re-evaluate and complete post-note for discharge to Phase II area. Do NOT discharge from procedure sedation or Phase 1 until post- sedation evaluation note is complete by procedure /sedation MD Sedation Discharge Instructions to be given to the patient at discharge to home.
--- NOTE | 2020-07-03 17:28 | Electrophysiology Report ---
Date of Service July 03, 2020 Electrophysiology Procedure Electrophysiology Procedure Report Procedure performed: Implantation of biventricular pacemaker Staff gusset ripper: Ben Rodriguez MD Indication: The patient is a 74-year-old gentleman with a history of coronary artery disease and mildly reduced LV systolic function. Ejection fraction was measured at 40 to 45% previously. He continues to have symptoms of angina and has had myocardial infarction's. He has an element of conduction disease which precludes use of beta-blockers. In order to facilitate optimal medical therapy as well as address symptoms associated with his cardiomyopathy is felt be a good candidate for permanent pacemaker. A biventricular device was selected as he is expected pacing the ventricle nearly 100% of the time in the setting of reduced LV function. Atrial lead was used as he is currently in sinus rhythm and wished to maintain AV synchrony. He has symptomatic nonreversible AV node dysfunction. Procedure in detail: The patient was informed of the risks benefits and alternatives to the intended procedure and she wished to proceed. He was taken to the electrophysiology suite in a fasting state. A preoperative antibiotic had been administered. The patient was monitored electrocardiographically throughout today's procedure and conscious sedation was administered per protocol. The left upper pectoral area is prepped and draped in usual sterile fashion. This area was anesthetized using subcutaneous administration of a xylocaine solution. An incision was made at this site and carried down to the prepectoralis fascia using sharp dissection. Electrocautery was also employed for dissection as well as for hemostasis. A device pocket was fashioned tissues above the pectoralis muscle. Subsequent to this maneuver the left axillary vein was accessed 3 times using modified Seldinger technique. Initially, 2 sheaths were placed over guidewires at this site and used to facilitate passage of the pacing leads to the respective chambers under fluoroscopic guidance. This included right atrial and right ventricular leads. Adequate sensing and threshold parameters were obtained prior to Active fixation of the leads to the endocardial surface. The proximal portion leads were then sutured the prepectoral fascia using nonabsorbable suture. A third sheath was placed over guidewire and used to facilitate a guiding catheter for engagement of the coronary sinus. Once engaged limited coronary sinus venography was performed in order to identify a suitable target vessel. Once identified standard guidewire techniques were employed in order to deliver the lead to the target vessel. Adequate sensing threshold parameters as well as the absence of diaphragmatic stimulation at high output were obtained prior to removal of the guiding sheath. The proximal portion of this lead was then sutured the prepectoralis fascia using nonabsorbable suture. The device pocket was irrigated with antibiotic solution. The leads were then attached to the device. The device and leads were then placed in the pocket and pocket was closed in 3 layers of absorbable suture. Steri-Strips and sterile dressing were applied. The device was tested noninvasively prior to conclusion the procedure. The patient tolerated procedure well there no immediate complications. Equipment used: New pulse generator: Content Developer [employer]. Model number: [id number] serial number [id number] Right atrial lead: Content Developer [employer]. Model number: 5076 serial number [id number] Right ventricular lead: Content Developer [employer]. Model number: 5076 serial number [id number] Left ventricular lead: Content Developer [employer]. Model #4298 serial number [id number] Measured data: Right atrial lead: P waves measure 2.1 mV. Pacing threshold 0.5 V at 0.4 ms with a pacing impedance of 437 ohms Right ventricular lead: R waves measured 12.1 mV. Pacing threshold 0.5 V at 0.4 ms with a pacing impedance of 551 ohms Left ventricular lead: R waves measured 7.8 mV. Pacing threshold was 2.5 V at 0 .4 ms with a pacing impedance of 760 ohms. This was in the LV for the LV 3 configuration Impression: Successful implantation of biventricular pacemaker [facility] Electrophysiology codes Pacing Procedure 1: Pacin Insert/Replace Pacer A & V Procedure 2: Pacin BiV electrode w/Pacer / ICD implant, add on code PG Moderate Sedation Codes Moderate Sedation Codes Procedure 1: Sedation/Anesthesia: 25603 Mod Sedation by the same physician;Init15 Min Child Age 5 & Up Procedure 2: Sedation/Anesthesia: 44972 Mod Sedation by the same physician; Ea [id number] Minutes
[2020-07-03] MEDS ORDERED: SODIUM CHLORIDE 0.9% 1000ML 500 ML IV ONE (18:50)
[2020-07-03] MEDS: NITROGLYCERIN SL 0.4 MG/TAB TAB SL PRN ×3 (19:01→19:16)
[2020-07-03] MEDS ORDERED: MoRPHine SULFATE 2 MG/ML CARP IV STA (19:47)
--- NOTE | 2020-07-03 20:49 | XRay Report ---
XR chest 1V portable HISTORY: 74 years-old Male Chest pain - Dr. Nye at bedside acute atypical chest pain COMPARISON: Chest radiograph 07/02/2020 TECHNIQUE: Portable AP view of the chest FINDINGS: Cardiac silhouette is enlarged, unchanged. Prior median sternotomy. Calcified plaque of the thoracic aortic arch. Left subclavian pacer. Pulmonary vascular congestion with interval interstitial coarseni ng. Ill-defined right infrahilar opacities suggest summation density. No pneumothorax or large pleura l effusion. Degenerative changes of the shoulders and spine. IMPRESSION: Cardiomegaly with pulmonary vascular congestion. ACT 112: Negative or not required by law. The above report was generated using voice recognition software. It may contain grammatical, syntax o r spelling errors. Electronically signed by: Jeffery Hooper M.D. 07/03/2020 8:48 PM
[2020-07-03] MEDS ORDERED: MoRPHine SULFATE 2 MG/ML CARP IV PRN (21:00)
--- NOTE | 2020-07-03 21:06 | Communication Note ---
Date of Service: July 03, 2020 Cardiology called by nursing staff due to worsening 6/10 chest pain radiating to his back, shortness of breath, diaphoresis post BiV pacemaker placement this afternoon. Patient evaluated at bedside. No improvement after slntg. CP down to 1/10 after IV morphine. Still with shortness of breath. States current symptoms different than admitting symptoms and prior MIs. Afebrile, Hemodynamically stable, tachycardic to 110s, normal 02 sats on 3L. Diaphoretic, uncomfortable on exam. Well perfused, lungs with crackles on RT > LT. No significant murmurs. No edema. ECG - A sensed, Vpaced (? axis change in V1 from post implant ECG). Portable CXR - no pleural effusions, mild vascular congestion. Bedside echo - no pericardial effusion. Dilated LV, Severe LV dysfunction ? worsened anterior wall hypokinesis from prior echo report. NL RV function. Dilated IVC Impression: Acute on chronic heart failure (+2.5 yesterday, +500 today) with worsened LV function on echo Pacing [employer] device with no evidence of acute pericardial or pleural effusion. Relatively low suspicion for repeat ACS event -- IV lasix 40mg x1 now -- Morphine for pain control post procedure -- Repeat troponin, echo and device check in AM.
[2020-07-03] MEDS: SACUBITRIL-VALSARTAN 49/51 MG TAB PO SCH (21:12)
[2020-07-03] MEDS: FINASTERIDE 5 MG TAB PO SCH (21:12)
[2020-07-03] MEDS: ATORVASTATIN 40 MG TAB PO SCH (21:12)
[2020-07-03] MEDS: CALCIUM 600MG + VIT D 400 IU TAB PO SCH (21:12)
[2020-07-03] MEDS: ASPIRIN 81 MG ECTAB PO SCH (21:12)
[2020-07-03] MEDS: INSULIN GLARGINE SOLOSTAR 100 UNITS/ML 3 ML PEN SQ SCH (21:14)
[2020-07-03] MEDS ORDERED: FUROSEMIDE 40 MG in SYRINGE 0 ML IV ONE (21:30)
[2020-07-03] MEDS: CEFAZOLIN 1000MG 1,000 MG/7.5 ML SYR IV SCH (23:35)
[2020-07-04] MEDS: LEVOTHYROXINE SODIUM 100 MCG TABLET PO SCH (06:27)
[2020-07-04 06:59] LABS: Hematocrit (blood only) 37.6 % (42-52); Hemoglobin 12.7 g/dL (14.0-18.0); Immature Granulocytes # (auto) 0.04 K/uL (0.00-0.02); Immature Granulocytes % (auto) 0.3 %; Lymphocytes # (auto) 1.91 K/uL (1.2-3.4); Lymphocytes % (auto) 12.7 %; Mean Corpuscular Hemoglobin 31.6 pg (25-34); Mean Corpuscular Hgb Conc 33.8 g/dL (32-36); Mean Corpuscular Volume 93.5 fL (80-100); Mean Platelet Volume 10.6 fL (7.4-10.4); Monocytes # (auto) 1.59 K/uL (0.11-0.59); Monocytes % (auto) 10.5 %; Neutrophils # (auto) 11.54 K/uL (1.4-6.5); Neutrophils % (auto) 76.5 %; Platelet Count 305 K/uL (130-400); RDW Coefficient of Variation 13.9 % (11.5-14.5); RDW Standard Deviation 48.2 fL (36.4-46.3); Red Blood Count 4.02 M/uL (4.7-6.1); White Blood Count 15.08 K/uL (4.8-10.8)
[2020-07-04] MEDS: HEPARIN SODIUM/DEXTROSE 25,000 UNITS/500 ML BAG IV SCH (07:02)
[2020-07-04 07:12] LABS: Partial Thromboplastin Time 28.3 Seconds (21.0-31.0); Prothrombin Time 10.9 Seconds (9.0-12.0)
[2020-07-04 07:43] LABS: Albumin Level 3.7 gm/dl (3.4-5.0); Calcium 9.8 mg/dl (8.5-10.1); Creatinine Clr Calc Pharmacy 34.8 ml/min; Est GFR (African American) 44.1; Magnesium 1.9 mg/dl (1.8-2.4); Potassium 4.3 mmol/L (3.5-5.1); Troponin I 10.7 ng/ml (0-0.045)
[2020-07-04 07:55] LABS: Beta-Hydroxybutyrate 10.63 mg/dl (0.2-2.81); Phosphorus 5.7 mg/dl (2.5-4.9)
[2020-07-04] MEDS: ACETAMINOPHEN 325 MG TAB PO PRN ×3 (07:57→20:38)
[2020-07-04] MEDS: RANOLAZINE 500 MG ER TAB PO SCH ×2 (07:59→20:42)
[2020-07-04] MEDS: CYANOCOBALAMIN 500 MCG TABLET (VITAMIN B-12) PO SCH (07:59)
[2020-07-04] MEDS: ASCORBIC ACID 500 MG TAB PO SCH (07:59)
[2020-07-04] MEDS: MULTIVITAMIN TAB PO SCH (07:59)
[2020-07-04] MEDS: CHOLECALCIFEROL 1,000 UNITS 25 MCG TAB PO SCH (08:00)
[2020-07-04] MEDS: CLOPIDOGREL BISULFATE 75 MG TAB PO SCH (08:00)
[2020-07-04] MEDS: SACUBITRIL-VALSARTAN 49/51 MG TAB PO SCH (08:00)
[2020-07-04] MEDS: FERROUS SULFATE 325 MG TAB PO SCH (08:00)
[2020-07-04] MEDS: ISOSORBIDE MONO EXTENDED REL 60 MG TABCR PO SCH (08:00)
[2020-07-04] MEDS: INSULIN ASPART 100 UNITS/ML 3 ML PEN SC SCH ×4 (08:21→20:48)
[2020-07-04] MEDS: CEFAZOLIN 1000MG 1,000 MG/7.5 ML SYR IV SCH ×2 (08:21→15:00)
[2020-07-04] MEDS ORDERED: FUROSEMIDE 20 MG TAB PO SCH (09:00)
--- NOTE | 2020-07-04 09:18 | XRay Report ---
XR chest 2V PA/lateral HISTORY: 74 years-old Male EXACT TIME ORDERED Evaluate for pneumothorax and l left subclavian pacer COMPARISON: Chest radiograph 07/03/2020 TECHNIQUE: PA and lateral views of the chest FINDINGS: Status post placement of a 3-lead left subclavian pacer. No postprocedural pneumothorax. Cardiomegaly with prior median sternotomy. Coronary arterial stent graft. Pulmonary vascular congestion with mode rately improved. No pneumothorax. Trace pleural effusions with mild bibasilar opacities. Degenerative changes of the shoulders and spine. IMPRESSION: 1. Left subclavian pacer. No postprocedural pneumothorax. 2. Cardiomegaly with moderately improved pulmonary vascular congestion. 3. Trace pleural effusions. ACT 112: Negative or not required by law. The above report was generated using voice recognition software. It may contain grammatical, syntax o r spelling errors. Electronically signed by: Jeffery Hooper M.D. 07/04/2020 9:17 AM
--- NOTE | 2020-07-04 10:05 | XCELERA ---
[id number]
[2020-07-04] MEDS: METOPROLOL TARTRATE 25 MG TAB PO SCH ×2 (11:34→20:44)
--- NOTE | 2020-07-04 14:34 | Cardiology Progress Note ---
Date of Service July 04, 2020 Assessment & Plan (1) Non-ST elevation (NSTEMI) myocardial infarction: (2) CAD (coronary artery disease): (3) S/P CABG x 4: (4) S/P coronary artery stent placement: (5) Chronic systolic heart failure: (6) Hypertension: (7) Hyperlipidemia: (8) Hypotension: (9) Cardiomyopathy, ischemic: (10) Mobitz I: (11) Mobitz II: ASSESSMENT/PLAN: 1. NSTEMI: He has not had any further typical angina however did have different chest discomfort last night when appearing hypervolemic acutely. His troponin did become more elevated however (6.9 up to 10.7) with a repeat troponin pending currently. With his initial presentation and NSTEMI, there was unsuccessful attempt at PCI of occluded SVG to the PDA and PL. Peak troponin was 17.8 for that event before trending downward. Continue dual anti-platelet therapy. Given last night's event, can resume heparin drip for 48 hours if no contraindication given his overall decline. It is not likely that he occluded his AARON as he is dependent on his AARON to LAD and SVG to OM3. 2. CAD s/p CABG x 4 and PCI: SVG to PDA and PL found to be occluded. Continue medical therapy. LV systolic function moderately reduced initially and then after event on 07/03/2020, LV systolic function is now severely reduced. He has not had any further anginal symptoms and therefore no urgent need for cardiac catheterization. 3. Cardiomyopathy: He had a baseline ischemic cardiomyopathy with moderately reduced LV systolic function after presenting SC for this hospitalization. He now has severely reduced LV systolic function after 07/03/2020 evening event where he became acutely short of breath with chest discomfort and diaphoresis. His decline in LV systolic function could be due to severe multivessel CAD in the setting of tachycardia and dyssynchronous pacing. Metoprolol tartrate 25 mg twice daily was initiated this morning. Metoprolol succinate can replace tartrate on discharge. He had been on Entresto as an outpatient but will hold this given worsening renal function and now hypotension. Optimize medical therapy if/when able. 4. Chronic systolic CHF: He appeared to be in heart failure last night according to report when he was acutely doing poorly and his chest x-ray would support this. He was given 40 mg of IV Lasix but did not significantly diurese. He did not appear hypervolemic this morning and is chest x-ray appears improved. Perhaps he developed pulmonary edema in the setting of ischemia during last night's event. He did receive 20 mg of oral Lasix this morning. Will hold off on further Lasix currently given hypotension. 5. Hypertension chronically with acute hypotension: His blood pressure has been well controlled but more recently has become hypotensive. Etiology uncertain at this time. He apparently was diaphoretic sitting at the bed side. Cannot exclude a vagal component. Can give IV fluids cautiously to help stabilize blood pressure. 5. Dyslipidemia: Continue high-intensity statin therapy. 6. Mobitz I/II s/p BiV Pacer on 07/03/20: Device was interrogated by Dr. Rodriguez this morning and adjustments were made as he did not appear to be capturing with his LV lead. 7. Aortic stenosis: Mild. Can monitor over time. 8. Disposition: Cardiology will continue to follow. Patient care discussed with Dr. Stubbs including more recent hypotensive episode. Also it was noted that he has developed a leukocytosis which could be due to inflammatory response versus infection. Dr. Stubbs plans on further monitoring. The degree of his overall illness was discussed in detail with Mr. and Mrs. Carlton. He has developed significant cardiac issues including multivessel CAD, severely reduced biventricular systolic function, and further myocardial infarction. Admission and Anticipated Discharge Date Admission Date: July 02, 2020 Subjective Overnight events have been reviewed. He had episode of left upper chest discomfort, different than prior angina. He also had shortness of breath and diaphoresis. He was evaluated by Dr. Nye last evening and given 40 mg of IV Lasix after reviewing chest x-ray which suggested CHF. Prior to that, he was given normal saline 500 mL as a bolus at approximately 7:00 p.m. following his pacemaker placement. Overnight, his symptoms improved. He now continues to have a more mild chest discomfort at the site of his pacemaker placement, but once again no angina. His breathing has returned to baseline. He denies orthopnea, syncope, near- syncope, palpitations, or edema. His was present at the bedside. Dr. Rodriguez was also present at the bedside when he was evaluated this morning. He was interrogating his pacemaker and made some changes as he was noted to be tachycardic with the baseline rhythm being sinus. He was also noted to have a wide complex QRS, and effectively was not biventricular pacing. With adjustments, he was hoping to better synchronize his ventricular pacing. When reviewing his chart this afternoon, it was noted that he was hypotensive. Nursing staff was called. She states that he was sitting at the side of bed and became diaphoretic with hypotension. Laying down, his diaphoresis improved and he is no longer symptomatic. He did receive Entresto this morning which had been held the past several days. He also received metoprolol this morning as well as oral Lasix 20 mg (his home doses 40 mg). When discussing with overnight nurse, and reviewing I&Os, he did not have significant diuresis overnight and despite this, his chest x-ray improved today as did his breathing. Review of systems: As above. Physical Exam Physical Exam: Gen.: No acute distress. Alert and oriented. HEENT: Anicteric sclera. Neck: No JVD. Cardiac: PMI nonpalpable. No ventricular heave. Regular and tachycardic in the low 100s. Normal S1-S2. 2/6 early peaking systolic ejection murmur. No rubs, or gallops. Pulmonary: Clear to auscultation bilaterally without wheezes, rales, or rhonchi. Abdomen: Soft, nontender, nondistended, with normoactive bowel sounds. No bruits noted. Extremities: 1+ right radial pulse. Very weak left radial pulse. Right femoral arterial catheterization site is clean, dry, and intact without erythema, discharge, or hematoma. 1+ dorsalis pedis pulses bilaterally. Trace left lower extremity edema (s/p left vein harvest). No cyanosis. Psychiatric: Affect appears appropriate. Chest: Left upper chest pacemaker site appears clean, dry, and intact without significant erythema or hematoma. No discharge noted. Results & Data ([facility]) Vital Signs (Past 12 Hours) Vital Signs Temp Pulse Resp BP BP Pulse Ox 07/04/20 14:26 80/0 L 07/04/20 13:36 82/58 L 07/04/20 11:32 36.8 C 98 H 16 110/72 99 07/04/20 07:41 36.5 C 101 H 20 108/74 99 07/04/20 03:30 36.6 C 100 H 18 101/69 100 Intake & Output 09/01/1607/03/20 07/04/20 07/05/20 06:59 06:59 06:59 06:59 Intake Total 3296.867 / 3296.867 1600.65 / 1600.65 0 / 0 Output Total 700 / 700 500 / 500 Balance 2596.867 / 2596.867 1100.65 / 1100.65 0 / 0 Weight 84.2 kg 83.5 kg 83.9 kg Laboratory Results Laboratory Results - last 24 hr 07/03/20 07/03/20 07/03/20 17:46 19:01 20:17 WBC RBC Hgb Hct MCV MCH MCHC RDW Std Deviation RDW Coeff of Stephanie Plt Count MPV Immature Gran % (Auto) Neut % (Auto) Lymph % (Auto) [place] % (Auto) Eos % (Auto) Baso % (Auto) Neut # (Auto) Lymph # (Auto) [place] # (Auto) Eos # (Auto) Baso # (Auto) Immature Gran # (Auto) PT INR APTT PTT Ratio Sodium Potassium Chloride Carbon Dioxide Anion Gap BUN Creatinine Est Cr Clr Drug Dosing Est GFR ( Amer) Est GFR (Non-Af Amer) BUN/Creatinine Ratio Glucose POC Glucose 173 H 236 H 251 H Calcium Phosphorus Magnesium Troponin I Albumin Beta-Hydroxybutyric Acd 07/04/20 07/04/20 07/04/20 06:41 06:41 06:41 WBC 15.08 H RBC 4.02 L Hgb 12.7 L Hct 37.6 L MCV 93.5 MCH 31.6 MCHC 33.8 RDW Std Deviation 48.2 H RDW Coeff of Stephanie 13.9 Plt Count 305 MPV 10.6 H Immature Gran % (Auto) 0.3 Neut % (Auto) 76.5 Lymph % (Auto) 12.7 [place] % (Auto) 10.5 Eos % (Auto) 0.0 Baso % (Auto) 0.0 Neut # (Auto) 11.54 H Lymph # (Auto) 1.91 [place] # (Auto) 1.59 H Eos # (Auto) 0.00 Baso # (Auto) 0.00 Immature Gran # (Auto) 0.04 H PT 10.9 INR 1.0 APTT 28.3 PTT Ratio 1.0 Sodium 135 L Potassium 4.3 Chloride 102 Carbon Dioxide 21 Anion Gap 12.0 H BUN 21 H Creatinine 1.72 H D Est Cr Clr Drug Dosing 34.8 Est GFR ( Amer) 44.1 Est GFR (Non-Af Amer) 38.0 BUN/Creatinine Ratio 12.0 Glucose 305 H* POC Glucose Calcium 9.8 Phosphorus 5.7 H D Magnesium 1.9 Troponin I 10.700 H* Albumin 3.7 Beta-Hydroxybutyric Acd 10.63 H 07/04/20 07/04/20 07/04/20 07:36 10:47 11:46 WBC RBC Hgb Hct MCV MCH MCHC RDW Std Deviation RDW Coeff of Stephanie Plt Count MPV Immature Gran % (Auto) Neut % (Auto) Lymph % (Auto) [place] % (Auto) Eos % (Auto) Baso % (Auto) Neut # (Auto) Lymph # (Auto) [place] # (Auto) Eos # (Auto) Baso # (Auto) Immature Gran # (Auto) PT INR APTT PTT Ratio Sodium Potassium Chloride Carbon Dioxide Anion Gap BUN Creatinine Est Cr Clr Drug Dosing Est GFR ( Amer) Est GFR (Non-Af Amer) BUN/Creatinine Ratio Glucose POC Glucose 304 H* 266 H 213 H Calcium Phosphorus Magnesium Troponin I Albumin Beta-Hydroxybutyric Acd 07/04/20 07/04/20 13:32 13:59 WBC RBC Hgb Hct MCV MCH MCHC RDW Std Deviation RDW Coeff of Stephanie Plt Count MPV Immature Gran % (Auto) Neut % (Auto) Lymph % (Auto) [place] % (Auto) Eos % (Auto) Baso % (Auto) Neut # (Auto) Lymph # (Auto) [place] # (Auto) Eos # (Auto) Baso # (Auto) Immature Gran # (Auto) PT INR APTT PTT Ratio Sodium Potassium Chloride Carbon Dioxide Anion Gap BUN Creatinine Est Cr Clr Drug Dosing Est GFR ( Amer) Est GFR (Non-Af Amer) BUN/Creatinine Ratio Glucose POC Glucose 207 H Calcium Phosphorus Magnesium Troponin I Pending Albumin Beta-Hydroxybutyric Acd Diagnostic Findings Telemetry personally reviewed: Ventricular paced with mild tachycardia. Echo 07/04/2020: Mildly dilated LV with severely reduced systolic function. EF 15-20%. Akinesis of the apex and mid to distal wall segments globally, with sparing of the mid inferoseptum. Otherwise, global hypokinesis. Severely reduced RV systolic function. Mild to moderate MR. Chest x-ray 07/04/2020: Moderate improvement of pulmonary vascular congestion per Radiology. Images were personally reviewed and there was significant improvement. No postprocedural pneumothorax per Radiology. Trace pleural effusions. ECG personally reviewed: ECG 07/03/2020 at 6:30 p.m.: Ventricular paced 104 beats per minute. QRS very wide. Medications Administered Current Inpatient Medications Acetaminophen (Acetaminophen 325 Mg Tab) 650 mg PO Q4H PRN PRN Reason: Pain or Fever Stop: 08/01/20 06:53 Last Admin: 07/04/20 07:57 Dose: 650 mg Documented by: Ascorbic Acid (Ascorbic Acid 500 Mg Tab) 500 mg PO DAILY BUDDY Stop: 08/01/20 08:59 Last Admin: 07/04/20 07:59 Dose: 500 mg Documented by: Aspirin (Aspirin 81 Mg Ectab) 81 mg PO HS BUDDY Stop: 08/01/20 20:59 Last Admin: 07/03/20 21:12 Dose: 81 mg Documented by: Atorvastatin Calcium (Atorvastatin 40 Mg Tab) 80 mg PO HS BUDDY Stop: 08/01/20 20:59 Last Admin: 07/03/20 21:12 Dose: 80 mg Documented by: Clopidogrel Bisulfate (Clopidogrel Bisulfate 75 Mg Tab) 75 mg PO DAILY BUDDY Stop: 08/01/20 08:59 Last Admin: 07/04/20 08:00 Dose: 75 mg Documented by: Cyanocobalamin (Cyanocobalamin 500 Mcg Tablet (Vitamin B-12)) 1,000 mcg PO DAILY BUDDY Stop: 08/01/20 08:59 Last Admin: 07/04/20 07:59 Dose: 1,000 mcg Documented by: Dextrose (Dextrose 50% 50 Ml Syringe) 25 - 50 ml IV UD PRN; Protocol PRN Reason: Hypoglycemia Protocol Stop: 08/01/20 06:53 Ferrous Sulfate (Ferrous Sulfate 325 Mg Tab) 325 mg PO DAILY BUDDY Stop: 08/01/20 08:59 Last Admin: 07/04/20 08:00 Dose: 325 mg Documented by: Finasteride (Finasteride 5 Mg Tab) 5 mg PO HS BUDDY Stop: 08/01/20 20:59 Last Admin: 07/03/20 21:12 Dose: 5 mg Documented by: Furosemide (Furosemide 20 Mg Tab) 20 mg PO QA BUDDY Stop: 08/03/20 08:59 Last Admin: 07/04/20 07:59 Dose: 20 mg Documented by: Glucagon (Glucagon For Inj 1 Mg Vial) 1 mg SQ UD PRN; Protocol PRN Reason: Hypoglycemia Protocol Stop: 08/01/20 06:53 Glucose (Glucose 10 Tabs/Tube) 4 - 8 tabs PO UD PRN; Protocol PRN Reason: Hypoglycemia Protocol Stop: 08/01/20 06:53 Glucose (Glucose 40% Gel 15 Gm Tube) 15 - 30 gm PO UD PRN; Protocol PRN Reason: Hypoglycemia Protocol Stop: 08/01/20 06:53 Cefazolin Sodium (Ancef 1000mg) 1,000 mg in 7.5 mls @ 2.5 mls/min IV Q8H BUDDY; Protocol Stop: 07/04/20 23:29 Last Admin: 07/04/20 08:21 Dose: 2.5 mls/min Documented by: Insulin Aspart (Insulin Aspart 100 Units/Ml 3 Ml Pen) 0 units SC ACHS BUDDY Stop: 08/01/20 07:29 Last Admin: 07/04/20 12:13 Dose: 5 units Documented by: Insulin Glargine (Insulin Glargine Solostar 100 Units/Ml 3 Ml Pen) 16 units SQ HS BUDDY Stop: 08/01/20 20:59 Last Admin: 07/03/20 21:14 Dose: 16 units Documented by: Isosorbide Mononitrate (Isosorbide [place] Extended Rel 60 Mg Tabcr) 240 mg PO DAILY BUDDY Stop: 08/01/20 08:59 Last Admin: 07/04/20 08:00 Dose: 240 mg Documented by: Levothyroxine Sodium (Levothyroxine Sodium 100 Mcg Tablet) 100 mcg PO DAILYBB BUDDY Stop: 08/01/20 07:14 Last Admin: 07/04/20 06:27 Dose: 100 mcg Documented by: Metoprolol Tartrate (Metoprolol Tartrate 25 Mg Tab) 25 mg PO BID BUDDY Stop: 08/03/20 09:44 Last Admin: 07/04/20 11:34 Dose: 25 mg Documented by: Miscellaneous (Carbohydrates For Hypoglycemia ) 15 - 30 gm PO UD PRN PRN Reason: Hypoglycemia Protocol Stop: 08/01/20 06:53 Morphine Sulfate (Morphine Sulfate 2 Mg/Ml Carp) 2 mg IV Q4H PRN PRN Reason: Pain Stop: 07/17/20 20:59 Multivitamins (Multivitamin Tab) 1 tab PO DAILY BUDDY Stop: 08/01/20 08:59 Last Admin: 07/04/20 07:59 Dose: 1 tab Documented by: Multivitamins/Minerals (Calcium 600mg + Vit D 400 Iu Tab) 1 tab PO HS BUDDY Stop: 08/01/20 20:59 Last Admin: 07/03/20 21:12 Dose: 1 tab Documented by: Nitroglycerin (Nitroglycerin Sl 0.4 Mg/Tab Tab) 0.4 mg SL UD PRN PRN Reason: Chest Pain Stop: 08/01/20 06:57 Last Admin: 07/03/20 19:16 Dose: 0.4 mg Documented by: Ondansetron HCl (Ondansetron Inj 2 Mg/Ml 2 Ml Vial) 4 mg IV Q6H PRN PRN Reason: Nausea Stop: 08/01/20 06:53 Last Admin: 07/03/20 19:01 Dose: 4 mg Documented by: Oxycodone HCl (Oxycodone Hcl Ir 5 Mg Tab (Immediate Release)) 5 mg PO Q4 PRN PRN Reason: Pain Stop: 07/17/20 17:19 Last Admin: 07/04/20 07:57 Dose: 5 mg Documented by: Ranolazine (Ranolazine 500 Mg Er Tab) 1,000 mg PO Q12 BUDDY Stop: 08/01/20 08:59 Last Admin: 07/04/20 07:59 Dose: 1,000 mg Documented by: Vitamin D (Cholecalciferol 1,000 Units 25 Mcg Tab) 1,000 units PO DAILY BUDDY Stop: 08/01/20 08:59 Last Admin: 07/04/20 08:00 Dose: 1,000 units Documented by: PG Care Time/CCT Total # of Minutes Spent Total Time Spent with Patient: Total time spent is greater than 50% in coordination of care (as documented) at patient's floor/unit and/or counseling patient: Coding Level of Care Code 51858 Subseq Hosp Care Lvl 3 Diagnoses Non-ST elevation (NSTEMI) myocardial infarction I21.4 CAD (coronary artery disease) I25.810 Coronary Disease-Associated Artery/Lesion type: bypass graft [place] vs. transplanted heart: [place] heart Associated angina: angina presence unspecified S/P CABG x 4 Z95.1 S/P coronary artery stent placement Z95.5 Chronic systolic heart failure I50.22 Hypertension I10 Hyperlipidemia E78.5 Hypotension I95.9 Cardiomyopathy, ischemic I25.5 Mobitz I I44.1 Mobitz II I44.1 (1) CAD (coronary artery disease) Coronary Disease-Associated Artery/Lesion type: bypass graft [place] vs. transplanted heart: [place] heart Associated angina: angina presence unspecified Qualified Code(s): I25.810 - Atherosclerosis of coronary artery bypass graft(s) without angina pectoris
--- NOTE | 2020-07-04 14:48 | Hospitalist Progress Note ---
Date of Service July 04, 2020 Assessment & Plan (1) Acute coronary syndrome: Status post CABG approximately 27 years ago, with interventions on 06/19/2019 and 09/18/2019. - Presumably ACS, though no culprit lesion seen on cath. The only blockage in the SVG -> PDA graft which appeared chronic on catheterization. - Monitor troponins: Peaked at 18 on 07/02; down to 6.9 today. - Continue ASA/Plavix, Imdur, & Ranexa On 07/03 in the evening, he had worsening chest pain, diaphoresis, and shortness of breath. HR went up to 110 from the 40s prior to pacemaker. This is due to his sinus rate now being conduced appropriately instead of with his AV block slowing the ventricular rate. This unfortunately seems to have a caused a Type 2 NSTEMI. - Restart heparin gtt (now will need to run at least until 07/06). - Continue beta-beny - Attempted to restart Entresto today, but now with low BP. Will give small IV fluid bolus. (2) Mobitz I: Long-standing. - Pacemaker on 07/[address] Rodriguez (3) HFrEF (heart failure with reduced ejection fraction): Echo on 07/02 showed EF 35-40%. Repeat echo on 07/04 now showing 15 - 20%. - Plan as above (4) Cardiomyopathy, ischemic: See above (5) BPH (benign prostatic hyperplasia): No LUTS described for me today. - Continue finasteride (6) Hypertension: BP was 115/70 this morning, now lower today. - Continue cardiac regimen above (7) CAD (coronary artery disease): See above (8) Diabetes mellitus, type 2: A1c was 7.5% this admission. - Hold metformin - Continue Lantus 16 units subcu at bedtime. - Sliding scale insulin - Blood sugars generally a bit high in the last 24 hours. (9) Hypothyroidism: TSH was 1.4 in 02/2020. - Continue levothyroxine 100 mcg p.o. daily (10) Hyperlipidemia: - Increased atorvastatin from 40 to 80 mg daily (11) DVT prophylaxis: Heparin gtt for ACS Admission and Anticipated Discharge Date Admission Date: July 02, 2020 Subjective This morning, he reported having a fairly rough night. He had chest pain, diaphoresis, and some shortness of breath overnight. Today, he is feeling tired, but overall better. Physical Exam Constitutional: WD/WN, vitals as above Eyes: EOM intact bilaterally; no conjunctival abnormality ENMT: external ear and nose normal, oropharynx normal Neck: trachea midline, no thyromegaly normal visual inspection Respiratory: normal respiratory effort, lungs clear to auscultation no respiratory distress Cardiovascular: RRR, no murmur, no edema Gastrointestinal (Abdomen): Inspection/Auscultation: abdomen normal to inspection; abdomen not distended Musculoskeletal: no cyanosis or clubbing, extremities motor strength 5/5 Skin: no rashes, warm and dry Neurologic: moves all extremities and awake Psychiatric: Orientation: alert, oriented to person and cooperative Results & Data Results & Data ([facility]) Vital Signs (Past 12 Hours) Vital Signs Temp Pulse Resp BP BP Pulse Ox 07/04/20 14:26 80/0 L 07/04/20 13:36 82/58 L 07/04/20 11:32 36.8 C 98 H 16 110/72 99 07/04/20 07:41 36.5 C 101 H 20 108/74 99 07/04/20 03:30 36.6 C 100 H 18 101/69 100 PG Care Time/CCT Total # of Minutes Spent Total Time Spent with Patient: Total time spent is greater than 50% in coordination of care (as documented) at patient's floor/unit and/or counseling patient: Coding Level of Care Code 56553 Subseq Hosp Care Lvl 3 Diagnoses Acute coronary syndrome I24.9 Mobitz I I44.1 HFrEF (heart failure with reduced ejection fraction) I50.20 Cardiomyopathy, ischemic I25.5 BPH (benign prostatic hyperplasia) N40.0 Hypertension I10 CAD (coronary artery disease) I25.810 Coronary Disease-Associated Artery/Lesion type: bypass graft [place] vs. transplanted heart: [place] heart Associated angina: angina presence unspecified Diabetes mellitus, type 2 E11.9 Hypothyroidism E03.9 Hyperlipidemia E78.5 DVT prophylaxis Z29.9 (1) CAD (coronary artery disease) Coronary Disease-Associated Artery/Lesion type: bypass graft [place] vs. transplanted heart: [place] heart Associated angina: angina presence unspecified Qualified Code(s): I25.810 - Atherosclerosis of coronary artery bypass graft(s) without angina pectoris
[2020-07-04] MEDS ORDERED: HEPARIN SODIUM/DEXTROSE 25,000 UNITS/500 ML BAG IV SCH (15:00)
[2020-07-04] MEDS ORDERED: NORMOSOL-R 250 ML IV ONE (15:00)
[2020-07-04] MEDS ORDERED: HEPARIN 25000 UNIT/500 ML D5W IV ONE (15:24)
[2020-07-04] MEDS ORDERED: HEPARIN IV BOLUS 5,000 UNITS in SYRINGE 0 ML IV ONE (16:00)
[2020-07-04] MEDS: ASPIRIN 81 MG ECTAB PO SCH (20:39)
[2020-07-04] MEDS: CALCIUM 600MG + VIT D 400 IU TAB PO SCH (20:39)
[2020-07-04] MEDS: ATORVASTATIN 40 MG TAB PO SCH (20:42)
[2020-07-04] MEDS: FINASTERIDE 5 MG TAB PO SCH (20:42)
[2020-07-04] MEDS: INSULIN GLARGINE SOLOSTAR 100 UNITS/ML 3 ML PEN SQ SCH (20:48)
[2020-07-05 00:55] LABS: Partial Thromboplastin Ratio 3.6
[2020-07-05 01:01] LABS: Partial Thromboplastin Time 101.3 Seconds (21.0-31.0)
[2020-07-05] MEDS: ACETAMINOPHEN 325 MG TAB PO PRN (01:06)
[2020-07-05 02:06] LABS: Partial Thromboplastin Ratio 2.6
[2020-07-05 02:17] LABS: Partial Thromboplastin Time 72.6 Seconds (21.0-31.0)
[2020-07-05] MEDS ORDERED: DOBUTamine 500MG / 250ML D5W IV ONE (03:19)
--- NOTE | 2020-07-05 04:49 | Critical Care Consultation ---
Date of Consultation July 05, 2020 Assessment & Plan (1) Admitted to intensive care unit: Reason Critically Ill: 74-year-old male presenting with concerns for worsening cardiogenic shock with a known EF of 15% now requiring dobutamine to maintain maps. Admitted to ICU for closer monitoring status post initiation of inotrope. NEURO - * CAM ICU: NEGATIVE CARDIAC/VASCULAR - * Hypotension: * Concerning in the ACS patient with reduction in EF to 15% during hospitalization who is status post PTCA as well as pacer placement. * Agree with initially treating as cardiogenic shock at this point. * Agree with dobutamine as the patient is now with pacer/defibrillator which would allow us to provide aggressive beta-blockade in the event of any arrhythmogenic effects of dobutamine. * Clinically, the patient appears dry. Will add chest x-ray to further evaluate improvement from his priors which did demonstrate pulmonary edema. * Consider addition of gentle IV fluid and the patient was undergone catheterization recently and has received IV Lasix. * Will explore other alternatives including possibility of infectious sources. * ACS: * Patient is a vasculopath with what appears to be poor coronary vessels with multiple prior interventions. * Patient doing well on heparin drip status post attempts at PTCI. * Will defer to cardiology for ongoing management. * Mobitz I/II: * Biventricular pacemaker placed on 07/03. * Patient currently in paced rhythm and tolerating well. * Ischemic cardiomyopathy: * Appears to be more acute on patient's chronic baseline cardiomyopathy. * Dobutamine for now. * Patient did appear to have appropriate collaterals during catheterization. * Monitor on telemetry. RESPIRATORY - * Hypoxia: * Pulmonary edema in the setting of CHF. * This has seemed to improve throughout his stay. * Supplemental O2 as needed. * Consider positive pressure ventilatory techniques if necessary. * Currently receiving Lasix. GI/NUTRITION - * AHA diet RENAL/LYTES - * PAULINA on CKD: * Likely multifactorial in the setting of recent IV contrast as well as addition of IV Lasix. Additionally, the patient likely has a prerenal component with moderate hypotension on the floor. * Will recheck electrolytes and assess for possible need for gentle fluid administration. Certainly would be cautious in the patient with an EF of 15%. - * History of BPH * No concerns at this time. * Strict I&Os. ENDO - * No history of diabetes. * BSGs per unit protocol. ISS --> gtt per unit policy. * Continue home hypothyroid regime. HEME - * Stable H&H. * Monitor closely for signs/symptoms of bleeding while on heparin drip. ID - * Will assess for possible infectious sources given the patient's abrupt onset of hypotension. * Patient has been afebrile. * No other immediate concerns for infection at this time. LINES/IV ACCESS - * PIVs x2 DVT PROPHYLAXIS - * Heparin drip * SCDs I have personally spent 45 minutes of critical care time in the direct management of this patient. This is a life/limb threatening event. This includes time spent evaluating patient, direct bedside care, chart review, placing orders, interpretation of diagnostic studies, discussion with consultants, patient, and family members, as well as other required patient management activities. This time is exclusive of all separately billable procedures, and teaching time and separate from and in addition to any other critical care service time. Thank you for allowing us to participate in the care of this patient. Please refer to my attending physician's documentation for any further recommendations. (2) Cardiogenic shock: (3) Hypotension: (4) HFrEF (heart failure with reduced ejection fraction): (5) Acute coronary syndrome: (6) Cardiomyopathy, ischemic: (7) Non-ST elevation (NSTEMI) myocardial infarction: Supervising Physician Co-Signing Physician Notes I have personally evaluated and examined this patient. I agree with assessment and plan of Rich Zarate PA-C. Please refer to the continuation note History of Present Illness Attending Physician: Felix Stubbs MD History of Present Illness Patient is a 74-year-old male who was initially admitted to this facility on 07/02 with chest pain symptoms and concern for ACS. Patient underwent cardiac catheterization and attempt was made to stent over SVGPDA which was subsequently felt to be a chronic lesion. Additionally, the patient had been noted to be in a Mobitz 1/2 pattern with occasional pauses. After catheterization, the patient underwent successful placement of biventricular pacemaker. The patient had been improving, but did have an episode of shortness of breath and diaphoresis while on the floor. This did improve without need for intervention. The patient had been reportedly doing well throughout the night, but unfortunately, hemodynamics continued to decline with systolic blood pressures in the 70s. Patient's EF had dropped from 35-40 to approximately 15% at this point. Patient was placed on dobutamine drip and transferred to the ICU for closer evaluation. Upon arrival in the ICU, the patient is awake, alert, and oriented. He states that he has had no shortness of breath or complaints of chest pain for the last several hours. He denies any headaches, dizziness, lightheadedness, chest pain, palpitations, shortness of breath, nausea, vomiting, diuresis, or abdominal pain. He reports that he is felt well otherwise. Allergies Allergy/AdvReac Type Severity Reaction Status Date / Time No Known Allergies Allergy Verified 07/02/20 04:14 Home Medications Home Medications Medication Instructions Recorded Confirmed Type Calcium 600 + D(3) 1 tab PO HS 11/16/18 07/02/20 History ascorbic acid (vitamin C) [Vitamin 500 mg PO DAILY 11/16/18 07/02/20 History C] aspirin 81 mg PO HS 11/16/18 07/02/20 History cholecalciferol (vitamin D3) 1,000 unit PO DAILY 11/16/18 07/02/20 History [Vitamin D3] coenzyme Q10 [Co Q-10] 200 mg PO DAILY 11/16/18 07/02/20 History cyanocobalamin (vitamin B-12) 1,000 mcg PO DAILY 11/16/18 07/02/20 History [Vitamin B-12] multivitamin 1 tab PO DAILY 11/16/18 07/02/20 History clopidogrel 75 mg tablet 75 mg PO DAILY #90 tab 08/01/19 07/02/20 Rx nitroglycerin 400 mcg TRANSLINGUAL UD PRN 09/18/19 07/02/20 History finasteride 5 mg tablet 5 mg PO HS #90 tab 01/08/20 07/02/20 Rx levothyroxine 100 mcg tablet 100 mcg PO DAILY #90 tab 02/06/20 07/02/20 Rx isosorbide mononitrate 120 mg 240 mg PO DAILY #180 tab 02/07/20 07/02/20 Rx tablet,extended release 24 hr atorvastatin 40 mg tablet 40 mg PO HS #30 tab 02/17/20 07/02/20 Rx BD Ultra-Fine Short Pen Needle 31 #200 ea NS 03/09/20 06/16/20 Rx gauge x 5/16" furosemide 20 mg tablet 40 mg PO DAILY #180 tab 03/22/20 07/02/20 Rx Advocate Test Strips #100 ea NS 03/27/20 06/16/20 Rx sacubitril 49 mg-valsartan 51 mg 1 tab PO BID #60 tab 05/28/20 07/02/20 Rx tablet FreeStyle Pablo 14 Day Sensor #1 ea NS 06/16/20 06/16/20 Rx ferrous sulfate 325 mg (65 mg 650 mg PO DAILY tab 06/16/20 07/02/20 History iron) tablet metformin 500 mg tablet,extended 1,000 mg PO BID #360 tab 06/16/20 07/02/20 Rx release 24 hr ranolazine 1,000 mg 1,000 mg PO Q12 #180 tab 06/29/20 07/02/20 Rx tablet,extended release,12 hr albuterol sulfate 2 puff INHALATION Q8H PRN 07/02/20 07/02/20 History insulin aspart U-100 [Novolog 4 unit SUBCUT BID 07/02/20 07/02/20 History Flexpen U-100 Insulin] insulin glargine [Lantus Solostar 16 unit SQ HS 07/02/20 07/02/20 History U-100 Insulin] Patient History Medical History Anemia Cardiomyopathy, ischemic Chest pain Chronic systolic heart failure GERD (gastroesophageal reflux disease) Gout Hearing deficit HFrEF (heart failure with reduced ejection fraction) History of anesthesia reaction hx of reaction to propofol--had mental confusion, double/blurred vision History of colon polyps Irregular heart beat Mitral regurgitation Mobitz I Mobitz II Myocardial Infarction 2015 x2 Osteoarthritis Pneumonia Spinal stenosis Vitamin D deficiency Surgical History History of cardiac cath x2--last was 2014 @ [facility] [place], no stents History of colonoscopy History of lumbar spinal fusion hardware in place History of mandibular surgery pins put into lower jaw, no issues with ROM History of surgery left periorbital sx History of tooth extraction all teeth History of umbilical hernia repair x3 Hx of bilateral cataract extraction Hx of vasectomy S/P CABG x 4 1993 @ [facility] [place]--follows with S/P CABG x 4 S/P coronary artery stent placement Family History Father Family history of diabetes mellitus Brother Family history of diabetes mellitus 2 Heart disease Diabetes Sister Family history of diabetes mellitus Diabetes Mother Heart disease Son Heart disease Family/Other Heart disease Other No family history of adverse response to anesthesia Social History Smoking Status: Former smoker Second Hand Exposure: No; Hx Alcohol Use: Yes Alcohol type: beer Hx Substance Use: No Preferred Language: [place] Communication Ability: Effective Visual Impairment: No Limitations Hearing Ability: Normal Intake Rn Required: No Beliefs That Will Affect Care: None marital status: Current Living Situation: Spouse current occupation: retired Feels Safe at Home: Yes Physical Activity Frequency: Daily Seatbelt Use: always Review of Systems Review of Systems: A complete 10 point review of systems was reviewed with the patient with pertinent positives and negatives as per history of present illness. All else were negative. Physical Exam Physical Exam: VITAL SIGNS - Vital signs and nursing notes were reviewed. GENERAL - 74-year-old male appearing his stated age who is in no acute distress. Communicates well with provider and answers questions appropriately. HEAD - NC/AT. EYES - PERRL with EOMI bilaterally. Sclera anicteric. Palpebral conjunctiva pink and moist with no injection noted. EARS - No deformities of external structures noted on gross examination bilaterally. NOSE - Midline and without cyanosis. No epistaxis or purulent drainage noted. MOUTH/OROPHARYNX - Without perioral cyanosis. Buccal mucosa pink and moist and without leukoplakia. Tongue midline with equal elevation of palate bilaterally. NECK - Neck with FROM. Supple to palpation. LUNGS - Chest wall symmetric without accessory muscle use, intercostals retractions, or central cyanosis. Normal vesicular breath sounds CTA B/L. No wheezes, rales, or rhonchi appreciated. CARDIAC - RRR with S1/S2. No murmur, rubs, or gallops appreciated. No reproducible tenderness to palpation appreciated over the anterior chest wall. ABDOMEN - Abdominal contour obese without pulsations or visible masses. BS normoactive all four quadrants. No tenderness, palpable masses, hepatosplenomegaly, or ascites noted. EXTREMITIES - No clubbing or peripheral cyanosis. No pretibial edema present. +3/5 radial and dorsalis pedis pulses palpated throughout. +5/5 strength noted in UE/LE bilaterally. NEUROLOGIC - Cranial nerves II through XII grossly intact. Sensory intact to light touch throughout. PSYCH - A&Ox3 and cooperates fully with examiner. Pt is very pleasant and interacts well with examiner. Results & Data Results & Data ([facility]) Vital Signs (Past 12 Hours) Vital Signs Temp Pulse Pulse Resp BP Pulse Ox 07/05/20 03:50 82 82/58 L 07/05/20 03:35 90 87/58 L 07/05/20 03:29 84 71/52 L 07/05/20 03:03 70/50 L 07/05/20 02:57 76/56 L 07/05/20 02:41 36.4 C L 90 18 103/65 99 07/04/20 23:17 37.1 C 87 18 103/65 96 07/04/20 22:57 36.7 C 90 16 101/65 99 07/04/20 19:17 36.7 C 85 19 95/66 L 99 07/04/20 17:01 90 93/62 L Coding Level of Care Code Critical Care 1st 30-74 mins Diagnoses Admitted to intensive care unit Z78.9 Cardiogenic shock R57.0 Hypotension I95.9 HFrEF (heart failure with reduced ejection fraction) I50.20 Acute coronary syndrome I24.9 Cardiomyopathy, ischemic I25.5 Non-ST elevation (NSTEMI) myocardial infarction I21.4 Time Spent (min) 45
--- NOTE | 2020-07-05 04:54 | Electrocardiogram Report ---
Test Reason : Blood Pressure : / mmHG Vent. Rate : 104 BPM Atrial Rate : 104 BPM P-R Int : 000 ms QRS Dur : 166 ms QT Int : 442 ms P-R-T Axes : 069 -89 106 degrees QTc Int : 581 ms Poor data quality, interpretation may be adversely affected Ventricular-paced rhythm Abnormal ECG When compared with ECG of 02-JUL-2020 04:22, Ventricular pacing is now present Confirmed by Rashad Ni ([id number]) on 07/05/2020 4:54:06 AM Referred By: REFERRED SELF Confirmed By:Rashad Ni
[2020-07-05 05:02] LABS: Eosinophils # (auto) 0.01 K/uL (0-0.5); Eosinophils % (auto) 0.1 %; Hematocrit (blood only) 35.2 % (42-52); Hemoglobin 11.7 g/dL (14.0-18.0); Immature Granulocytes # (auto) 0.02 K/uL (0.00-0.02); Immature Granulocytes % (auto) 0.1 %; Lymphocytes # (auto) 1.62 K/uL (1.2-3.4); Mean Corpuscular Hgb Conc 33.2 g/dL (32-36); Mean Corpuscular Volume 93.1 fL (80-100); Mean Platelet Volume 10.4 fL (7.4-10.4); Monocytes # (auto) 1.52 K/uL (0.11-0.59); Monocytes % (auto) 11.3 %; Neutrophils # (auto) 10.29 K/uL (1.4-6.5); Neutrophils % (auto) 76.5 %; Platelet Count 243 K/uL (130-400); RDW Coefficient of Variation 13.9 % (11.5-14.5); RDW Standard Deviation 47.5 fL (36.4-46.3); Red Blood Count 3.78 M/uL (4.7-6.1); White Blood Count 13.46 K/uL (4.8-10.8)
[2020-07-05 05:20] LABS: Albumin Level 3.3 gm/dl (3.4-5.0); BUN Creatinine Ratio 12.5 (10-20); Bilirubin Direct 0.2 mg/dl (0-0.2); Creatinine Clr Calc Pharmacy 20.6 ml/min; Est GFR (African American) 23.4; Est GFR (Non-African American) 20.2; Potassium 4.4 mmol/L (3.5-5.1)
[2020-07-05 05:22] LABS: INR 1.1 (0.9-1.1); Partial Thromboplastin Ratio 2.2; Prothrombin Time 11.5 Seconds (9.0-12.0)
[2020-07-05 05:30] LABS: Bilirubin,Total 0.5 mg/dl (0.2-1); Total Protein 6.9 gm/dl (6.4-8.2); Troponin I 26.5 ng/ml (0-0.045)
[2020-07-05] MEDS: LEVOTHYROXINE SODIUM 100 MCG TABLET PO SCH (05:42)
[2020-07-05 06:12] LABS: Partial Thromboplastin Time 61.4 Seconds (21.0-31.0)
[2020-07-05 07:30] LABS: Partial Thromboplastin Ratio 2.3
[2020-07-05 07:31] LABS: Partial Thromboplastin Time 62.9 Seconds (21.0-31.0)
[2020-07-05] MEDS: INSULIN ASPART 100 UNITS/ML 3 ML PEN SC SCH (08:03)
[2020-07-05] MEDS: CYANOCOBALAMIN 500 MCG TABLET (VITAMIN B-12) PO SCH (08:04)
[2020-07-05] MEDS: METOPROLOL TARTRATE 25 MG TAB PO SCH (08:04)
[2020-07-05] MEDS: ISOSORBIDE MONO EXTENDED REL 60 MG TABCR PO SCH (08:05)
[2020-07-05] MEDS: ASCORBIC ACID 500 MG TAB PO SCH (08:05)
[2020-07-05] MEDS: CHOLECALCIFEROL 1,000 UNITS 25 MCG TAB PO SCH (08:05)
[2020-07-05] MEDS: MULTIVITAMIN TAB PO SCH (08:05)
[2020-07-05] MEDS: FERROUS SULFATE 325 MG TAB PO SCH (08:05)
[2020-07-05] MEDS: RANOLAZINE 500 MG ER TAB PO SCH (08:05)
[2020-07-05] MEDS: CLOPIDOGREL BISULFATE 75 MG TAB PO SCH (08:06)
--- NOTE | 2020-07-05 09:27 | XRay Report ---
XR chest 1V portable HISTORY: 74 years-old Male sob/hypoxia acute shortness of breath with hypoxia COMPARISON: Chest radiograph 6 07/04/2020 TECHNIQUE: Portable AP view of the chest FINDINGS: Cardiomegaly. Prior median sternotomy. Left subclavian pacer. Coronary arterial stent graft. No pneum othorax, large pleural effusion, overt pulmonary edema or airspace consolidation typical for pneumoni a. Possible trace pleural effusions. There appears to been resolution of the pulmonary vascular conge stion. Degenerative changes of the shoulders and spine. Opacity of the medial right lung base is sugg estive of prominent epicardial fat pad. IMPRESSION: Cardiomegaly without acute process. ACT 112: Negative or not required by law. The above report was generated using voice recognition software. It may contain grammatical, syntax o r spelling errors. Electronically signed by: Jeffery Hooper M.D. 07/05/2020 9:25 AM
--- NOTE | 2020-07-05 10:16 | Communication Note ---
Date of Service: July 05, 2020 Date of Service: July 05, 2020 Patient was seen and evaluated. He is critically ill requiring vasoactive medication for cardiovascular support. Currently on heparin and 3 mcg of dobutamine. He denies chest pain and feels much better than the previous evening. He speaking in full sentences with minimal oxygen requirement. I discussed long-term goals of care mainly in relation to cardiac arrest and respiratory insufficiency with the patient, patient's , and patient's daughter. They will be attempting to bring in a copy of the living well to have placed into the chart. Discussed the case with Dr. Nielsen who will be discussing additional options such as LVAD should the patient's EF not improve with medical support. Coding Level of Care Code Critical Care ea addt'l 30 min Time Spent (min) 40 Comment I have personally spent 40 minutes of critical care time in the direct management of this patient. This is a life/limb threatening event. This includes time spent evaluating patient, direct bedside care, chart review, placing orders, interpretation of diagnostic studies, discussion with consultants, patient, and/or family members regarding treatment decisions, as well as other required patient management activities. This time is exclusive of all separately billable procedures, and teaching time and separate from and in addition to any other critical care service time.
--- NOTE | 2020-07-05 11:40 | Cardiology Progress Note ---
Date of Service July 05, 2020 Assessment & Plan (1) Cardiogenic shock: (2) Non-ST elevation (NSTEMI) myocardial infarction: (3) CAD (coronary artery disease): (4) S/P CABG x 4: (5) S/P coronary artery stent placement: (6) Chronic systolic heart failure: (7) Hypertension: (8) Hyperlipidemia: (9) Hypotension: (10) Cardiomyopathy, ischemic: (11) Acute on chronic renal failure: (12) Cardiac arrest: (13) Mobitz I: (14) Mobitz II: ASSESSMENT/PLAN: 1. Cardiac shock: He has become more profoundly hypotensive with evidence of end organ damage with worsening renal function in the setting of severely reduced LV systolic function which is new during this hospitalization. Overnight, dobutamine was recommended and initiated with some improvement initially of his blood pressure. Since then however his blood pressure has been difficult to maintain at appropriate levels. Dobutamine increased to 7.5 mcg/kg/min. Arterial line is being placed by the ICU team for better blood pressure e valuation. Discussed with patient, his , and granddaughters at the bedside the severity of his illness and that he may require mechanical support if inotropic support does not improve his hemodynamics. Would recommend transfer soon if blood pressure does not improve quickly with dobutamine. 2. NSTEMI: After his initial presentation with angina and myocardial infarction, he has had these episodes of hypotension, diaphoresis, and michael these episodes, he has had further troponin elevation. He remains free of angina. Continue medical therapy including dual antiplatelet therapy. Can continue heparin gtt for a total of 48 hours. SVG to PDA and PL was occluded and Intervention was unsuccessful. 3. CAD s/p CABG x 4 and PCI: SVG to PDA and PL found to be occluded. Continue medical therapy. LV systolic function moderately reduced initially and then after event on 07/03/2020, LV systolic function noted to be severely reduced. 4. Cardiomyopathy: He had a baseline ischemic cardiomyopathy with moderately reduced LV systolic function after presenting VT for this hospitalization. He now has severely reduced LV systolic function after 07/03/2020 evening event where he became acutely short of breath with chest discomfort and diaphoresis. His decline in LV systolic function could be due to severe multivessel CAD in the setting of tachycardia and dyssynchronous pacing. Pacing is now more synchronous however QRS is still wide. After adjusting LV lead parameters yesterday, he continues to have hemodynamic issues. Could consider turning off the pacing function however given that his stroke-volume is now severely reduced, if he returns to his baseline ventricular rate of 40s to 50s, would be concerned that his cardiac output even further declines.Unable to use typical he art failure medications such as metoprolol or Entresto given hypotension. Metoprolol discontinued. 5. Chronic systolic CHF: He has had minimal urine output. He does appear hypervolemic but is asymptomatic in that regard currently. Inotropic support started. Will likely need diuresed at some point but would first recommend stabilizing his blood pressure. 6. Dyslipidemia: Continue high-intensity statin therapy. 7. Mobitz I/II s/p BiV Pacer on 07/03/20: Device was interrogated by Dr. Rodriguez this morning and adjustments were made as he did not appear to be capturing with his LV lead. 8. Aortic stenosis: Mild. Can monitor over time. 9. Acute on chronic renal insufficiency: Likely likely renal function likely worsening due to poor perfusion with severely reduced LV systolic function. Inotropic support initiated. If renal function worsens, may require dialysis at some point. If no improvement by tomorrow, would recommend nephrology consultation. 10. Disposition: Cardiology will continue to follow. Patient care discussed with Dr. Gooden (ICU team). Discussed severity of illness with Mr. and Mrs. Bianka (grand daughters present). If no significant improvement in h emodynamics after recent titration in Dobutamine, recommend transfer to facility with mechanical support available. Pt and in agreement. We also discussed the fact that he may require dialysis at some point. Poor prognosis. Addendum: Neal and central venous line were placed by Dr. Gooden. Dobutamine was increased by critical care team to 10 mcg/kg/min as BP remained low. [facility] [place] and spoke with Dr. Magdaleno and CCU attorney lawyer. Senior Technical Trainer declared that he would not be a candidate for ECMO and that before accepting transfer, wished that a right heart catheterization be placed. Dr. Magdaleno was agreeable to evaluate him for destination LVAD as per conversation with patient earlier today and he was agreeable to attempt aggressive measures if felt necessary. Then presented to the bedside to discuss once again with patient and family. He remained in agreement for transferred [facility] [place] further treatment and evaluation for mechanical support if deemed necessary. We discussed the fact that he would be transferred to the warehouse general laborer to undergo right heart catheterization placement and he was agreeable. In the meantime, because his blood pressure remain low, however he appeared to be largely asymptomatic from this, nursing staff was asked to initiate dopamine via verbal order while trying to arrange for catheterization lab and transfer. Dopamine was then titrated upward in attempt to stabilize his blood pressure. Conversations were had also with Dr. Nye of interventional Cardiology was agreeable to assist with warehouse general laborer procedure. laboratory technologist team was called in. Conversation was held with Dr. Gooden to inform him of the overall plan and discuss overall treatment. Once again presented to the bedside to update patient and his family. During our conversation, he PEA arrested. Nursing staff was present and we immediately began chest compressions, after confirming no pulse. Barry buchanan was called. Please see barry blue documentation for full details but during the code, he received epinephrine doses and dopamine drip was further titrated. He did not regain a pulse and did not exhibit any ventricular arrhythmia. Has Dr. Gooden continue to run the code, I stepped out to discuss with family. I met with patient's , son, and daughter as he had undergone several rounds of CPR with no clinical improvement. His son immediately stated that we should stop CPR. His confirmed that he would not want this as it was becoming more obvious that he would not have a meaningful recovery given his comorbidities, including biventricular failure, multivessel CAD, and acute on chronic renal failure. His ET tube was removed and he was readied for family to present to the bedside to spend some time with him. Family did so and he was later pronounced by Dr. Gooden. It has been a real pleasure caring for Mr. Carlton throughout the past several years. Admission and Anticipated Discharge Date Admission Date: July 02, 2020 Subjective At approximately 3 AM, nursing staff contacted me regarding patient's blood pressure. He became hypotensive and diaphoretic. He was laying in bed when this occurred. Recommended dobutamine 2.5 mcg/kg/min which was initiated. Approximately 2 hours later, I called to check on his status. His color, breathing, and diaphoresis resolved with dobutamine. His blood pressures improved for the most part but at the time of my call, his most recent blood pressure was once again lower with a blood pressure of 82/57. It had increased to the 90s systolic initially with dobutamine. Dobutamine was titrated to 3 mcg/kg/min. At the bedside during our visit this morning, he was accompanied by his and 2 granddaughters. He admits that he feels better but was quite tired. He would sometimes fall asleep during conversation but otherwise was oriented. He denies chest discomfort overnight or currently. He denies shortness of breath currently. He denies syncope, lightheadedness, or bleeding. The pain from his left upper chest pacemaker has improved. Nursing staff has reported that he is not making much urine, with only 151 mL reported in the past 24 hours despite 1 L in. He is +4.7 L during this hospital stay. Review of systems: As above. Physical Exam Physical Exam: Gen.: No acute distress. Somnolent but oriented.. HEENT: Anicteric sclera. Neck: JVD nearly to the mandible with head elevated approximately 30 degrees. JVD nearly to the mandible with head elevated 30 degrees. Cardiac: Regular. Normal S1-S2. 2/6 early peaking systolic ejection murmu r. No rubs, or gallops. Pulmonary: Clear to auscultation bilaterally without wheezes, rales, or rhonchi. Abdomen: Soft, nontender, nondistended, with normoactive bowel sounds. No bruits noted. Extremities: 1+ right radial pulse. Very weak left radial pulse. 1+ dorsalis pedis pulses bilaterally. Trace to 1+ bilateral lower extremity edema. (s/p left vein harvest). No cyanosis. Psychiatric: Affect appears appropriate. Chest: Left upper chest pacemaker site appears clean, dry, and intact without significant erythema or hematoma. No discharge noted. Results & Data ([facility]) Vital Signs (Past 12 Hours) Vital Signs Temp Pulse Pulse Resp BP BP Pulse Ox 07/05/20 11:02 70 14 63/42 L 98 07/05/20 11:00 72 14 98 07/05/20 10:52 72 27 H 73/47 L 96 07/05/20 10:42 70 10 L 63/44 L 99 07/05/20 10:22 72 10 L 70/49 L 99 07/05/20 09:41 80 07/05/20 08:19 36.7 C 82 20 87/59 L 100 07/05/20 08:04 81 21 84/54 L 100 09/06/20 08:00 82 23 99 07/05/20 07:04 81 14 94/65 L 100 07/05/20 06:34 77 8 L 97/65 L 99 07/05/20 06:19 81 32 H 97/62 L 100 07/05/20 06:04 80 11 L 92/61 L 100 07/05/20 05:49 77 10 L 95/64 L 99 07/05/20 05:34 77 24 86/60 L 99 07/05/20 05:19 78 22 82/57 L 99 07/05/20 05:10 76 22 89/60 L 100 07/05/20 04:49 80 21 96/58 L 99 07/05/20 04:34 81 22 92/60 L 90 07/05/20 04:32 36.7 C 82 23 90/57 L 94 07/05/20 03:50 82 82/58 L 07/05/20 03:35 90 87/58 L 07/05/20 03:29 84 71/52 L 07/05/20 03:03 70/50 L 07/05/20 02:57 76/56 L 07/05/20 02:41 36.4 C L 90 18 103/65 99 Intake & Output 07/03/20 07/04/20 07/05/20 07/06/20 06:59 06:59 06:59 06:59 Intake Total 3296.867 / 3296.867 1600.65 / 1600.65 1074.882 / 1074.882 49.600 / 49.600 Output Total 700 / 700 500 / 500 151 / 151 Balance 2596.867 / 2596.867 1100.65 / 1100.65 923.882 / 923.882 49.600 / 49.600 Weight 83.5 kg 83.9 kg 84.9 kg Laboratory Results Laboratory Results - last 24 hr 07/04/20 07/04/20 07/04/20 10:47 11:46 13:32 WBC RBC Hgb Hct MCV MCH MCHC RDW Std Deviation RDW Coeff of Stephanie Plt Count MPV Immature Gran % (Auto) Neut % (Auto) Lymph % (Auto) [place] % (Auto) Eos % (Auto) Baso % (Auto) Neut # (Auto) Lymph # (Auto) [place] # (Auto) Eos # (Auto) Baso # (Auto) Immature Gran # (Auto) PT INR APTT PTT Ratio Sodium Potassium Chloride Carbon Dioxide Anion Gap BUN Creatinine Est Cr Clr Drug Dosing Est GFR ( Amer) Est GFR (Non-Af Amer) BUN/Creatinine Ratio Glucose POC Glucose 266 H 213 H 207 H Lactate Calcium Phosphorus Magnesium Total Bilirubin Direct Bilirubin AST ALT Alkaline Phosphatase Troponin I Total Protein Albumin Procalcitonin 07/04/20 07/04/20 07/04/20 13:59 16:10 19:03 WBC RBC Hgb Hct MCV MCH MCHC RDW Std Deviation RDW Coeff of Stephanie Plt Count MPV Immature Gran % (Auto) Neut % (Auto) Lymph % (Auto) [place] % (Auto) Eos % (Auto) Baso % (Auto) Neut # (Auto) Lymph # (Auto) [place] # (Auto) Eos # (Auto) Baso # (Auto) Immature Gran # (Auto) PT INR APTT PTT Ratio Sodium Potassium Chloride Carbon Dioxide Anion Gap BUN Creatinine Est Cr Clr Drug Dosing Est GFR ( Amer) Est GFR (Non-Af Amer) BUN/Creatinine Ratio Glucose POC Glucose 233 H Lactate Calcium Phosphorus Magnesium Total Bilirubin Direct Bilirubin AST ALT Alkaline Phosphatase Troponin I 21.000 H* 23.800 H* Total Protein Albumin Procalcitonin 07/04/20 07/05/20 07/05/20 20:46 00:22 01:30 WBC RBC Hgb Hct MCV MCH MCHC RDW Std Deviation RDW Coeff of Stephanie Plt Count MPV Immature Gran % (Auto) Neut % (Auto) Lymph % (Auto) [place] % (Auto) Eos % (Auto) Baso % (Auto) Neut # (Auto) Lymph # (Auto) [place] # (Auto) Eos # (Auto) Baso # (Auto) Immature Gran # (Auto) PT INR APTT 101.3 H* 72.6 H* PTT Ratio 3.6 2.6 Sodium Potassium Chloride Carbon Dioxide Anion Gap BUN Creatinine Est Cr Clr Drug Dosing Est GFR ( Amer) Est GFR (Non-Af Amer) BUN/Creatinine Ratio Glucose POC Glucose 253 H Lactate Calcium Phosphorus Magnesium Total Bilirubin Direct Bilirubin AST ALT Alkaline Phosphatase Troponin I Total Protein Albumin Procalcitonin 07/05/20 07/05/20 07/05/20 02:45 04:54 04:54 WBC 13.46 H RBC 3.78 L Hgb 11.7 L Hct 35.2 L MCV 93.1 MCH 31.0 MCHC 33.2 RDW Std Deviation 47.5 H RDW Coeff of Stephanie 13.9 Plt Count 243 MPV 10.4 Immature Gran % (Auto) 0.1 Neut % (Auto) 76.5 Lymph % (Auto) 12.0 [place] % (Auto) 11.3 Eos % (Auto) 0.1 Baso % (Auto) 0.0 Neut # (Auto) 10.29 H Lymph # (Auto) 1.62 [place] # (Auto) 1.52 H Eos # (Auto) 0.01 Baso # (Auto) 0.00 Immature Gran # (Auto) 0.02 PT INR APTT PTT Ratio Sodium 133 L Potassium 4.4 Chloride 100 Carbon Dioxide 25 Anion Gap 8.0 BUN 36 H D Creatinine 2.90 H D Est Cr Clr Drug Dosing 20.6 Est GFR ( Amer) 23.4 Est GFR (Non-Af Amer) 20.2 BUN/Creatinine Ratio 12.5 Glucose 114 H POC Glucose 138 H Lactate Calcium 9.0 Phosphorus 5.0 H Magnesium 2.0 Total Bilirubin 0.5 Direct Bilirubin 0.2 AST 162 H ALT 30 Alkaline Phosphatase 55 Troponin I 26.500 H* Total Protein 6.9 Albumin 3.3 L Procalcitonin 07/05/20 07/05/20 07/05/20 04:54 04:54 04:54 WBC RBC Hgb Hct MCV MCH MCHC RDW Std Deviation RDW Coeff of Stephanie Plt Count MPV Immature Gran % (Auto) Neut % (Auto) Lymph % (Auto) [place] % (Auto) Eos % (Auto) Baso % (Auto) Neut # (Auto) Lymph # (Auto) [place] # (Auto) Eos # (Auto) Baso # (Auto) Immature Gran # (Auto) PT 11.5 INR 1.1 APTT 61.4 H* PTT Ratio 2.2 Sodium Potassium Chloride Carbon Dioxide Anion Gap BUN Creatinine Est Cr Clr Drug Dosing Est GFR ( Amer) Est GFR (Non-Af Amer) BUN/Creatinine Ratio Glucose POC Glucose Lactate 2.2 H* Calcium Phosphorus Magnesium Total Bilirubin Direct Bilirubin AST ALT Alkaline Phosphatase Troponin I Total Protein Albumin Procalcitonin 1.16 H 09/06/20 09/06/20 07:01 07:30 WBC RBC Hgb Hct MCV MCH MCHC RDW Std Deviation RDW Coeff of Stephanie Plt Count MPV Immature Gran % (Auto) Neut % (Auto) Lymph % (Auto) [place] % (Auto) Eos % (Auto) Baso % (Auto) Neut # (Auto) Lymph # (Auto) [place] # (Auto) Eos # (Auto) Baso # (Auto) Immature Gran # (Auto) PT INR APTT 62.9 H* PTT Ratio 2.3 Sodium Potassium Chloride Carbon Dioxide Anion Gap BUN Creatinine Est Cr Clr Drug Dosing Est GFR ( Amer) Est GFR (Non-Af Amer) BUN/Creatinine Ratio Glucose POC Glucose 164 H Lactate Calcium Phosphorus Magnesium Total Bilirubin Direct Bilirubin AST ALT Alkaline Phosphatase Troponin I Total Protein Albumin Procalcitonin Diagnostic Findings Telemetry personally reviewed: Sinus with ventricular pacing. ECG personally reviewed: ECG 07/04/2020 at 1439: Sinus rhythm. Atrial sensed with ventricular pacing. QRS has improved but remains wide. Medications Administered Current Inpatient Medications Acetaminophen (Acetaminophen 325 Mg Tab) 650 mg PO Q4H PRN PRN Reason: Pain or Fever Stop: 08/01/20 06:53 Last Admin: 07/05/20 01:06 Dose: 650 mg Documented by: Ascorbic Acid (Ascorbic Acid 500 Mg Tab) 500 mg PO DAILY BUDDY Stop: 08/01/20 08:59 Last Admin: 07/05/20 08:05 Dose: 500 mg Documented by: Aspirin (Aspirin 81 Mg Ectab) 81 mg PO HS BUDDY Stop: 08/01/20 20:59 Last Admin: 07/04/20 20:39 Dose: 81 mg Documented by: Atorvastatin Calcium (Atorvastatin 40 Mg Tab) 80 mg PO HS BUDDY Stop: 08/01/20 20:59 Last Admin: 07/04/20 20:42 Dose: 80 mg Documented by: Clopidogrel Bisulfate (Clopidogrel Bisulfate 75 Mg Tab) 75 mg PO DAILY BUDDY Stop: 08/01/20 08:59 Last Admin: 07/05/20 08:06 Dose: 75 mg Documented by: Cyanocobalamin (Cyanocobalamin 500 Mcg Tablet (Vitamin B-12)) 1,000 mcg PO DAILY BUDDY Stop: 08/01/20 08:59 Last Admin: 07/05/20 08:04 Dose: 1,000 mcg Documented by: Dextrose (Dextrose 50% 50 Ml Syringe) 25 - 50 ml IV UD PRN; Protocol PRN Reason: Hypoglycemia Protocol Stop: 08/01/20 06:53 Ferrous Sulfate (Ferrous Sulfate 325 Mg Tab) 325 mg PO DAILY [facility] Stop: 08/01/20 08:59 Last Admin: 07/05/20 08:05 Dose: 325 mg Documented by: Finasteride (Finasteride 5 Mg Tab) 5 mg PO HS [facility] Stop: 08/01/20 20:59 Last Admin: 07/04/20 20:42 Dose: 5 mg Documented by: Glucagon (Glucagon For Inj 1 Mg Vial) 1 mg SQ UD PRN; Protocol PRN Reason: Hypoglycemia Protocol Stop: 08/01/20 06:53 Glucose (Glucose 10 Tabs/Tube) 4 - 8 tabs PO UD PRN; Protocol PRN Reason: Hypoglycemia Protocol Stop: 08/01/20 06:53 Glucose (Glucose 40% Gel 15 Gm Tube) 15 - 30 gm PO UD PRN; Protocol PRN Reason: Hypoglycemia Protocol Stop: 08/01/20 06:53 Heparin Sodium/Dextrose (Heparin Sodium/Dextrose) 25,000 units in 500 mls @ 21 mls/hr IV .[id number] [facility]; Protocol Stop: 08/03/20 14:59 Last Titration: 07/05/20 07:40 Dose: 1,050 units/hr, 21 mls/hr Documented by: Dobutamine HCl 500 mg/ (Dextrose) 250 mls @ 6.293 mls/hr IV .Q24H [facility]; Protocol Stop: 08/04/20 03:16 Last Titration: 07/05/20 11:04 Dose: 7.5 mcg/kg/min, 18.9 mls/hr Documented by: Insulin Aspart (Insulin Aspart 100 Units/Ml 3 Ml Pen) 0 units SC ACHS [facility] Stop: 08/01/20 07:29 Last Admin: 07/05/20 08:03 Dose: 4 units Documented by: Insulin Glargine (Insulin Glargine Solostar 100 Units/Ml 3 Ml Pen) 16 units SQ HS [facility] Stop: 08/01/20 20:59 Last Admin: 07/04/20 20:48 Dose: 16 units Documented by: Isosorbide Mononitrate (Isosorbide [place] Extended Rel 60 Mg Tabcr) 240 mg PO DAILY [facility] Stop: 08/01/20 08:59 Last Admin: 07/05/20 08:05 Dose: 240 mg Documented by: Levothyroxine Sodium (Levothyroxine Sodium 100 Mcg Tablet) 100 mcg PO DAILYBB [facility] Stop: 08/01/20 07:14 Last Admin: 07/05/20 05:42 Dose: 100 mcg Documented by: Metoprolol Tartrate (Metoprolol Tartrate 25 Mg Tab) 25 mg PO BID B[facility]DY Stop: 08/03/20 09:44 Last Admin: 07/05/20 08:04 Dose: 25 mg Documented by: Miscellaneous (Carbohydrates For Hypoglycemia ) 15 - 30 gm PO UD PRN PRN Reason: Hypoglycemia Protocol Stop: 08/01/20 06:53 Morphine Sulfate (Morphine Sulfate 2 Mg/Ml Carp) 2 mg IV Q4H PRN PRN Reason: Pain Stop: 07/17/20 20:59 Multivitamins (Multivitamin Tab) 1 tab PO DAILY BUDDY Stop: 08/01/20 08:59 Last Admin: 07/05/20 08:05 Dose: 1 tab Documented by: Multivitamins/Minerals (Calcium 600mg + Vit D 400 Iu Tab) 1 tab PO HS BUDDY Stop: 08/01/20 20:59 Last Admin: 07/04/20 20:39 Dose: 1 tab Documented by: Nitroglycerin (Nitroglycerin Sl 0.4 Mg/Tab Tab) 0.4 mg SL UD PRN PRN Reason: Chest Pain Stop: 08/01/20 06:57 Last Admin: 07/03/20 19:16 Dose: 0.4 mg Documented by: Ondansetron HCl (Ondansetron Inj 2 Mg/Ml 2 Ml Vial) 4 mg IV Q6H PRN PRN Reason: Nausea Stop: 08/01/20 06:53 Last Admin: 07/03/20 19:01 Dose: 4 mg Documented by: Oxycodone HCl (Oxycodone Hcl Ir 5 Mg Tab (Immediate Release)) 5 mg PO Q4 PRN PRN Reason: Pain Stop: 07/17/20 17:19 Last Admin: 07/04/20 07:57 Dose: 5 mg Documented by: Ranolazine (Ranolazine 500 Mg Er Tab) 1,000 mg PO Q12 [facility] Stop: 08/01/20 08:59 Last Admin: 07/05/20 08:05 Dose: 1,000 mg Documented by: Vitamin D (Cholecalciferol 1,000 Units 25 Mcg Tab) 1,000 units PO DAILY [facility] Stop: 08/01/20 08:59 Last Admin: 07/05/20 08:05 Dose: 1,000 units Documented by: PG Care Time/CCT Total # of Minutes Spent Total Time Spent with Patient: Total time spent is greater than 50% in coordination of care (as documented) at patient's floor/unit and/or counseling patient: Critical Care Time: Yes Total Critical Care Time: 130 Greater than 130 minutes critical care time spent including management of his inotropic support, coordination of care, attempt to transfer [place] [facility] and several discussions with family and patient. Coding Level of Care Code None Diagnoses Cardiogenic shock R57.0 Non-ST elevation (NSTEMI) myocardial infarction I21.4 CAD (coronary artery disease) I25.810 Associated angina: angina presence unspecified Coronary Disease-Associated Artery/Lesion type: bypass graft [place] vs. transplanted heart: [place] heart S/P CABG x 4 Z95.1 S/P coronary artery stent placement Z95.5 Chronic systolic heart failure I50.22 Hypertension I10 Hyperlipidemia E78.5 Hypotension I95.9 Cardiomyopathy, ischemic I25.5 Acute on chronic renal failure N17.9; N18.9 Cardiac arrest I46.9 Mobitz I I44.1 Mobitz II I44.1 Additional Codes Critical Care Time - Critical Care Time: Yes ([id number]) Time Spent (min) 130 (1) CAD (coronary artery disease) Associated angina: angina presence unspecified Coronary Disease-Associated Artery/Lesion type: bypass graft [place] vs. transplanted heart: [place] heart Qualified Code(s): I25.810 - Atherosclerosis of coronary artery bypass graft(s) without angina pectoris
[2020-07-05] MEDS ORDERED: DOPamine 400MG / 250ML D5W IV ONE (12:33)
[2020-07-05] MEDS ORDERED: STAT IV Infusion **Titration per Protocol STA (12:38)
[2020-07-05] MEDS ORDERED: DOPAMINE / D5W 400 MG/250 ML BAG IV SCH (12:50)
--- NOTE | 2020-07-05 12:50 | Procedure Note ---
Procedure Note Date of Service Procedure date: July 05, 2020 Procedure: Radial artery cannulation Pre-procedure Diagnosis: Need for invasive monitoring, hypotension/frequent blood draws Post-procedure Diagnosis: same as above Prior to Procedure: Informed Consent: The risks, benefits, indications, potential complications, and alternatives were explained to the patient and informed consent obtained. Attending Staff: Joan Gooden DO Skin Prep: Chlorhexidine Anesthesia: 3 mL 1% lidocaine without epinephrine The identity of the patient was confirmed and a bedside time out was performed. Description of Procedure: After sterile prep and sterile drape utilizing standard sterile technique the superficial skin of the right radial artery was anesthetized. The target artery was identified via dynamic ultrasound guidance and entered with a 20-gauge arrow Angiocath. Pulsatile bright red blood return was noted. Via modified Seldinger technique the self-contained guidewire was advanced and the Angiocath advanced over the guidewire. The guidewire was removed and brisk arterial blood return was noted. The pressure monitor was connected, and the arterial line was secured via commercial securement device. A sterile dressing was then applied. Complications: None Estimated blood loss: Trace Patient tolerated the procedure well.procedure Date: July 05, 2020 Procedure: Procedural Ultrasound Indication: Arterial access for invasive monitoring Attending: Joan Gooden DO Artery visualized: Yes Pulsatility of artery: Yes Artery patent: Yes Line confirmed in artery with ultrasound: Yes Impression: Successful arterial cannulation Images obtained are saved for permanent record Coding CPT Codes Tubes, Drains, and Vasc Access - Tubes, Drains, and Vasc Access: [id number] Place Catheter In Artery ([id number]) Tubes, Drains, and Vasc Access - Tubes, Drains, and Vasc Access: [id number] Ultrasound Guidance For Vascular ([id number]) [facility] Codes (Charges) Tubes, Drains, and Vasc Access Procedure 1: Tubes, Drains, and Vasc Access: [id number] Place Catheter In Artery Procedure 2: Tubes, Drains, and Vasc Access: [id number] Ultrasound Guidance For Vascular
[2020-07-05] MEDS ORDERED: RAPID SEQUENCE INDUCTION BAG ONE (12:56)
[2020-07-05] MEDS ORDERED: fentaNYL citrate 100 MCG/2 ML VIAL IV ONE ×2 (13:00→14:44)
[2020-07-05] MEDS ORDERED: EPINEPHrine (STAT use only) 2 MG in D5W 250 ML IV SCH (13:00)
[2020-07-05] MEDS ORDERED: fentaNYL citrate 100 MCG/2 ML VIAL ONE (13:01)
[2020-07-05] MEDS ORDERED: MIDAZOLAM HCL 1 MG/ML 2ML VIAL ONE (13:01)
[2020-07-05] MEDS ORDERED: NiCARDipine HCL INJ 2.5 MG/ML 10 ML AMP ONE (13:01)
[2020-07-05] MEDS ORDERED: HEPARIN (PORCINE) 1000 UNIT/ML 10 ML (CATH LAB USE ONLY) ONE (13:01)
[2020-07-05] MEDS ORDERED: NITROGLYCERIN/D5W 100MCG/ML 20ML SYR ONE (13:01)
--- NOTE | 2020-07-05 14:02 | Procedure Note ---
Procedure Note Date of Service July 05, 2020 Procedure Date: Noted above Procedure: Endotracheal intubation Pre-procedure Diagnosis: Cardiac arrest CODE BLUE Post-procedure Diagnosis: same as above Prior to Procedure: Informed Consent: emergent Attending Staff: Joan Gooden DO The identity of the patient was confirmed and a bedside time out was performed. Description of Procedure: Patient was evaluated and required intubation for impending respiratory failure. The patient was prepared in the usual fashion. A 4 MAC laryngoscope was used. A 8 mm inner diameter endotrachial tube was placed endotracheally to 23 cm at the gum ridge. A grade 1 view was obtained. The endotracheal tube was noted to pass through the vocal cords. Chest rise was bilateral. Bilateral breath sounds were heard without air sounds in the abdomen. Mist was noted in the endotracheal tube. End-tidal CO2 measurement was positive. Complications: None Findings: Not applicable Specimens: Not applicable Estimated blood loss: Zero Coding CPT Codes Resuscitation - Resuscitation: 01300 Endotracheal Intubation, emergency ([id number]) [facility] Procedure Codes (Charges) Resuscitation Resuscitation: 32692 Endotracheal Intubation, emergency
--- NOTE | 2020-07-05 14:04 | Procedure Note ---
Procedure Note Date of Service July 05, 2020 Procedure date: Noted above Procedure: Central venous access Pre-procedure indication: Need for vasoactive medication administration Post-procedure Diagnosis: same as above Prior to Procedure: Informed Consent: The risks, benefits, indications, potential complications, and alternatives were explained to the patient and informed consent obtained. Attending Staff: Joan Gooden DO Resident/APC: Not applicable Skin Prep: Chlorhexidine Anesthesia: 4 mL 1% lidocaine without epinephrine The identity of the patient was confirmed and a bedside time out was performed. Description of Procedure: After sterile prep and sterile drape utilizing standard sterile technique the superficial skin of the left internal jugular area was anesthetized. The target vessel was identified and entered with an 18- gauge needle. Dark venous blood return was noted. A guidewire was inserted through the needle and into the vessel. The needle was withdrawn and a skin hanh was made. A tissue dilator was advanced via Seldinger technique and removed. A single lumen catheter was inserted via Seldinger technique and the guidewire removed. The port donna and flushed easily. A Biopatch was placed, and the catheter was secured via commercial securement device. A sterile dressing was then applied. Complications: None Estimated blood loss: Trace Patient tolerated the procedure well. Procedure Date: Noted Above Procedure: Procedural Ultrasound Indication: Central venous access Attending: Joan Gooden DO Resident/Physician Bag Shop Worker: Not applicable Artery visualized: Yes Vein visualized: Yes Compressible Vein: Yes Vein patent: Yes Guidewire or Short Catheter seen in vein prior to dilation: Yes Line confirmed in Vein with ultrasound: Yes Lung Sliding on side of attempt (if applicable): NA If no lung sliding or not obtained has CXR been ordered: Yes Impression: Successful central venous access placement Images obtained are saved for permanent record Coding CPT Codes Tubes, Drains, and Vasc Access - Tubes, Drains, and Vasc Access: [id number] Insertion Of Non-tunneled Catheter Age 4 Yrs> ([id number]) Tubes, Drains, and Vasc Access - Tubes, Drains, and Vasc Access: [id number] Ultrasound Guidance For Vascular ([id number]) [facility] [place] Procedure Codes (Charges) Tubes, Drains, and Vasc Access Procedure 1: Tubes, Drains, and Vasc Access: [id number] Insertion Of Non-tunneled Catheter Age 4 Yrs> Procedure 2: Tubes, Drains, and Vasc Access: [id number] Ultrasound Guidance For Vascular
--- NOTE | 2020-07-05 14:07 | Procedure Note ---
Procedure Note Date of Service July 05, 2020 Procedure date: Noted above Procedure: Cardiopulmonary resuscitation Pre-procedure Diagnosis: CODE BLUE, cardiac arrest Post-procedure Diagnosis: same as above Prior to Procedure: Informed Consent: Emergent Attending Staff: Joan Gooden DO Please refer to nursing code flowsheet for further details Description of Procedure: ACS protocols were followed for a pulseless electrical activity. Patient was already receiving intravenous vasoactive medication and his blood pressure continued to decline. Ultimately the patient suffered a cardiac arrest from hypoperfusion and entered pulseless electrical activity. Please refer to the code sheet for further details. Cardiology: Dr. Ni, discussed the events with the family. The patient required mechanical circulatory support to have a perfusing pressure despite supratherapeutic doses of vasoactive medications, he had already discussed with 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 Seeing the extreme unlikelihood that he would survive even a helicopter flight to [facility] and after discussion of his long-term goals about 3 hours proceeding the family decided to stop all resuscitative efforts and the patient with family grieving at the bedside. Complications: Patient would not respond to heroic efforts and ultimately at 1315 Coding CPT Codes Resuscitation - Resuscitation: 70882 Heart/lung resuscitation CPR ([id number]) [facility] [place] Procedure Codes (Charges) Resuscitation Resuscitation: 70913 Heart/lung resuscitation CPR
--- NOTE | 2020-07-05 14:15 | Death Pronouncement Note ---
Date of Service July 05, 2020 Pronouncement Note Admission Date Admission Date: July 02, 2020 Date and Time of Date of : 07/05/20 Time of : 13:15 PCOD Preliminary cause of : Acute congestive heart failure with left ventricular diastolic dysfunction Contributing Factors (1) Cardiogenic shock: (2) Non-ST elevation (NSTEMI) myocardial infarction: (3) CAD (coronary artery disease): (4) S/P CABG x 4: (5) S/P coronary artery stent placement: (6) Chronic systolic heart failure: (7) Hypertension: (8) Hyperlipidemia: (9) Hypotension: (10) Cardiomyopathy, ischemic: (11) Acute on chronic renal failure: (12) Cardiac arrest: (13) Mobitz I: (14) Mobitz II: Summary Additional details: Patient was admitted with a non-ST elevation AL, he not a candidate for revascularization therapy and the patient had a ischemic cardiomyopathy. Our last 24 hours the patient had another anginal events and his ejection fraction reduced further requiring vasoactive medication for circulatory support. Ultimately the patient at 1530 as a consequence of acute congestive heart failure secondary to non-ST elevation AL secondary to coronary artery disease secondary to hyperlipidemia. Additional contributing factors included tobacco use, hypertension. Additional Data Confirmation of : no pulse, no respirations, no heart sounds and pupils fixed and dilated Family: at bedside Attending/PCP notified?: Yes Attending physician: Felix Stubbs MD Was code activated?: Yes Autopsy requested?: No soft work wrapper layer and examiner notified?: Yes Organ bank notified?: Yes Advance directives: Yes Coding Level of Care Code None Diagnoses Cardiogenic shock R57.0 Non-ST elevation (NSTEMI) myocardial infarction I21.4 CAD (coronary artery disease) I25.810 Coronary Disease-Associated Artery/Lesion type: bypass graft [place] vs. transplanted heart: [place] heart Associated angina: angina presence unspecified S/P CABG x 4 Z95.1 S/P coronary artery stent placement Z95.5 Chronic systolic heart failure I50.22 Hypertension I10 Hyperlipidemia E78.5 Hypotension I95.9 Cardiomyopathy, ischemic I25.5 Acute on chronic renal failure N17.9; N18.9 Cardiac arrest I46.9 Mobitz I I44.1 Mobitz II I44.1
--- NOTE | 2020-07-05 15:05 | Discharge Summary ---
Date of Service July 05, 2020 Admission HPI Per Admitting Provider The patient is a 74-year-old male with a past medical history including ischemic cardiomyopathy, Mobitz type I, Mobitz type II, chronic HFrEF, BPH, hyperlipidemia, hypertension, CAD, non-STEMI, diabetes mellitus type 2, hypothyroidism, mitral regurgitation and lumbar stenosis with neurogenic claudication. His CABG was approximately 27 years ago, and he did require interventions via cardiac catheterization on 06/19/2019 and 09/18/2019. He reports that this substernal chest discomfort, with radiation to bilateral shoulder blades, with similar in character to his previous MIs. He did use his nitroglycerin sublingual spray without significant improvement, and he did receive 2 additional sprays from EMS, which did significantly relieve to reduce his pain. In the emergency department, he had Nitropaste placed which caused severe headache after 45 minutes and was removed. He was then placed on heparin infusion with standard concentration and protocol, with bolus to be less than 5000. Principal Diagnosis Cardiogenic shock Discharge Exam Eyes + fixed pupils Respiratory + abnormal respiratory effort Cardiovascular Rate/Rhythm: + abnormal rate (Asystole) Discharge Data Allergies Allergy/AdvReac Type Severity Reaction Status Date / Time No Known Allergies Allergy Verified 07/02/20 04:14 Consultations 07/02/20 04:48 ED Decision to Admit Stat 07/02/20 06:54 Consult Cardiology Routine Consult Case Management - Discharge Planning Routine 07/02/20 10:06 Consult Cardiac Electrophysiology Routine Procedures Performed Operation Date: 07/02/20 13:00 Actual Procedures p Cath, Cors with Grafts (no LV) - Rashad Ni MD s Cineradiography w/Routine Exam - Rashad Ni MD s Drug Eluting Stent Bypass GR - Noam Nye MD Operation Date: 07/03/20 13:30 Actual Procedures s Lead LV (No Priopr Implant) - Noam Rodriguez MD p Pacer with A/V Leads (Dual) - Noam Rodriguez MD Operation Date: 07/05/20 12:55 <No data on this case meets the specified criteria> Ordered Studies 07/02/20 13:48 CL Cath Imgs for PACS use only Stat 07/03/20 15:30 EP Lab Images for PACS ONCE 07/05/20 11:15 US point of care ultrasound Routine US point of care ultrasound Urgent 07/05/20 12:56 CL Cath Imgs for PACS use only Stat Hospital Course (1) Cardiac arrest: Patient was admitted to the ICU overnight for cardiogenic shock. - Went into PEA arrest at approx. 12:45pm. Compressions were begun, epinephrine given. During compressions, the patient was responsive enough to attempt to push people away. Family was present and asked to stop compressions. Without compressions, arterial line showed BP close to 60/40. He became unresponsive and eventually at 1:15pm. (2) Acute coronary syndrome: Status post CABG approximately 27 years ago, with interventions on 06/19/2019 and 09/18/2019. - Presumably ACS, though no culprit lesion seen on cath. The only blockage in the SVG -> PDA graft which appeared chronic on catheterization. - Monitor troponins: Peaked at 18 on 07/02; down to 6.9 today. - Continue ASA/Plavix, Imdur, & Ranexa On 07/03 in the evening, he had worsening chest pain, diaphoresis, and shortness of breath. HR went up to 110 from the 40s prior to pacemaker. This is due to his sinus rate now being conduced appropriately instead of with his AV block slowing the ventricular rate. This unfortunately seems to have a caused a Type 2 NSTEMI. - Restart heparin gtt (now will need to run at least until 07/06). - Continue beta-beny - Attempted to restart Entresto today, but now with low BP. Will give small IV fluid bolus. (3) Mobitz I: Long-standing. - Pacemaker on 07/[address] Rodriguez (4) HFrEF (heart failure with reduced ejection fraction): Echo on 07/02 showed EF 35-40%. Repeat echo on 07/04 now showing 15 - 20%. - Plan as above (5) Cardiomyopathy, ischemic: See above (6) BPH (benign prostatic hyperplasia): No LUTS described for me today. - Continue finasteride (7) Hypertension: BP was 115/70 this morning, now lower today. - Continue cardiac regimen above (8) CAD (coronary artery disease): See above (9) Diabetes mellitus, type 2: A1c was 7.5% this admission. - Hold metformin - Continue Lantus 16 units subcu at bedtime. - Sliding scale insulin - Blood sugars generally a bit high in the last 24 hours. (10) Hypothyroidism: TSH was 1.4 in 02/2020. - Continue levothyroxine 100 mcg p.o. daily (11) Hyperlipidemia: - Increased atorvastatin from 40 to 80 mg daily (12) DVT prophylaxis: Heparin gtt for ACS Total Time Total Time Spent Total Time Spent (In Minutes): 35 Discharge Plan Discharge Items Patient Disposition: Discharge Diagnosis: Cardiogenic shock Addtl Attending Provider Instructions: ACTIVITY RECOMMENDATIONS: It is common to feel weak and fatigue for a few days. * Do not drive or operate any motorized equipment for the next three days. * Limit stair usage (2 or 3 trips a day only) for the next three days. * Do not lift anything heavier than 10 pounds for the next three days. * Do not engage in vigorous exercise or any sports for the next five days. * You may shower the day after your procedure, but do not immerse the area for three days. Cleanse the site gently with soap and water. SPECIAL CARE INSTRUCTIONS: * You may replace the pressure dressing or band-aid the morning after the procedure. * After your procedure, it is normal to have a small bruise or small lump at the site. Examine your site daily for any change in the bruise or lump, redness, swelling, drainage or numbness. Notify your doctor if any change. BLEEDING: * If there is a small amount of bleeding at the site, lie down and apply firm pressure with a clean cloth for ten minutes. When the bleeding stops, lie quietly keeping the procedure limb straight for six hours. Notify your doctor as soon as possible. * If the bleeding does not stop after ten minutes or if there is a large amount of bleeding or spurting, call 911 immediately. Continue to lie down and hold firm pressure until help arrives. SKIN IRRITATION: * You may experience some redness and/or swelling in the area where radiation was administered. If any skin irritation occurs, please contact your family physician. FOLLOW UP VISIT: Keep any scheduled doctor appointments. Coding Level of Care Code D/C Day Management >30 mins Diagnoses Cardiac arrest I46.9 Acute coronary syndrome I24.9 Mobitz I I44.1 HFrEF (heart failure with reduced ejection fraction) I50.20 Cardiomyopathy, ischemic I25.5 BPH (benign prostatic hyperplasia) N40.0 Hypertension I10 CAD (coronary artery disease) I25.810 Coronary Disease-Associated Artery/Lesion type: bypass graft [place] vs. transplanted heart: [place] heart Associated angina: angina presence unspecified Diabetes mellitus, type 2 E11.9 Hypothyroidism E03.9 Hyperlipidemia E78.5 DVT prophylaxis Z29.9
--- NOTE | 2020-07-06 06:18 | Electrocardiogram Report ---
Test Reason : Blood Pressure : / mmHG Vent. Rate : 082 BPM Atrial Rate : 082 BPM P-R Int : 134 ms QRS Dur : 182 ms QT Int : 516 ms P-R-T Axes : 098 139 138 degrees QTc Int : 602 ms Atrial-sensed ventricular-paced rhythm Biventricular pacemaker detected Abnormal ECG When compared with ECG of 03-JUL-2020 19:54, Vent. rate has decreased BY 34 BPM Confirmed by Rashad Ni ([id number]) on 07/06/2020 6:17:37 AM Referred By: REFERRED SELF Confirmed By:Rashad Ni
== END 2020-07-05 14:45 | disposition expired | DRG 243 ==
LOC: ED 03:19 → 2S 05:29 → SUATTDRO 05:29 → 2S 06:55 → 1E 07-05 04:34
PROC: CLB.CCG (2020-07-02 13:00)